=== PATIENT | male | born 1955 | race Hispanic/Latino ===

== ENCOUNTER 2018-04-10 19:13 | Emergency (ER) | payer OTHER ==
[2018-04-10] MEDS ORDERED: PHENYLEPHRINE 0.5% NOSE 15ML NAS ONE (20:51)
--- NOTE | 2018-04-10 22:05 | ER ---
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 Patient aj reports bleeding stopped but then began again when patient blew his nose. Transition of care: patient was not received from another setting of care. Onset of symptoms was April 10, 2018. Risk Assessment: Do you want to hurt yourself or someone else? Patient reports no desire to harm self or others. Initial Sepsis Screen: Does the patient meet any 2 criteria? No. Patient's initial sepsis screen is negative. Does the patient have a suspected source of infection? No. Patient's initial sepsis screen is negative. Care prior to arrival: None. 19:23 Method Of Arrival: Ambulatory 19:23 Acuity: CHLOÉ 2 aj Triage Assessment: 19:26 General: Appears in no apparent distress. comfortable, Behavior is calm, cooperative, aj appropriate for age. Pain: Denies pain. EENT: Nares with bleeding noted Reports nasal discharge that is bloody. Neuro: Level of Consciousness is awake, alert, obeys commands, Oriented to person, place, time, situation, Appropriate for age. Respiratory: Airway is patent Respiratory effort is even, unlabored, Respiratory pattern is regular, symmetrical. Derm: Skin is intact, is healthy with good turgor, Skin is pink, warm \T\ dry. normal. Historical: - Allergies: 19:26 No Known Allergies; aj - Home Meds: 19:26 metformin 500 mg oral tab [Active]; empagliflozin oral oral 1 tab [Active]; aspirin 81 aj mg Oral TbEC 1 tab once daily [Active]; atorvastatin 80 mg oral tab [Active]; clopidogrel 75 mg oral tab 1 tab once daily [Active]; furosemide 40 mg Oral tab 1 tab once daily [Active]; isosorbide mononitrate 30 mg Oral Tb24 1 tab once daily [Active]; potassium chloride 20 mEq Oral TbER 1 tab 2 times per day [Active]; - PMHx: 19:26 GERD; High Cholesterol; WA X 2; aj - PSHx: 19:26 CABG; aj - Immunization history:: Adult Immunizations up to date. - Social history:: Smoking status: Patient/guardian denies using tobacco. - Ebola Screening: : Patient negative for fever greater than or equal to 101.5 degrees Fahrenheit, and additional compatible Ebola Virus Disease symptoms Patient denies exposure to infectious person Patient denies travel to an Ebola-affected area in the 21 days before illness onset No symptoms or risks identified at this time. Screenin:30 Abuse screen: Denies threats or abuse. Nutritional screening: No deficits noted. jb4 Tuberculosis screening: No symptoms or risk factors identified. Fall Risk None identified. Assessment: 20:30 General: Appears in no apparent distress. comfortable, Behavior is calm, cooperative, jb4 appropriate for age. Pain: Denies pain. Neuro: Level of Consciousness is awake, alert, obeys commands, Oriented to person, place, time, situation. Cardiovascular: Denies chest pain, shortness of breath, Patient's skin is warm and dry. Respiratory: Denies shortness of breath labored breathing. GI: No signs and/or symptoms were reported involving the gastrointestinal system. : No signs and/or symptoms were reported regarding the genitourinary system. EENT: No signs and/or symptoms were reported regarding the EENT system. Derm: Skin is intact, Skin is pink, warm \T\ dry. Musculoskeletal: Circulation, motion, and sensation intact. 21:30 Reassessment: Patient appears in no apparent distress at this time. Patient and/or jb4 family updated on plan of care and expected duration. Pain level reassessed. Patient is alert, oriented x 3, equal unlabored respirations, skin warm/dry/pink. 22:20 Reassessment: Patient appears in no apparent distress at this time. Patient and/or jb4 family updated on plan of care and expected duration. Pain level reassessed. Patient is alert, oriented x 3, equal unlabored respirations, skin warm/dry/pink. Discussed D/c, F/u with pt, denies questions or concerns. Vital Signs: 19:26 BP 129 / 73; Pulse 88; Resp 20; Temp 98.1; Pulse Ox 97% on R/A; Weight 107.05 kg; aj Height 5 ft. 4 in. (162.56 cm); 20:30 BP 126 / 64; Pulse 86; Resp 18; Pulse Ox 98% on R/A; jb4 22:15 BP 131 / 84; Pulse 80; Resp 18; Pulse Ox 97% on R/A; jb4 19:26 Body Mass Index 40.51 (107.05 kg, 162.56 cm) ED Course: 19:14 Patient arrived in ED. mr 19:14 HI, [facility] is Private Physician. mr 19:24 Triage completed. aj 19:26 Arm band placed on right wrist. Patient placed in waiting room. aj 20:15 Devin Fritz, RN is Primary Nurse. jb4 20:30 Eric Tejeda MD is Attending Physician. 20:30 Patient has correct armband on for positive identification. Bed in low position. Call jb4 light in reach. Side rails up X 1. Pulse ox on. NIBP on. 22:20 No provider procedures requiring assistance completed. Patient did not have IV access jb4 during this emergency room visit. Administered Medications: No medications were administered Outcome: 22:04 Discharge ordered by . 22:20 Discharged to home ambulatory. jb4 22:20 Condition: stable 22:20 Discharge instructions given to patient, Instructed on discharge instructions, follow up and referral plans. Demonstrated understanding of instructions, follow-up care. 22:42 Patient left the ED. jb4 Signatures: Yelena Cohn RN RN aj Rivera, Mary mr Devin Fritz, RN Eric Boothe MD MD
--- NOTE | 2018-04-10 22:05 | EDPHYS ---
Physician Documentation [facility] Name: Bowen Laureano Age: 62 yrs Sex: Male : 1955 Arrival Date: 04/10/2018 Time: 19:14 Bed 15 Private MD: JADE, CT ED Physician Eric Tejeda HPI: 04/10 22:01 This 62 yrs old Male presents to ER via Ambulatory with complaints of Nose gs Bleed. 22:01 The patient presents with a nose bleed. Onset: The symptoms/episode began/occurred gs today. Modifying factors: The symptoms are alleviated by nothing. the symptoms are aggravated by nothing. Associated signs and symptoms: Loss of consciousness: the patient experienced no loss of consciousness, Pertinent negatives: blurred vision, chest pain, cough, shortness of breath. Severity of symptoms: At their worst the symptoms were moderate in the emergency department the symptoms are unchanged. The patient has experienced similar episodes in the past, a few times. Historical: - Allergies: 19:26 No Known Allergies; aj - Home Meds: 19:26 metformin 500 mg oral tab [Active]; empagliflozin oral oral 1 tab [Active]; aspirin 81 aj mg Oral TbEC 1 tab once daily [Active]; atorvastatin 80 mg oral tab [Active]; clopidogrel 75 mg oral tab 1 tab once daily [Active]; furosemide 40 mg Oral tab 1 tab once daily [Active]; isosorbide mononitrate 30 mg Oral Tb24 1 tab once daily [Active]; potassium chloride 20 mEq Oral TbER 1 tab 2 times per day [Active]; - PMHx: 19:26 GERD; High Cholesterol; ID X 2; aj - PSHx: 19:26 CABG; aj - Immunization history:: Adult Immunizations up to date. - Social history:: Smoking status: Patient/guardian denies using tobacco. - Ebola Screening: : Patient negative for fever greater than or equal to 101.5 degrees Fahrenheit, and additional compatible Ebola Virus Disease symptoms Patient denies exposure to infectious person Patient denies travel to an Ebola-affected area in the 21 days before illness onset No symptoms or risks identified at this time. ROS: 22:01 All other systems are negative. gs Exam: 22:01 Cardiovascular: Regular rate and rhythm with a normal S1 and S2. No gallops, murmurs, gs or rubs. Normal PMI, no JVD. No pulse deficits. Respiratory: Lungs have equal breath sounds bilaterally, clear to auscultation and percussion. No rales, rhonchi or wheezes noted. No increased work of breathing, no retractions or nasal flaring. Abdomen/GI: Soft, non-tender, with normal bowel sounds. No distension or tympany. No guarding or rebound. No evidence of tenderness throughout. Skin: Warm, dry with normal turgor. Normal color with no rashes, no lesions, and no evidence of cellulitis. MS/ Extremity: Pulses equal, no cyanosis. Neurovascular intact. Full, normal range of motion. Neuro: Awake and alert, GCS 15, oriented to person, place, time, and situation. Cranial nerves II-XII grossly intact. Motor strength 5/5 in all extremities. Sensory grossly intact. Cerebellar exam normal. Normal gait. 22:01 Constitutional: The patient appears alert, awake. 22:01 ENT: Nose: bleeding, is seen from the right nare, and is moderate. Vital Signs: 19:26 BP 129 / 73; Pulse 88; Resp 20; Temp 98.1; Pulse Ox 97% on R/A; Weight 107.05 kg; aj Height 5 ft. 4 in. (162.56 cm); 20:30 BP 126 / 64; Pulse 86; Resp 18; Pulse Ox 98% on R/A; jb4 22:15 BP 131 / 84; Pulse 80; Resp 18; Pulse Ox 97% on R/A; jb4 19:26 Body Mass Index 40.51 (107.05 kg, 162.56 cm) Procedures: 22:01 Epistaxis treatment: A moderate amount of bleeding noted from Treated using Oxymetazoline sprays, direct pressure, Bleeding stopped. MDM: 20:39 Patient medically screened. 22:01 Data reviewed: vital signs, nurses notes. Counseling: I had a detailed discussion with the patient and/or guardian regarding: the historical points, exam findings, and any diagnostic results supporting the discharge/admit diagnosis. Administered Medications: No medications were administered Disposition: 04/10/18 22:04 Discharged to Home. Impression: Epistaxis. - Condition is Stable. - Discharge Instructions: Nosebleed, Adult. - Medication Reconciliation Form, Thank You Letter, Antibiotic Education, Prescription Opioid Use form. - Follow up: Private Physician; When: 2 - 3 days; Reason: Re-evaluation by your physician. Signatures: Yelena Cohn RN RN aj Devin Fritz RN RN jb4 Eric Tejeda MD MD gs Corrections: (The following items were deleted from the chart) 22:42 22:04 04/10/2018 22:04 Discharged to Home. Impression: Epistaxis. Condition is Stable. jb4 Forms are Medication Reconciliation Form, Thank You Letter, Antibiotic Education, Prescription Opioid Use. Follow up: Private Physician; When: 2 - 3 days; Reason: Re-evaluation by your physician. gs
== END 2018-04-10 22:42 | disposition home or self-care (01) ==
LOC: ER 19:13
DX: R04.0 Epistaxis (principal); E78.00 Pure hypercholesterolemia, unspecified; I25.2 Old myocardial infarction; Z79.82 Long term (current) use of aspirin
CPT/HCPCS: 30901; 99283

== ENCOUNTER 2019-12-16 10:06 | Observation (INO) | payer OTHER ==
[2019-12-16] MEDS ORDERED: dexAMETHasone 10 MG/ML VIAL ONE (11:59)
[2019-12-16 12:33] LABS: Absolute Lymphocytes (CBC) 0.8 K/uL (0.7-4.9); Basophils % 0.2 % (0-1.3); Hematocrit 52.3 % (39.6-49.0); Lymphocytes % 15.6 % (15.3-44.8); MPV 10.6 fL (7.6-11.3); RBC Red Blood Cell Count 5.84 M/uL (4.33-5.43)
[2019-12-16 12:41] LABS: Protime INR 1.05
--- NOTE | 2019-12-16 12:47 | RAD REPORT ---
EXAM DESCRIPTION: RAD - Chest Single View - 12/16/2019 12:01 pm CLINICAL HISTORY: DYSPNEACOVID positive, shortness of breath COMPARISON: Portable September 2015 TECHNIQUE: AP portable chest image was obtained 12/16/2019 12:01 pm . FINDINGS: Lungs are underinflated. Hazy opacification present in the mid and lower left lung field n ew from prior imaging. Minimal opacification in the medial right base. Much of this is due to shallow inspiration. Failure and volume overload are not suspected. Sternotomy wires are in place. Heart siz e within normal limits for shallow inspiration. No measurable pleural effusion and no pneumothorax. N o acute bony abnormality seen. No acute aortic findings suspected. IMPRESSION: Limited shallow inspiration examination showing hazy opacification in the mid and lower left lung field and medial right base. Given the positive COVID test, chest findings are consistent with a COVID-19 pneumonia.
--- OUTSIDE RECORDS SUMMARY | 2019-12-16 12:47 | XMS REPORT | Summary of Care ---
:1955 Author Organization [facility] - Health Address [address] [place] [address] Care Team Providers Name Role Phone Pcp, Patient Does Not Have A Primary Care Provider +[id number] Encounter Details Date Type Department Care Team Description 12/14/2019 Letter (Out) [facility] MyChart Message s Doctor Unassigned, No [address] [facility] [place] [address] [address] [facility] [phone] [place] [address] Allergies Not on Filedocumented as of this encounter (statuses as of 12/14/2019) Medications Not on filedocumented as of this encounter (statuses as of 12/14/2019) Active Problems Not on filedocumented as of this encounter (statuses as of 12/14/2019) Social History Tobacco Use Types Packs/Day Years Used Date Never Assessed Sex Assigned at Date Recorded Not on file Job Start Date Occupation Industry Not on file Not on file Not on file Travel History Travel Start Travel End No recent travel history available. documented as of this encounter Last Filed Vital Signs Not on filedocumented in this encounter Plan of Treatment Date Type Specialty Care Team Description 12/14/2019 Urgent Care Family Medicine Ольга Leonardo, [place] [address] [address] Arrived Pob1, Acute Care Clinic Health Maintenance Due Date Last Done Comments HEPATITIS C (HCV) SCREEN 1955 DTaP,Tdap,and Td Vaccines (1 - 1965 Tdap) Depression Screening 1966 COLONOSCOPY 2004 Zoster Recombinant Vaccine 2004 (SHINGRIX) (1 of 2) INFLUENZA VACCINE (#1) 2020 PNEUMOCOCCAL 0-64 YEARS COMBINED Aged Out No longer eligible based on SERIES patient's age to complete this topic documented as of this encounter Results Not on filedocumented in this encounter Insurance Payer Benefit Plan / Subscriber ID Effective Phone Address T e Group Dates [employer] [id number] Effective for HMO/P PO/ ADMINISTRATION ADMINISTRATION all dates POS documented as of this encounter
--- OUTSIDE RECORDS SUMMARY | 2019-12-16 12:47 | XMS REPORT | Continuity of Care Document ---
:1955 Author Organization [facility] t Address 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 Allergies, Adverse Reactions, Alerts This patient has no known allergies or adverse reactions. Medications This patient has no known medications. Procedures This patient has no known procedures. Encounters Start End Encounter Admission Attending Care Care Encounter Source Date/Time Date/Time Type Type Clinicians Facility Department ID 2019-12-15 2019-12-15 Telephone RENARD Cyr [id number] 00:00:00 00:00:00 Anay COLLAZO [id number] [place] [id number] 2019-12-14 2019-12-14 Urgent Pob1, Acute [facility] [id number] 13:50:36 14:10:36 [facility] [id number] [place] [id number] [place] [phone] [address] 2019-12-14 2019-12-14 Letter Doctor RENARD [id number] 00:00:00 00:00:00 (Out) ZAY Sanchez [id number] [place] [id number] Results This patient has no known results.
--- OUTSIDE RECORDS SUMMARY | 2019-12-16 12:48 | XMS REPORT | Summary of Care ---
:1955 Author Organization [facility] - [facility] Address [address] [place] [id number] Care Team Providers Name Role Phone Pcp, Patient Does Not Have A Primary Care Provider +[id number] 0-0000 Reason for Visit Reason Comments Diarrhea Body Aches Encounter Details Date Type Department Care Team Description 12/14/2019 Urgent Care [facility] Phuc Leonardo FNP [facility] [id number] [place] [id number] Diarrhea, unspecified type (Primary Dx); [facility], Acute Care Clinic Body aches; [address] [place] [address] Exposure t o Covid[place] [place] [address] Allergies No Known Allergiesdocumented as of this encounter (statuses as of 12/14/2019) Medications Medication Sig Dispensed Refills Start Date End Date Status aspirin 81 mg EC CHEW ONE TABLET BY 0 Active tablet MOUTH DAILY atorvastatin 80 mg TAKE ONE TABLET BY 0 Active tablet MOUTH DAILY FOR CHOLESTEROL clopidogreL 75 mg TAKE ONE TABLET BY 0 Active tablet MOUTH DAILY TO PREVENT BLOOD CLOTS Cyanocobalamin 1,000 TAKE ONE TABLET BY 0 Active mcg tablet MOUTH DAILY FOR ANEMIA empagliflozin 25 mg TAKE ONE-HALF 0 Active Tab TABLET BY MOUTH DAILY docosahexanoic TAKE 800MG BY 0 A ctive acid/epa (FISH OIL MOUTH DAILY ORAL) GARLIC ORAL TAKE ONE TABLET BY 0 Active MOUTH DAILY glipiZIDE 10 mg tablet TAKE ONE TABLET BY 0 Active MOUTH TWICE A DAY FOR DIABETES 30 MINUTES BEFORE THE FIRST MEAL OF THE DAY AND BEFORE ANOTHER MAIN MEAL isosorbide dinitrate TAKE ONE TABLET BY 0 Active 30 mg tablet MOUTH DAILY TO PREVENT CHEST PAIN. *DO NOT CRUSH* latanoprost 0.005 % INSTILL 1 DROP IN 0 Active ophthalmic drops BOTH EYES EVERY EVENING lisinopril 10 mg TAKE ONE TABLET BY 0 Active tablet MOUTH DAILY FOR HEART/ BLOOD PRESSURE metFORMIN 500 mg TAKE TWO TABLETS 0 Active tablet BY MOUTH TWICE A DAY FOR DIABETES *DO NOT CRUSH* metoprolol succinate TAKE ONE-HALF 0 Active 100 mg CSpX TABLET BY MOUTH TWICE A DAY FOR HEART/BLOOD PRESSURE. *DO NOT CRUSH* multivit with TAKE BY MOUTH 0 A ctive iron,minerals DAILY (MULTIVITAMIN AND MINERALS ORAL) documented as of this encounter (statuses as of 12/14/2019) Active Problems No known active problemsdocumented as of this encounter (statuses as of 12/14/2019) Social History Tobacco Use Types Packs/Day Years Used Date Never Smoker Smokeless Tobacco: Never Used Sex Assigned at Date Recorded Not on file Job Start Date Occupation Industry Not on file Not on file Not on file Travel History Travel Start Travel End No recent travel history available. documented as of this encounter Last Filed Vital Signs Vital Sign Reading Time Taken Comments Blood Pressure 98/62 12/14/2019 2:03 PM CDT Pulse 88 12/14/2019 2:03 PM CDT Temperature 37.7 C (99.9 F) 12/14/2019 2:03 PM CDT Respiratory Rate 16 12/14/2019 2:03 PM CDT Oxygen Saturation 96% 12/14/2019 2:03 PM CDT Inhaled Oxygen Concentration - - Weight 89.4 kg (197 lb) 12/14/2019 2:03 PM CDT Height 162.6 cm (5' 4") 12/14/2019 2:03 PM CDT Body Mass Index 33.81 12/14/2019 2:03 PM CDT documented in this encounter Patient Instructions Patient InstructionsAnay Cyr FNP - 12/14/2019 2:00 PM CDT 1. Diarrhea, unspecified type 2. Body aches 3. Exposure to Covid-19 Virus - COVID-19 (PCR MOLECULAR TESTING); Future - COVID-19 (PCR MOLECULAR TESTING) - Quarantine until your COVID results are back Criteria met - Covid testing - pending. This test can take 2-3 days to be resulted. While the test is pending...Please socially isolate your self - do not go out to stores or out in public. We will contact you once we have the results. If you are negative - continue with symptomatic treatment. (see below) Patients who have positive results will be contacted by the health department to enforce quarantine measures and for additional community contact tracing. The Infection Control Department will also undertake evaluation of exposures in our healthcare facility. If symptoms worsen - please call your Primary Care Doctor - do not go into the clinic. Call first. Educated on the following at home care: - Discussed likely viral diagnosis and treatment plan with pt. - pt advised on frequent effective handwashing - pt advised to increase fluid intake , stay hydrated and get plenty of rest. - advised to have the pt take OTC to treat symptoms. - Pt advised to administer Tylenol as per label recommendation as needed for pain or fever - Cover mouth when coughing, wear mask - Stay in your own bedroom and use a separate bathroom - Keep at least 6 feet from you and others - Avoid sharing personal household items, dishes, glasses, cups, towels -Clean high traffic/touch areas daily. These include but not limited to: doorknobs, refrigerator/cabinet handles, phones, keyboards, tablets, light switches. - AVS and Written/handout materials appropriate to problem and teaching provided. - advised to go to the nearest Emergency Department sooner for any new, worsening, persistent, or concerning symptoms - Patient verbalized understanding of all instructions - Follow-up with PCP as needed, if no improvement EDUCATION: Handouts given: Patient educated on plan of care for visit, swabbing technique,risks and benefits of test and lengthof time to receive results. Verbal consent obtained to perform test. CDC Fact Sheet for patients nCoV Diagnostic Panel dated 08/10/2019 provided. "What to do if you are sick with COVID-19" CDC information guide reviewed with the patient and handout given to patient Education given to self quarantine until results are back. Will notify patient with results. Patient states understanding and all questions answered. Plan of care, goals and medications discussed with patient. Patient voices understanding. Barriers to care: none Ability to manage care: good FOLLOW UP: Pt advised to call 911 or go to the nearest Emergency Department sooner for any worsening, persistent, or concerning symptoms ER precautions given Plan of care, desired health behaviors, goals, and medication discussed with patient. Education resources provided and reviewed with AVS. Patient/guardian/family verbalized understanding & agrees to plan of care. If applicable, the [facility] database was accessed to review any controlled substance prescription claims data. The [employer] prescription claims data in [place] was reviewed to assess patient compliance with the medication treatment plan. Urgent Care precautions and follow up : 1. Return to clinic if your symptoms should worsen or fail to improve within 72 hours. 2. The care provided in the urgent care was for acute problems only. 3. You should follow up with your primary care provider within 72 hours. 4. Make sure you are staying adequately hydrated. MAY FOLLOW-UP WITH A PROVIDER OF YOUR CHOICE, SUCH : 1. A PHYSICIAN OF YOUR CHOICE OR, IF YOU WISH TO FOLLOW-UP WITHIN THE [facility], MAY TRY THESE OPTIONS (CLINIC APPOINTMENTS AVAILABLE ON OGQV-LY-CLAU BASIS): 1. SCHEDULE AN APPOINTMENT ONLINE AT WWW.[facility] 2. OR CALL THE [facility] ACCESS CENTER AT OR 3. OR CALL YOUR [facility] PHYSICIAN'S OFFICE DIRECTLY IF YOU ARE ALREADY AN ESTABLISHED [facility] PATIENT. After hours care nurse access center available by calling [phone] 24 hours 7 days per week. [facility] documented in this encounter Progress Notes Anay Cyr FNP - 12/14/2019 2:00 PM CDT Cc: Chief Complaint Patient presents with Diarrhea Body Aches Bowen Laureano is a 63 year old male presents with concern for body aches and diarrhea. He started about 2 days ago with body aches and diarrhea. Diarrhea improving. He's taking zinc, vitamin c and Tylenol. Denies any fever, chills or sob. Eating/drinking okay. Positive covid contacts. URI Presenting symptoms: congestion, cough, fatigue and rhinorrhea Presenting symptoms: no ear pain, no facial pain, no fever and no sore throat Congestion: Location: Nasal Interferes with sleep: no Interferes with eating/drinking: no Fatigue: Severity: Mild Duration: 2 days Timing: Intermittent Progression: Unchanged Severity: Mild Onset quality: Gradual Duration: 2 days Timing: Intermittent Progression: Unchanged Chronicity: New Relieved by: None tried Worsened by: Nothing Ineffective treatments: None tried Associated symptoms: myalgias and sneezing Associated symptoms: no arthralgias, no headaches, no neck pain, no sinus pain, no swollen glands and no wheezing Risk factors: being elderly, chronic cardiac disease, diabetes mellitus and sick contacts Risk factors: no immunosuppression, no recent illness and no recent travel Allergies Bowen has No Known Allergies. Medications Outpatient Medications Prior to Visit Medication Sig Dispense Refill aspirin 81 mg EC tablet CHEW ONE TABLET BY MOUTH DAILY atorvastatin 80 mg tablet TAKE ONE TABLET BY MOUTH DAILY FOR CHOLESTEROL clopidogreL 75 mg tablet TAKE ONE TABLET BY MOUTH DAILY TO PREVENT BLOOD CLOTS Cyanocobalamin 1,000 mcg tablet TAKE ONE TABLET BY MOUTH DAILY FOR ANEMIA docosahexanoic acid/epa (FISH OIL ORAL) TAKE 800MG BY MOUTH DAILY empagliflozin 25 mg Tab TAKE ONE-HALF TABLET BY MOUTH DAILY GARLIC ORAL TAKE ONE TABLET BY MOUTH DAILY glipiZIDE 10 mg tablet TAKE ONE TABLET BY MOUTH TWICE A DAY FOR DIABETES 30 MINUTES BEFORE THE FIRST MEAL OF THE DAY AND BEFORE ANOTHER MAIN MEAL isosorbide dinitrate 30 mg tablet TAKE ONE TABLET BY MOUTH DAILY TO PREVENT CHEST PAIN. *DO NOT CRUSH* latanoprost 0.005 % ophthalmic drops INSTILL 1 DROP IN BOTH EYES EVERY EVENING lisinopril 10 mg tablet TAKE ONE TABLET BY MOUTH DAILY FOR HEART/ BLOOD PRESSURE metFORMIN 500 mg tablet TAKE TWO TABLETS BY MOUTH TWICE A DAY FOR DIABETES *DO NOT CRUSH* metoprolol succinate 100 mg CSpX TAKE ONE-HALF TABLET BY MOUTH TWICE A DAY FOR HEART/BLOOD PRESSURE. *DO NOT CRUSH* multivit with iron,minerals (MULTIVITAMIN AND MINERALS ORAL) TAKE BY MOUTH DAILY No facility-administered medications prior to visit. Histories Past Medical History: Diagnosis Date Diabetes mellitus Hyperlipidemia Hypertension No past surgical history on file. Social History Socioeconomic History Marital status: Single Spouse name: Not on file Number of children: Not on file Years of education: Not on file Highest education level: Not on file Occupational History Not on file Social Needs Financial resource strain: Not on file Food insecurity: Worry: Not on file Inability: Not on file Transportation needs: Medical: Not on file Non-medical: Not on file Tobacco Use Smoking status: Never Smoker Smokeless tobacco: Never Used Substance and Sexual Activity Alcohol use: Not on file Drug use: Not on file Sexual activity: Not on file Lifestyle Physical activity: Days per week: Not on file Minutes per session: Not on file Stress: Not on file Relationships Social connections: Talks on phone: Not on file Gets together: Not on file Attends gnosticist service: Not on file Active member of club or organization: Not on file Attends meetings of clubs or organizations: Not on file Relationship status: Not on file Intimate partner violence: Fear of current or ex partner: Not on file Emotionally abused: Not on file Physically abused: Not on file Forced sexual activity: Not on file Other Topics Concern Not on file Social History Narrative Not on file No family history on file. Review of Systems Constitutional: Positive for activity change, appetite change and fatigue. Negative for fever. HENT: Positive for congestion, rhinorrhea and sneezing. Negative for ear pain, sinus pain and sore throat. Respiratory: Positive for cough. Negative for shortness of breath, wheezing and stridor. Gastrointestinal: Positive for diarrhea. Negative for nausea and vomiting. Musculoskeletal: Positive for myalgias. Negative for arthralgias and neck pain. Skin: Negative for rash. Neurological: Negative for dizziness, weakness and headaches. All other systems reviewed and are negative. Vital Signs BP 98/62 (BP Location: Left arm, Patient Position: Sitting, BP CUFF SIZE: Adult Medium) | Pulse 88| Temp 37.7 C (99.9 F) (Oral) | Resp 16 | Ht 5' 4" (1.626 m) | Wt 197 lb (89.4 kg) | SpO2 96% | BMI 33.81 kg/m Physical Exam Constitutional: He is oriented to person, place, and time. He appears well- developed and well-nourished. HENT: Head: Normocephalic and atraumatic. Right Ear: Tympanic membrane, external ear and ear canal normal. Left Ear: Tympanic membrane, external ear and ear canal normal. Nose: Mucosal edema present. No sinus tenderness. Mouth/Throat: Uvula is midline, oropharynx is clear and moist and mucous membranes are normal. Tonsils are 1+ on the right. Tonsils are 1+ on the left. Eyes: Conjunctivae are normal. Neck: Normal range of motion. Neck supple. Cardiovascular: Normal rate, regular rhythm and normal heart sounds. Exam reveals no gallop and no friction rub. No murmur heard. Pulmonary/Chest: Effort normal and breath sounds normal. No respiratory distress. He has no wheezes.He has no rales. Abdominal: Soft. Normal appearance and bowel sounds are normal. He exhibits no distension. There is no tenderness. There is no rigidity, no rebound, no guarding and no CVA tenderness. Musculoskeletal: Normal range of motion. Neurological: He is alert and oriented to person, place, and time. Skin: Skin is warm and dry. Psychiatric: He has a normal mood and affect. His behavior is normal. Nursing note and vitals reviewed. Assessment/Plan Bowen Laureano is a 63 year old male presents with concern for body aches and diarrhea. 1. Diarrhea, unspecified type 2. Body aches 3. Exposure to Covid-19 Virus - COVID-19 (PCR MOLECULAR TESTING); Future - COVID-19 (PCR MOLECULAR TESTING) - Quarantine until your COVID results are back Criteria met - Covid testing - pending. This test can take 2-3 days to be resulted. While the test is pending...Please socially isolate your self - do not go out to stores or out in public. We will contact you once we have the results. If you are negative - continue with symptomatic treatment. (see below) Patients who have positive results will be contacted by the health department to enforce quarantine measures and for additional community contact tracing. The Infection Control Department will also undertake evaluation of exposures in our healthcare facility. If symptoms worsen - please call your Primary Care Doctor - do not go into the clinic. Call first. Educated on the following at home care: - Discussed likely viral diagnosis and treatment plan with pt. - pt advised on frequent effective handwashing - pt advised to increase fluid intake , stay hydrated and get plenty of rest. - advised to have the pt take OTC to treat symptoms. - Pt advised to administer Tylenol as per label recommendation as needed for pain or fever - Cover mouth when coughing, wear mask - Stay in your own bedroom and use a separate bathroom - Keep at least 6 feet from you and others - Avoid sharing personal household items, dishes, glasses, cups, towels -Clean high traffic/touch areas daily. These include but not limited to: doorknobs, refrigerator/cabinet handles, phones, keyboards, tablets, light switches. - AVS and Written/handout materials appropriate to problem and teaching provided. - advised to go to the nearest Emergency Department sooner for any new, worsening, persistent, or concerning symptoms - Patient verbalized understanding of all instructions - Follow-up with PCP as needed, if no improvement EDUCATION: Handouts given: Patient educated on plan of care for visit, swabbing technique,risks and benefits of test and lengthof time to receive results. Verbal consent obtained to perform test. CDC Fact Sheet for patients nCoV Diagnostic Panel dated 08/10/2019 provided. "What to do if you are sick with COVID-19" CDC information guide reviewed with the patient and handout given to patient Education given to self quarantine until results are back. Will notify patient with results. Patient states understanding and all questions answered. Plan of care, goals and medications discussed with patient. Patient voices understanding. Barriers to care: none Ability to manage care: good FOLLOW UP: Pt advised to call 911 or go to the nearest Emergency Department sooner for any worsening, persistent, or concerning symptoms ER precautions given Plan of care, desired health behaviors, goals, and medication discussed with patient. Education resources provided and reviewed with AVS. Patient/guardian/family verbalized understanding & agrees to plan of care. If applicable, the [place] [employer] database was accessed to review any controlled substance prescription claims data. The [employer] prescription claims data in [place] was reviewed to assess patient compliance with the medication treatment plan. Urgent Care precautions and follow up : 1. Return to clinic if your symptoms should worsen or fail to improve within 72 hours. 2. The care provided in the urgent care was for acute problems only. 3. You should follow up with your primary care provider within 72 hours. 4. Make sure you are staying adequately hydrated. MAY FOLLOW-UP WITH A PROVIDER OF YOUR CHOICE, SUCH : 1. A PHYSICIAN OF YOUR CHOICE OR, IF YOU WISH TO FOLLOW-UP WITHIN THE [facility], MAY TRY THESE OPTIONS (CLINIC APPOINTMENTS AVAILABLE ON [id number]-BOGB BASIS): 1. SCHEDULE AN APPOINTMENT ONLINE AT WWW.[facility] 2. OR CALL THE [facility] ACCESS CENTER AT OR 3. OR CALL YOUR [facility] PHYSICIAN'S OFFICE DIRECTLY IF YOU ARE ALREADY AN ESTABLISHED [facility] PATIENT. After hours care nurse access center available by calling [phone] 24 hours 7 days per week. [facility]ME[facility] documented in this encounter Plan of Treatment Name Type Priority Associated Diagnoses Order S chedule COVID-19 (PCR MOLECULAR LAB Routine Exposure to Covid -19 Expected: 12/14/2019, TESTING) Virus Expires: 2020 Health Maintenance Due Date Last Done Comments [...] Results Not on filedocumented in this encounter Visit Diagnoses Diagnosis Diarrhea, unspecified type - Primary Body aches Generalized pain Exposure to Covid-19 Virus documented in this encounter Additional Health Concerns Infection Onset Date Last Indicated Resolved Time COVID-19 Rule Out 12/14/2019 12/14/2019 documented as of this encounter
--- OUTSIDE RECORDS SUMMARY | 2019-12-16 12:48 | XMS REPORT | Summary of Care ---
:1955 Author Organization [facility] Address [address] [place] [address] Care Team Providers Name Role Phone Pcp, Patient Does Not Have A Primary Care Provider +1-000-00 0-0000 Reason for Visit Reason Comments Lab Results covid Encounter Details Date Type Department Care Team Description 12/15/2019 Telephone ACCESS CENTER Anay Cyr FNP Lab Results (covid) [id number] [phone] [address] [place], [place] [address] [phone] Allergies No Known Allergiesdocumented as of this encounter (statuses as of 12/15/2019) Medications Medication Sig Dispensed Refills Start Date [...] as of this encounter (statuses as of 12/15/2019) Active Problems No known active problemsdocumented as of this encounter (statuses as of 12/15/2019) Social History Tobacco Use Types Packs/Day Years [...] filedocumented in this encounter Plan of Treatment Health Maintenance Due Date Last Done Comments HEPATITIS C (HCV) SCREEN 1955 DTaP,Tdap,and Td Vaccines 1965 (1 - Tdap) Depression Screening 1966 COLONOSCOPY 2004 Zoster Recombinant Vaccine 2004 (SHINGRIX) (1 of 2) INFLUENZA VACCINE (#1) 2020 02/27/2019, 03/01/2018, 03/02/2017, Additional history exists PNEUMOCOCCAL 0-64 YEARS Aged Out No longe r eligible COMBINED SERIES based on patient 's age to complete this topic documented as of this encounter Results Not on filedocumented in this encounter Additional Health Concerns Infection Onset Date Last Indicated Resolved Time COVID-19 Rule Out 12/14/2019 12/14/2019 12/15/2019 2: 51 PM CDT COVID-19 Confirmed 12/14/2019 12/14/2019 documented as of this encounter Insurance Payer Benefit Plan / Subscriber ID Effective Phone Address T ype Group Dates [employer] [id number] Effective for HMO/P PO/ ADMINISTRATION ADMINISTRATION all dates POS documented as of this encounter
[2019-12-16 13:04] LABS: Blood Morphology Comment NOT SEEN (NOT SEEN); Platelet Estimate DECR; Platelets, Giant FEW
--- NOTE | 2019-12-16 13:04 | ER ---
[facility] Name: Bowen Laureano Age: 63 yrs Sex: Male : 1955 Arrival Date: 12/16/2019 Time: 10:08 Bed 6 Private MD: Diagnosis: Pneumonia, unspecified organism;Hypoxemia;Dyspnea Presentation: 12/15 10:18 Chief complaint: Patient states: Covid-19 positive. SOB at rest x 4 days, worse today. ca1 Shaking, dry cough. Coronavirus screen: Patient reports a cough. Patient reports shortness of breath or difficulty breathing. Patient denies measured and/or subjective temperature greater than 100.4F prior to today's visit. Patient denies travel on a cruise ship or to a country the [facility] currently lists as an affected area. Patient reports contact with known and/or suspected case of COVID-19. Patient instructed to continue to wear a mask when interacting with others. Patient moved to private room, placed in contact and droplet isolation with eye protection until further assessment. [id number]. Ebola Screen: Patient negative for fever greater than or equal to 101.5 degrees Fahrenheit, and additional compatible Ebola Virus Disease symptoms Patient denies exposure to infectious person. Patient denies travel to an Ebola-affected area in the 21 days before illness onset. No symptoms or risks identified at this time. Initial Sepsis Screen: Does the patient meet any 2 criteria? No. Patient's initial sepsis screen is negative. Does the patient have a suspected source of infection? No. Patient's initial sepsis screen is negative. Risk Assessment: Do you want to hurt yourself or someone else? Patient reports no desire to harm self or others. Onset of symptoms was December 16, 2019. 10:18 Method Of Arrival: Ambulatory ca1 10:18 Acuity: CHLOÉ 3 ca1 Historical: - Allergies: 10:23 No Known Allergies; ca1 - Home Meds: 16:27 aspirin 81 mg Oral TbEC 1 tab once daily [Active]; atorvastatin 80 mg Oral tab jr10 [Active]; clopidogrel 75 mg Oral tab 1 tab once daily [Active]; empagliflozin Oral 1 tab [Active]; furosemide 40 mg Oral tab 1 tab once daily [Active]; isosorbide mononitrate 30 mg Oral Tb24 1 tab once daily [Active]; metformin 500 mg Oral tab [Active]; potassium chloride 20 mEq Oral TbER 1 tab 2 times per day [Active]; - PMHx: 10:23 GERD; High Cholesterol; [place] X 2; ca1 16:27 Diabetes - NIDDM; jr10 - PSHx: 10:23 CABG; ca1 - Immunization history:: Adult Immunizations up to date. - Social history:: Smoking status: Patient denies any tobacco usage or history of. - Family history:: not pertinent. - Hospitalizations: : No recent hospitalization is reported. Screenin:00 Abuse screen: Denies threats or abuse. Denies injuries from another. Nutritional jr10 screening: No deficits noted. Tuberculosis screening: No symptoms or risk factors identified. Fall Risk IV access (20 points). Ambulatory Aid- None/Bed Rest/Nurse Assist (0 pts). Gait- Normal/Bed Rest/Wheelchair (0 pts) Mental Status- Oriented to own ability (0 pts). Assessment: 12:00 General: Appears uncomfortable, Behavior is appropriate for age. Pain: Denies pain. jr10 Neuro: No deficits noted. Cardiovascular: Denies chest pain, nausea, shortness of breath, vomiting, Rhythm is sinus tachycardia. Respiratory: Airway is patent Respiratory effort is even, labored, Respiratory pattern is symmetrical, tachypnea Breath sounds are clear bilaterally. the patient has moderate shortness of breath Denies cough, shortness of breath pain with respiration, pain with cough. GI: Reports diarrhea, Patient currently denies intolerance of fluids, intolerance of food, nausea, vomiting. : No deficits noted. EENT: No deficits noted. Derm: No deficits noted. Musculoskeletal: No deficits noted. Vital Signs: 10:18 BP 100 / 85; Pulse 103; Resp 20 S; Temp 97.8(TE); Pulse Ox 96% on R/A; Weight 89.36 kg ca1 (R); Height 5 ft. 4 in. (162.56 cm) (R); 13:00 BP 118 / 52; Pulse 103; Resp 29; Pulse Ox 92% on R/A; jr10 13:00 BP 115 / 74; Pulse 104; Resp 26; Temp 102.2(O); Pulse Ox 92% ; jr10 14:30 BP 113 / 70; Pulse 108; Resp 28; Pulse Ox 94% on R/A; jr10 14:39 BP 96 / 58; Pulse 102; Resp 20; Temp 100.0(O); Pulse Ox 93% on R/A; jr10 15:00 BP 86 / 58; Pulse 99; Resp 25; Pulse Ox 94% on R/A; jr10 15:30 BP 130 / 97; Pulse 99; Resp 25; Pulse Ox 94% on R/A; jr10 15:30 Temp 98.8(O); jr10 16:16 BP 106 / 70; Pulse 88; Resp 26; Pulse Ox 92% on R/A; jr10 17:26 BP 105 / 65; Pulse 84; Resp 23; Pulse Ox 92% ; jr10 18:10 BP 98 / 78; Pulse 82; Resp 25; Pulse Ox 95% on R/A; jr10 10:18 Body Mass Index 33.81 (89.36 kg, 162.56 cm) ca1 ED Course: 10:08 Patient arrived in ED. ag5 10:22 Triage completed. ca1 10:23 Arm band placed on right wrist. ca1 11:26 Shay Childs MD is Attending Physician. rn 11:28 Diana Otero is Primary Nurse. jr10 12:00 Patient has correct armband on for positive identification. Placed in gown. Bed in low jr10 position. Call light in reach. Side rails up X2. lithographers printer on. Pulse ox on. NIBP on. 12:00 Inserted saline lock: 20 gauge in right hand, using aseptic technique. IV Flushed. jr10 12:02 CXR XRAY In Process Unspecified. EDMS 13:03 Fred Shane MD is Hospitalizing Provider. rn 17:27 Patient admitted, IV remains in place. intact, No redness/swelling at site. jr10 Administered Medications: 12:40 Drug: Decadron - Dexamethasone 10 mg Route: IVP; Site: right hand; jr10 17:29 Follow up: Response: No adverse reaction jr10 14:01 Drug: Tylenol 1000 mg Route: PO; jr10 17:29 Follow up: Response: No adverse reaction; Temperature is decreased jr10 Outcome: 13:03 Decision to Hospitalize by Provider. rn 17:26 Admitted to ICU via stretcher, with chart, Report called to JEANIE Ruiz jr10 17:26 Condition: good 17:26 Instructed on the need for admit, Demonstrated understanding of instructions. 18:36 Patient left the ED. jr10 Signatures: Dispatcher [employer] EDMS Shay Childs MD MD rn Honey Bustamante RN RN Denice Cruz 5 Diana Otero RN RN jr10 Corrections: (The following items were deleted from the chart) 16:24 14:39 BP 96 / 58; Pulse 102bpm; Resp 30bpm; Pulse Ox 93% RA; Temp 100.0F Oral; jr10 jr10
--- NOTE | 2019-12-16 13:04 | EDPHYS ---
Physician Documentation [facility] Name: Bowen Laureano Age: 63 yrs Sex: Male : 1955 Arrival Date: 12/16/2019 Time: 10:08 Bed 6 Private MD: ED Physician Shay Childs HPI: 12/15 11:44 This 63 yrs old Male presents to ER via Ambulatory with complaints of rn Shortness Of Breath, COVID+. 11:44 The patient has shortness of breath at rest, with light activity. Onset: The rn symptoms/episode began/occurred 5 day(s) ago. Duration: The symptoms are continuous. The patient's shortness of breath is aggravated by exertion, light activity, talking, walking. Severity of symptoms: At their worst the symptoms were moderate in the emergency department the symptoms are unchanged. The patient has not experienced similar symptoms in the past. Reports sob and generalized weakness for a few days, tested positive for COVID-19 2 days ago, reports increased sob and dyspnea on exertion. Also, no appetite, No focal abd pain. + non-bloody diarrhea. No vomiting. . Historical: - Allergies: 10:23 No Known Allergies; ca1 - Home Meds: 16:27 aspirin 81 mg Oral TbEC 1 tab once daily [Active]; atorvastatin 80 mg Oral tab jr10 [Active]; clopidogrel 75 mg Oral tab 1 tab once daily [Active]; empagliflozin Oral 1 tab [Active]; furosemide 40 mg Oral tab 1 tab once daily [Active]; isosorbide mononitrate 30 mg Oral Tb24 1 tab once daily [Active]; metformin 500 mg Oral tab [Active]; potassium chloride 20 mEq Oral TbER 1 tab 2 times per day [Active]; - PMHx: 10:23 GERD; High Cholesterol; [place] X 2; ca1 16:27 Diabetes - NIDDM; jr10 - PSHx: 10:23 CABG; ca1 - Immunization history:: Adult Immunizations up to date. - Social history:: Smoking status: Patient denies any tobacco usage or history of. - Family history:: not pertinent. - Hospitalizations: : No recent hospitalization is reported. ROS: 11:44 Constitutional: + fever Eyes: Negative for injury, pain, redness, and discharge, Neck: rn Negative for injury, pain, and swelling, Cardiovascular: Negative for chest pain, palpitations, and edema, Respiratory: Negative for wheezing, and pleuritic chest pain, Abdomen/GI: Negative for abdominal pain, nausea, vomiting, and constipation, MS/Extremity: Negative for injury and deformity, Skin: Negative for injury, rash, and discoloration, Neuro: Negative for headache, numbness, tingling, and seizure. Exam: 11:44 Constitutional: This is a well developed, well nourished patient who is awake, alert, rn + tachypneic Head/Face: Normocephalic, atraumatic. ENT: No stridor, + dry MM Cardiovascular: tachycardic, regular Respiratory: + mild tachypnea, diminished at bases Abdomen/GI: soft, non-tender MS/ Extremity: Pulses equal, no cyanosis. Neurovascular intact. Full, normal range of motion. Equal circumference. Neuro: Awake and alert, GCS 15, oriented to person, place, time, and situation. Cranial nerves II-XII grossly intact. Motor strength 5/5 in all extremities. Sensory grossly intact. 13:14 ECG was reviewed by the Attending Physician. rn Vital Signs: 10:18 BP 100 / 85; Pulse 103; Resp 20 S; Temp 97.8(TE); Pulse Ox 96% on R/A; Weight 89.36 kg ca1 (R); Height 5 ft. 4 in. (162.56 cm) (R); 13:00 BP 118 / 52; Pulse 103; Resp 29; Pulse Ox 92% on R/A; jr10 13:00 BP 115 / 74; Pulse 104; Resp 26; Temp 102.2(O); Pulse Ox 92% ; jr10 14:30 BP 113 / 70; Pulse 108; Resp 28; Pulse Ox 94% on R/A; jr10 14:39 BP 96 / 58; Pulse 102; Resp 20; Temp 100.0(O); Pulse Ox 93% on R/A; jr10 15:00 BP 86 / 58; Pulse 99; Resp 25; Pulse Ox 94% on R/A; jr10 15:30 BP 130 / 97; Pulse 99; Resp 25; Pulse Ox 94% on R/A; jr10 15:30 Temp 98.8(O); jr10 16:16 BP 106 / 70; Pulse 88; Resp 26; Pulse Ox 92% on R/A; jr10 17:26 BP 105 / 65; Pulse 84; Resp 23; Pulse Ox 92% ; jr10 18:10 BP 98 / 78; Pulse 82; Resp 25; Pulse Ox 95% on R/A; jr10 10:18 Body Mass Index 33.81 (89.36 kg, 162.56 cm) ca1 MDM: 11:26 Patient medically screened. rn 13:01 Differential diagnosis: pneumonia, Pneumothorax pulmonary edema, Sepsis. Data reviewed: rn vital signs, nurses notes, lab test result(s), radiologic studies, plain films, and as a result, I will admit patient. Counseling: I had a detailed discussion with the patient and/or guardian regarding: the historical points, exam findings, and any diagnostic results supporting the discharge/admit diagnosis, lab results, radiology results, the need for further work-up and treatment in the hospital. Response to treatment: There is no appreciated change of the patient's symptoms at this time, and as a result, I will admit patient. Admission orders: after a detailed discussion of the patient's condition and case, the admit orders are written by me. ED course: Pt with dyspnea, + multifocal pneumonia on cxr, + COVID pneumonia, oxygen saturation at rest 92%, have not obtained after exertion. + increased work of breathing. . 12/15 11:32 Order name: Blood Culture Adult (2) rn 12/15 11:32 Order name: BMP rn 12/15 11:32 Order name: C-Reactive Protein rn 12/15 11:32 Order name: CBC with Diff rn 12/15 11:32 Order name: D-Dimer; Complete Time: 12:51 12/15 11:32 Order name: Ferritin rn 12/15 11:32 Order name: Lactate; Complete Time: 12:51 12/15 11:32 Order name: LFT's rn 12/15 11:32 Order name: Lipase rn 12/15 11:32 Order name: Procalcitonin rn 12/15 11:32 Order name: PT-INR; Complete Time: 12:51 12/15 11:32 Order name: Ptt, Activated; Complete Time: 12:51 12/15 11:32 Order name: Troponin (emerg Dept Use Only) rn 12/15 11:33 Order name: BNP rn 12/15 11:32 Order name: CXR XRAY; Complete Time: 12:51 rn 12/15 11:32 Order name: EKG; Complete Time: 11:33 rn 12/15 11:32 Order name: Cardiac monitoring; Complete Time: 11:47 rn 12/15 11:32 Order name: Droplet/Contact Precautions; Complete Time: 11:47 rn 12/15 11:32 Order name: EKG - Nurse/Tech; Complete Time: 18:01 rn 12/15 11:32 Order name: IV Start; Complete Time: 12:46 rn 12/15 11:32 Order name: Labs collected and sent; Complete Time: 12:46 rn 12/15 11:32 Order name: O2 Per Protocol; Complete Time: 11:48 rn 12/15 11:32 Order name: O2 Sat Monitoring; Complete Time: 11:48 rn 12/15 13:04 Order name: Manual Differential EDMS EC:14 Rate is 104 beats/min. Rhythm is regular. QRS [place] is Normal. [place] interval is normal. rn QRS interval is normal. QT interval is normal. No Q waves. T waves are Normal. No ST changes noted. Clinical impression: Sinus tachycardia. Interpreted by me. Reviewed by me. Administered Medications: 12:40 Drug: Decadron - Dexamethasone 10 mg Route: IVP; Site: right hand; 10 17:29 Follow up: Response: No adverse reaction jr10 14:01 Drug: Tylenol 1000 mg Route: PO; jr10 17:29 Follow up: Response: No adverse reaction; Temperature is decreased jr10 Disposition: 12/16/19 13:03 Hospitalization ordered by Fred Shane for Inpatient Admission. Preliminary diagnosis are Pneumonia, unspecified organism, Hypoxemia, Dyspnea. - Bed requested for Intensive Care Unit. - Status is Inpatient Admission. jr10 - Condition is Stable. - Problem is new. - Symptoms have worsened. Signatures: Dispatcher [employer] EDMS Romy Hillman RN RN dw Nieto, Roman, MD MD rn Leal, Jahala, RN RN jl7 Honey Bustamante RN RN ca1 Rivera, Jessica, RN RN jr10 Corrections: (The following items were deleted from the chart) 15:47 13:03 Hospitalization Ordered by Fred Shane MD for Inpatient Admission. Preliminary dw diagnosis is Pneumonia, unspecified organism; Hypoxemia; Dyspnea. Bed requested for Telemetry/MedSurg (Inpatient). Status is Inpatient Admission. Condition is Stable. Problem is new. Symptoms have worsened. rn 18:36 15:47 12/16/2019 13:03 Hospitalization Ordered by Fred Shane MD for Inpatient jr10 Admission. Preliminary diagnosis is Pneumonia, unspecified organism; Hypoxemia; Dyspnea. Bed requested for Intensive Care Unit. Status is Inpatient Admission. Condition is Stable. Problem is new. Symptoms have worsened. dw
--- NOTE | 2019-12-16 13:22 | P.HP ---
Certification for Inpatient Patient admitted to: Observation With expected LOS: <2 Midnights Patient will require the following post-hospital care: None Practitioner: I am a practitioner with admitting privileges, knowledge of patient current condition, hospital course, and medical plan of care. Services: Services provided to patient in accordance with Admission requirements found in Title 42 Section 412.3 of the Code of Federal Regulations <Bryan Titus - Last Filed: 12/16/19 13:14> Patient History Date of Service: 12/16/19 Primary Care Provider: None Reason for admission: Dyspnea, COVID-19 pneumonia History of Present Illness: 63-year-old male with medical history of diabetes mellitus type 2, hyperlipidemia, hypertension presents emergency department for shortness of breath. Patient reports that he was diagnosed with COVID-19 in the past couple of days and has been dealing with some shortness of breath but today is markedly worse. Patient also reports some diarrhea. Patient reports that he becomes very short of breath with exertion but is also short of breath at rest. During his evaluation in the emergency department patient chest x-ray suggestive of viral pneumonia. Patient's room air sats around 90% but he is tachypneic with a rate of around 31 breaths per min. Patient's lab work is rather unremarkable but ED provider wishes to admit for observation due to work of breathing. When I saw the patient in the emergency department he was dyspneic, tachypneic, slightly diaphoretic. Sats were greater than 90% but he was in mild respiratory distress. The patient be admitted under observation for further evaluation and management. Home medications list reviewed: Yes - Past Medical/Surgical History Has patient received pneumonia vaccine in the past: No Diabetic: Yes -: Diabetes mellitus type 2 -: Hyperlipidemia -: Hypertension Past Surgical History: Reviewed- Non-Contributory Psychosocial/ Personal History: Patient lives at home alone. - Family History Family History: Reviewed- Non-Contributory - Social History Smoking Status: Never smoker Alcohol use: No CD- Drugs: No Caffeine use: Yes Place of Residence: Home <Bryan Titus - Last Filed: 12/16/19 13:14> Date of Service: 12/17/19 <Audi Shane - Last Filed: 12/17/19 16:44> Allergies No Known Allergies Allergy (Unverified 10/22/15 01:26) Review of Systems 10-point ROS is otherwise unremarkable General: Weakness, Malaise Respiratory: Shortness of Breath, SOB with Excertion Gastrointestinal: Diarrhea <Bryan Titus - Last Filed: 12/16/19 13:14> Physical Examination - Physical Exam General: Alert, In no apparent distress, Oriented x3 HEENT: Atraumatic, Normocephalic, Other (Mucous membranes dry) Neck: Supple Respiratory: Diminished, Other (Tachypneic) Cardiovascular: Normal S1 S2, Irregular heart rate/rhythm (Tachycardia, rate 110) Capillary refill: <2 Seconds Gastrointestinal: Normal bowel sounds, Soft and benign Musculoskeletal: No contractures, No erythema, No tenderness Integumentary: No tenderness/swelling, No erythema, No warmth Neurological: Normal speech, Normal strength at 5/5 x4 extr, Normal tone - Studies Laboratory Data (last 24 hrs) 12/16/19 12:15: PT 12.4, INR 1.05, APTT 32.5 12/16/19 12:15: WBC 5.2, Hgb 17.9, Hct 52.3 H, Plt Count 80 L <Bryan Titus - Last Filed: 12/16/19 13:14> Assessment and Plan - Plan Assessment Dyspnea and tachypnea secondary to COVID pneumonia Diabetes mellitus type 2 Hypertension Hyperlipidemia Plan Dyspnea and tachypnea secondary to COVID pneumonia: Oxygen supplementation as needed, will provide patient with Decadron, thiamine, zinc, folic acid. No evidence of bacterial infection at this time, hold antibiotics. If patient declines he may require high-flow oxygen or BiPAP. Anticipate clinical improvement in the next 24-48 hr. DVT prophylaxis with Lovenox 40 mg subcutaneous once daily. Pulmonology has been consulted on this case. Diabetes mellitus type 2: A.c. HS Accu-Cheks, sliding scale insulin therapy, will obtain A1c with morning labs. Hypertension: Obtain and continue patient's home medications. Hyperlipidemia: Obtain and continue patient's home medications. Discharge Plan: Home Plan to discharge in: 24 Hours - Advance Directives Does patient have a Living Will: No Does patient have a Durable POA for Healthcare: No - Code Status/Comfort Care Code Status Assessed: Yes (Patient is full code) Critical Care: No Time Spent Managing Pts Care (In Minutes): 55 <Bryan Titus - Last Filed: 12/16/19 13:14> Physician Review Additional Text: The patient was seen and examined and findings were discussed Agree with the assessment and plan as documented by the SOFIA Patient was seen on 12/16/2019 and is note is for the encounter on that day <Audi Shane - Last Filed: 12/17/19 16:44>
[2019-12-16] MEDS ORDERED: ACETAMINOPHEN 500 MG TAB ONE (13:48)
[2019-12-16 14:00] LABS: ALT/SGPT 44 U/L (12-78); AST/SGOT 75 U/L (15-37); Albumin 3.9 g/dL (3.4-5.0); Alkaline Phosphatase 92 U/L (45-117); BUN Blood Urea Nitrogen 20 mg/dL (7-18); Bicarbonate 20 mmol/L (21-32); Bilirubin Direct 0.2 mg/dL (0-0.2); Bilirubin Total 0.8 mg/dL (0.2-1.0); Ferritin 1649.7 ng/mL (26-388); Glucose Level 121 mg/dL (74-106); Lipase 449 U/L (73-393); NT PRO-BNP 413 pg/mL (<125); Potassium 4.6 mmol/L (3.5-5.1); Protein, Total 8.3 g/dL (6.4-8.2); Sodium Level 131 mmol/L (136-145); Troponin (Emerg Dept Use Only) < 0.02 ng/mL (0.0-0.045)
[2019-12-16 18:35] VITALS: BMI 33.7
[2019-12-16] MEDS: INSULIN -REGULAR HUMAN 50 UNIT/0.5 ML ML SQ SCH ×2 (18:37→21:00)
[2019-12-16] MEDS ORDERED: NA CHLORIDE 0.9% 1,000 ML IV SCH (18:37)
[2019-12-16] MEDS ORDERED: ONDANSETRON 4 MG/2 ML VIAL IV PRN (18:37)
[2019-12-16] MEDS ORDERED: ACETAMINOPHEN 500 MG TAB PO PRN (18:37)
[2019-12-16] MEDS ORDERED: FUROSEMIDE 20 MG/ 2ML VIAL IV ONE (19:23)
--- NOTE | 2019-12-16 19:24 | P.CNS ---
Date of Consult: 12/16/19 Primary Care Provider: None Chief Complaint: Dyspnea, COVID-19 pneumonia History of Present Illness: Age 63 multiple medical problems Aw SOB Dx with COVID a few days ago c/o SOBOE.C/o Diarhea. Allergies No Known Allergies Allergy (Unverified 10/22/15 01:26) - Past Medical/Surgical History Diabetic: Yes -: Diabetes mellitus type 2 -: Hyperlipidemia -: Hypertension Psychosocial/ Personal History: Patient lives at home alone. - Social History Alcohol use: No CD- Drugs: No Caffeine use: Yes Place of Residence: Home Review of Systems General: Weakness Respiratory: Shortness of Breath Gastrointestinal: Diarrhea Physical Examination General: Other (deferrred) Laboratory Data (last 24 hrs) 12/16/19 12:15: PT 12.4, INR 1.05, APTT 32.5 12/16/19 12:15: WBC 5.2, Hgb 17.9, Hct 52.3 H, Plt Count 80 L 12/16/19 12:15: Sodium 131 L, Potassium 4.6, BUN 20 H, Creatinine 1.22, Glucose 121 H, Total Bilirubin 0.8, AST 75 H, ALT 44, Alkaline Phosphatase 92, Lipase 449 H - Problems (1) Pneumonia due to COVID-19 virus Current Visit: Yes Status: Acute Plan: Age 63 multiple medical problems Aw covid pneumonia. ALbs CXRy reviewed. Poss D/C Am CAD and DM D/C IV fluids. Lasix
[2019-12-16] MEDS: BUDESONIDE 0.5 MG/2 ML NEB NEB SCH (20:00)
[2019-12-16] MEDS: dexAMETHasone 10 MG/ML VIAL IV SCH (21:15)
[2019-12-17] MEDS: dexAMETHasone 10 MG/ML VIAL IV SCH (03:55)
[2019-12-17 04:25] LABS: Absolute Lymphocytes (CBC) 0.6 K/uL (0.7-4.9); Basophils % 0.1 % (0-1.3); Hematocrit 46.1 % (39.6-49.0); Lymphocytes % 16.4 % (15.3-44.8); MPV 10.5 fL (7.6-11.3); RBC Red Blood Cell Count 5.18 M/uL (4.33-5.43)
[2019-12-17 04:36] LABS: Magnesium 2.6 mg/dL (1.8-2.4); Potassium 4.8 mmol/L (3.5-5.1)
[2019-12-17] MEDS: INSULIN -REGULAR HUMAN 50 UNIT/0.5 ML ML SQ SCH (08:30)
--- NOTE | 2019-12-17 08:39 | P.DS ---
Admission Date: 12/16/19 Discharge Date: 12/17/19 Primary Care Provider: None Reason for Admission: Dyspnea, COVID-19 pneumonia Consultations: Pulmonology- Dr. West Procedures: Chest x-ray FINDINGS: Lungs are underinflated. Hazy opacification present in the mid and lower left lung field new from prior imaging. Minimal opacification in the medial right base. Much of this is due to shallow inspiration. Failure and volume overload are not suspected. Sternotomy wires are in place. Heart size within normal limits for shallow inspiration. No measurable pleural effusion and no pneumothorax. No acute bony abnormality seen. No acute aortic findings suspected. IMPRESSION: Limited shallow inspiration examination showing hazy opacification in the mid and lower left lung field and medial right base. Given the positive COVID test, chest findings are consistent with a COVID-19 pneumonia. Medical problem list COVID pneumonia Diabetes mellitus type 2 Hypertension Hyperlipidemia Brief History of Present Illness: 63-year-old male with medical history of diabetes mellitus type 2, hyperlipidemia, hypertension presents emergency department for shortness of breath. Patient reports that he was diagnosed with COVID-19 in the past couple of days and has been dealing with some shortness of breath but today is markedly worse. Patient also reports some diarrhea. Patient reports that he becomes very short of breath with exertion but is also short of breath at rest. During his evaluation in the emergency department patient chest x-ray suggestive of viral pneumonia. Patient's room air sats around 90% but he is tachypneic with a rate of around 31 breaths per min. Patient was admitted for observation overnight. Hospital Course: Patient was admitted for dyspnea yesterday. Patient is placed on corticosteroid therapy and has done well overnight. Patient is currently on room air and satting 95-96%. Patient states she is also feeling better. Patient is less tachypneic, dyspneic than yesterday. Patient was seen and evaluated by pulmonology during this hospitalization. Patient is stable for discharge at th is time. At discharge patient will continue with prednisone 10 mg b.i.d. for 7 days, Dulera 100 mcg 2 puffs inhaled twice daily for 1 week, albuterol inhaler 2 puffs inhaled every 6 hr as needed. Patient will follow up with pulmonology on outpatient basis. Patient with history of diabetes mellitus type 2 the discharge patient continue with his home medications metformin 500 mg p.o. b.i.d., glipizide 5 mg p.o. b.i.d.. Further adjustment of the use medications to be made by primary care doctor. Patient with history of hypertension, at discharge patient will continue with metoprolol 50 mg p.o. b.i.d., lisinopril 10 mg p.o. daily, isosorbide mononitrate 30 mg p.o. daily. Further titration of blood pressure medications can be completed by primary care doctor. Patient with history of CAD, at discharge patient will continue with Plavix 75 mg p.o. daily, atorvastatin 80 mg p.o. at bedtime. Patient is positive for COVID-19, at discharge of patient we recommended to self quarantine for 14 days after his 1st test was positive. Will recommend facial coverings, hand washing. Patient will need a repeat test 14 days from his 1st positive test. <Bryan Titus - Last Filed: 12/17/19 08:31> Admission Date: 12/16/19 Discharge Date: 12/17/19 <Audi Shane - Last Filed: 12/17/19 16:42> Disposition: ROUTINE DISCHARGE Discharge Condition: FAIR Vital Signs/Physical Exam: Temp Pulse Resp BP Pulse Ox 97.3 F 76 27 H 101/74 97 12/17/19 05:00 12/17/19 07:00 12/17/19 07:00 12/17/19 07:00 12/17/19 07:00 General: Alert, In no apparent distress, Oriented x3 HEENT: Atraumatic, Normocephalic, PERRLA, Mucous membr. moist/pink Neck: Supple Respiratory: Clear to auscultation bilaterally, Normal air movement Cardiovascular: No edema, Regular rate/rhythm, Normal S1 S2 Capillary refill: <2 Seconds Gastrointestinal: Normal bowel sounds, Soft and benign Musculoskeletal: No contractures, No erythema, No tenderness Integumentary: No significant lesion, No tenderness/swelling, No erythema, No warmth Neurological: Normal speech, Normal strength at 5/5 x4 extr, Normal tone, Sensation intact, Normal affect Lymphatics: No axilla or inguinal lymphadenopathy Laboratory Data at Discharge: WBC 3.4 K/uL (4.3-10.9) L D 12/17/19 03:51 Hgb 16.0 g/dL (13.6-17.9) 12/17/19 03:51 Hct 46.1 % (39.6-49.0) 12/17/19 03:51 Plt Count 75 K/uL (152-406) L 12/17/19 03:51 PT 12.4 SECONDS (9.5-12.5) 12/16/19 12:15 INR 1.05 12/16/19 12:15 APTT 32.5 SECONDS (24.3-36.9) 12/16/19 12:15 Sodium 133 mmol/L (136-145) L 12/17/19 03:51 Potassium 4.8 mmol/L (3.5-5.1) 12/17/19 03:51 BUN 23 mg/dL (7-18) H 12/17/19 03:51 Creatinine 1.06 mg/dL (0.55-1.3) 12/17/19 03:51 Glucose 223 mg/dL (74-106) H 12/17/19 03:51 Magnesium 2.6 mg/dL (1.8-2.4) H 12/17/19 03:51 Total Bilirubin 0.8 mg/dL (0.2-1.0) 12/16/19 12:15 AST 75 U/L (15-37) H 12/16/19 12:15 ALT 44 U/L (12-78) 12/16/19 12:15 Alkaline Phosphatase 92 U/L (45-117) 12/16/19 12:15 Lipase 449 U/L (73-393) H 12/16/19 12:15 <Bryan Titus - Last Filed: 12/17/19 08:31> Vital Signs/Physical Exam: Temp Pulse Resp BP Pulse Ox 98.2 F 88 28 H 122/76 91 12/17/19 08:00 12/17/19 10:00 12/17/19 10:00 12/17/19 10:00 12/17/19 09:00 Laboratory Data at Discharge: WBC 3.4 K/uL (4.3-10.9) L D 12/17/19 03:51 Hgb 16.0 g/dL (13.6-17.9) 12/17/19 03:51 Hct 46.1 % (39.6-49.0) 07/22/20 03:51 Plt Count 75 K/uL (152-406) L 12/17/19 03:51 PT 12.4 SECONDS (9.5-12.5) 12/16/19 12:15 INR 1.05 12/16/19 12:15 APTT 32.5 SECONDS (24.3-36.9) 12/16/19 12:15 Sodium 133 mmol/L (136-145) L 12/17/19 03:51 Potassium 4.8 mmol/L (3.5-5.1) 12/17/19 03:51 BUN 23 mg/dL (7-18) H 12/17/19 03:51 Creatinine 1.06 mg/dL (0.55-1.3) 12/17/19 03:51 Glucose 223 mg/dL (74-106) H 12/17/19 03:51 Magnesium 2.6 mg/dL (1.8-2.4) H 12/17/19 03:51 Total Bilirubin 0.8 mg/dL (0.2-1.0) 12/16/19 12:15 AST 75 U/L (15-37) H 12/16/19 12:15 ALT 44 U/L (12-78) 12/16/19 12:15 Alkaline Phosphatase 92 U/L (45-117) 12/16/19 12:15 Lipase 449 U/L (73-393) H 12/16/19 12:15 <Audi Shane - Last Filed: 12/17/19 16:42> Patient Discharge Instructions: 1. Please follow up with her primary care doctor in 1-2 weeks to follow up this hospitalization. Please also follow up with pulmonology. 2. Patient was admitted for dyspnea yesterday. Patient is placed on corticosteroid therapy and has done well overnight. Patient is currently on room air and satting 95-96%. Patient states she is also feeling better. Patient is less tachypneic, dyspneic than yesterday. Patient was seen and evaluated by pulmonology during this hospitalization. Patient is stable for discharge at this time. At discharge patient will continue with prednisone 10 mg b.i.d. for 10 days, Dulera 100 mcg 2 puffs inhaled twice daily for 1 week, albuterol inhaler 2 puffs inhaled every 6 hr as needed. Patient will follow up with pulmonology on outpatient basis. Patient with history of diabetes mellitus type 2 the discharge patient continue with his home medications metformin 500 mg p.o. b.i.d., glipizide 5 mg p.o. b.i.d.. Further adjustment of the use medications to be made by primary care doctor. Patient with history of hypertension, at discharge patient will continue with metoprolol 50 mg p.o. b.i.d., lisinopril 10 mg p.o. daily, isosorbide mononitrate 30 mg p.o. daily. Further titration of blood pressure medications can be completed by primary care doctor. Patient with history of CAD, at discharge patient will continue with Plavix 75 mg p.o. daily, atorvastatin 80 mg p.o. at bedtime. Patient is positive for COVID-19, at discharge of patient we recommended to self quarantine for 14 days after his 1st test was positive. Will recommend facial coverings, h and washing. Patient will need a repeat test 14 days from his 1st positive test. Diet: Regular Activity: Ad sherley Time spent managing pt's care (in minutes): 55 <Bryan Titus - Last Filed: 12/17/19 08:31> Physician Review: Patient Assessed, Agree with Above Assessment and Plan (Patient was seen and examined and findings were discussed Agree with the assessment and plan as documented by the SOFIA) <Audi Shane - Last Filed: 12/17/19 16:42> Home Medications: Aspirin [Aspirin EC 81 MG] 81 mg PO DAILY 12/16/19 Atorvastatin Calcium [Lipitor] 80 mg PO BEDTIME 12/16/19 Clopidogrel Bisulfate [Plavix*] 75 mg PO DAILY 12/16/19 Cyanocobalamin [Vitamin B-12*] 1,000 mcg PO DAILY 12/16/19 Cyclobenzaprine [Flexeril*] 10 mg PO TID 12/16/19 Isosorbide [place] (Bid) [Ismo 10 mg Tab*] 30 mg PO DAILY 12/16/19 Metformin HCl [Glucophage*] 500 mg PO BIDWM 12/16/19 glipiZIDE [Glipizide] 5 mg PO BID 12/16/19 lisinopriL [Lisinopril] 10 mg PO DAILY 12/16/19 Albuterol Inhaler [Ventolin Inhaler*] 2 puff IH Q6H PRN #1 hfa.aer.ad 12/17/19 Metoprolol Succinate [Toprol Xl*] 50 mg PO BID 12/17/19 Mometasone/Formoterol [Dulera 100 Mcg/5 Mcg Inhaler] 60 puff IH BID #1 inhaler 12/17/19 Multivitamin 1 each PO DAILY 12/17/19 predniSONE [Deltasone*] 10 mg PO BID 10 Days #20 tab 12/17/19 New Medications: predniSONE [Deltasone*] 10 mg PO BID 10 Days #20 tab Mometasone/Formoterol [Dulera 100 Mcg/5 Mcg Inhaler] 60 puff IH BID #1 inhaler Albuterol Inhaler [Ventolin Inhaler*] 2 puff IH Q6H PRN #1 hfa.aer.ad PRN Reason: Shortness Of Breath
[2019-12-17] MEDS ORDERED: ENOXAPARIN 40 MG/0.4 ML SQ SCH (09:00)
[2019-12-17] MEDS ORDERED: FOLIC ACID 1 MG TABLET PO SCH (09:00)
[2019-12-17] MEDS ORDERED: ZINC SULFATE 220 MG CAP PO SCH (09:00)
[2019-12-17] MEDS ORDERED: THIAMINE HCL 100 MG TABLET PO SCH (09:00)
[2019-12-17] MEDS ORDERED: dexAMETHasone 4 MG/ML VIAL IV SCH (09:00)
[2019-12-17] MEDS: BUDESONIDE 0.5 MG/2 ML NEB NEB SCH (10:15)
[2019-12-17 10:55] VITALS: BP 122/76; TEMP 98.2
[2019-12-17 12:00] VITALS: O2SAT 90
--- NOTE | 2019-12-17 12:34 | EKG ---
Test Date: 2019-12-16 Test Time: 13:14:46 Health Information Tech: VJ MEASUREMENT RESULTS: Intervals: Rate: 104 AL: 128 QRSD: 132 QT: 404 QTc: 531 [place]: P: 35 AL: 128 QRS: 170 T: 50 INTERPRETIVE STATEMENTS: Sinus tachycardia Right bundle branch block Possible Lateral infarct, age undetermined Abnormal ECG Compared to ECG 10/22/2015 01:12:55 Myocardial infarct finding now present Sinus rhythm no longer present Electronically Signed On 12-17-19 12:31:39 CDT by Shahid Kemp
== END 2019-12-17 10:37 | disposition home or self-care (01) ==
LOC: ER 10:06 → ERHOLD 13:09 → 3RD-ICU 18:12
PROVIDERS: ADMIT Family Medicine; ATTEND Family Medicine
DX: U07.1 COVID-19 (principal); J12.89 Other viral pneumonia; R19.7 Diarrhea, unspecified; E11.9 Type 2 diabetes mellitus without complications; E78.5 Hyperlipidemia, unspecified; I10 Essential (primary) hypertension; I25.10 Atherosclerotic heart disease of native coronary artery without angina pectoris; R00.0 Tachycardia, unspecified; I45.10 Unspecified right bundle-branch block; R94.31 Abnormal electrocardiogram [ECG] [EKG]; I25.2 Old myocardial infarction; Z79.84 Long term (current) use of oral hypoglycemic drugs; Z79.02 Long term (current) use of antithrombotics/antiplatelets; Z79.82 Long term (current) use of aspirin; Z79.899 Other long term (current) drug therapy; Z95.1 Presence of aortocoronary bypass graft
CPT/HCPCS: 93005; 87040 ×2; 85025 ×2; 80048 ×2; 36415; 83735; 85610; 82947 ×2; 85379; 80076; 83605; 85730; 83036; 84484; 82728; 83690; 84145; 83880; 86140; 71045; 94640; 96374; 99285; J1100 ×3; J7030; G0378 ×3; J1940

== ENCOUNTER 2022-04-24 13:49 | Emergency (ER) | payer OTHER ==
--- OUTSIDE RECORDS SUMMARY | 2022-04-24 14:19 | XMS REPORT | Continuity of Care Document ---
:1955 Author Organization [facility] t Address [address] [place] [address] Care Team Providers Name Role Phone PROSPER, [place] RITO GOMEZ [facility] Primary Care Physician Unavailable Doctor Unassigned, [place] Attending Clinician Unavailable Steffany Quan MD Attending Clinician STEFFANY QUAN Attending Clinician Unavailable STEFFANY QUAN Attending Clinician Unavailable 1, [facility] Attending Clinician Unavailable Only, [facility] Test Attending Clinician Unavailable A_Byrd Attending Clinician Unavailable Monique WARE, Myla Attending Clinician Unavailable Shanice Woodruff Attending Clinician Meghann Waters MD Attending Clinician Jacob Miner MD Attending Clinician [phone] Ilia Chung MD Attending Clinician Saturnino Crowe MD Attending Clinician Anay Merritt Attending Clinician [facility] Attending Clinician Unavailable Karma Britt Attending Clinician KARMA MILLIGAN Attending Clinician Unavailable A_Byrd Admitting Clinician Unavailable Meghann Waters MD Admitting Clinician Payers Payer Name Policy Type Policy Number Effective Date Expiration Date S [facility] [id number] (MEDICARE 00:00:00 REPLACEMENT HMO) [facility] [id number] 2020 2021 00:00:00 00:00:00 [employer] - [id number] 2019 [place] (MEDICARE 00:00:00 REPLACEMENT/ADVANT[place] GE - HMO) Problems Condition Condition Condition Status Onset Resolution Last Treating Co mments Source Name Details Category Date Date Treatment Clinician Date Serum Serum Problem Active [place] creatinine Creatinine 2-04 da raised Raised 00:00: Medical Group Diabetes Diabetes Problem Active 2019-05 [place] mellitus Mellitus 2-16 da 00:00: Medical Group Hyperlipid Hyperlipid Problem Active 2019-05 [facility] [place] emia emia 2-16 da 00:00: Medical Group Hypertensi Hypertensi Problem Active 2019-05 [facility] [place] ve ve 2-16 da disorder Disorder 00:00: Medica l 00 Group Atrial Atrial Problem Active 2019-05 [place] fibrillati Fibrillati 2-16 da on on 00:00: Medical Group Dysphasia Dysphasia Problem Active 2019-05 [place] 2-16 da 00:00: Medical 00 Group COVID-19 Covid-19 Problem Active 2019-05 [place] 2-16 da 00:00: Medical 00 Group LV (left LV (left Disease Active [facility] rs ventricula ventricula 7-29 it y of r) mural r) mural 00:00: [place] thrombus thrombus 00 Medica l Branch Obesity Obesity Disease Active Univers (BMI (BMI 7-28 ity of 30-39.9) 30-39.9) 00:00: [place] 00 Medical Branch COVID-19 COVID-19 Disease Active [facility] virus virus 7-28 ity of infection infection 00:[place] NSTEMI NSTEMI Disease Active [facility] (non-ST (non-ST 7-28 ity of elevated elevated 00:00: [place] myocardial myocardial 00 Me dical infarction infarction Br anch ) ) Coronary Coronary Disease Active [facility] artery artery 7-28 ity of disease disease 00:00: [place] involving involving 00 Medi [place] coronary coronary artery of artery of [place] heart heart without without angina angina pectoris pectoris Elevated Elevated Disease Active [facility] brain brain 12-22 ity of natriureti natriureti 00:[place] peptide c peptide 00 Medi maggie (BNP) (BNP) Branch level level Type 2 Type 2 Disease Active Univers diabetes diabetes 12-22 ity of mellitus mellitus 00:00: [place] without without 00 Medical complicati complicati Br anch on, on, without without long-term long-term current current use of use of insulin insulin Pleural Pleural Disease Active [facility] effusion effusion 12-22 ity of 00:00: [place] [facility] Respirator Respirator Disease Active U nivers y distress y distress 12-21 it y of 00:00: [place] [facility] Respirator Respirator Disease Active Overview : Univers y failure y failure 12-21 Formattin i ty of with with 00:00: g of this [place] hypoxia, hypoxia, 00 note Medica l unspecifie unspecifie might be Branch d d different chronicity chronicity from the original. Added automatic ally from request for surgery [id number] No known No known Disease Unive rs active active ity of problems problems [facility] Allergies, Adverse Reactions, Alerts Allergy Allergy Status Severity Reaction(s) Onset Inactive Treating Comm ents Source Name Type Date Date Clinician NO KNOWN Drug Active Univers ALLERGIE Class ity of S [facility] Social History Social Habit Start Date Stop Date Quantity Comments Source Exposure to Not sure [facility] SARS-CoV-2 (event) Medica l Branch Tobacco use and 2020-01-03 2020-01-03 Never used [facility] exposure 00:00:00 [facility] Sex Ass[birth year] [facility] 00:00:00 [facility]:00:00 [facility] Smoking Status Start Date Stop Date Source Unknown if ever smoked [facility] Never smoker [facility] Medications Ordered Filled Start Stop Current Ordering Indication Dosage Frequency Signature Comments Components Source Medication Medication Date Date Medication? Clinician (SIG) Name Name aspirin 81 2019- No CHEW ONE Un hina mg EC 01-23 TABLET BY ity of tablet 14:13: 00:00 MOUTH [place] 55 :00 DAILY [facility] Branch atorvastati 2019- No TAKE ONE U nivers n 80 mg 01-23 TABLET BY ity of tablet 14:13: 00:00 MOUTH [place] 55 :00 DAILY FOR Medical CHOLESTERO Branch L clopidogreL 2020- No TAKE ONE U nivers 75 mg 01-23 TABLET BY ity of tablet 14:13: 00:00 MOUTH [place] 55 :00 DAILY TO Medical PREVENT Branch BLOOD CLOTS Cyanocobala 2019- No TAKE ONE U nivers min 1,000 01-23 TABLET BY ity of mcg tablet 14:13: 00:00 MOUTH [place] 55 :00 DAILY FOR Medical ANEMIA Branch empaglifloz 2020- No TAKE Unive rs in 25 mg 01-23 ONE-HALF ity of Tab 14:13: 00:00 TABLET BY [place] 55 :00 MOUTH Medical DAILY Branch docosahexan 2020- No TAKE 800MG Univers oic 01-23 BY MOUTH ity of acid/epa 14:13: 00:00 DAILY [place] (FISH OIL 55 :00 Medical ORAL) Branch GARLIC ORAL 2019- No TAKE ONE U nivers 01-23 TABLET BY ity of 14:13: 00:00 MOUTH [place] 55 :00 DAILY Medical Branch glipiZIDE 2019- No TAKE ONE Uni vers 10 mg 01-23 TABLET BY ity of tablet 14:13: 00:00 MOUTH [place] 55 :00 TWICE A Medical DAY FOR Branch DIABETES 30 MINUTES BEFORE THE FIRST MEAL OF THE DAY AND BEFORE ANOTHER MAIN MEAL isosorbide 2019- No TAKE ONE Un hina dinitrate 01-23 TABLET BY ity of 30 mg 14:13: 00:00 MOUTH [place] tablet 55 :00 DAILY TO Medical PREVENT Branch CHEST PAIN. *DO NOT CRUSH* latanoprost 2020- No INSTILL 1 Univers 0.005 % 01-23 DROP IN ity of ophthalmic 14:13: 00:00 BOTH EYES [place] drops 55 :00 EVERY Medical EVENING Branch lisinopril 2020- No TAKE ONE Un hina 10 mg 01-23 TABLET BY ity of tablet 14:13: 00:00 MOUTH [place] 55 :00 DAILY FOR Medical HEART/ Branch BLOOD PRESSURE metFORMIN 2020- No TAKE TWO Uni vers 500 mg 01-23 TABLETS BY ity of tablet 14:13: 00:00 MOUTH [place] 55 :00 TWICE A Medical DAY FOR Branch DIABETES *DO NOT CRUSH* metoprolol 2020- No TAKE Univer s succinate 01-23 ONE-HALF ity o f 100 mg CSpX 14:13: 00:00 TABLET BY [place] 55 :00 MOUTH Medical TWICE A Branch DAY FOR HEART/BLOO D PRESSURE. *DO NOT CRUSH* multivit 2019- 2020- No TAKE BY [facility] with 01-23 MOUTH ity of iron,minera 14:13: 00:00 DAILY [place] 55 :00 Medical (MULTIVITAM Branch IN AND MINERALS ORAL) mometasone 2020- No 100ug Inhale 100 Univers furoate 01-23 mcg 2 ity of (MOMETASONE 14:13: 00:00 (two) [place] INHALE[place] 55 :00 times Medical daily. Branch PREDNISONE 2019- No 10mg Take 10 mg Univers ORAL 01-23 by mouth 2 ity of 14:13: 00:00 (two) [place] 55 :00 times Medical daily. Branch ALBUTEROL 2020- No 2{puff} Inhale 2 Univers INHALE 01-23 Puffs ity of 14:13: 00:00 every 6 [place] 55 :00 (six) Medical hours as Branch needed (shortness of breath). ipratropium 2019- Yes 3mL 3 mL, [facility] -albuteroL 01-23 Inhalation ity of (DUONEB) 13:00: , TIDPRN, [place] 0.5 mg-3 00 Starting Medical mg(2.5 mg Sat Branch base)/3 mL 01/24/20 at nebulizer 0800, solution 3 Until mL Discontinu ed, Routine, Wheezing heparin 2019- Yes 1300U/h 1,300 Univer s sod,pork in 01-23 Units/hr ity of 0.45% NaCl 00:00: by IV [place] (HEPARIN 00 Infusion Medical 25,000 UNIT route Branch IN 0.45 NS TITRATE. 250 ML) 25,000 unit/250 mL infusion norepinephr 2019- Yes .0042mg 0.0042-0.1 Univers ine bit/0.9 8-29 /min 253 mg/min it y of % NaCl 00:00: by IV [place] (NOREPINEPH 00 Infusion Medi maggie RINE 16 MG route Branch IN NS 250 TITRATE. ML) RTU clonazePAM 2020-0 Yes 1mg Take 10 mL U nivers (KLONOPIN) 8-29 through ity of 0.1 mg/mL 00:00: enteral [place] oral 00 tube 3 Medical suspension (three) Branch times daily. docusate 2020-0 Yes 100mg Take 1 Univer s 100 mg 8-29 capsule by ity of capsule 00:00: mouth [place] 00 daily. Medical Branch HYDROcodone 2020-0 Yes 10mg Take 20 mL Univers -acetaminop 8-29 through ity o f hen 7.5-325 00:00: enteral [place] mg/15 mL 00 tube 3 Medical solution (three) Branch times daily. Polyethylen 2020-0 Yes 17g Take 1 Univ ers e Glycol 8-29 Packet ity of 3350 17 00:00: through [place] gram powder 00 enteral Medic al tube 2 Branch (two) times daily. sennosides- 2020-0 Yes 2{tbl} Take 2 Un hina docusate 8-29 tablets ity of sodium 00:00: through [place] 8.6-50 mg 00 enteral Medical per tablet tube Branch daily. furosemide 2020-0 Yes 20mg Inject 2 Uni vers 10 mg/mL 8-29 mL as ity of injection 00:00: directed [place] 00 daily. Medical Branch insulin 2020-0 Yes 3U inject 3 Univer s glargine 8-29 Units ity of 100 unit/mL 00:00: under the [place] injection 00 skin at Medical bedtime. Branch insulin 2020-0 Yes 1U inject 1 Univer s aspart 8-29 Units ity of RAPID 100 00:00: under the [place] unit/mL 00 skin every Medica l injection 4 (four) Branch hours. ipratropium 2020-0 Yes 3mL Inhale 3 Un hina -albuteroL 8-29 mL 3 ity of 0.5 mg-3 00:00: (three) [place] mg(2.5 mg 00 times Medical base)/3 mL daily as Branc h nebulizer needed for solution Wheezing. aspirin 81 2020-0 Yes 81mg Take 1 Unive rs mg chewable 8-29 tablet ity of tablet 00:00: through [place] 00 enteral Medical tube Branch daily. atorvastati 2020-0 Yes 80mg Take 1 Univ ers n 80 mg 8-29 tablet ity of tablet 00:00: through 00 enteral Medical tube at Branch bedtime. latanoprost 2020-0 Yes 1[drp] Place 1 U nivers 0.005 % 8-29 Drop in ity of ophthalmic 00:00: both eyes [place] drops 00 at Medical bedtime. Branch 0.9 % 2020-0 Yes 10mL Inject 10 Univers sodium 8-29 mL as ity of chloride 00:00: directed [place] (NACL 0.9%, 00 as needed Med ical NS,) (line Branch injection maintenanc e). acetaminoph 2020-0 Yes 500mg Take 1 Uni vers en 500 mg 8-29 tablet by ity o f tablet 00:00: mouth [place] 00 every 6 Medical (six) Branch hours as needed. dextrose 50 2020-0 Yes 25mL Inject 25 U nivers % in water, 8-29 mL as ity of D50W, 00:00: directed [place] injection 00 as needed Medic al (Blood Branch Glucose < or = 70 mg/dL and patient is unable to swallow or has mental status changes.). glucagon 1 2020-0 Yes 1mg 1 mg by Univ ers mg/mL SolR 8-29 Intramuscu ity of injection 00:00: lar route [place] 00 as needed Medical (Blood Branch Glucose < or = 70 mg/dL and patient is unable to swallow or has mental changes.). pantoprazol 2020-0 Yes 40mg Take 20 mL Univers e 2 mg/mL 8-29 through ity of oral 00:00: enteral [place] suspension 00 tube Medical daily. Branch dexMEDEtomi 2020-0 Yes 16.7ug/ 16.7-125.2 Univers dine 200 8-29 h 5 mcg/hr ity of mcg in 0.9 00:00: by IV [place] % NaCl 50 00 Infusion Medica l mL 200 route Branch mcg/50 mL TITRATE. (4 mcg/mL) fentanyl 2020-0 Yes 25ug/h 25-200 Unive rs citrate-0.9 8-29 mcg/hr by ity of % NaCl/PF 00:00: IV [place] (FENTANYL 00 Infusion Medica l CITRATE IN route Branch NS, PF,) 10 TITRATE. mcg/mL infusion insulin 2019-0 Yes inject Univers aspart 8 under the ity of injection 00:00: skin every [place] 00 4 (four) Medical hours. Branch collagenase 2020-0 Yes Apply to Un hina 250 8-29 affected ity of unit/gram 00:00: area(s) [place] ointment 00 daily. Medical Branch QUEtiapine 2020-0 Yes 50mg 1 tablet 2 U nivers 50 mg 8 (two) ity of tablet 00:00: times [place] 00 daily. Medical Branch midazolam 2020-0 Yes 1mg/h 1-10 mg/hr U nivers HCl in 0.9 8-29 by IV ity of % NaCl/PF 00:00: Infusion [place] (MIDAZOLAM, 00 route Medical PF, IN 0.9 TITRATE. Branc h % NACL) 1 mg/mL infusion sodium 2019-0 Yes 4mL Inhale 4 Univers chloride 7% 8 mL 2 (two) it y of nebulizer 00:00: times [place] solution 00 daily. Medical Branch heparin 2020-0 Yes 3000U Inject 3 Unive rs sodium,porc 8-29 mL as ity of ine 00:00: directed. [place] (HEPARIN 00 Medical 1000 Branch UNIT/ML) Soln injection heparin 2020-0 Yes 1300U/h 1,300 Univer s sod,pork in 8-29 Units/hr ity of 0.45% NaCl 00:00: by IV [place] (HEPARIN 00 Infusion Medical 25,000 UNIT route Branch IN 0.45 NS TITRATE. 250 ML) 25,000 unit/250 mL infusion norepinephr 2020-0 Yes .0042mg 0.0042-0.1 Univers ine bit/0.9 8-29 /min 253 mg/min it y of % NaCl 00:00: by IV [place] (NOREPINEPH 00 Infusion Medi maggie RINE 16 MG route Branch IN NS 250 TITRATE. ML) RTU clonazePAM 2020-0 Yes 1mg Take 10 mL U nivers (KLONOPIN) 01-23 through ity of 0.1 mg/mL 00:00: enteral [place] oral 00 tube 3 Medical suspension (three) Branch times daily. docusate 2020-0 Yes 100mg Take 1 Univer s 100 mg 8 capsule by ity of capsule 00:00: mouth [place] 00 daily. Medical Branch HYDROcodone 2020-0 Yes 10mg Take 20 mL Univers -acetaminop 8-29 through ity o f hen 7.5-325 00:00: enteral [place] mg/15 mL 00 tube 3 Medical solution (three) Branch times daily. Polyethylen 2020-0 Yes 17g Take 1 Univ ers e Glycol 8-29 Packet ity of 3350 17 00:00: through [place] gram powder 00 enteral Medic al tube 2 Branch (two) times daily. sennosides- 2020-0 Yes 2{tbl} Take 2 Un hina docusate 8-29 tablets ity of sodium 00:00: through [place] 8.6-50 mg 00 enteral Medical per tablet tube Branch daily. furosemide 2020-0 Yes 20mg Inject 2 Uni vers 10 mg/mL 8-29 mL as ity of injection 00:00: directed [place] 00 daily. Medical Branch insulin 2020-0 Yes 3U inject 3 Univer s glargine 8-29 Units ity of 100 unit/mL 00:00: under the [place] injection 00 skin at Medical bedtime. Branch insulin 2020-0 Yes 1U inject 1 Univer s aspart 8-29 Units ity of RAPID 100 00:00: under the [place] unit/mL 00 skin every Medica l injection 4 (four) Branch hours. ipratropium 2020-0 Yes 3mL Inhale 3 Un hina -albuteroL 8-29 mL 3 ity of 0.5 mg-3 00:00: (three) [place] mg(2.5 mg 00 times Medical base)/3 mL daily as Branc h nebulizer needed for solution Wheezing. aspirin 81 2020-0 Yes 81mg Take 1 Unive rs mg chewable 8-29 tablet ity of tablet 00:00: through [place] 00 enteral Medical tube Branch daily. atorvastati 2020-0 Yes 80mg Take 1 Univ ers n 80 mg 8-29 tablet ity of tablet 00:00: through [place] 00 enteral Medical tube at Branch bedtime. latanoprost 2020-0 Yes 1[drp] Place 1 U nivers 0.005 % 8-29 Drop in ity of ophthalmic 00:00: both eyes [place] drops 00 at Medical bedtime. Branch 0.9 % 2020-0 Yes 10mL Inject 10 Univers sodium 8-29 mL as ity of chloride 00:00: directed [place] (NACL 0.9%, 00 as needed Med ical NS,) (line Branch injection maintenanc e). acetaminoph 2020-0 Yes 500mg Take 1 Uni vers en 500 mg 8-29 tablet by ity o f tablet 00:00: mouth [place] 00 every 6 Medical (six) Branch hours as needed. dextrose 50 2020-0 Yes 25mL Inject 25 U nivers % in water, 8-29 mL as ity of D50W, 00:00: directed [place] injection 00 as needed Medic al (Blood Branch Glucose < or = 70 mg/dL and patient is unable to swallow or has mental status changes.). glucagon 1 2020-0 Yes 1mg 1 mg by Univ ers mg/mL SolR 8-29 Intramuscu ity of injection 00:00: lar route [place] 00 as needed Medical (Blood Branch Glucose < or = 70 mg/dL and patient is unable to swallow or has mental changes.). pantoprazol 2020-0 Yes 40mg Take 20 mL Univers e 2 mg/mL 8- through ity of oral 00:00: enteral [place] suspension 00 tube Medical daily. Branch dexMEDEtomi 2020-0 Yes 16.7ug/ 16.7-125.2 Univers dine 200 8-29 h 5 mcg/hr ity of mcg in 0.9 00:00: by IV [place] % NaCl 50 00 Infusion Medica l mL 200 route Branch mcg/50 mL TITRATE. (4 mcg/mL) fentanyl 2020-0 Yes 25ug/h 25-200 Unive rs citrate-0.9 8-29 mcg/hr by ity of % NaCl/PF 00:00: IV [place] (FENTANYL 00 Infusion Medica l CITRATE IN route Branch NS, PF,) 10 TITRATE. mcg/mL infusion insulin 2020-0 Yes inject Univers aspart 8-29 under the ity of injection 00:00: skin every [place] 00 4 (four) Medical hours. Branch collagenase 2020-0 Yes Apply to Un hina 250 8-29 affected ity of unit/gram 00:00: area(s) [place] ointment 00 daily. Medical Branch QUEtiapine 2020-0 Yes 50mg 1 tablet 2 U nivers 50 mg 8-29 (two) ity of tablet 00:00: times [place] 00 daily. Medical Branch midazolam 2020-0 Yes 1mg/h 1-10 mg/hr U nivers HCl in 0.9 8-29 by IV ity of % NaCl/PF 00:00: Infusion [place] (MIDAZOLAM, 00 route Medical PF, IN 0.9 TITRATE. Branc h % NACL) 1 mg/mL infusion sodium 2020-0 Yes 4mL Inhale 4 Univers chloride 7% 8-29 mL 2 (two) it y of nebulizer 00:00: times [place] solution 00 daily. Medical Branch heparin 2020-0 Yes 3000U Inject 3 Unive rs sodium,porc 8-29 mL as ity of ine 00:00: directed. [place] (HEPARIN 00 Medical 1000 Branch UNIT/ML) Soln injection heparin 2020-0 Yes 1300U/h 1,300 Univer s sod,pork in 8-29 Units/hr ity of 0.45% NaCl 00:00: by IV [place] (HEPARIN 00 Infusion Medical 25,000 UNIT route Branch IN 0.45 NS TITRATE. 250 ML) 25,000 unit/250 mL infusion norepinephr 2020-0 Yes .0042mg 0.0042-0.1 Univers ine bit/0.9 8-29 /min 253 mg/min it y of % NaCl 00:00: by IV [place] (NOREPINEPH 00 Infusion Medi maggie RINE 16 MG route Branch IN NS 250 TITRATE. ML) RTU clonazePAM 2020-0 Yes 1mg Take 10 mL U nivers (KLONOPIN) 8-29 through ity of 0.1 mg/mL 00:00: enteral [place] oral 00 tube 3 Medical suspension (three) Branch times daily. docusate 2020-0 Yes 100mg Take 1 Univer s 100 mg 8-29 capsule by ity of capsule 00:00: mouth [place] 00 daily. Medical Branch HYDROcodone 2020-0 Yes 10mg Take 20 mL Univers -acetaminop 8-29 through ity o f hen 7.5-325 00:00: enteral [place] mg/15 mL 00 tube 3 Medical solution (three) Branch times daily. Polyethylen 2020-0 Yes 17g Take 1 Univ ers e Glycol 8-29 Packet ity of 3350 17 00:00: through [place] gram powder 00 enteral Medic al tube 2 Branch (two) times daily. sennosides- 2020-0 Yes 2{tbl} Take 2 Un hina docusate 8-29 tablets ity of sodium 00:00: through [place] 8.6-50 mg 00 enteral Medical per tablet tube Branch daily. furosemide 2020-0 Yes 20mg Inject 2 Uni vers 10 mg/mL 8-29 mL as ity of injection 00:00: directed [place] 00 daily. Medical Branch insulin 2020-0 Yes 3U inject 3 Univer s glargine 8-29 Units ity of 100 unit/mL 00:00: under the [place] injection 00 skin at Medical bedtime. Branch insulin 2020-0 Yes 1U inject 1 Univer s aspart 8-29 Units ity of RAPID 100 00:00: under the [place] unit/mL 00 skin every Medica l injection 4 (four) Branch hours. ipratropium 2020-0 Yes 3mL Inhale 3 Un hina -albuteroL 8-29 mL 3 ity of 0.5 mg-3 00:00: (three) [place] mg(2.5 mg 00 times Medical base)/3 mL daily as Branc h nebulizer needed for solution Wheezing. aspirin 81 2020-0 Yes 81mg Take 1 Unive rs mg chewable 8-29 tablet ity of tablet 00:00: through 00 enteral Medical tube Branch daily. atorvastati 2020-0 Yes 80mg Take 1 Univ ers n 80 mg 8-29 tablet ity of tablet 00:00: through 00 enteral Medical tube at Branch bedtime. latanoprost 2020-0 Yes 1[drp] Place 1 U nivers 0.005 % 8-29 Drop in ity of ophthalmic 00:00: both eyes [place] drops 00 at Medical bedtime. Branch 0.9 % 2020-0 Yes 10mL Inject 10 Univers sodium 8-29 mL as ity of chloride 00:00: directed [place] (NACL 0.9%, 00 as needed Med ical NS,) (line Branch injection maintenanc e). acetaminoph 2020-0 Yes 500mg Take 1 Uni vers en 500 mg 8-29 tablet by ity o f tablet 00:00: mouth [place] 00 every 6 Medical (six) Branch hours as needed. dextrose 50 2020-0 Yes 25mL Inject 25 U nivers % in water, 8-29 mL as ity of D50W, 00:00: directed [place] injection 00 as needed Medic al (Blood Branch Glucose < or = 70 mg/dL and patient is unable to swallow or has mental status changes.). glucagon 1 2020-0 Yes 1mg 1 mg by Univ ers mg/mL SolR 8-29 Intramuscu ity of injection 00:00: lar route [place] 00 as needed Medical (Blood Branch Glucose < or = 70 mg/dL and patient is unable to swallow or has mental changes.). pantoprazol 2019-0 Yes 40mg Take 20 mL Univers e 2 mg/mL 8 through ity of oral 00:00: enteral [place] suspension 00 tube Medical daily. Branch dexMEDEtomi 2020-0 Yes 16.7ug/ 16.7-125.2 Univers dine 200 8-29 h 5 mcg/hr ity of mcg in 0.9 00:00: by IV [place] % NaCl 50 00 Infusion Medica l mL 200 route Branch mcg/50 mL TITRATE. (4 mcg/mL) fentanyl 2019-0 Yes 25ug/h 25-200 Unive rs citrate-0.9 8-29 mcg/hr by ity of % NaCl/PF 00:00: IV [place] (FENTANYL 00 Infusion Medica l CITRATE IN route Branch NS, PF,) 10 TITRATE. mcg/mL infusion insulin 2019-0 Yes inject Univers aspart 01-23 under the ity of injection 00:00: skin every [place] 00 4 (four) Medical hours. Branch collagenase Yes Apply to Un hina 250 8- affected ity of unit/gram 00:00: area(s) [place] ointment 00 daily. Medical Branch QUEtiapine 2019-0 Yes 50mg 1 tablet 2 U nivers 50 mg 829 (two) ity of tablet 00:00: times [place] 00 daily. Medical Branch midazolam 2019-0 Yes 1mg/h 1-10 mg/hr U nivers HCl in 0.9 8-29 by IV ity of % NaCl/PF 00:00: Infusion [place] (MIDAZOLAM, 00 route Medical PF, IN 0.9 TITRATE. Branc h % NACL) 1 mg/mL infusion sodium 2019-0 Yes 4mL Inhale 4 Univers chloride 7% 8-29 mL 2 (two) it y of nebulizer 00:00: times [place] solution 00 daily. Medical Branch heparin 2020-0 Yes 3000U Inject 3 Unive rs sodium,porc 8-29 mL as ity of ine 00:00: directed. [place] (HEPARIN 00 Medical 1000 Branch UNIT/ML) Soln injection heparin 2019-0 Yes 1300U/h 1,300 Univer s sod,pork in 8-29 Units/hr ity of 0.45% NaCl 00:00: by IV [place] (HEPARIN 00 Infusion Medical 25,000 UNIT route Branch IN 0.45 NS TITRATE. 250 ML) 25,000 unit/250 mL infusion norepinephr 2020-0 Yes .0042mg 0.0042-0.1 Univers ine bit/0.9 8-29 /min 253 mg/min it y of % NaCl 00:00: by IV [place] (NOREPINEPH 00 Infusion Medi maggie RINE 16 MG route Branch IN NS 250 TITRATE. ML) RTU clonazePAM 2020-0 Yes 1mg Take 10 mL U nivers (KLONOPIN) 8-29 through ity of 0.1 mg/mL 00:00: enteral [place] oral 00 tube 3 Medical suspension (three) Branch times daily. docusate 2020-0 Yes 100mg Take 1 Univer s 100 mg 8-29 capsule by ity of capsule 00:00: mouth [place] 00 daily. Medical Branch HYDROcodone 2020-0 Yes 10mg Take 20 mL Univers -acetaminop 8-29 through ity o f hen 7.5-325 00:00: enteral [place] mg/15 mL 00 tube 3 Medical solution (three) Branch times daily. Polyethylen 2020-0 Yes 17g Take 1 Univ ers e Glycol 8-29 Packet ity of 3350 17 00:00: through [place] gram powder 00 enteral Medic al tube 2 Branch (two) times daily. sennosides- 2020-0 Yes 2{tbl} Take 2 Un hina docusate 8-29 tablets ity of sodium 00:00: through [place] 8.6-50 mg 00 enteral Medical per tablet tube Branch daily. furosemide 2020-0 Yes 20mg Inject 2 Uni vers 10 mg/mL 8-29 mL as ity of injection 00:00: directed [place] 00 daily. Medical Branch insulin 2020-0 Yes 3U inject 3 Univer s glargine 8-29 Units ity of 100 unit/mL 00:00: under the [place] injection 00 skin at Medical bedtime. Branch insulin 2020-0 Yes 1U inject 1 Univer s aspart 8-29 Units ity of RAPID 100 00:00: under the [place] unit/mL 00 skin every Medica l injection 4 (four) Branch hours. ipratropium 2020-0 Yes 3mL Inhale 3 Un hina -albuteroL 8-29 mL 3 ity of 0.5 mg-3 00:00: (three) [place] mg(2.5 mg 00 times Medical base)/3 mL daily as Branc h nebulizer needed for solution Wheezing. aspirin 81 2020-0 Yes 81mg Take 1 Unive rs mg chewable 8-29 tablet ity of tablet 00:00: through [place] 00 enteral Medical tube Branch daily. atorvastati 2020-0 Yes 80mg Take 1 Univ ers n 80 mg 8-29 tablet ity of tablet 00:00: through [place] 00 enteral Medical tube at Branch bedtime. latanoprost 2020-0 Yes 1[drp] Place 1 U nivers 0.005 % 8-29 Drop in ity of ophthalmic 00:00: both eyes [place] drops 00 at Medical bedtime. Branch 0.9 % 2020-0 Yes 10mL Inject 10 Univers sodium 8-29 mL as ity of chloride 00:00: directed [place] (NACL 0.9%, 00 as needed Med ical NS,) (line Branch injection maintenanc e). acetaminoph 2020-0 Yes 500mg Take 1 Uni vers en 500 mg 8-29 tablet by ity o f tablet 00:00: mouth [place] 00 every 6 Medical (six) Branch hours as needed. dextrose 50 2020-0 Yes 25mL Inject 25 U nivers % in water, 8-29 mL as ity of D50W, 00:00: directed [place] injection 00 as needed Medic al (Blood Branch Glucose < or = 70 mg/dL and patient is unable to swallow or has mental status changes.). glucagon 1 2020-0 Yes 1mg 1 mg by [facility] ers mg/mL SolR 8-29 Intramuscu ity of injection 00:00: lar route [place] 00 as needed Medical (Blood Branch Glucose < or = 70 mg/dL and patient is unable to swallow or has mental changes.). pantoprazol 2020-0 Yes 40mg Take 20 mL [facility] e 2 mg/mL 8-29 through ity of oral 00:00: enteral [place] suspension 00 tube Medical daily. Branch dexMEDEtomi 2020-0 Yes 16.7ug/ 16.7-125.2 [facility] dine 200 8-29 h 5 mcg/hr ity of mcg in 0.9 00:00: by IV [place] % NaCl 50 00 Infusion Medica l mL 200 route Branch mcg/50 mL TITRATE. (4 mcg/mL) fentanyl 2020-0 Yes 25ug/h 25-200 Un[facility] rs citrate-0.9 8-29 mcg/hr by ity of % NaCl/PF 00:00: IV [place] (FENTANYL 00 Infusion Medica l CITRATE IN route Branch NS, PF,) 10 TITRATE. mcg/mL infusion insulin 2019-0 Yes inject [facility] aspart 8 under the ity of injection 00:00: skin every [place] 00 4 (four) Medical hours. Branch collagenase 2019-0 Yes Apply to [facility] 250 8-29 affected ity of unit/gram 00:00: area(s) [place] ointment 00 daily. Medical Branch QUEtiapine 2019-0 Yes 50mg 1 tablet 2 U nivers 50 mg 829 (two) ity of tablet 00:00: times [place] 00 daily. Medical Branch midazolam 2019-0 Yes 1mg/h 1-10 mg/hr U nivers HCl in 0.9 8-29 by IV ity of % NaCl/PF 00:00: Infusion [place] (MIDAZOLAM, 00 route Medical PF, IN 0.9 TITRATE. Branc h % NACL) 1 mg/mL infusion sodium 2019-0 Yes 4mL Inhale 4 [facility] chloride 7% 8-29 mL 2 (two) it y of nebulizer 00:00: times [place] solution 00 daily. Medical Branch heparin 2019-0 Yes 3000U Inject 3 [facility] rs sodium,porc 8-29 mL as ity of ine 00:00: directed. [place] (HEPARIN 00 Medical 1000 Branch UNIT/ML) Soln injection heparin 2019-0 Yes 1300U/h 1,300 Univer s sod,pork in 8-29 Units/hr ity of 0.45% NaCl 00:00: by IV [place] (HEPARIN 00 Infusion Medical 25,000 UNIT route Branch IN 0.45 NS TITRATE. 250 ML) 25,000 unit/250 mL infusion norepinephr 2019-0 Yes .0042mg 0.0042-0.1 [facility] ine bit/0.9 8-29 /min 253 mg/min it y of % NaCl 00:00: by IV [place] (NOREPINEPH 00 Infusion Medi maggie RINE 16 MG route Branch IN NS 250 TITRATE. ML) RTU clonazePAM 2020-0 Yes 1mg Take 10 mL [facility] (KLONOPIN) 8-29 through ity of 0.1 mg/mL 00:00: enteral [place] oral 00 tube 3 Medical suspension (three) Branch times daily. docusate 2020-0 Yes 100mg Take 1 Univer s 100 mg 8-29 capsule by ity of capsule 00:00: mouth [place] 00 daily. Medical Branch HYDROcodone 2020-0 Yes 10mg Take 20 mL [facility] -acetaminop 8-29 through ity o f hen 7.5-325 00:00: enteral [place] mg/15 mL 00 tube 3 Medical solution (three) Branch times daily. Polyethylen 2020-0 Yes 17g Take 1 Univ ers e Glycol 8-29 Packet ity of 3350 17 00:00: through [place] gram powder 00 enteral Medic al tube 2 Branch (two) times daily. sennosides- 2020-0 Yes 2{tbl} Take 2 Un hina docusate 8-29 tablets ity of sodium 00:00: through [place] 8.6-50 mg 00 enteral Medical per tablet tube Branch daily. furosemide 2020-0 Yes 20mg Inject 2 Uni vers 10 mg/mL 8-29 mL as it[facility] of injection 00:00: directed [place] 00 daily. [facility] insulin 2020-0 Yes 3U inject 3 Univer s glargine 8-29 Units ity of 100 unit/mL 00:00: under the [place] injection 00 skin at Medical bedtime. Branch insulin 2020-0 Yes 1U inject 1 Univer [facility] aspart 8-29 Units ity of RAPID 100 00:00: under the [place] unit/mL 00 skin every Medica l injection 4 (four) Branch hours. ipratropium 2020-0 Yes 3mL Inhale 3 [facility] -albuteroL 8-29 mL 3 ity of 0.5 mg-3 00:00: (three) [place] mg(2.5 mg 00 times Medical base)/3 mL daily as Bran h nebulizer needed for solution Wheezing. aspirin 81 2020-0 Yes 81mg Take 1 Un[facility] rs mg chewable 8-29 tablet ity of tablet 00:00: through [place] 00 enteral Medical tube Branch daily. atorvastati 2020-0 Yes 80mg Take 1 [facility] ers n 80 mg 8-29 tablet ity of tablet 00:00: through [place] 00 enteral Medical tube at Branch bedtime. latanoprost 2020-0 Yes 1[drp] Place 1 U nivers 0.005 % 8-29 Drop in ity of ophthalmic 00:00: both eyes [place] drops 00 at Medical bedtime. Branch 0.9 % 2020-0 Yes 10mL Inject 10 [facility] sodium 8-29 mL as ity of chloride 00:00: directed [place] (NACL 0.9%, 00 as needed Med ical NS,) (line Branch injection maintenanc e). acetaminoph 2020-0 Yes 500mg Take 1 Uni vers en 500 mg 8-29 tablet by ity o f tablet 00:00: mouth [place] 00 every 6 Medical (six) Branch hours as needed. dextrose 50 2020-0 Yes 25mL Inject 25 U nivers % in water, 8-29 mL as ity of D50W, 00:00: directed [place] injection 00 as needed Medic al (Blood Branch Glucose < or = 70 mg/dL and patient is unable to swallow or has mental status changes.). glucagon 1 2020-0 Yes 1mg 1 mg by [facility] ers mg/mL SolR 8-29 Intramuscu ity of injection 00:00: lar route [place] 00 as needed Medical (Blood Branch Glucose < or = 70 mg/dL and patient is unable to swallow or has mental changes.). pantoprazol 2020-0 Yes 40mg Take 20 mL [facility] e 2 mg/mL 8-29 through ity of oral 00:00: enteral [place] suspension 00 tube Medical daily. Branch dexMEDEtomi 2020-0 Yes 16.7ug/ 16.7-125.2 [facility] dine 200 8-29 h 5 mcg/hr ity of mcg in 0.9 00:00: by IV [place] % NaCl 50 00 Infusion Medica l mL 200 route Branch mcg/50 mL TITRATE. (4 mcg/mL) fentanyl 2020-0 Yes 25ug/h 25-200 Un[facility] rs citrate-0.9 8-29 mcg/hr by ity of % NaCl/PF 00:00: IV [place] (FENTANYL 00 Infusion Medica l CITRATE IN route Branch NS, PF,) 10 TITRATE. mcg/mL infusion insulin 2020-0 Yes inject [facility] aspart 8-29 under the ity of injection 00:00: skin every [place] 00 4 (four) Medical hours. Branch collagenase 2020-0 Yes Apply to [facility] 250 8-29 affected ity of unit/gram 00:00: area(s) [place] ointment 00 daily. Medical Branch QUEtiapine 2020-0 Yes 50mg 1 tablet 2 U nivers 50 mg 8-29 (two) ity of tablet 00:00: times [place] 00 daily. Medical Branch midazolam 2020-0 Yes 1mg/h 1-10 mg/hr U nivers HCl in 0.9 8-29 by IV ity of % NaCl/PF 00:00: Infusion [place] (MIDAZOLAM, 00 route Medical PF, IN 0.9 TITRATE. Branc h % NACL) 1 mg/mL infusion sodium 2019-0 Yes 4mL Inhale 4 [facility] chloride 7% 8-29 mL 2 (two) it y of nebulizer 00:00: times [place] solution 00 daily. Medical Branch heparin 2020-0 Yes 3000U Inject 3 Unive rs sodium,porc 8-29 mL as ity of ine 00:00: directed. [place] (HEPARIN 00 Medical 1000 Branch UNIT/ML) Soln injection heparin 2020-0 Yes 1300U/h 1,300 Univer s sod,pork in 8-29 Units/hr ity of 0.45% NaCl 00:00: by IV [place] (HEPARIN 00 Infusion Medical 25,000 UNIT route Branch IN 0.45 NS TITRATE. 250 ML) 25,000 unit/250 mL infusion norepinephr 2020-0 Yes .0042mg 0.0042-0.1 [facility] ine bit/0.9 8-29 /min 253 mg/min it y of % NaCl 00:00: by IV [place] (NOREPINEPH 00 Infusion Medi maggie RINE 16 MG route Branch IN NS 250 TITRATE. ML) RTU clonazePAM 2019-0 Yes 1mg Take 10 mL [facility] n[facility] (KLONOPIN) 8-29 through ity of 0.1 mg/mL 00:00: enteral [place] oral 00 tube 3 Medical suspension (three) Branch times daily. docusate 2020-0 Yes 100mg Take 1 Univer s 100 mg 8-29 capsule by ity of capsule 00:00: mouth [place] 00 daily. Medical Branch HYDROcodone 2020-0 Yes 10mg Take 20 mL [facility] -acetaminop 8-29 through ity o f hen 7.5-325 00:00: enteral [place] mg/15 mL 00 tube 3 Medical solution (three) Branch times daily. Polyethylen 2020-0 Yes 17g Take 1 Univ ers e Glycol 8-29 Packet ity of 3350 17 00:00: through [place] gram powder 00 enteral Medic al tube 2 Branch (two) times daily. sennosides- 2020-0 Yes 2{tbl} Take 2 Un hina docusate 8-29 tablets ity of sodium 00:00: through [place] 8.6-50 mg 00 enteral Medical per tablet tube Branch daily. furosemide 2020-0 Yes 20mg Inject 2 Uni vers 10 mg/mL 8-29 mL as ity of injection 00:00: directed [place] 00 daily. [facility] insulin 2020-0 Yes 3U inject 3 [facility] s glargine 8-29 Units ity of 100 unit/mL 00:00: under the [place] injection 00 skin at Medical bedtime. Branch insulin 2020-0 Yes 1U inject 1 Univer s aspart 8-29 Units ity of RAPID 100 00:00: under the [place] unit/mL 00 skin every Medica l injection 4 (four) Branch hours. ipratropium 2020-0 Yes 3mL Inhale 3 [facility] -albuteroL 8-29 mL 3 ity of 0.5 mg-3 00:00: (three) [place] mg(2.5 mg 00 times Medical base)/3 mL daily as Bran h nebulizer needed for solution Wheezing. aspirin 81 2020-0 Yes 81mg Take 1 [facility] rs mg chewable 8-29 tablet ity of tablet 00:00: through [place] 00 enteral Medical tube Branch daily. atorvastati 2020-0 Yes 80mg Take 1 [facility] ers n 80 mg 8-29 tablet ity of tablet 00:00: through [place] 00 enteral Medical tube at Branch bedtime. latanoprost 2020-0 Yes 1[drp] Place 1 U nivers 0.005 % 8-29 Drop in ity of ophthalmic 00:00: both eyes [place] drops 00 at Medical bedtime. Branch 0.9 % 2020-0 Yes 10mL Inject 10 [facility] sodium 8-29 mL as ity of chloride 00:00: directed [place] (NACL 0.9%, 00 as needed Med ical NS,) (line Branch injection maintenanc e). acetaminoph 2020-0 Yes 500mg Take 1 [facility] vers en 500 mg 8 tablet by ity o f tablet 00:00: mouth [place] 00 every 6 Medical (six) Branch hours as needed. dextrose 50 2020-0 Yes 25mL Inject 25 U nivers % in water, 8-29 mL as ity of D50W, 00:00: directed [place] injection 00 as needed Medic al (Blood Branch Glucose < or = 70 mg/dL and patient is unable to swallow or has mental status changes.). glucagon 1 2019-0 Yes 1mg 1 mg by [facility] ers mg/mL SolR 829 Intramuscu ity of injection 00:00: lar route [place] 00 as needed Medical (Blood Branch Glucose < or = 70 mg/dL and patient is unable to swallow or has mental changes.). pantoprazol 2020-0 Yes 40mg Take 20 mL [facility] e 2 mg/mL 01-23 through ity of oral 00:00: enteral [place] suspension 00 tube Medical daily. Branch dexMEDEtomi 2019-0 Yes 16.7ug/ 16.7-125.2 [facility] dine 200 8-29 h 5 mcg/hr ity of mcg in 0.9 00:00: by IV [place] % NaCl 50 00 Infusion Medica l mL 200 route Branch mcg/50 mL TITRATE. (4 mcg/mL) fentanyl 2020-0 Yes 25ug/h 25-200 Unive rs citrate-0.9 8-29 mcg/hr by ity of % NaCl/PF 00:00: IV [place] (FENTANYL 00 Infusion Medica l CITRATE IN route Branch NS, PF,) 10 TITRATE. mcg/mL infusion insulin 2019-0 Yes inject [facility] aspart 01-23 under the ity of injection 00:00: skin every [place] 00 4 (four) Medical hours. Branch collagenase 2019-0 Yes Apply to [facility] 250 8-29 affected ity of unit/gram 00:00: area(s) [place] ointment 00 daily. Medical Branch QUEtiapine 2020-0 Yes 50mg 1 tablet 2 U nivers 50 mg 829 (two) ity of tablet 00:00: times [place] 00 daily. Medical Branch midazolam 2020-0 Yes 1mg/h 1-10 mg/hr U nivers HCl in 0.9 8-29 by IV ity of % NaCl/PF 00:00: Infusion [place] (MIDAZOLAM, 00 route Medical PF, IN 0.9 TITRATE. Branc h % NACL) 1 mg/mL infusion sodium 2020-0 Yes 4mL Inhale 4 [facility] chloride 7% 8-29 mL 2 (two) it y of nebulizer 00:00: times [place] solution 00 daily. Medical Branch heparin 2020-0 Yes 3000U Inject 3 Unive rs sodium,porc 8-29 mL as ity of ine 00:00: directed. [place] (HEPARIN 00 Medical 1000 Branch UNIT/ML) Soln injection heparin 2020-0 Yes 1300U/h 1,300 Univer s sod,pork in 8-29 Units/hr ity of 0.45% NaCl 00:00: by IV [place] (HEPARIN 00 Infusion Medical 25,000 UNIT route Branch IN 0.45 NS TITRATE. 250 ML) 25,000 unit/250 mL infusion norepinephr 2020-0 Yes .0042mg 0.0042-0.1 [facility] ine bit/0.9 8-29 /min 253 mg/min it y of % NaCl 00:00: by IV [place] (NOREPINEPH 00 Infusion Medi maggie RINE 16 MG route Branch IN NS 250 TITRATE. ML) RTU clonazePAM 2020-0 Yes 1mg Take 10 mL [facility] n[facility] (KLONOPIN) 8-29 through ity of 0.1 mg/mL 00:00: enteral [place] oral 00 tube 3 Medical suspension (three) Branch times daily. docusate 2020-0 Yes 100mg Take 1 Univer s 100 mg 8-29 capsule by ity of capsule 00:00: mouth [place] 00 daily. Medical Branch HYDROcodone 2020-0 Yes 10mg Take 20 mL [facility] -acetaminop 8-29 through ity o f hen 7.5-325 00:00: enteral [place] mg/15 mL 00 tube 3 Medical solution (three) Branch times daily. Polyethylen 2020-0 Yes 17g Take 1 [facility] ers e Glycol 8-29 Packet ity of 3350 17 00:00: through [place] gram powder 00 enteral Medic al tube 2 Branch (two) times daily. sennosides- 2020-0 Yes 2{tbl} Take 2 Un hina docusate 8-29 tablets ity of sodium 00:00: through [place] 8.6-50 mg 00 enteral Medical per tablet tube Branch daily. furosemide 2020-0 Yes 20mg Inject 2 Uni vers 10 mg/mL 8-29 mL as ity of injection 00:00: directed [place] 00 daily. [facility] insulin 2020-0 Yes 3U inject 3 Univer s glargine 8-29 Units ity of 100 unit/mL 00:00: under the [place] injection 00 skin at Medical bedtime. Branch insulin 2020-0 Yes 1U inject 1 Univer s aspart 8-29 Units ity of RAPID 100 00:00: under the [place] unit/mL 00 skin every Medica l injection 4 (four) Branch hours. ipratropium 2020-0 Yes 3mL Inhale 3 [facility] h[facility] -albuteroL 8-29 mL 3 ity of 0.5 mg-3 00:00: (three) [place] mg(2.5 mg 00 times Medical base)/3 mL daily as Branc h nebulizer needed for solution Wheezing. aspirin 81 2020-0 Yes 81mg Take 1 Un[facility] rs mg chewable 8-29 tablet ity of tablet 00:00: through [place] 00 enteral Medical tube Branch daily. atorvastati 2020-0 Yes 80mg Take 1 [facility] ers n 80 mg 8-29 tablet ity of tablet 00:00: through [place] 00 enteral Medical tube at Branch bedtime. latanoprost 2020-0 Yes 1[drp] Place 1 U nivers 0.005 % 8-29 Drop in ity of ophthalmic 00:00: both eyes [place] drops 00 at Medical bedtime. Branch 0.9 % 2020-0 Yes 10mL Inject 10 [facility] sodium 8-29 mL as ity of chloride 00:00: directed [place] (NACL 0.9%, 00 as needed Med ical NS,) (line Branch injection maintenanc e). acetaminoph 2020-0 Yes 500mg Take 1 [facility] vers en 500 mg 8-29 tablet by ity o f tablet 00:00: mouth [place] 00 every 6 Medical (six) Branch hours as needed. dextrose 50 2020-0 Yes 25mL Inject 25 U nivers % in water, 8-29 mL as ity of D50W, 00:00: directed [place] injection 00 as needed Medic al (Blood Branch Glucose < or = 70 mg/dL and patient is unable to swallow or has mental status changes.). glucagon 1 2020-0 Yes 1mg 1 mg by [facility] ers mg/mL SolR 8-29 Intramuscu ity of injection 00:00: lar route [place] 00 as needed Medical (Blood Branch Glucose < or = 70 mg/dL and patient is unable to swallow or has mental changes.). pantoprazol 2019-0 Yes 40mg Take 20 mL [facility] e 2 mg/mL 8 through ity of oral 00:00: enteral [place] suspension 00 tube Medical daily. Branch dexMEDEtomi 2019-0 Yes 16.7ug/ 16.7-125.2 [facility] dine 200 8-29 h 5 mcg/hr ity of mcg in 0.9 00:00: by IV [place] % NaCl 50 00 Infusion Medica l mL 200 route Branch mcg/50 mL TITRATE. (4 mcg/mL) fentanyl 2019-0 Yes 25ug/h 25-200 Unive rs citrate-0.9 8-29 mcg/hr by ity of % NaCl/PF 00:00: IV [place] (FENTANYL 00 Infusion Medica l CITRATE IN route Branch NS, PF,) 10 TITRATE. mcg/mL infusion insulin 2019-0 Yes inject [facility] aspart 8 under the ity of injection 00:00: skin every [place] 00 4 (four) Medical hours. Branch collagenase 0 Yes Apply to Un h[facility] 250 8- affected ity of unit/gram 00:00: area(s) [place] ointment 00 daily. Medical Branch QUEtiapine 2019-0 Yes 50mg 1 tablet 2 U nivers 50 mg 8 (two) ity of tablet 00:00: times [place] 00 daily. Medical Branch midazolam 2019-0 Yes 1mg/h 1-10 mg/hr U nivers HCl in 0.9 8-29 by IV ity of % NaCl/PF 00:00: Infusion [place] (MIDAZOLAM, 00 route Medical PF, IN 0.9 TITRATE. Branc h % NACL) 1 mg/mL infusion sodium 2019-0 Yes 4mL Inhale 4 [facility] chloride 7% 8-29 mL 2 (two) it y of nebulizer 00:00: times [place] solution 00 daily. Medical Branch heparin 2019-0 Yes 3000U Inject 3 Unive rs sodium,porc 8-29 mL as ity of ine 00:00: directed. [place] (HEPARIN 00 Medical 1000 Branch UNIT/ML) Soln injection heparin 2019-0 Yes 1300U/h 1,300 Univer s sod,pork in 8-29 Units/hr ity of 0.45% NaCl 00:00: by IV [place] (HEPARIN 00 Infusion Medical 25,000 UNIT route Branch IN 0.45 NS TITRATE. 250 ML) 25,000 unit/250 mL infusion norepinephr 2020-0 Yes .0042mg 0.0042-0.1 [facility] ine bit/0.9 8-29 /min 253 mg/min it y of % NaCl 00:00: by IV [place] (NOREPINEPH 00 Infusion Medi maggie RINE 16 MG route Branch IN NS 250 TITRATE. ML) RTU clonazePAM 2020-0 Yes 1mg Take 10 mL U nivers (KLONOPIN) 8-29 through ity of 0.1 mg/mL 00:00: enteral [place] oral 00 tube 3 Medical suspension (three) Branch times daily. docusate 2020-0 Yes 100mg Take 1 Univer s 100 mg 8-29 capsule by ity of capsule 00:00: mouth [place] 00 daily. Medical Branch HYDROcodone 2020-0 Yes 10mg Take 20 mL [facility] -acetaminop 8-29 through ity o f hen 7.5-325 00:00: enteral [place] mg/15 mL 00 tube 3 Medical solution (three) Branch times daily. Polyethylen 2020-0 Yes 17g Take 1 Univ ers e Glycol 8-29 Packet ity of 3350 17 00:00: through [place] gram powder 00 enteral Medic al tube 2 Branch (two) times daily. sennosides- 2020-0 Yes 2{tbl} Take 2 Un hina docusate 8-29 tablets ity of sodium 00:00: through [place] 8.6-50 mg 00 enteral Medical per tablet tube Branch daily. furosemide 2020-0 Yes 20mg Inject 2 [facility] vers 10 mg/mL 8-29 mL as ity of injection 00:00: directed [place] 00 daily. [facility] insulin 2020-0 Yes 3U inject 3 Univer s glargine 8-29 Units ity of 100 unit/mL 00:00: under the [place] injection 00 skin at Medical bedtime. Branch insulin 2020-0 Yes 1U inject 1 Univer s aspart 8-29 Units ity of RAPID 100 00:00: under the [place] unit/mL 00 skin every Medica l injection 4 (four) Branch hours. ipratropium 2020-0 Yes 3mL Inhale 3 [facility] -albuteroL 8-29 mL 3 ity of 0.5 mg-3 00:00: (three) [place] mg(2.5 mg 00 times Medical base)/3 mL daily as Branc h nebulizer needed for solution Wheezing. aspirin 81 2020-0 Yes 81mg Take 1 Un[facility] rs mg chewable 8-29 tablet ity of tablet 00:00: through [place] 00 enteral Medical tube Branch daily. atorvastati 2020-0 Yes 80mg Take 1 [facility] ers n 80 mg 8-29 tablet ity of tablet 00:00: through [place] 00 enteral Medical tube at Branch bedtime. latanoprost 2020-0 Yes 1[drp] Place 1 U nivers 0.005 % 8-29 Drop in ity of ophthalmic 00:00: both eyes [place] drops 00 at Medical bedtime. Branch 0.9 % 2020-0 Yes 10mL Inject 10 [facility] sodium 8-29 mL as ity of chloride 00:00: directed [place] (NACL 0.9%, 00 as needed Med ical NS,) (line Branch injection maintenanc e). acetaminoph 2020-0 Yes 500mg Take 1 [facility] vers en 500 mg 8-29 tablet by ity o f tablet 00:00: mouth [place] 00 every 6 Medical (six) Branch hours as needed. dextrose 50 2020-0 Yes 25mL Inject 25 U nivers % in water, 8-29 mL as ity of D50W, 00:00: directed [place] injection 00 as needed Medic al (Blood Branch Glucose < or = 70 mg/dL and patient is unable to swallow or has mental status changes.). glucagon 1 2020-0 Yes 1mg 1 mg by [facility] ers mg/mL SolR 829 Intramuscu ity of injection 00:00: lar route [place] 00 as needed Medical (Blood Branch Glucose < or = 70 mg/dL and patient is unable to swallow or has mental changes.). pantoprazol 2020-0 Yes 40mg Take 20 mL [facility] e 2 mg/mL 8-29 through ity of oral 00:00: enteral [place] suspension 00 tube Medical daily. Branch dexMEDEtomi 2020-0 Yes 16.7ug/ 16.7-125.2 [facility] dine 200 8-29 h 5 mcg/hr ity of mcg in 0.9 00:00: by IV [place] % NaCl 50 00 Infusion Medica l mL 200 route Branch mcg/50 mL TITRATE. (4 mcg/mL) fentanyl 2020-0 Yes 25ug/h 25-200 Unive rs citrate-0.9 8-29 mcg/hr by ity of % NaCl/PF 00:00: IV [place] (FENTANYL 00 Infusion Medica l CITRATE IN route Branch NS, PF,) 10 TITRATE. mcg/mL infusion insulin 2019-0 Yes inject [facility] aspart 8-29 under the ity of injection 00:00: skin every [place] 00 4 (four) Medical hours. Branch collagenase 2019-0 Yes Apply to Un [facility] 250 8-29 affected ity of unit/gram 00:00: area(s) [place] ointment 00 daily. Medical Branch QUEtiapine 2019-0 Yes 50mg 1 tablet 2 U nivers 50 mg 8 (two) ity of tablet 00:00: times [place] 00 daily. Medical Branch midazolam 2019-0 Yes 1mg/h 1-10 mg/hr U nivers HCl in 0.9 8-29 by IV ity of % NaCl/PF 00:00: Infusion [place] (MIDAZOLAM, 00 route Medical PF, IN 0.9 TITRATE. Branc h % NACL) 1 mg/mL infusion sodium 2019-0 Yes 4mL Inhale 4 [facility] chloride 7% 8-29 mL 2 (two) it y of nebulizer 00:00: times [place] solution 00 daily. Medical Branch heparin 2019-0 Yes 3000U Inject 3 Unive rs sodium,porc 8-29 mL as ity of ine 00:00: directed. [place] (HEPARIN 00 Medical 1000 Branch UNIT/ML) Soln injection heparin 2019-0 Yes 1300U/h 1,300 Univer s sod,pork in 8-29 Units/hr ity of 0.45% NaCl 00:00: by IV [place] (HEPARIN 00 Infusion Medical 25,000 UNIT route Branch IN 0.45 NS TITRATE. 250 ML) 25,000 unit/250 mL infusion norepinephr 2020-0 Yes .0042mg 0.0042-0.1 [facility] ine bit/0.9 8-29 /min 253 mg/min it y of % NaCl 00:00: by IV [place] (NOREPINEPH 00 Infusion Medi maggie RINE 16 MG route Branch IN NS 250 TITRATE. ML) RTU clonazePAM 2019-0 Yes 1mg Take 10 mL [facility] n[facility] (KLONOPIN) 8-29 through ity of 0.1 mg/mL 00:00: enteral [place] oral 00 tube 3 Medical suspension (three) Branch times daily. docusate 2020-0 Yes 100mg Take 1 Univer s 100 mg 8-29 capsule by ity of capsule 00:00: mouth [place] 00 daily. Medical Branch HYDROcodone 2020-0 Yes 10mg Take 20 mL [facility] -acetaminop 8-29 through ity o f hen 7.5-325 00:00: enteral [place] mg/15 mL 00 tube 3 Medical solution (three) Branch times daily. Polyethylen 2020-0 Yes 17g Take 1 Univ ers e Glycol 8-29 Packet ity of 3350 17 00:00: through [place] gram powder 00 enteral Medic al tube 2 Branch (two) times daily. sennosides- 2020-0 Yes 2{tbl} Take 2 [facility] h[facility] docusate 8-29 tablets ity of sodium 00:00: through [place] 8.6-50 mg 00 enteral Medical per tablet tube Branch daily. furosemide 2020-0 Yes 20mg Inject 2 [facility] vers 10 mg/mL 8-29 mL as ity of injection 00:00: directed [place] 00 daily. [facility] insulin 2020-0 Yes 3U inject 3 Un[facility] s glargine 8-29 Units ity of 100 unit/mL 00:00: under the [place] injection 00 skin at Medical bedtime. Branch insulin 2020-0 Yes 1U inject 1 Univer s aspart 8-29 Units ity of RAPID 100 00:00: under the [place] unit/mL 00 skin every Medica l injection 4 (four) Branch hours. ipratropium 2020-0 Yes 3mL Inhale 3 [facility] -albuteroL 8-29 mL 3 ity of 0.5 mg-3 00:00: (three) [place] mg(2.5 mg 00 times Medical base)/3 mL daily as Branc h nebulizer needed for solution Wheezing. aspirin 81 2020-0 Yes 81mg Take 1 Un[facility] rs mg chewable 8-29 tablet ity of tablet 00:00: through [place] 00 enteral Medical tube Branch daily. atorvastati 2020-0 Yes 80mg Take 1 [facility] ers n 80 mg 8-29 tablet ity of tablet 00:00: through [place] 00 enteral Medical tube at Branch bedtime. latanoprost 2020-0 Yes 1[drp] Place 1 U nivers 0.005 % 8- Drop in ity of ophthalmic 00:00: both eyes [place] drops 00 at Medical bedtime. Branch 0.9 % 2020-0 Yes 10mL Inject 10 [facility] sodium 8-29 mL as ity of chloride 00:00: directed [place] (NACL 0.9%, 00 as needed Med ical NS,) (line Branch injection maintenanc e). acetaminoph 2020-0 Yes 500mg Take 1 [facility] vers en 500 mg 8- tablet by ity o f tablet 00:00: mouth [place] 00 every 6 Medical (six) Branch hours as needed. dextrose 50 2020-0 Yes 25mL Inject 25 U nivers % in water, 8-29 mL as ity of D50W, 00:00: directed [place] injection 00 as needed Medic al (Blood Branch Glucose < or = 70 mg/dL and patient is unable to swallow or has mental status changes.). glucagon 1 2019-0 Yes 1mg 1 mg by [facility] ers mg/mL SolR 8 Intramuscu ity of injection 00:00: lar route [place] 00 as needed Medical (Blood Branch Glucose < or = 70 mg/dL and patient is unable to swallow or has mental changes.). pantoprazol 2019-0 Yes 40mg Take 20 mL [facility] e 2 mg/mL 01-23 through ity of oral 00:00: enteral [place] suspension 00 tube Medical daily. Branch dexMEDEtomi 2019-0 Yes 16.7ug/ 16.7-125.2 [facility] dine 200 8-29 h 5 mcg/hr ity of mcg in 0.9 00:00: by IV [place] % NaCl 50 00 Infusion Medica l mL 200 route Branch mcg/50 mL TITRATE. (4 mcg/mL) fentanyl 2020-0 Yes 25ug/h 25-200 Unive rs citrate-0.9 8-29 mcg/hr by ity of % NaCl/PF 00:00: IV [place] (FENTANYL 00 Infusion Medica l CITRATE IN route Branch NS, PF,) 10 TITRATE. mcg/mL infusion insulin 2019-0 Yes inject [facility] aspart 8- under the ity of injection 00:00: skin every [place] 00 4 (four) Medical hours. Branch collagenase 2019-0 Yes Apply to Un h[facility] 250 8-29 affected ity of unit/gram 00:00: area(s) [place] ointment 00 daily. Medical Branch QUEtiapine 2020-0 Yes 50mg 1 tablet 2 U nivers 50 mg 8-29 (two) ity of tablet 00:00: times [place] 00 daily. Medical Branch midazolam 2020-0 Yes 1mg/h 1-10 mg/hr U nivers HCl in 0.9 8-29 by IV ity of % NaCl/PF 00:00: Infusion [place] (MIDAZOLAM, 00 route Medical PF, IN 0.9 TITRATE. Branc h % NACL) 1 mg/mL infusion sodium 2020-0 Yes 4mL Inhale 4 [facility] chloride 7% 8-29 mL 2 (two) it y of nebulizer 00:00: times [place] solution 00 daily. Medical Branch heparin 2020-0 Yes 3000U Inject 3 Unive rs sodium,porc 8-29 mL as ity of ine 00:00: directed. [place] (HEPARIN 00 Medical 1000 Branch UNIT/ML) Soln injection heparin 2020-0 Yes 1300U/h 1,300 Univer s sod,pork in 8-29 Units/hr ity of 0.45% NaCl 00:00: by IV [place] (HEPARIN 00 Infusion Medical 25,000 UNIT route Branch IN 0.45 NS TITRATE. 250 ML) 25,000 unit/250 mL infusion norepinephr 2020-0 Yes .0042mg 0.0042-0.1 [facility] ine bit/0.9 8-29 /min 253 mg/min it y of % NaCl 00:00: by IV [place] (NOREPINEPH 00 Infusion Medi maggie RINE 16 MG route Branch IN NS 250 TITRATE. ML) RTU clonazePAM 2020-0 Yes 1mg Take 10 mL U nivers (KLONOPIN) 8-29 through ity of 0.1 mg/mL 00:00: enteral [place] oral 00 tube 3 Medical suspension (three) Branch times daily. docusate 2020-0 Yes 100mg Take 1 Univer s 100 mg 8-29 capsule by ity of capsule 00:00: mouth [place] 00 daily. Medical Branch HYDROcodone 2020-0 Yes 10mg Take 20 mL [facility] -acetaminop 8-29 through ity o f hen 7.5-325 00:00: enteral [place] mg/15 mL 00 tube 3 Medical solution (three) Branch times daily. Polyethylen 2020-0 Yes 17g Take 1 Univ ers e Glycol 8-29 Packet ity of 3350 17 00:00: through [place] gram powder 00 enteral Medic al tube 2 Branch (two) times daily. sennosides- 2020-0 Yes 2{tbl} Take 2 Un hina docusate 8-29 tablets ity of sodium 00:00: through [place] 8.6-50 mg 00 enteral Medical per tablet tube Branch daily. furosemide 2020-0 Yes 20mg Inject 2 Uni vers 10 mg/mL 8-29 mL as it[facility] of injection 00:00: directed [place] 00 daily. [facility] insulin 2020-0 Yes 3U inject 3 Univer s glargine 8-29 Units ity of 100 unit/mL 00:00: under the [place] injection 00 skin at Medical bedtime. Branch insulin 2020-0 Yes 1U inject 1 Univer s aspart 8-29 Units ity of RAPID 100 00:00: under the [place] unit/mL 00 skin every Medica l injection 4 (four) Branch hours. ipratropium 2020-0 Yes 3mL Inhale 3 Un hina -albuteroL 8-29 mL 3 ity of 0.5 mg-3 00:00: (three) [place] mg(2.5 mg 00 times Medical base)/3 mL daily as Bran h nebulizer needed for solution Wheezing. aspirin 81 2020-0 Yes 81mg Take 1 Unive rs mg chewable 8-29 tablet ity of tablet 00:00: through [place] 00 enteral Medical tube Branch daily. atorvastati 2020-0 Yes 80mg Take 1 Univ ers n 80 mg 8-29 tablet ity of tablet 00:00: through [place] 00 enteral Medical tube at Branch bedtime. latanoprost 2020-0 Yes 1[drp] Place 1 U nivers 0.005 % 8-29 Drop in ity of ophthalmic 00:00: both eyes [place] drops 00 at Medical bedtime. Branch 0.9 % 2020-0 Yes 10mL Inject 10 [facility] sodium 8-29 mL as ity of chloride 00:00: directed [place] (NACL 0.9%, 00 as needed Med ical NS,) (line Branch injection maintenanc e). acetaminoph 2020-0 Yes 500mg Take 1 Uni vers en 500 mg 8-29 tablet by ity o f tablet 00:00: mouth [place] 00 every 6 Medical (six) Branch hours as needed. dextrose 50 2020-0 Yes 25mL Inject 25 U nivers % in water, 8-29 mL as ity of D50W, 00:00: directed [place] injection 00 as needed Medic al (Blood Branch Glucose < or = 70 mg/dL and patient is unable to swallow or has mental status changes.). glucagon 1 2019-0 Yes 1mg 1 mg by Univ ers mg/mL SolR 8-29 Intramuscu ity of injection 00:00: lar route [place] 00 as needed Medical (Blood Branch Glucose < or = 70 mg/dL and patient is unable to swallow or has mental changes.). pantoprazol 2020-0 Yes 40mg Take 20 mL [facility] e 2 mg/mL 829 through ity of oral 00:00: enteral [place] suspension 00 tube Medical daily. Branch dexMEDEtomi 2019-0 Yes 16.7ug/ 16.7-125.2 [facility] dine 200 8-29 h 5 mcg/hr ity of mcg in 0.9 00:00: by IV [place] % NaCl 50 00 Infusion Medica l mL 200 route Branch mcg/50 mL TITRATE. (4 mcg/mL) fentanyl 2020-0 Yes 25ug/h 25-200 Unive rs citrate-0.9 8-29 mcg/hr by ity of % NaCl/PF 00:00: IV [place] (FENTANYL 00 Infusion Medica l CITRATE IN route Branch NS, PF,) 10 TITRATE. mcg/mL infusion insulin 2019-0 Yes inject [facility] aspart 8 under the ity of injection 00:00: skin every [place] 00 4 (four) Medical hours. Branch collagenase 2019-0 Yes Apply to Un hina 250 8-29 affected ity of unit/gram 00:00: area(s) [place] ointment 00 daily. Medical Branch QUEtiapine 2020-0 Yes 50mg 1 tablet 2 U nivers 50 mg 8-29 (two) ity of tablet 00:00: times [place] 00 daily. Medical Branch midazolam 2020-0 Yes 1mg/h 1-10 mg/hr U nivers HCl in 0.9 8-29 by IV ity of % NaCl/PF 00:00: Infusion [place] (MIDAZOLAM, 00 route Medical PF, IN 0.9 TITRATE. Branc h % NACL) 1 mg/mL infusion sodium 2020-0 Yes 4mL Inhale 4 [facility] chloride 7% 8-29 mL 2 (two) it y of nebulizer 00:00: times [place] solution 00 daily. Medical Branch heparin 2020-0 Yes 3000U Inject 3 Unive rs sodium,porc 8-29 mL as ity of ine 00:00: directed. [place] (HEPARIN 00 Medical 1000 Branch UNIT/ML) Soln injection heparin 2020-0 Yes 1300U/h 1,300 Univer s sod,pork in 8-29 Units/hr ity of 0.45% NaCl 00:00: by IV [place] (HEPARIN 00 Infusion Medical 25,000 UNIT route Branch IN 0.45 NS TITRATE. 250 ML) 25,000 unit/250 mL infusion norepinephr 2020-0 Yes .0042mg 0.0042-0.1 [facility] ine bit/0.9 8-29 /min 253 mg/min it y of % NaCl 00:00: by IV [place] (NOREPINEPH 00 Infusion Medi magige RINE 16 MG route Branch IN NS 250 TITRATE. ML) RTU clonazePAM 2020-0 Yes 1mg Take 10 mL [facility] n[facility] (KLONOPIN) 8-29 through ity of 0.1 mg/mL 00:00: enteral [place] oral 00 tube 3 Medical suspension (three) Branch times daily. docusate 2020-0 Yes 100mg Take 1 Univer s 100 mg 8-29 capsule by ity of capsule 00:00: mouth [place] 00 daily. Medical Branch HYDROcodone 2020-0 Yes 10mg Take 20 mL [facility] -acetaminop 8-29 through ity o f hen 7.5-325 00:00: enteral [place] mg/15 mL 00 tube 3 Medical solution (three) Branch times daily. Polyethylen 2020-0 Yes 17g Take 1 Univ ers e Glycol 8-29 Packet ity of 3350 17 00:00: through [place] gram powder 00 enteral Medic al tube 2 Branch (two) times daily. sennosides- 2020-0 Yes 2{tbl} Take 2 Un hina docusate 8-29 tablets ity of sodium 00:00: through [place] 8.6-50 mg 00 enteral Medical per tablet tube Branch daily. furosemide 2020-0 Yes 20mg Inject 2 Uni vers 10 mg/mL 8-29 mL as ity of injection 00:00: directed [place] 00 daily. [facility] insulin 2020-0 Yes 3U inject 3 Univer s glargine 8-29 Units ity of 100 unit/mL 00:00: under the [place] injection 00 skin at Medical bedtime. Branch insulin 2020-0 Yes 1U inject 1 Univer s aspart 8-29 Units ity of RAPID 100 00:00: under the [place] unit/mL 00 skin every Medica l injection 4 (four) Branch hours. ipratropium 2020-0 Yes 3mL Inhale 3 Un hina -albuteroL 8-29 mL 3 ity of 0.5 mg-3 00:00: (three) [place] mg(2.5 mg 00 times Medical base)/3 mL daily as Branc h nebulizer needed for solution Wheezing. aspirin 81 2020-0 Yes 81mg Take 1 Unive rs mg chewable 8-29 tablet ity of tablet 00:00: through [place] 00 enteral Medical tube Branch daily. atorvastati 2020-0 Yes 80mg Take 1 [facility] ers n 80 mg 8-29 tablet ity of tablet 00:00: through [place] 00 enteral Medical tube at Branch bedtime. latanoprost 2020-0 Yes 1[drp] Place 1 U nivers 0.005 % 8-29 Drop in ity of ophthalmic 00:00: both eyes [place] drops 00 at Medical bedtime. Branch 0.9 % 2020-0 Yes 10mL Inject 10 [facility] sodium 8-29 mL as ity of chloride 00:00: directed [place] (NACL 0.9%, 00 as needed Med ical NS,) (line Branch injection maintenanc e). acetaminoph 2020-0 Yes 500mg Take 1 Uni vers en 500 mg 8-29 tablet by ity o f tablet 00:00: mouth [place] 00 every 6 Medical (six) Branch hours as needed. dextrose 50 2020-0 Yes 25mL Inject 25 U nivers % in water, 8-29 mL as ity of D50W, 00:00: directed [place] injection 00 as needed Medic al (Blood Branch Glucose < or = 70 mg/dL and patient is unable to swallow or has mental status changes.). glucagon 1 2020-0 Yes 1mg 1 mg by [facility] ers mg/mL SolR 8-29 Intramuscu ity of injection 00:00: lar route [place] 00 as needed Medical (Blood Branch Glucose < or = 70 mg/dL and patient is unable to swallow or has mental changes.). pantoprazol 2020-0 Yes 40mg Take 20 mL [facility] e 2 mg/mL 8 through ity of oral 00:00: enteral [place] suspension 00 tube Medical daily. Branch dexMEDEtomi 2020-0 Yes 16.7ug/ 16.7-125.2 [facility] dine 200 8-29 h 5 mcg/hr ity of mcg in 0.9 00:00: by IV [place] % NaCl 50 00 Infusion Medica l mL 200 route Branch mcg/50 mL TITRATE. (4 mcg/mL) fentanyl 2019-0 Yes 25ug/h 25-200 Unive rs citrate-0.9 8-29 mcg/hr by ity of % NaCl/PF 00:00: IV [place] (FENTANYL 00 Infusion Medica l CITRATE IN route Branch NS, PF,) 10 TITRATE. mcg/mL infusion insulin 2019-0 Yes inject [facility] aspart 01-23 under the ity of injection 00:00: skin every [place] 00 4 (four) Medical hours. Branch collagenase 2019- Yes Apply to Un hina 250 8 affected ity of unit/gram 00:00: area(s) [place] ointment 00 daily. Medical Branch QUEtiapine 2019-0 Yes 50mg 1 tablet 2 U nivers 50 mg 8 (two) ity of tablet 00:00: times [place] 00 daily. Medical Branch midazolam 2019-0 Yes 1mg/h 1-10 mg/hr U nivers HCl in 0.9 8-29 by IV ity of % NaCl/PF 00:00: Infusion [place] (MIDAZOLAM, 00 route Medical PF, IN 0.9 TITRATE. Branc h % NACL) 1 mg/mL infusion sodium 2019-0 Yes 4mL Inhale 4 [facility] chloride 7% 8-29 mL 2 (two) it y of nebulizer 00:00: times [place] solution 00 daily. Medical Branch heparin 2019-0 Yes 3000U Inject 3 Unive rs sodium,porc 8-29 mL as ity of ine 00:00: directed. [place] (HEPARIN 00 Medical 1000 Branch UNIT/ML) Soln injection heparin 2019-0 Yes 1300U/h 1,300 Univer s sod,pork in 8-29 Units/hr ity of 0.45% NaCl 00:00: by IV [place] (HEPARIN 00 Infusion Medical 25,000 UNIT route Branch IN 0.45 NS TITRATE. 250 ML) 25,000 unit/250 mL infusion norepinephr 2020-0 Yes .0042mg 0.0042-0.1 [facility] ine bit/0.9 8-29 /min 253 mg/min it y of % NaCl 00:00: by IV [place] (NOREPINEPH 00 Infusion Medi maggie RINE 16 MG route Branch IN NS 250 TITRATE. ML) RTU clonazePAM 2020-0 Yes 1mg Take 10 mL [facility] (KLONOPIN) 8-29 through ity of 0.1 mg/mL 00:00: enteral [place] oral 00 tube 3 Medical suspension (three) Branch times daily. docusate 2020-0 Yes 100mg Take 1 Univer s 100 mg 8-29 capsule by ity of capsule 00:00: mouth [place] 00 daily. Medical Branch HYDROcodone 2020-0 Yes 10mg Take 20 mL [facility] -acetaminop 8-29 through ity o f hen 7.5-325 00:00: enteral [place] mg/15 mL 00 tube 3 Medical solution (three) Branch times daily. Polyethylen 2020-0 Yes 17g Take 1 Univ ers e Glycol 8-29 Packet ity of 3350 17 00:00: through [place] gram powder 00 enteral Medic al tube 2 Branch (two) times daily. sennosides- 2020-0 Yes 2{tbl} Take 2 Un hina docusate 8-29 tablets ity of sodium 00:00: through [place] 8.6-50 mg 00 enteral Medical per tablet tube Branch daily. furosemide 2020-0 Yes 20mg Inject 2 [facility] vers 10 mg/mL 8-29 mL as ity of injection 00:00: directed [place] 00 daily. [facility] insulin 2020-0 Yes 3U inject 3 Univer s glargine 8-29 Units ity of 100 unit/mL 00:00: under the [place] injection 00 skin at Medical bedtime. Branch insulin 2020-0 Yes 1U inject 1 Univer s aspart 8-29 Units ity of RAPID 100 00:00: under the [place] unit/mL 00 skin every Medica l injection 4 (four) Branch hours. ipratropium 2020-0 Yes 3mL Inhale 3 [facility] h[facility] -albuteroL 8-29 mL 3 ity of 0.5 mg-3 00:00: (three) [place] mg(2.5 mg 00 times Medical base)/3 mL daily as Branc h nebulizer needed for solution Wheezing. aspirin 81 2020-0 Yes 81mg Take 1 Unive rs mg chewable 8-29 tablet ity of tablet 00:00: through [place] 00 enteral Medical tube Branch daily. atorvastati 2020-0 Yes 80mg Take 1 [facility] ers n 80 mg 8-29 tablet ity of tablet 00:00: through [place] 00 enteral Medical tube at Branch bedtime. latanoprost 2020-0 Yes 1[drp] Place 1 U nivers 0.005 % 8-29 Drop in ity of ophthalmic 00:00: both eyes [place] drops 00 at Medical bedtime. Branch 0.9 % 2020-0 Yes 10mL Inject 10 [facility] sodium 8-29 mL as ity of chloride 00:00: directed [place] (NACL 0.9%, 00 as needed Med ical NS,) (line Branch injection maintenanc e). acetaminoph 2020-0 Yes 500mg Take 1 [facility] vers en 500 mg 8-29 tablet by ity o f tablet 00:00: mouth [place] 00 every 6 Medical (six) Branch hours as needed. dextrose 50 2020-0 Yes 25mL Inject 25 U nivers % in water, 8-29 mL as ity of D50W, 00:00: directed [place] injection 00 as needed Medic al (Blood Branch Glucose < or = 70 mg/dL and patient is unable to swallow or has mental status changes.). glucagon 1 2020-0 Yes 1mg 1 mg by [facility] ers mg/mL SolR 8-29 Intramuscu ity of injection 00:00: lar route [place] 00 as needed Medical (Blood Branch Glucose < or = 70 mg/dL and patient is unable to swallow or has mental changes.). pantoprazol 2020-0 Yes 40mg Take 20 mL [facility] e 2 mg/mL 8-29 through ity of oral 00:00: enteral [place] suspension 00 tube Medical daily. Branch dexMEDEtomi 2020-0 Yes 16.7ug/ 16.7-125.2 [facility] dine 200 8-29 h 5 mcg/hr ity of mcg in 0.9 00:00: by IV [place] % NaCl 50 00 Infusion Medica l mL 200 route Branch mcg/50 mL TITRATE. (4 mcg/mL) fentanyl 2020-0 Yes 25ug/h 25-200 Unive rs citrate-0.9 8-29 mcg/hr by ity of % NaCl/PF 00:00: IV [place] (FENTANYL 00 Infusion Medica l CITRATE IN route Branch NS, PF,) 10 TITRATE. mcg/mL infusion insulin 2019-0 Yes inject [facility] aspart 01-23 under the ity of injection 00:00: skin every [place] 00 4 (four) Medical hours. Branch collagenase 2020-0 Yes Apply to Un hina 250 8- affected ity of unit/gram 00:00: area(s) [place] ointment 00 daily. Medical Branch QUEtiapine 2019-0 Yes 50mg 1 tablet 2 U nivers 50 mg 01-23 (two) ity of tablet 00:00: times [place] 00 daily. Medical Branch midazolam 2020-0 Yes 1mg/h 1-10 mg/hr U nivers HCl in 0.9 01-23 by IV ity of % NaCl/PF 00:00: Infusion [place] (MIDAZOLAM, 00 route Medical PF, IN 0.9 TITRATE. Branc h % NACL) 1 mg/mL infusion sodium 2019-0 Yes 4mL Inhale 4 [facility] chloride 7% 829 mL 2 (two) it y of nebulizer 00:00: times [place] solution 00 daily. Medical Branch heparin 2020-0 Yes 3000U Inject 3 Unive rs sodium,porc 8-29 mL as ity of ine 00:00: directed. [place] (HEPARIN 00 Medical 1000 Branch UNIT/ML) Soln injection heparin 2020-0 Yes 1300U/h 1,300 Univer s sod,pork in 8-29 Units/hr ity of 0.45% NaCl 00:00: by IV [place] (HEPARIN 00 Infusion Medical 25,000 UNIT route Branch IN 0.45 NS TITRATE. 250 ML) 25,000 unit/250 mL infusion norepinephr 2020-0 Yes .0042mg 0.0042-0.1 [facility] ine bit/0.9 8-29 /min 253 mg/min it y of % NaCl 00:00: by IV [place] (NOREPINEPH 00 Infusion Medi maggie RINE 16 MG route Branch IN NS 250 TITRATE. ML) RTU clonazePAM 2020-0 Yes 1mg Take 10 mL [facility] n[facility] (KLONOPIN) 01-23 through ity of 0.1 mg/mL 00:00: enteral [place] oral 00 tube 3 Medical suspension (three) Branch times daily. docusate 2020-0 Yes 100mg Take 1 Univer s 100 mg 8-29 capsule by ity of capsule 00:00: mouth [place] 00 daily. Medical Branch HYDROcodone 2020-0 Yes 10mg Take 20 mL [facility] -acetaminop 8-29 through ity o f hen 7.5-325 00:00: enteral [place] mg/15 mL 00 tube 3 Medical solution (three) Branch times daily. Polyethylen 2020-0 Yes 17g Take 1 Univ ers e Glycol 8-29 Packet ity of 3350 17 00:00: through [place] gram powder 00 enteral Medic al tube 2 Branch (two) times daily. sennosides- 2020-0 Yes 2{tbl} Take 2 Un hina docusate 8-29 tablets ity of sodium 00:00: through [place] 8.6-50 mg 00 enteral Medical per tablet tube Branch daily. furosemide 2020-0 Yes 20mg Inject 2 [facility] vers 10 mg/mL 8-29 mL as ity of injection 00:00: directed [place] 00 daily. [facility] insulin 2020-0 Yes 3U inject 3 Univer s glargine 8-29 Units ity of 100 unit/mL 00:00: under the [place] injection 00 skin at Medical bedtime. Branch insulin 2020-0 Yes 1U inject 1 Univer s aspart 8-29 Units ity of RAPID 100 00:00: under the [place] unit/mL 00 skin every Medica l injection 4 (four) Branch hours. ipratropium 2020-0 Yes 3mL Inhale 3 [facility] -albuteroL 8-29 mL 3 ity of 0.5 mg-3 00:00: (three) [place] mg(2.5 mg 00 times Medical base)/3 mL daily as Bran h nebulizer needed for solution Wheezing. aspirin 81 2020-0 Yes 81mg Take 1 Unive rs mg chewable 8-29 tablet ity of tablet 00:00: through [place] 00 enteral Medical tube Branch daily. atorvastati 2020-0 Yes 80mg Take 1 [facility] ers n 80 mg 8-29 tablet ity of tablet 00:00: through [place] 00 enteral Medical tube at Branch bedtime. latanoprost 2020-0 Yes 1[drp] Place 1 U nivers 0.005 % 8-29 Drop in ity of ophthalmic 00:00: both eyes [place] drops 00 at Medical bedtime. Branch 0.9 % 2020-0 Yes 10mL Inject 10 [facility] sodium 8-29 mL as ity of chloride 00:00: directed [place] (NACL 0.9%, 00 as needed Med ical NS,) (line Branch injection maintenanc e). acetaminoph 2020-0 Yes 500mg Take 1 [facility] vers en 500 mg 8-29 tablet by ity o f tablet 00:00: mouth [place] 00 every 6 Medical (six) Branch hours as needed. dextrose 50 2020-0 Yes 25mL Inject 25 U nivers % in water, 8-29 mL as ity of D50W, 00:00: directed [place] injection 00 as needed Medic al (Blood Branch Glucose < or = 70 mg/dL and patient is unable to swallow or has mental status changes.). glucagon 1 2019-0 Yes 1mg 1 mg by [facility] ers mg/mL SolR 8-29 Intramuscu ity of injection 00:00: lar route [place] 00 as needed Medical (Blood Branch Glucose < or = 70 mg/dL and patient is unable to swallow or has mental changes.). pantoprazol 2020-0 Yes 40mg Take 20 mL [facility] e 2 mg/mL 829 through ity of oral 00:00: enteral [place] suspension 00 tube Medical daily. Branch dexMEDEtomi 2020-0 Yes 16.7ug/ 16.7-125.2 [facility] dine 200 8-29 h 5 mcg/hr ity of mcg in 0.9 00:00: by IV [place] % NaCl 50 00 Infusion Medica l mL 200 route Branch mcg/50 mL TITRATE. (4 mcg/mL) fentanyl 2020-0 Yes 25ug/h 25-200 Unive rs citrate-0.9 8-29 mcg/hr by ity of % NaCl/PF 00:00: IV [place] (FENTANYL 00 Infusion Medica l CITRATE IN route Branch NS, PF,) 10 TITRATE. mcg/mL infusion insulin 2020-0 Yes inject [facility] aspart 8-29 under the ity of injection 00:00: skin every [place] 00 4 (four) Medical hours. Branch collagenase 2020-0 Yes Apply to Un h[facility] 250 8-29 affected ity of unit/gram 00:00: area(s) [place] ointment 00 daily. Medical Branch QUEtiapine 2020-0 Yes 50mg 1 tablet 2 U nivers 50 mg 8-29 (two) ity of tablet 00:00: times [place] 00 daily. Medical Branch midazolam 2020-0 Yes 1mg/h 1-10 mg/hr U nivers HCl in 0.9 8-29 by IV ity of % NaCl/PF 00:00: Infusion [place] (MIDAZOLAM, 00 route Medical PF, IN 0.9 TITRATE. Branc h % NACL) 1 mg/mL infusion sodium 2020-0 Yes 4mL Inhale 4 [facility] chloride 7% 8-29 mL 2 (two) it y of nebulizer 00:00: times [place] solution 00 daily. Medical Branch heparin 2020-0 Yes 3000U Inject 3 Unive rs sodium,porc 8-29 mL as ity of ine 00:00: directed. [place] (HEPARIN 00 Medical 1000 Branch UNIT/ML) Soln injection heparin 2020-0 Yes 1300U/h 1,300 Univer s sod,pork in 8-29 Units/hr ity of 0.45% NaCl 00:00: by IV [place] (HEPARIN 00 Infusion Medical 25,000 UNIT route Branch IN 0.45 NS TITRATE. 250 ML) 25,000 unit/250 mL infusion norepinephr 2020-0 Yes .0042mg 0.0042-0.1 [facility] ine bit/0.9 8-29 /min 253 mg/min it y of % NaCl 00:00: by IV [place] (NOREPINEPH 00 Infusion Medi maggie RINE 16 MG route Branch IN NS 250 TITRATE. ML) RTU clonazePAM 2020-0 Yes 1mg Take 10 mL U n[facility] (KLONOPIN) 8-29 through ity of 0.1 mg/mL 00:00: enteral [place] oral 00 tube 3 Medical suspension (three) Branch times daily. docusate 2020-0 Yes 100mg Take 1 Univer s 100 mg 8-29 capsule by ity of capsule 00:00: mouth [place] 00 daily. Medical Branch HYDROcodone 2020-0 Yes 10mg Take 20 mL [facility] -acetaminop 8-29 through ity o f hen 7.5-325 00:00: enteral [place] mg/15 mL 00 tube 3 Medical solution (three) Branch times daily. Polyethylen 2020-0 Yes 17g Take 1 Univ ers e Glycol 8-29 Packet ity of 3350 17 00:00: through [place] gram powder 00 enteral Medic al tube 2 Branch (two) times daily. sennosides- 2020-0 Yes 2{tbl} Take 2 Un h[facility] docusate 8-29 tablets ity of sodium 00:00: through [place] 8.6-50 mg 00 enteral Medical per tablet tube Branch daily. furosemide 2020-0 Yes 20mg Inject 2 [facility] vers 10 mg/mL 8-29 mL as ity of injection 00:00: directed [place] 00 daily. [facility] insulin 2020-0 Yes 3U inject 3 Univer s glargine 8-29 Units ity of 100 unit/mL 00:00: under the [place] injection 00 skin at Medical bedtime. Branch insulin 2020-0 Yes 1U inject 1 Univer s aspart 8-29 Units ity of RAPID 100 00:00: under the [place] unit/mL 00 skin every Medica l injection 4 (four) Branch hours. ipratropium 2020-0 Yes 3mL Inhale 3 [facility] h[facility] -albuteroL 8-29 mL 3 ity of 0.5 mg-3 00:00: (three) [place] mg(2.5 mg 00 times Medical base)/3 mL daily as Branc h nebulizer needed for solution Wheezing. aspirin 81 2020-0 Yes 81mg Take 1 Unive rs mg chewable 8-29 tablet ity of tablet 00:00: through [place] 00 enteral Medical tube Branch daily. atorvastati 2020-0 Yes 80mg Take 1 [facility] ers n 80 mg 8-29 tablet ity of tablet 00:00: through [place] 00 enteral Medical tube at Branch bedtime. latanoprost 2020-0 Yes 1[drp] Place 1 U nivers 0.005 % 8-29 Drop in ity of ophthalmic 00:00: both eyes [place] drops 00 at Medical bedtime. Branch 0.9 % 2020-0 Yes 10mL Inject 10 [facility] sodium 8-29 mL as ity of chloride 00:00: directed [place] (NACL 0.9%, 00 as needed Med ical NS,) (line Branch injection maintenanc e). acetaminoph 2020-0 Yes 500mg Take 1 Uni vers en 500 mg 8-29 tablet by ity o f tablet 00:00: mouth [place] 00 every 6 Medical (six) Branch hours as needed. dextrose 50 2020-0 Yes 25mL Inject 25 U nivers % in water, 8-29 mL as ity of D50W, 00:00: directed [place] injection 00 as needed Medic al (Blood Branch Glucose < or = 70 mg/dL and patient is unable to swallow or has mental status changes.). glucagon 1 2019-0 Yes 1mg 1 mg by [facility] ers mg/mL SolR 01-23 Intramuscu ity of injection 00:00: lar route [place] 00 as needed Medical (Blood Branch Glucose < or = 70 mg/dL and patient is unable to swallow or has mental changes.). pantoprazol 2019-0 Yes 40mg Take 20 mL [facility] e 2 mg/mL 01-23 through ity of oral 00:00: enteral [place] suspension 00 tube Medical daily. Branch dexMEDEtomi 2019-0 Yes 16.7ug/ 16.7-125.2 [facility] dine 200 8-29 h 5 mcg/hr ity of mcg in 0.9 00:00: by IV [place] % NaCl 50 00 Infusion Medica l mL 200 route Branch mcg/50 mL TITRATE. (4 mcg/mL) fentanyl 2019-0 Yes 25ug/h 25-200 Unive rs citrate-0.9 8-29 mcg/hr by ity of % NaCl/PF 00:00: IV [place] (FENTANYL 00 Infusion Medica l CITRATE IN route Branch NS, PF,) 10 TITRATE. mcg/mL infusion insulin Yes inject [facility] aspart 01-23 under the ity of injection 00:00: skin every [place] 00 4 (four) Medical hours. Branch collagenase 0 Yes Apply to Un hina 250 8- affected ity of unit/gram 00:00: area(s) [place] ointment 00 daily. Medical Branch QUEtiapine 2019-0 Yes 50mg 1 tablet 2 U nivers 50 mg 01-23 (two) ity of tablet 00:00: times [place] 00 daily. Medical Branch midazolam 2020-0 Yes 1mg/h 1-10 mg/hr U nivers HCl in 0.9 8-29 by IV ity of % NaCl/PF 00:00: Infusion [place] (MIDAZOLAM, 00 route Medical PF, IN 0.9 TITRATE. Branc h % NACL) 1 mg/mL infusion sodium 2020-0 Yes 4mL Inhale 4 [facility] chloride 7% 829 mL 2 (two) it y of nebulizer 00:00: times [place] solution 00 daily. Medical Branch heparin 2019-0 Yes 3000U Inject 3 Unive rs sodium,porc 8-29 mL as ity of ine 00:00: directed. [place] (HEPARIN 00 Medical 1000 Branch UNIT/ML) Soln injection heparin 2020-0 Yes 1300U/h 1,300 Univer s sod,pork in 8-29 Units/hr ity of 0.45% NaCl 00:00: by IV [place] (HEPARIN 00 Infusion Medical 25,000 UNIT route Branch IN 0.45 NS TITRATE. 250 ML) 25,000 unit/250 mL infusion norepinephr 2020-0 Yes .0042mg 0.0042-0.1 [facility] ine bit/0.9 8-29 /min 253 mg/min it y of % NaCl 00:00: by IV [place] (NOREPINEPH 00 Infusion Medi maggie RINE 16 MG route Branch IN NS 250 TITRATE. ML) RTU clonazePAM 2020-0 Yes 1mg Take 10 mL U nivers (KLONOPIN) 8-29 through ity of 0.1 mg/mL 00:00: enteral [place] oral 00 tube 3 Medical suspension (three) Branch times daily. docusate 2020-0 Yes 100mg Take 1 Univer s 100 mg 8-29 capsule by ity of capsule 00:00: mouth [place] 00 daily. Medical Branch HYDROcodone 2020-0 Yes 10mg Take 20 mL [facility] -acetaminop 8-29 through ity o f hen 7.5-325 00:00: enteral [place] mg/15 mL 00 tube 3 Medical solution (three) Branch times daily. Polyethylen 2020-0 Yes 17g Take 1 Univ ers e Glycol 8-29 Packet ity of 3350 17 00:00: through [place] gram powder 00 enteral Medic al tube 2 Branch (two) times daily. sennosides- 2020-0 Yes 2{tbl} Take 2 Un hina docusate 8-29 tablets ity of sodium 00:00: through [place] 8.6-50 mg 00 enteral Medical per tablet tube Branch daily. furosemide 2020-0 Yes 20mg Inject 2 Uni vers 10 mg/mL 8-29 mL [place] injection 00:00: [place] 00 daily. [facility] insulin 2020-0 Yes 3U inject 3 [facility] s glargine 8-29 Units ity of 100 unit/mL 00:00: under the [place] injection 00 skin at Medical bedtime. Branch insulin 2020-0 Yes 1U inject 1 Univer [facility] aspart 8-29 Units ity of RAPID 100 00:00: under the [place] unit/mL 00 skin every Medica l injection 4 (four) Branch hours. ipratropium 2020-0 Yes 3mL Inhale 3 [facility] hina -albuteroL 8-29 mL 3 ity of 0.5 mg-3 00:00: (three) [place] mg(2.5 mg 00 times Medical base)/3 mL daily as Branc h nebulizer needed for solution Wheezing. aspirin 81 2020-0 Yes 81mg Take 1 Unive rs mg chewable 8-29 tablet ity of tablet 00:00: through [place] 00 enteral Medical tube Branch daily. atorvastati 2020-0 Yes 80mg Take 1 Univ ers n 80 mg 8-29 tablet ity of tablet 00:00: through [place] 00 enteral Medical tube at Branch bedtime. latanoprost 2020-0 Yes 1[drp] Place 1 U nivers 0.005 % 8-29 Drop in ity of ophthalmic 00:00: both eyes [place] drops 00 at Medical bedtime. Branch 0.9 % 2020-0 Yes 10mL Inject 10 [facility] sodium 8-29 mL as ity of chloride 00:00: directed [place] (NACL 0.9%, 00 as needed Med ical NS,) (line Branch injection maintenanc e). acetaminoph 2020-0 Yes 500mg Take 1 Uni vers en 500 mg 8-29 tablet by ity o f tablet 00:00: mouth [place] 00 every 6 Medical (six) Branch hours as needed. dextrose 50 2020-0 Yes 25mL Inject 25 U nivers % in water, 8-29 mL as ity of D50W, 00:00: directed [place] injection 00 as needed Medic al (Blood Branch Glucose < or = 70 mg/dL and patient is unable to swallow or has mental status changes.). glucagon 1 2020-0 Yes 1mg 1 mg by Univ ers mg/mL SolR 8-29 Intramuscu ity of injection 00:00: lar route [place] 00 as needed Medical (Blood Branch Glucose < or = 70 mg/dL and patient is unable to swallow or has mental changes.). pantoprazol 2020-0 Yes 40mg Take 20 mL [facility] e 2 mg/mL 8-29 through ity of oral 00:00: enteral [place] suspension 00 tube Medical daily. Branch dexMEDEtomi 2020-0 Yes 16.7ug/ 16.7-125.2 [facility] dine 200 8-29 h 5 mcg/hr ity of mcg in 0.9 00:00: by IV [place] % NaCl 50 00 Infusion Medica l mL 200 route Branch mcg/50 mL TITRATE. (4 mcg/mL) fentanyl 2019-0 Yes 25ug/h 25-200 Unive rs citrate-0.9 8-29 mcg/hr by ity of % NaCl/PF 00:00: IV [place] (FENTANYL 00 Infusion Medica l CITRATE IN route Branch NS, PF,) 10 TITRATE. mcg/mL infusion insulin 2019-0 Yes inject [facility] aspart 8- under the ity of injection 00:00: skin every [place] 00 4 (four) Medical hours. Branch collagenase 2019-0 Yes Apply to Un hina 250 8-29 affected ity of unit/gram 00:00: area(s) [place] ointment 00 daily. Medical Branch QUEtiapine 2019-0 Yes 50mg 1 tablet 2 U nivers 50 mg 8 (two) ity of tablet 00:00: times [place] 00 daily. Medical Branch midazolam 2019-0 Yes 1mg/h 1-10 mg/hr U nivers HCl in 0.9 8-29 by IV ity of % NaCl/PF 00:00: Infusion [place] (MIDAZOLAM, 00 route Medical PF, IN 0.9 TITRATE. Branc h % NACL) 1 mg/mL infusion sodium 2019-0 Yes 4mL Inhale 4 [facility] chloride 7% 8-29 mL 2 (two) it y of nebulizer 00:00: times [place] solution 00 daily. Medical Branch heparin 2019-0 Yes 3000U Inject 3 Unive rs sodium,porc 8-29 mL as ity of ine 00:00: directed. [place] (HEPARIN 00 Medical 1000 Branch UNIT/ML) Soln injection heparin 2019-0 Yes 1300U/h 1,300 Univer s sod,pork in 8-29 Units/hr ity of 0.45% NaCl 00:00: by IV [place] (HEPARIN 00 Infusion Medical 25,000 UNIT route Branch IN 0.45 NS TITRATE. 250 ML) 25,000 unit/250 mL infusion norepinephr 2019-0 Yes .0042mg 0.0042-0.1 [facility] ine bit/0.9 8-29 /min 253 mg/min it y of % NaCl 00:00: by IV [place] (NOREPINEPH 00 Infusion Medi maggie RINE 16 MG route Branch IN NS 250 TITRATE. ML) RTU clonazePAM 2020-0 Yes 1mg Take 10 mL U nivers (KLONOPIN) 8-29 through ity of 0.1 mg/mL 00:00: enteral [place] oral 00 tube 3 Medical suspension (three) Branch times daily. docusate 2020-0 Yes 100mg Take 1 Univer s 100 mg 8-29 capsule by ity of capsule 00:00: mouth [place] 00 daily. Medical Branch HYDROcodone 2020-0 Yes 10mg Take 20 mL [facility] -acetaminop 8-29 through ity o f hen 7.5-325 00:00: enteral [place] mg/15 mL 00 tube 3 Medical solution (three) Branch times daily. Polyethylen 2020-0 Yes 17g Take 1 Univ ers e Glycol 8-29 Packet ity of 3350 17 00:00: through [place] gram powder 00 enteral Medic al tube 2 Branch (two) times daily. sennosides- 2020-0 Yes 2{tbl} Take 2 Un hina docusate 8-29 tablets ity of sodium 00:00: through [place] 8.6-50 mg 00 enteral Medical per tablet tube Branch daily. furosemide 2020-0 Yes 20mg Inject 2 [facility] vers 10 mg/mL 8-29 mL as ity of injection 00:00: directed [place] 00 daily. [facility] insulin 2020-0 Yes 3U inject 3 [facility] glargine 8-29 Units ity of 100 unit/mL 00:00: under the [place] injection 00 skin at Medical bedtime. Branch insulin 2020-0 Yes 1U inject 1 [facility] aspart 8-29 Units ity of RAPID 100 00:00: under the [place] unit/mL 00 skin every Medica l injection 4 (four) Branch hours. ipratropium 2020-0 Yes 3mL Inhale 3 [facility] h[facility] -albuteroL 8-29 mL 3 ity of 0.5 mg-3 00:00: (three) [place] mg(2.5 mg 00 times Medical base)/3 mL daily as Branc h nebulizer needed for solution Wheezing. aspirin 81 2020-0 Yes 81mg Take 1 [facility] rs mg chewable 8-29 tablet ity of tablet 00:00: through 00 enteral Medical tube Branch daily. atorvastati 2020-0 Yes 80mg Take 1 [facility] ers n 80 mg 8-29 tablet ity of tablet 00:00: through 00 enteral Medical tube at Branch bedtime. latanoprost 2020-0 Yes 1[drp] Place 1 U nivers 0.005 % 8- Drop in ity of ophthalmic 00:00: both eyes [place] drops 00 at Medical bedtime. Branch 0.9 % 2020-0 Yes 10mL Inject 10 [facility] sodium 8-29 mL as ity of chloride 00:00: directed [place] (NACL 0.9%, 00 as needed Med ical NS,) (line Branch injection maintenanc e). acetaminoph 2020-0 Yes 500mg Take 1 Uni vers en 500 mg 8-29 tablet by ity o f tablet 00:00: mouth [place] 00 every 6 Medical (six) Branch hours as needed. dextrose 50 2020-0 Yes 25mL Inject 25 U nivers % in water, 8-29 mL as ity of D50W, 00:00: directed [place] injection 00 as needed Medic al (Blood Branch Glucose < or = 70 mg/dL and patient is unable to swallow or has mental status changes.). glucagon 1 2020-0 Yes 1mg 1 mg by [facility] ers mg/mL SolR 829 Intramuscu ity of injection 00:00: lar route [place] 00 as needed Medical (Blood Branch Glucose < or = 70 mg/dL and patient is unable to swallow or has mental changes.). pantoprazol 2020-0 Yes 40mg Take 20 mL [facility] e 2 mg/mL 01-23 through ity of oral 00:00: enteral [place] suspension 00 tube Medical daily. Branch dexMEDEtomi 2020-0 Yes 16.7ug/ 16.7-125.2 [facility] dine 200 8-29 h 5 mcg/hr ity of mcg in 0.9 00:00: by IV [place] % NaCl 50 00 Infusion Medica l mL 200 route Branch mcg/50 mL TITRATE. (4 mcg/mL) fentanyl 2020-0 Yes 25ug/h 25-200 Unive rs citrate-0.9 8-29 mcg/hr by ity of % NaCl/PF 00:00: IV [place] (FENTANYL 00 Infusion Medica l CITRATE IN route Branch NS, PF,) 10 TITRATE. mcg/mL infusion insulin 2019-0 Yes inject [facility] aspart 8-29 under the ity of injection 00:00: skin every [place] 00 4 (four) Medical hours. Branch collagenase 2020-0 Yes Apply to Un hina 250 8-29 affected ity of unit/gram 00:00: area(s) [place] ointment 00 daily. Medical Branch QUEtiapine 2020-0 Yes 50mg 1 tablet 2 U nivers 50 mg 8- (two) ity of tablet 00:00: times [place] 00 daily. Medical Branch midazolam 2020-0 Yes 1mg/h 1-10 mg/hr U nivers HCl in 0.9 8-29 by IV ity of % NaCl/PF 00:00: Infusion [place] (MIDAZOLAM, 00 route Medical PF, IN 0.9 TITRATE. Branc h % NACL) 1 mg/mL infusion sodium 2019-0 Yes 4mL Inhale 4 [facility] chloride 7% 8-29 mL 2 (two) it y of nebulizer 00:00: times [place] solution 00 daily. Medical Branch heparin 2019-0 Yes 3000U Inject 3 Unive rs sodium,porc 8-29 mL as ity of ine 00:00: directed. [place] (HEPARIN 00 Medical 1000 Branch UNIT/ML) Soln injection heparin 2020-0 Yes 1300U/h 1,300 Univer s sod,pork in 8-29 Units/hr ity of 0.45% NaCl 00:00: by IV [place] (HEPARIN 00 Infusion Medical 25,000 UNIT route Branch IN 0.45 NS TITRATE. 250 ML) 25,000 unit/250 mL infusion norepinephr 2020-0 Yes .0042mg 0.0042-0.1 [facility] ine bit/0.9 8-29 /min 253 mg/min it y of % NaCl 00:00: by IV [place] (NOREPINEPH 00 Infusion Medi maggie RINE 16 MG route Branch IN NS 250 TITRATE. ML) RTU clonazePAM 2020-0 Yes 1mg Take 10 mL U nivers (KLONOPIN) 01-23 through ity of 0.1 mg/mL 00:00: enteral [place] oral 00 tube 3 Medical suspension (three) Branch times daily. docusate 2020-0 Yes 100mg Take 1 Univer s 100 mg 8- capsule by ity of capsule 00:00: mouth [place] 00 daily. Medical Branch HYDROcodone 2020-0 Yes 10mg Take 20 mL [facility] -acetaminop 8-29 through ity o f hen 7.5-325 00:00: enteral [place] mg/15 mL 00 tube 3 Medical solution (three) Branch times daily. Polyethylen 2020-0 Yes 17g Take 1 Univ ers e Glycol 8-29 Packet ity of 3350 17 00:00: through [place] gram powder 00 enteral Medic al tube 2 Branch (two) times daily. sennosides- 2020-0 Yes 2{tbl} Take 2 Un hina docusate 8-29 tablets ity of sodium 00:00: through [place] 8.6-50 mg 00 enteral Medical per tablet tube Branch daily. furosemide 2020-0 Yes 20mg Inject 2 [facility] vers 10 mg/mL 8-29 mL as ity of injection 00:00: directed [place] 00 daily. [facility] insulin 2020-0 Yes 3U inject 3 [facility] glargine 8-29 Units ity of 100 unit/mL 00:00: under the [place] injection 00 skin at Medical bedtime. Branch insulin 2020-0 Yes 1U inject 1 [facility] aspart 8-29 Units ity of RAPID 100 00:00: under the [place] unit/mL 00 skin every Medica l injection 4 (four) Branch hours. ipratropium 2020-0 Yes 3mL Inhale 3 [facility] h[facility] -albuteroL 8-29 mL 3 ity of 0.5 mg-3 00:00: (three) [place] mg(2.5 mg 00 times Medical base)/3 mL daily as Branc h nebulizer needed for solution Wheezing. aspirin 81 2020-0 Yes 81mg Take 1 [facility] rs mg chewable 8-29 tablet ity of tablet 00:00: through [place] 00 enteral Medical tube Branch daily. atorvastati 2020-0 Yes 80mg Take 1 [facility] ers n 80 mg 8-29 tablet ity of tablet 00:00: through [place] 00 enteral Medical tube at Branch bedtime. latanoprost 2020-0 Yes 1[drp] Place 1 U nivers 0.005 % 8-29 Drop in ity of ophthalmic 00:00: both eyes [place] drops 00 at Medical bedtime. Branch 0.9 % 2020-0 Yes 10mL Inject 10 [facility] sodium 8-29 mL as ity of chloride 00:00: directed [place] (NACL 0.9%, 00 as needed Med ical NS,) (line Branch injection maintenanc e). acetaminoph 2020-0 Yes 500mg Take 1 Uni vers en 500 mg 8-29 tablet by ity o f tablet 00:00: mouth [place] 00 every 6 Medical (six) Branch hours as needed. dextrose 50 2020-0 Yes 25mL Inject 25 U nivers % in water, 8-29 mL as ity of D50W, 00:00: directed [place] injection 00 as needed Medic al (Blood Branch Glucose < or = 70 mg/dL and patient is unable to swallow or has mental status changes.). glucagon 1 2020-0 Yes 1mg 1 mg by [facility] ers mg/mL SolR 8-29 Intramuscu ity of injection 00:00: lar route [place] 00 as needed Medical (Blood Branch Glucose < or = 70 mg/dL and patient is unable to swallow or has mental changes.). pantoprazol 2020-0 Yes 40mg Take 20 mL [facility] e 2 mg/mL 8- through ity of oral 00:00: enteral [place] suspension 00 tube Medical daily. Branch dexMEDEtomi 2020-0 Yes 16.7ug/ 16.7-125.2 [facility] dine 200 8-29 h 5 mcg/hr ity of mcg in 0.9 00:00: by IV [place] % NaCl 50 00 Infusion Medica l mL 200 route Branch mcg/50 mL TITRATE. (4 mcg/mL) fentanyl 2020-0 Yes 25ug/h 25-200 Unive rs citrate-0.9 8-29 mcg/hr by ity of % NaCl/PF 00:00: IV [place] (FENTANYL 00 Infusion Medica l CITRATE IN route Branch NS, PF,) 10 TITRATE. mcg/mL infusion insulin 2020-0 Yes inject [facility] aspart 8-29 under the ity of injection 00:00: skin every [place] 00 4 (four) Medical hours. Branch collagenase 2019-0 Yes Apply to Un h[facility] 250 8-29 affected ity of unit/gram 00:00: area(s) [place] ointment 00 daily. Medical Branch QUEtiapine 2020-0 Yes 50mg 1 tablet 2 U nivers 50 mg 8-29 (two) ity of tablet 00:00: times [place] 00 daily. Medical Branch midazolam 2020-0 Yes 1mg/h 1-10 mg/hr U nivers HCl in 0.9 8-29 by IV ity of % NaCl/PF 00:00: Infusion [place] (MIDAZOLAM, 00 route Medical PF, IN 0.9 TITRATE. Branc h % NACL) 1 mg/mL infusion sodium 2020-0 Yes 4mL Inhale 4 [facility] chloride 7% 8-29 mL 2 (two) it y of nebulizer 00:00: times [place] solution 00 daily. Medical Branch heparin 2020-0 Yes 3000U Inject 3 Unive rs sodium,porc 8-29 mL as ity of ine 00:00: directed. [place] (HEPARIN 00 Medical 1000 Branch UNIT/ML) Soln injection heparin 2020-0 Yes 1300U/h 1,300 Univer s sod,pork in 8-29 Units/hr ity of 0.45% NaCl 00:00: by IV [place] (HEPARIN 00 Infusion Medical 25,000 UNIT route Branch IN 0.45 NS TITRATE. 250 ML) 25,000 unit/250 mL infusion norepinephr 2020-0 Yes .0042mg 0.0042-0.1 [facility] ine bit/0.9 8-29 /min 253 mg/min it y of % NaCl 00:00: by IV [place] (NOREPINEPH 00 Infusion Medi maggie RINE 16 MG route Branch IN NS 250 TITRATE. ML) RTU clonazePAM 2020-0 Yes 1mg Take 10 mL U nivers (KLONOPIN) 8-29 through ity of 0.1 mg/mL 00:00: enteral [place] oral 00 tube 3 Medical suspension (three) Branch times daily. docusate 2020-0 Yes 100mg Take 1 Univer s 100 mg 8-29 capsule by ity of capsule 00:00: mouth [place] 00 daily. Medical Branch HYDROcodone 2020-0 Yes 10mg Take 20 mL [facility] -acetaminop 8-29 through ity o f hen 7.5-325 00:00: enteral [place] mg/15 mL 00 tube 3 Medical solution (three) Branch times daily. Polyethylen 2020-0 Yes 17g Take 1 Univ ers e Glycol 8-29 Packet ity of 3350 17 00:00: through [place] gram powder 00 enteral Medic al tube 2 Branch (two) times daily. sennosides- 2020-0 Yes 2{tbl} Take 2 Un hina docusate 8-29 tablets ity of sodium 00:00: through [place] 8.6-50 mg 00 enteral Medical per tablet tube Branch daily. furosemide 2020-0 Yes 20mg Inject 2 [facility] vers 10 mg/mL 8-29 mL as ity of injection 00:00: directed [place] 00 daily. [facility] insulin 2020-0 Yes 3U inject 3 [facility] glargine 8-29 Units ity of 100 unit/mL 00:00: under the [place] injection 00 skin at Medical bedtime. Branch insulin 2020-0 Yes 1U inject 1 [facility] aspart 8-29 Units ity of RAPID 100 00:00: under the [place] unit/mL 00 skin every Medica l injection 4 (four) Branch hours. ipratropium 2020-0 Yes 3mL Inhale 3 [facility] -albuteroL 8-29 mL 3 ity of 0.5 mg-3 00:00: (three) [place] mg(2.5 mg 00 times Medical base)/3 mL daily as Branc h nebulizer needed for solution Wheezing. aspirin 81 2020-0 Yes 81mg Take 1 Un[facility] rs mg chewable 8-29 tablet ity of tablet 00:00: through [place] 00 enteral Medical tube Branch daily. atorvastati 2020-0 Yes 80mg Take 1 [facility] ers n 80 mg 8-29 tablet ity of tablet 00:00: through [place] 00 enteral Medical tube at Branch bedtime. latanoprost 2020-0 Yes 1[drp] Place 1 U nivers 0.005 % 8-29 Drop in ity of ophthalmic 00:00: both eyes [place] drops 00 at Medical bedtime. Branch 0.9 % 2020-0 Yes 10mL Inject 10 [facility] sodium 8-29 mL as ity of chloride 00:00: directed [place] (NACL 0.9%, 00 as needed Med ical NS,) (line Branch injection maintenanc e). acetaminoph 2020-0 Yes 500mg Take 1 Uni vers en 500 mg 8-29 tablet by ity o f tablet 00:00: mouth [place] 00 every 6 Medical (six) Branch hours as needed. dextrose 50 2020-0 Yes 25mL Inject 25 U nivers % in water, 8-29 mL as ity of D50W, 00:00: directed [place] injection 00 as needed Medic al (Blood Branch Glucose < or = 70 mg/dL and patient is unable to swallow or has mental status changes.). glucagon 1 2019-0 Yes 1mg 1 mg by [facility] ers mg/mL SolR 8-29 Intramuscu ity of injection 00:00: lar route [place] 00 as needed Medical (Blood Branch Glucose < or = 70 mg/dL and patient is unable to swallow or has mental changes.). pantoprazol 2019-0 Yes 40mg Take 20 mL [facility] e 2 mg/mL 829 through ity of oral 00:00: enteral [place] suspension 00 tube Medical daily. Branch dexMEDEtomi 2019-0 Yes 16.7ug/ 16.7-125.2 [facility] dine 200 8-29 h 5 mcg/hr ity of mcg in 0.9 00:00: by IV [place] % NaCl 50 00 Infusion Medica l mL 200 route Branch mcg/50 mL TITRATE. (4 mcg/mL) fentanyl 2019-0 Yes 25ug/h 25-200 Unive rs citrate-0.9 8-29 mcg/hr by ity of % NaCl/PF 00:00: IV [place] (FENTANYL 00 Infusion Medica l CITRATE IN route Branch NS, PF,) 10 TITRATE. mcg/mL infusion insulin 2019-0 Yes inject [facility] aspart 8 under the ity of injection 00:00: skin every [place] 00 4 (four) Medical hours. Branch collagenase 0 Yes Apply to Un hina 250 8- affected ity of unit/gram 00:00: area(s) [place] ointment 00 daily. Medical Branch QUEtiapine 2019-0 Yes 50mg 1 tablet 2 U nivers 50 mg 8-29 (two) ity of tablet 00:00: times [place] 00 daily. Medical Branch midazolam 2019-0 Yes 1mg/h 1-10 mg/hr U nivers HCl in 0.9 8-29 by IV ity of % NaCl/PF 00:00: Infusion [place] (MIDAZOLAM, 00 route Medical PF, IN 0.9 TITRATE. Branc h % NACL) 1 mg/mL infusion sodium 2019-0 Yes 4mL Inhale 4 [facility] chloride 7% 8-29 mL 2 (two) it y of nebulizer 00:00: times [place] solution 00 daily. Medical Branch heparin 2020-0 Yes 3000U Inject 3 Unive rs sodium,porc 8-29 mL as ity of ine 00:00: directed. [place] (HEPARIN 00 Medical 1000 Branch UNIT/ML) Soln injection heparin 2020-0 Yes 1300U/h 1,300 Univer s sod,pork in 8-29 Units/hr ity of 0.45% NaCl 00:00: by IV [place] (HEPARIN 00 Infusion Medical 25,000 UNIT route Branch IN 0.45 NS TITRATE. 250 ML) 25,000 unit/250 mL infusion norepinephr 2020-0 Yes .0042mg 0.0042-0.1 [facility] ine bit/0.9 8-29 /min 253 mg/min it y of % NaCl 00:00: by IV [place] (NOREPINEPH 00 Infusion Medi maggie RINE 16 MG route Branch IN NS 250 TITRATE. ML) RTU clonazePAM 2020-0 Yes 1mg Take 10 mL U nivers (KLONOPIN) 8-29 through ity of 0.1 mg/mL 00:00: enteral [place] oral 00 tube 3 Medical suspension (three) Branch times daily. docusate 2020-0 Yes 100mg Take 1 Univer s 100 mg 8-29 capsule by ity of capsule 00:00: mouth [place] 00 daily. Medical Branch HYDROcodone 2020-0 Yes 10mg Take 20 mL [facility] -acetaminop 8-29 through ity o f hen 7.5-325 00:00: enteral [place] mg/15 mL 00 tube 3 Medical solution (three) Branch times daily. Polyethylen 2020-0 Yes 17g Take 1 Univ ers e Glycol 8-29 Packet ity of 3350 17 00:00: through [place] gram powder 00 enteral Medic al tube 2 Branch (two) times daily. sennosides- 2020-0 Yes 2{tbl} Take 2 Un hina docusate 8-29 tablets ity of sodium 00:00: through [place] 8.6-50 mg 00 enteral Medical per tablet tube Branch daily. furosemide 2020-0 Yes 20mg Inject 2 [facility] vers 10 mg/mL 8-29 mL as ity of injection 00:00: directed [place] 00 daily. [facility] insulin 2020-0 Yes 3U inject 3 [facility] s glargine 8-29 Units ity of 100 unit/mL 00:00: under the [place] injection 00 skin at Medical bedtime. Branch insulin 2020-0 Yes 1U inject 1 Univer [facility] aspart 8-29 Units ity of RAPID 100 00:00: under the [place] unit/mL 00 skin every Medica l injection 4 (four) Branch hours. ipratropium 2020-0 Yes 3mL Inhale 3 [facility] h[facility] -albuteroL 8-29 mL 3 ity of 0.5 mg-3 00:00: (three) [place] mg(2.5 mg 00 times Medical base)/3 mL daily as Branc h nebulizer needed for solution Wheezing. aspirin 81 2020-0 Yes 81mg Take 1 Un[facility] rs mg chewable 8-29 tablet ity of tablet 00:00: through [place] 00 enteral Medical tube Branch daily. atorvastati 2020-0 Yes 80mg Take 1 [facility] ers n 80 mg 8-29 tablet ity of tablet 00:00: through [place] 00 enteral Medical tube at Branch bedtime. latanoprost 2020-0 Yes 1[drp] Place 1 U nivers 0.005 % 8-29 Drop in ity of ophthalmic 00:00: both eyes [place] drops 00 at Medical bedtime. Branch 0.9 % 2020-0 Yes 10mL Inject 10 [facility] sodium 8-29 mL as ity of chloride 00:00: directed [place] (NACL 0.9%, 00 as needed Med ical NS,) (line Branch injection maintenanc e). acetaminoph 2020-0 Yes 500mg Take 1 Uni vers en 500 mg 8-29 tablet by ity o f tablet 00:00: mouth [place] 00 every 6 Medical (six) Branch hours as needed. dextrose 50 2020-0 Yes 25mL Inject 25 U nivers % in water, 8-29 mL as ity of D50W, 00:00: directed [place] injection 00 as needed Medic al (Blood Branch Glucose < or = 70 mg/dL and patient is unable to swallow or has mental status changes.). glucagon 1 2020-0 Yes 1mg 1 mg by [facility] ers mg/mL SolR 8-29 Intramuscu ity of injection 00:00: lar route [place] 00 as needed Medical (Blood Branch Glucose < or = 70 mg/dL and patient is unable to swallow or has mental changes.). pantoprazol 2020-0 Yes 40mg Take 20 mL [facility] e 2 mg/mL 8-29 through ity of oral 00:00: enteral [place] suspension 00 tube Medical daily. Branch dexMEDEtomi 2020-0 Yes 16.7ug/ 16.7-125.2 [facility] dine 200 8-29 h 5 mcg/hr ity of mcg in 0.9 00:00: by IV [place] % NaCl 50 00 Infusion Medica l mL 200 route Branch mcg/50 mL TITRATE. (4 mcg/mL) fentanyl 2020-0 Yes 25ug/h 25-200 Unive rs citrate-0.9 8-29 mcg/hr by ity of % NaCl/PF 00:00: IV [place] (FENTANYL 00 Infusion Medica l CITRATE IN route Branch NS, PF,) 10 TITRATE. mcg/mL infusion insulin 2019-0 Yes inject [facility] aspart 8 under the ity of injection 00:00: skin every [place] 00 4 (four) Medical hours. Branch collagenase 2019-0 Yes Apply to Un hina 250 8- affected ity of unit/gram 00:00: area(s) [place] ointment 00 daily. Medical Branch QUEtiapine 2019-0 Yes 50mg 1 tablet 2 U nivers 50 mg 8- (two) ity of tablet 00:00: times [place] 00 daily. Medical Branch midazolam 2019-0 Yes 1mg/h 1-10 mg/hr U nivers HCl in 0.9 8-29 by IV ity of % NaCl/PF 00:00: Infusion [place] (MIDAZOLAM, 00 route Medical PF, IN 0.9 TITRATE. Branc h % NACL) 1 mg/mL infusion sodium 2019-0 Yes 4mL Inhale 4 [facility] chloride 7% 8-29 mL 2 (two) it y of nebulizer 00:00: times [place] solution 00 daily. Medical Branch heparin 2019-0 Yes 3000U Inject 3 Un[facility] rs sodium,porc 8-29 mL as ity of ine 00:00: directed. [place] (HEPARIN 00 Medical 1000 Branch UNIT/ML) Soln injection heparin 2019-0 Yes 1300U/h 1,300 Univer s sod,pork in 8-29 Units/hr ity of 0.45% NaCl 00:00: by IV [place] (HEPARIN 00 Infusion Medical 25,000 UNIT route Branch IN 0.45 NS TITRATE. 250 ML) 25,000 unit/250 mL infusion norepinephr 2020-0 Yes .0042mg 0.0042-0.1 [facility] ine bit/0.9 8-29 /min 253 mg/min it y of % NaCl 00:00: by IV [place] (NOREPINEPH 00 Infusion Medi maggie RINE 16 MG route Branch IN NS 250 TITRATE. ML) RTU clonazePAM 2020-0 Yes 1mg Take 10 mL U n[facility] (KLONOPIN) 8-29 through ity of 0.1 mg/mL 00:00: enteral [place] oral 00 tube 3 Medical suspension (three) Branch times daily. docusate 2020-0 Yes 100mg Take 1 Univer s 100 mg 8-29 capsule by ity of capsule 00:00: mouth [place] 00 daily. Medical Branch HYDROcodone 2020-0 Yes 10mg Take 20 mL [facility] -acetaminop 8-29 through ity o f hen 7.5-325 00:00: enteral [place] mg/15 mL 00 tube 3 Medical solution (three) Branch times daily. Polyethylen 2020-0 Yes 17g Take 1 Univ ers e Glycol 8-29 Packet ity of 3350 17 00:00: through [place] gram powder 00 enteral Medic al tube 2 Branch (two) times daily. sennosides- 2020-0 Yes 2{tbl} Take 2 [facility] h[facility] docusate 8-29 tablets ity of sodium 00:00: through [place] 8.6-50 mg 00 enteral Medical per tablet tube Branch daily. furosemide 2020-0 Yes 20mg Inject 2 [facility] vers 10 mg/mL 8-29 mL as ity of injection 00:00: directed [place] 00 daily. [facility] insulin 2020-0 Yes 3U inject 3 Un[facility] s glargine 8-29 Units ity of 100 unit/mL 00:00: under the [place] injection 00 skin at Medical bedtime. Branch insulin 2020-0 Yes 1U inject 1 Univer s aspart 8-29 Units ity of RAPID 100 00:00: under the [place] unit/mL 00 skin every Medica l injection 4 (four) Branch hours. ipratropium 2020-0 Yes 3mL Inhale 3 [facility] -albuteroL 8-29 mL 3 ity of 0.5 mg-3 00:00: (three) [place] mg(2.5 mg 00 times Medical base)/3 mL daily as Branc h nebulizer needed for solution Wheezing. aspirin 81 2020-0 Yes 81mg Take 1 Un[facility] rs mg chewable 8-29 tablet ity of tablet 00:00: through [place] 00 enteral Medical tube Branch daily. atorvastati 2020-0 Yes 80mg Take 1 [facility] ers n 80 mg 8-29 tablet ity of tablet 00:00: through [place] 00 enteral Medical tube at Branch bedtime. latanoprost 2020-0 Yes 1[drp] Place 1 U nivers 0.005 % 8-29 Drop in ity of ophthalmic 00:00: both eyes [place] drops 00 at Medical bedtime. Branch 0.9 % 2020-0 Yes 10mL Inject 10 [facility] sodium 8-29 mL as ity of chloride 00:00: directed [place] (NACL 0.9%, 00 as needed Med ical NS,) (line Branch injection maintenanc e). acetaminoph 2020-0 Yes 500mg Take 1 [facility] vers en 500 mg 8-29 tablet by ity o f tablet 00:00: mouth [place] 00 every 6 Medical (six) Branch hours as needed. dextrose 50 2020-0 Yes 25mL Inject 25 U nivers % in water, 8-29 mL as ity of D50W, 00:00: directed [place] injection 00 as needed Medic al (Blood Branch Glucose < or = 70 mg/dL and patient is unable to swallow or has mental status changes.). glucagon 1 2019-0 Yes 1mg 1 mg by Univ ers mg/mL SolR 8-29 Intramuscu ity of injection 00:00: lar route [place] as 00 as needed Medical (Blood Branch Glucose < or = 70 mg/dL and patient is unable to swallow or has mental changes.). pantoprazol 2020-0 Yes 40mg Take 20 mL Univers e 2 mg/mL 8-29 through ity of oral 00:00: enteral [place] suspension 00 tube Medical daily. Branch dexMEDEtomi 2020-0 Yes 16.7ug/ 16.7-125.2 Univers dine 200 8-29 h 5 mcg/hr ity of mcg in 0.9 00:00: by IV [place] % NaCl 50 00 Infusion Medica l mL 200 route Branch mcg/50 mL TITRATE. (4 mcg/mL) fentanyl 2020-0 Yes 25ug/h 25-200 Unive rs citrate-0.9 8-29 mcg/hr by ity of % NaCl/PF 00:00: IV [place] (FENTANYL 00 Infusion Medica l CITRATE IN route Branch NS, PF,) 10 TITRATE. mcg/mL infusion insulin 2019-0 Yes inject Univers aspart 8-29 under the ity of injection 00:00: skin every [place] 00 4 (four) Medical hours. Branch collagenase 2020-0 Yes Apply to Un hina 250 8-29 affected ity of unit/gram 00:00: area(s) [place] ointment 00 daily. Medical Branch QUEtiapine 2020-0 Yes 50mg 1 tablet 2 U nivers 50 mg 8-29 (two) ity of tablet 00:00: times [place] 00 daily. Medical Branch midazolam 2020-0 Yes 1mg/h 1-10 mg/hr U nivers HCl in 0.9 8-29 by IV ity of % NaCl/PF 00:00: Infusion [place] (MIDAZOLAM, 00 route Medical PF, IN 0.9 TITRATE. Branc h % NACL) 1 mg/mL infusion sodium 2020-0 Yes 4mL Inhale 4 Univers chloride 7% 8-29 mL 2 (two) it y of nebulizer 00:00: times [place] solution 00 daily. Medical Branch heparin 2020-0 Yes 3000U Inject 3 Unive rs sodium,porc 8-29 mL as ity of ine 00:00: directed. [place] (HEPARIN 00 Medical 1000 Branch UNIT/ML) Soln injection heparin 2020-0 Yes 1300U/h 1,300 Univer s sod,pork in 8-29 Units/hr ity of 0.45% NaCl 00:00: by IV [place] (HEPARIN 00 Infusion Medical 25,000 UNIT route Branch IN 0.45 NS TITRATE. 250 ML) 25,000 unit/250 mL infusion norepinephr 2020-0 Yes .0042mg 0.0042-0.1 Univers ine bit/0.9 8-29 /min 253 mg/min it y of % NaCl 00:00: by IV [place] (NOREPINEPH 00 Infusion Medi maggie RINE 16 MG route Branch IN NS 250 TITRATE. ML) RTU clonazePAM 2020-0 Yes 1mg Take 10 mL U nivers (KLONOPIN) 8-29 through ity of 0.1 mg/mL 00:00: enteral [place] oral 00 tube 3 Medical suspension (three) Branch times daily. docusate 2020-0 Yes 100mg Take 1 Univer s 100 mg 8-29 capsule by ity of capsule 00:00: mouth [place] 00 daily. Medical Branch HYDROcodone 2020-0 Yes 10mg Take 20 mL Univers -acetaminop 8-29 through ity o f hen 7.5-325 00:00: enteral [place] as mg/15 mL 00 tube 3 Medical solution (three) Branch times daily. Polyethylen 2020-0 Yes 17g Take 1 Univ ers e Glycol 8-29 Packet ity of 3350 17 00:00: through [place] gram powder 00 enteral Medic al tube 2 Branch (two) times daily. sennosides- 2020-0 Yes 2{tbl} Take 2 Un hina docusate 8-29 tablets ity of sodium 00:00: through [place] 8.6-50 mg 00 enteral Medical per tablet tube Branch daily. furosemide 2020-0 Yes 20mg Inject 2 Uni vers 10 mg/mL 8-29 mL as ity of injection 00:00: directed [place] 00 daily. Medical Branch insulin 2020-0 Yes 3U inject 3 Univer s glargine 8-29 Units ity of 100 unit/mL 00:00: under the [place] injection 00 skin at Medical bedtime. Branch insulin 2020-0 Yes 1U inject 1 Univer s aspart 8-29 Units ity of RAPID 100 00:00: under the [place] unit/mL 00 skin every Medica l injection 4 (four) Branch hours. ipratropium 2020-0 Yes 3mL Inhale 3 Un hina -albuteroL 8-29 mL 3 ity of 0.5 mg-3 00:00: (three) [place] mg(2.5 mg 00 times Medical base)/3 mL daily as Branc h nebulizer needed for solution Wheezing. aspirin 81 2020-0 Yes 81mg Take 1 Unive rs mg chewable 8-29 tablet ity of tablet 00:00: through [place] 00 enteral Medical tube Branch daily. atorvastati 2020-0 Yes 80mg Take 1 Univ ers n 80 mg 8-29 tablet ity of tablet 00:00: through [place] 00 enteral Medical tube at Branch bedtime. latanoprost 2020-0 Yes 1[drp] Place 1 U nivers 0.005 % 8-29 Drop in ity of ophthalmic 00:00: both eyes [place] drops 00 at Medical bedtime. Branch 0.9 % 2020-0 Yes 10mL Inject 10 Univers sodium 8-29 mL as ity of chloride 00:00: directed [place] (NACL 0.9%, 00 as needed Med ical NS,) (line Branch injection maintenanc e). acetaminoph 2020-0 Yes 500mg Take 1 Uni vers en 500 mg 8-29 tablet by ity o f tablet 00:00: mouth [place] 00 every 6 Medical (six) Branch hours as needed. dextrose 50 2020-0 Yes 25mL Inject 25 U nivers % in water, 8-29 mL as ity of D50W, 00:00: directed [place] injection 00 as needed Medic al (Blood Branch Glucose < or = 70 mg/dL and patient is unable to swallow or has mental status changes.). glucagon 1 2020-0 Yes 1mg 1 mg by Univ ers mg/mL SolR 8-29 Intramuscu ity of injection 00:00: lar route [place] as 00 as needed Medical (Blood Branch Glucose < or = 70 mg/dL and patient is unable to swallow or has mental changes.). pantoprazol 2020-0 Yes 40mg Take 20 mL Univers e 2 mg/mL 01-23 through ity of oral 00:00: enteral [place] suspension 00 tube Medical daily. Branch dexMEDEtomi 2020-0 Yes 16.7ug/ 16.7-125.2 Univers dine 200 8-29 h 5 mcg/hr ity of mcg in 0.9 00:00: by IV [place] % NaCl 50 00 Infusion Medica l mL 200 route Branch mcg/50 mL TITRATE. (4 mcg/mL) fentanyl 2020-0 Yes 25ug/h 25-200 Unive rs citrate-0.9 8-29 mcg/hr by ity of % NaCl/PF 00:00: IV [place] (FENTANYL 00 Infusion Medica l CITRATE IN route Branch NS, PF,) 10 TITRATE. mcg/mL infusion insulin 2019-0 Yes inject Univers aspart 8 under the ity of injection 00:00: skin every [place] 00 4 (four) Medical hours. Branch collagenase 2019-0 Yes Apply to Un hina 250 8-29 affected ity of unit/gram 00:00: area(s) [place] ointment 00 daily. Medical Branch QUEtiapine 2020-0 Yes 50mg 1 tablet 2 U nivers 50 mg 8-29 (two) ity of tablet 00:00: times [place] 00 daily. Medical Branch midazolam 2020-0 Yes 1mg/h 1-10 mg/hr U nivers HCl in 0.9 8-29 by IV ity of % NaCl/PF 00:00: Infusion [place] (MIDAZOLAM, 00 route Medical PF, IN 0.9 TITRATE. Branc h % NACL) 1 mg/mL infusion sodium 2020-0 Yes 4mL Inhale 4 Univers chloride 7% 8-29 mL 2 (two) it y of nebulizer 00:00: times [place] solution 00 daily. Medical Branch heparin 2020-0 Yes 3000U Inject 3 Unive rs sodium,porc 8-29 mL as ity of ine 00:00: directed. [place] (HEPARIN 00 Medical 1000 Branch UNIT/ML) Soln injection insulin 2020-0 Yes 3U 3 Units, Univer s glargine 01-22 Subcutaneo ity o f (LANTUS 02:00: us, QHS, [place] U-100) 00 First dose Medical injection 3 on [facility] Branch Units 01/22/20 at 2100, Until Discontinu ed, Routine insulin 2020-0 Yes 1U 1 Units, Univer s aspart 01-21 Subcutaneo ity of RAPID 21:00: us, Q4H, [place] (NOVOLOG 00 First dose Medic al U-100 on [facility] Branch INSULIN 01/22/20 at ASPART) 1600, injection 1 Until Units Discontinu ed, Routine furosemide 2020-0 Yes 20mg 20 mg, Unive rs (LASIX) 01-21 Slow IV ity of injection 14:00: Push, [place] 20 mg 00 DAILY, Medical First dose Branch (after last reorder) on [place] 01/22/20 at 0900, Until Discontinu ed, Routine furosemide 2020-0 2020- No 40mg 40 mg, Univ ers (LASIX) 01-20 Slow IV ity of injection 10:51: 11:00 Push, [place] 40 mg 00 :00 ONCE, 1 Medical dose, Wed Branch 01/21/20 at 0600, Routine atorvastati 2020-0 Yes 80mg 80 mg, Univ ers n (LIPITOR) 01-19 Enteral, ity of tablet 80 02:00: QHS, First [place] mg 00 dose Medical (after Branch last modificati on) on Sun01/19/20 at 2100, Until Discontinu ed, Routine calcium 2020-0 2020- No 1g 1 g, IV Univer s gluconate 1 01-18 08-24 Infusion, it y of g in NaCl 17:15: 17:15 ONCE, 1 [place] 50 mL 00 :00 dose, [facility] Medical (ISO-OSM) 01/19/20 at [facility] RTU IV 1215, infusion 1 Routine g magnesium 2020-0 2020- No 4g 4 g, IV Univ ers sulfate in 01-18 Piggyback, it y of water 4 14:30: 14:30 ONCE, 1 [place] gram/50 mL 00 :00 dose, [facility] maggie (8 %) IV 01/19/20 at [facility] h Piggyback 4 0930, g Routine aspirin 2020-0 Yes 81mg 81 mg, Univers chewable 01-18 Enteral, ity of tablet 81 14:00: DAILY, [place] mg 00 First dose Medical on Sun Branch 01/19/20 at 0900, Until Discontinu ed, Routine sennosides- 2020-0 Yes 2{tbl} 2 tablet, Univers docusate 01-18 Enteral, ity of sodium 14:00: DAILY, [place] (SENOKOT-S) 00 First dose Me dical 8.6-50 mg (after Branch per tablet last 2 tablet modificati on) on Sun01/19/20 at 0900, Until Discontinu ed, Routine docusate 2020-0 Yes 100mg 100 mg, Unive rs (COLACE) 01-18 Oral, ity of capsule 100 14:00: DAILY, [place] mg 00 First dose Medical (after Branch last modificati on) on Sun01/19/20 at 0900, Until Discontinu ed, Routine Polyethylen 2020-0 Yes 17g 17 g, Unive rs e Glycol 01-18 Enteral, ity of 3350 13:00: BID, First (MIRALAX) 00 dose Medical powder 17 g (after Branch last modificati on) on Sun01/19/20 at 0800, Until Discontinu ed, Routine HYDROcodone 2020-0 Yes 10mg 10 mg, Univ ers -acetaminop 01-18 Enteral, ity of hen (HYCET) 13:00: TID, First 7.5-325 00 dose Medical mg/15 mL (after Branch solution 10 last mg modificati on) on Sun01/19/20 at 0800, Until Discontinu ed, Routine clonazePAM 2020-0 Yes 1mg 1 mg, Univer s 0.1 mg/mL 01-18 Enteral, ity of oral 13:00: TID, First [place] suspension 00 dose Medical 1 mg (after Branch last modificati on) on 01/19/20 at 0800, Until Discontinu ed, Routine KCL 2019-2019- No 40meq 40 mEq, IV Unive rs (POTASSIUM 01-18 Piggyback, it y of CHLORIDE) 10:30: 10:30 ONCE, 1 [place] 40 mEq in 00 :00 dose, Mon Medic al NaCl 0.9% 01/19/20 at Bran ch (NS) 0530, 100 piggyback mL docusate 0 2020- No 100mg 100 mg, Univ ers (COLACE) 01-16 Oral, ity of capsule 100 14:00: 07:05 DAILY, [place] mg 00 :31 First dose Medical on Sat Branch 01/17/20 at 0900, Until Discontinu ed, Routine sennosides- 0 2020- No 1{tbl} 1 tablet, Univers docusate 01-16 Oral, ity of sodium 14:00: 18:46 DAILY, [place] (SENOKOT-S) 00 :59 First dose Me dical 8.6-50 mg on [facility] Branch per tablet 01/17/20 at 1 tablet 0900, Until Discontinu ed, Routine clonazePAM 2019-2019- No 1mg 1 mg, Unive rs 0.1 mg/mL 01-16 Oral, TID, ity of oral 13:45: 07:05 First dose [place] suspension 00 :31 (after Medical 1 mg last Branch modificati on) on 01/17/20 at 0845, Until Discontinu ed, Routine HYDROcodone 2019-0 2020- No 10mg 10 mg, Uni vers -acetaminop 01-16 Oral, TID, i ty of hen (HYCET) 13:45: 07:05 First dose [place] 7.5-325 00 :31 (after Medical mg/15 mL last Branch solution 10 modificati mg on) on 01/17/20 at 0845, Until Discontinu ed, Routine NORepinephr 2019-0 Yes .05ug/k 0.05-1.5 Univers ine 16 mg 8- g/min mcg/kg/min ity of in NS 250 13:37: ?83.5 kg [place] mL infusion 17 (3.9141-11 Me dical RTU 7.4219 Branch mL/hr, rounded to 3.91-117.4 2 mL/hr), IV Infusion, TITRATE, MAP Goal > or = 60 mmHg, Starting 01/17/20 at 0837
In itiate titration at 0.05 mcg/kg/min . &nb sp;Increas e by 0.01 mcg/kg/min every 30 seconds to 5 minutes as needed to reach and maintain goal blood pressure.& nbsp;&nbsp ;Maximum dose = 1.5 mcg/kg/min . &nb sp;If goal not maintained at maximum allowed dose, contact prescriber .
sodium 2020-0 Yes 4mL 4 mL, Univers chloride 7% 01-16 Inhalation it y of (HYPER-GEETA) 01:00: , BID, [place] nebulizer 00 First dose Medi maggie solution 4 (after Branch mL last modificati on) on Sun01/16/20 at 1999, Until Discontinu ed, Routine ipratropium 2020-0 2020- No 3mL 3 mL, Univ ers -albuteroL 01-16 0829 Inhalation it y of (DUONEB) 01:00: 12:56 , TID, [place] 0.5 mg-3 00 :16 First dose Medic al mg(2.5 mg (after Branch base)/3 mL last nebulizer modificati solution 3 on) on Sun mL 01/16/20 at 1999, Until Discontinu ed, Routine heparin 2020-0 Yes 1300U/h 1,300 Univer s 25,000 01-15 Units/hr ity of Units/250 22:55: (13 [place] mL 47 mL/hr), IV Medical (Premixed Infusion, Branc h Bag) in TITRATE, 0.45 % NS Parameters in Admin. Instr., Starting Sun01/16/20 at 1755
CA UTION - If LMWH given in ER, AVOID bolus and start dose/drip 12 hours after ER dosage.&nb sp; M ust program rate using programmab le infusion pump.&nbsp ; Fátima ck with the ordering provider first prior to any administra tion should the patient be on existing/a dditional anticoagul ant therapy.&n bsp; DO NOT ADJUST INITIAL BOLUS OR INITIAL INFUSION RATE&n bsp; Range, Dosing and Testing: ____ &nbs p; FO R [facility] ONLY - aPTT < 35: & nbsp;Bolus 5000 units, increase rate 300 units/hr&n bsp; - aPTT 35-44:&nbs p; Patel avery 3000 units, increase rate 200 units/hr&n bsp; - aPTT 45-54:&nbs p; In crease rate 100 units/hr&n bsp; - aPTT 55-85:&nbs p; NO CHANGE&nbs p; - aPTT 86-95:&nbs p; De crease rate 100 units/hr&n bsp; - aPTT 96-120:&nb sp; H old 30 minutes, decrease rate 150 units/hr&n bsp; - aPTT > 120: Hold 60 minutes, decrease rate 200 units/hr&n bsp; Check aPTT 6 hours after initiation , then Q6H after every change, aPTT Q12H once therapeuti c levels are reached.&n bsp; &amp ;nbsp;____ &nbs p; FO R [facility] ONLY - aPTT < 40: & nbsp;Bolus 5000 units, increase rate 300 units/hr&n bsp; - aPTT 40-49:&nbs p; Patel avery 3000 units, increase rate 200 units/hr&n bsp; - aPTT 50-59:&nbs p; In crease rate 100 units/hr&n bsp; - aPTT 60-85:&nbs p; NO CHANGE&nbs p; - aPTT 86-95:&nbs p; De crease rate 100 units/hr&n bsp; - aPTT 96-120:&nb sp; H old 30 minutes, decrease rate 150 units/hr&n bsp; - aPTT > 120: Hold 60 minutes, decrease rate 200 units/hr&n bsp;&n bsp;Check aPTT 6 hours after initiation , then Q6H after every change, aPTT Q12H once therapeuti c levels are reached.<b r> heparin 2019-0 Yes 3000U FOR Univers (1,000 01-15 REBOLUSING ity of unit/mL, 10 22:40: , Starting [place] mL vial) 23 Sun Medical 01/16/20 at Branch 1740, Until Discontinu ed, Routine
Dosing based on aPTT testing parameters (refer to continuous heparin drip order)
cisatracuri 2019-0 2020- No .15mg/k 12.04 mg Univers um (NIMBEX) 01-15 g (rounded ity of injection 13:30: 15:58 from [place] 12.04 mg 00 :00 12.045 mg Medica l = 0.15 Branch mg/kg ?80.3 kg), Intravenou s, ONCE, 1 dose, Sun01/16/20 at 0830, Routine Polyethylen 2019-0 2020- No 17g 17 g, Univ ers e Glycol 01-15 Oral, BID, ity of 3350 13:00: 07:05 First dose [place] (MIRALAX) 00 :31 (after Medical powder 17 g last Branch modificati on) on Sun01/16/20 at 0800, Until Discontinu ed, Routine KCL 20 2019- 2020- No 40meq 40 mEq, Univer s mEq/15 mL 01-15 Enteral, ity o f solution 40 12:30: 13:45 ONCE, 1 [place] mEq 00 :00 dose, Fri Medical 01/16/20 at Branch 0730, Routine HYDROcodone 2019-2019- No 7.5mg 7.5 mg, U nivers -acetaminop 01-14 Oral, Q6H, i ty of hen (HYCET) 17:00: 13:36 First dose [place] 7.5-325 00 :16 (after Medical mg/15 mL last Branch solution modificati 7.5 mg on) on [facility] 01/15/20 at 1200, Until Discontinu ed, Routine Polyethylen 2019-2019- No 17g 17 g, Univ ers e Glycol 01-14 Oral, ity of 3350 14:00: 04:02 DAILY, [place] (MIRALAX) 00 :20 First dose Medi maggie powder 17 g on [facility] Branch 01/15/20 at 0900, Until Discontinu ed, Routine NORepinephr 2019-2019- No .05ug/k 0.05-1.5 Univers ine 01-14 g/min mcg/kg/min ity of (LEVOPHED) 03:28: 13:38 ?83.5 kg [place] 16 mg in 07 :55 (3.9141-11 Medic al NaCl 0.9% 7.4219 Branch (NS) 250 mL mL/hr, infusion rounded to 3.91-117.4 2 mL/hr), IV Infusion, TITRATE, MAP Goal > or = 65 mmHg, Starting 01/14/20 at 2228
In itiate titration at 0.05 mcg/kg/min . &nb sp;Increas e by 0.01 mcg/kg/min every 30 seconds to 5 minutes as needed to reach and maintain goal blood pressure.& nbsp;&nbsp ;Maximum dose = 1.5 mcg/kg/min . &nb sp;If goal not maintained at maximum allowed dose, contact prescriber .
HYDROcodone 2019-2019- No 5mg 5 mg, Univ ers -acetaminop 01-12 Oral, Q6H, i ty of hen (HYCET) 23:00: 16:20 First dose [place] 7.5-325 00 :01 on e Medical mg/15 mL 01/13/20 at [facility] h solution 5 1800, mg Until Discontinu ed, Routine furosemide 2019- No 20mg 20 mg, Univ ers (LASIX) 01-12 Slow IV ity of injection 19:45: 20:02 Push, [place] 20 mg 00 :00 ONCE, 1 Medical dose, Tue Branch 01/13/20 at 1445, Routine clonazePAM 2019- No .5mg 0.5 mg, Uni vers 0.1 mg/mL 01-12 Oral, TID, ity of oral 19:00: 13:36 First dose [place] suspension 00 :16 on Tue Medical 0.5 mg 01/13/20 at Branch 1400, Until Discontinu ed, Routine KCL 2019- No 30meq 30 mEq, IV Unive rs (POTASSIUM 01-11 Piggyback, it y of CHLORIDE) 20:00: 20:00 ONCE, 1 [place] 30 mEq in 00 :00 dose, [facility] Medic al NaCl 0.9% 01/12/20 at [facility] ch (NS) 1500, 250 piggyback mL vancomycin 2019- No 15mg/kg 1,250 mg Univers 1250 mg in 01-11 (rounded ity of NS 250 mL 15:30: 00:09 from [place] RTU IV 00 :40 1,207.5 mg Medical Piggyback = 15 mg/kg Bran ch 1,250 mg ?80.5 kg), IV Piggyback, Q12H ABX, First dose on Sun01/12/20 at 1030, Until Discontinu ed
Reas on for Anti-Infec tive: Empiric Therapy for Suspected Infection< br>Empiric Therapy Site: Respirator y
Durat ion of therapy: 72 hours meropenem 2019- No 500mg 500 mg, IV Univers (MERREM) 01-11 Piggyback, ity of 500 mg in 15:30: 04:52 Administer [place] NaCl 0.9% 00 :50 over 60 Medical (NS) 100 mL Minutes, Bran ch MINI-BAG Q6H ABX, First dose on Sun01/12/20 at 1030, Until Discontinu ed, MUNIRA
Re stricted use approved by: [address] FLOOR
R dano for Anti-Infec tive: Empiric Therapy for Suspected Infection< br>Empiric Therapy Site: Blood
D uration of therapy: 72 hours lactated 2020-0 2020- No 1000mL at 999 Univ ers ringers IV 01-11 mL/hr, ity of infusion 15:30: 15:30 1,000 mL, [place] 1,000 mL 00 :00 IV Medical Infusion, Branch ONCE, 1 dose, [facility] 01/12/20 at 1030, Routine vasopressin 2020-0 2020- No .04U/mi 0.04 Un hina (PITRESSIN 01-11 n Units/min ity of SYNTHETIC) 11:45: 19:11 (6 mL/hr), [place] 40 Units in 00 :11 IV Medical NaCl 0.9% Infusion, [facility] (NS) 100 mL CONTINUOUS infusion , Starting [facility] 01/12/20 at 0645 furosemide 2019-0 2020- No 20mg 20 mg, Univ ers (LASIX) 01-11 Slow IV ity of injection 06:45: 06:14 Push, [place] 20 mg 00 :00 ONCE, 1 Medical dose, [facility] 01/12/20 at 0145, Routine lactulose 2020-0 2020- No 15mL 15 mL, Unive rs (CEPHULAC) 01-11 Oral, BID, it y of solution 15 01:00: 22:35 First dose [place] mL 00 :22 (after Medical last Branch modificati on) on [place] 01/11/20 at 2000, Until Discontinu ed, Routine magnesium 2020-0 2020- No 4g 4 g, IV Univ ers sulfate in 01-10 Piggyback, it y of water 4 13:15: 13:15 ONCE, 1 [place] gram/50 mL 00 :00 dose, [facility] maggie (8 %) IV 01/11/20 at [facility] Piggyback 4 0815, g Routine Polyethylen 2020-0 2020- No 17g 17 g, Univ ers e Glycol 01-10 Enteral, ity of 3350 13:00: 01:31 BID, First [place] (MIRALAX) 00 :41 dose Medical powder 17 g (after Branch last modificati on) on [place] 01/11/20 at 0800, Until Discontinu ed, Routine furosemide 2020-0 2020- No 20mg 20 mg, Univ ers (LASIX) 01-10 Slow IV ity of injection 04:15: 05:13 Push, [place] 20 mg 00 :00 ONCE, 1 Medical dose, Sat Branch 01/10/20 at 2315, Routine furosemide 2019-0 2019- No 20mg 20 mg, Univ ers (LASIX) 01-09 Slow IV ity of injection 11:00: 11:04 Push, [place] 20 mg 00 :00 ONCE, 1 Medical dose, Sat [place] 01/10/20 at 0600, Routine vecuronium 2019-2019- No 10mg 10 mg, IV U nivers (NORCURON) 01-08 Push, ity of injection 18:15: 17:00 ONCE, 1 [place] 10 mg 00 :00 dose, Sun Medical 01/09/20 at Branch 1315, Routine vecuronium 2019- No .8ug/kg 0.8-1.7 Univers (NORCURON) 01-0816 /min mcg/kg/min it y of 100 mg in 17:54: 02:48 ?80.5 kg [place] as NaCl 0.9% 20 :06 (3.864-8.2 Medi maggie (NS) 11 mL/hr, Branch infusion rounded to 3.86-8.21 mL/hr), IV Infusion, TITRATE, [place] 2/4, Starting Sun01/09/20 at 1254
In itiate infusion at 0.8 mcg/kg/min and titrate by 0.3 mcg/kg/min every 10 minutes as needed within the specified range to maintain desired depth of blockade.& nbsp;&nbsp ;Maximum dose = 1.7 mcg/kg/min . If desired depth of blockade is not maintained , contact prescriber .
midazolam 2020-0 Yes 1mg/h 1-10 mg/hr U nivers (PF) 01-08 (1-10 ity of (VERSED) 17:04: mL/hr), IV [place] as STD 50 mg 56 Infusion, Medic al in NaCl TITRATE, Branch 0.9% (NS) Sedation-R 50 mL ASS score infusion (0 to -1), RTU Starting Sun01/09/20 at 1204
In itiate infusion at 1 mg/hr and titrate by 1 mg/hr every 3 minutes to 10 minutes to goal sedation score. Maximum dose = 10 mg/hr.&nbs p; If goal not maintained at maximum allowed dose, contact prescriber .
QUEtiapine 2019-0 Yes 50mg 50 mg, Unive rs (SEROQUEL) 01-08 Enteral, ity o f tablet 50 02:15: BID, First [place] mg 00 dose Medical (after Branch last modificati on) on Sun01/08/20 at 2115, Until Discontinu ed, Routine collagenase 2019-0 Yes Topical Uni vers (SANTYL) 01-07 (Apply To ity of ointment 14:00: Affected [place] 00 Areas), Medical DAILY, Branch First dose on Sun01/08/20 at 0900, Until Discontinu ed, Routine melatonin 2019-0 2020- No 9mg 9 mg, Univer s (MELATIN) 01-07 Oral, QHS, ity of tablet 9 mg 02:00: 19:20 First dose [place] 00 :00 on Sun [facility] 01/07/20 at Branch 2100, Until Discontinu ed, Routine QUEtiapine 0 2020- No 25mg 25 mg, Univ ers (SEROQUEL) 01-06 Enteral, ity of tablet 25 15:00: 02:10 BID, First [place] mg 00 :44 dose Medical (after Branch last modificati on) on Sun01/07/20 at 1000, Until Discontinu ed, Routine meat 2019-0 2020- No Univers tenderizer 01-06 ity of (GWENDOLYN'S) 03:00: 05:12 [place] powder Powd 00 :00 Medical Branch furosemide 0 2020- No 20mg 20 mg, Univ ers (LASIX) 01-06 Slow IV ity of injection 00:00: 00:00 Push, ONCE [place] 20 mg 00 :00 NOW, 1 Medical dose, [facility] 01/06/20 at 1900, Routine meropenem 2019-0 2020- No 500mg 500 mg, IV Univers (MERREM) 01-05 Piggyback, ity of 500 mg in 17:00: 15:16 Administer [place] NaCl 0.9% 00 :29 over 60 Medical (NS) 100 mL Minutes, Bran ch MINI-BAG Q6H ABX, 12 doses, First dose (after last reorder) on Sun01/06/20 at 1200, Last dose on Sun01/09/20 at 0600, MUNIRA
Re stricted use approved by: [facility] FLOOR
R dano for Anti-Infec tive: Empiric Therapy for Suspected Infection< br>Empiric Therapy Site: Respirator y
Durat ion of therapy: 72 hours furosemide 2019- No 20mg 20 mg, [facility] ers (LASIX) 01-04 Slow IV ity of injection 01:00: 01:00 Push, [place] 20 mg 00 :00 ONCE, 1 Medical dose, [place] Branch 01/04/20 at 2000, Routine Polyethylen No 17g 17 g, [facility] e Glycol 01-03 Enteral, ity of 3350 12:45: 12:34 BIDPRN, [place] (MIRALAX) 00 :06 Starting Medica l powder 17 g [place] 01/04/20 Br anch at 0745, Until [place] 01/11/20 at 0734, Routine, Constipati on meropenem No 500mg 500 mg, IV Univers (MERREM) 01-02 Piggyback, ity of 500 mg in 20:00: 15:00 Administer [place] NaCl 0.9% 00 :00 over 60 Medical (NS) 100 mL Minutes, Bran ch MINI-BAG Q6H ABX, 12 doses, First dose on Sun01/03/20 at 1500, Last dose on Sun01/06/20 at 0900, MUNIRA
Re stricted use approved by: [facility] FLOOR
R dano for Anti-Infec tive: Empiric Therapy for Suspected Infection< br>Empiric Therapy Site: Respirator y
Durat ion of therapy: 72 hours insulin 2019- No 36U 36 Units, [facility] ers glargine 01-02 Subcutaneo ity of (LANTUS 13:00: 03:51 us, Q24H, [place] U-100) 00 :24 First dose Medical injection (after Branch 36 Units last modificati on) on [facility] 01/03/20 at 0800, Until Discontinu ed, Routine vecuronium 2019- No 10mg 10 mg, IV U nivers (NORCURON) 01-01 Push, ity of injection 20:00: 19:00 ONCE, 1 [place] 10 mg 00 :00 dose, Sun Medical 01/02/20 at Branch 1500, Routine sennosides- 2019-2019- No 2{tbl} 2 tablet, [facility] 01-01 0817 Oral, ity of sodium 14:00: 22:35 DAILY, [place] (SENOKOT S) 00 :22 First dose Me dical 8.6-50 mg (after Branch per tablet last 2 tablet modificati on) on Sun01/02/20 at 0900, Until Discontinu ed, Routine furosemide 2019- No 20mg 20 mg, [facility] (LASIX) 01-01 Slow IV ity of injection 00:18: 01:47 Push, [place] 20 mg 00 :00 ONCE, 1 Medical dose, [facility] 01/01/20 at 1930, Routine lactulose 2019- No 15mL 15 mL, [facility] (CEPHULAC) [id number] Oral, ity of solution 15 19:15: 12:34 DAILY, [place] as mL 00 :06 First dose Medical on [facility] 01/01/20 at 1415, Until Discontinu ed, Routine dexamethaso 2019- No 6mg 6 mg, IV U nivers ne 12-31 Piggyback, ity of (DECADRON 14:30: 14:20 DAILY, 6 Jose as PHOSPHATE) 00 :00 doses, Medical 6 mg in First dose Branch NaCl 0.9% (after (NS) last piggyback reorder) on Sun01/01/20 at 0930, Last dose on Sun01/06/20 at 0900, 50 mL insulin 2019-2019- No 28U 28 Units, [facility] glargine 12-31 Subcutaneo ity of (LANTUS 13:00: 04:25 [place], Q24H, [place] U-100) 00 :38 First dose Medical injection (after Branch 28 Units last modificati on) on [facility] 01/01/20 at 0800, Until Discontinu ed, Routine NaCl 0.9% 2020-0 2020- No 500mL at 999 [facility] (NS) bolus 12-30 08-05 mL/hr, 500 it y of infusion 21:00: 21:00 mL, IV [place] 500 mL 00 :00 Piggyback, Medical ONCE, 1 Branch dose, Sun12/31/19 at 1600, MUNIRA meropenem 2019-0 2020- No 500mg 500 mg, IV Univers (MERREM) 12-30-08 Piggyback, ity of 500 mg in 20:30: 18:21 Administer [place] NaCl 0.9% 00 :15 over 60 Medical (NS) 100 mL Minutes, Bran ch MINI-BAG Q6H ABX, First dose on Sun12/31/19 at 1530, Until Discontinu ed, MUNIRA
Re stricted use approved by: [facility] 8TH FLOOR
R dano for Anti-Infec tive: Empiric Therapy for Suspected Infection< br>Empiric Therapy Site: Blood
D uration of therapy: 72 hours Sliding 2019-0 Yes Subcutaneo [facility] Scale -05 us, Q4H, ity of Insulin - 17:45: First dose [place] Aspart 00 on Sun Medical (NOVOLOG) + 12/31/19 at [facility] Fsbg 1245, Testing Until Discontinu ed, Routine NaCl 0.9% 2020- No 500mL at 999 [facility] (NS) bolus 12-30 08-05 mL/hr, 500 it y of infusion 16:45: 15:58 mL, IV [place] 500 mL 00 :00 Piggyback, Medical ONCE, 1 Branch dose, Sun12/31/19 at 1145, STAT sodium 2019- 2020- No 4mL 4 mL, Univers chloride 7% 12-30 Inhalation i ty of (HYPER-GEETA) 14:00: 22:26 , DAILY, [place] nebulizer 00 :55 First dose Medi maggie solution 4 on Sun Branch mL 12/31/19 at 0900, Until Discontinu ed, Routine sennosides- 2019-0 2020- No 1{tbl} 1 tablet, Univers docusate 12-30 08-06 Oral, ity of sodium 14:00: 19:12 DAILY, [place] (SENOKOT S) 00 :02 First dose Me dical 8.6-50 mg on Wed Branch per tablet 12/31/19 at 1 tablet 0900, Until Discontinu ed, Routine Polyethylen 2019- No 17g 17 g, [facility] e Glycol 12-30 0809 Enteral, ity of 3350 13:00: 12:32 BID, First (MIRALAX) 00 :48 dose Medical powder 17 g (after Branch last modificati on) on Sun12/31/19 at 0800, Until Discontinu ed, Routine ipratropium 2019- No 3mL 3 mL, [facility] -albuterol 12-30 Inhalation it y of (DUONEB) 12:08: 22:49 , TIDPRN, Jose as 0.5 mg-3 03 :09 Starting Medical mg(2.5 mg Sun12/31/19 Bran ch base)/3 mL at 0708, nebulizer Until Fri solution 3 01/16/20 at mL 1749, Routine, secretions fentaNYL PF 2019- Yes 25ug/h 25-200 Un hina (SUBLIMAZE) 8-04 mcg/hr ity of STD 2,500 05:21: (2.5-20 [place] mcg in NaCl 00 mL/hr), IV Me dical 0.9% (NS) Infusion, Branc h 250 mL TITRATE, infusion CPOT/Pain RTU Scale Goals Determined by Provider, Starting Sun12/30/19 at 0021
In itiate infusion at 25 mcg/hr. Titrate by 25 mcg/hr every 1 minute to 15 minutes to identified goal pain and/or sedation scores. Maximum dose = 200 mcg/hr. If goal not maintained at maximum allowed dose, contact prescriber .
FENTanyl PF 0 2019- No 50ug 50 mcg, Un hina (SUBLIMAZE 12-29 Slow IV ity o f (PF)) 05:11: 16:14 Push, [place] injection 00 :00 Q30MIN Medical 50 mcg PRN, 2 Branch doses, Starting Sun12/30/19 at 0011, Until Sherron 01/15/20 at 1114, Routine, Pain (scale 7-10), Increased respirator y rate due to discomfort /pain associated with vent dexMEDEtomi 2019- Yes .2ug/kg 0.2-1.5 Univers dine 200 8-03 /h mcg/kg/hr ity of mcg in 0.9 18:42: ?83.5 kg Jose as % NaCl 50 04 (4.175-31. Medi maggie mL 3125 Branch (PRECEDEX) mL/hr, RTU IV rounded to infusion 4.18-31.31 mL/hr), IV Infusion, TITRATE, Sedation-R ASS score (0 to -1), Starting Sun12/29/19 at 1342
In itiate infusion at 0.2 mcg/kg/hr and titrate by 0.1 mcg/kg/hr every 30 minutes to goal sedation score. Maximum dose = 1.5 mcg/kg/hr. If goal not maintained at maximum allowed dose, contact prescriber .
Polyethylen 2019- No 17g 17 g, [place] [facility] e Glycol 12-28 Enteral, ity of 3350 17:52: 04:42 BIDPRN, [place] (MIRALAX) 03 :10 Starting Medica l powder 17 g Sun12/29/19 Br anch at 1252, Until Tu12/30/19 at 2342, Routine, Constipati on pantoprazol Yes 40mg 40 mg, Univ ers e 12-28 Enteral, ity of (PROTONIX) 14:00: DAILY, [place] 2 mg/mL 00 First dose Medica l oral on Sun suspension 12/29/19 at 40 mg 0900, Until Discontinu ed, Routine insulin 2019- No .25U/kg 21 Units Un hina glargine 12-28 /d (rounded ity of (LANTUS 13:00: 17:33 from [place] U-100) 00 :30 20.875 Medical injection Units = Branch 21 Units 0.25 Units/kg/d ay ?83.5 kg), Subcutaneo us, Q24H, First dose (after last modificati on) on Sun12/29/19 at 0800, Until Discontinu ed, Routine Sliding 2019- 2020- No Subcutaneo Uni vers Scale 12-28 us, Q4H, ity of Insulin - 01:00: 17:30 First dose [place] Aspart 00 :40 on [facility] (NOVOLOG) + 12/28/19 at [facility] Fsbg 1999, Testing Until Discontinu ed, Routine insulin 2020- No 10U 10 Units, [place] [facility] glargine 12-28 Subcutaneo ity of (LANTUS 00:00: 02:45 us, ONCE, [place] U-100) 00 :00 1 dose, Medical injection [place] 12/28/19 Bran ch 10 Units at 1900, Routine insulin 2020- No 10U 10 Units, Univ ers regular 12-28 IV Push, ity of human 00:00: 23:13 ONCE, 1 [place] (HUMULIN R) 00 :00 dose, [place] Med ical injection 12/28/19 at Branc h 10 Units 1900, MUNIRA glucagon Yes 1mg 1 mg, [facility] (GLUCAGEN 12-27 Intramuscu ity of DIAGNOSTIC 22:56: lar, PRN, [place] KIT) 30 Starting Medical injection 1 [place] 12/28/19 Br anch mg at 1756, Until Discontinu ed, MUNIRA, Blood Glucose < or = 70 mg/dL and patient is unable to swallow or has mental changes. dextrose 50 Yes 25mL 25 mL, [facility] % in water 12-27 Slow IV ity of (D50W) 22:56: Push, PRN, [place] injection 30 Starting Medica l 25 mL [place] 12/28/19 Branch at 1756, Until Discontinu ed, MUNIRA, Blood Glucose < or = 70 mg/dL and patient is unable to swallow or has mental status changes. furosemide 2019- No 40mg 40 mg, Univ ers (LASIX) 12-27 Slow IV ity of injection 19:00: 09:34 Push, Q8H, [place] 40 mg 00 :57 First dose Medical (after Branch last modificati on) on [place] 12/28/19 at 1400, Until Discontinu ed, MUNIRA vancomycin 2020- No 15mg/kg 1,250 mg Univers 1250 mg in 12-27 (rounded ity of NS 250 mL 18:30: 05:49 from [place] RTU IV 00 :38 1,252.5 mg Medical Piggyback = 15 mg/kg Bran ch 1,250 mg ?83.5 kg), IV Piggyback, Q8H ABX, First dose (after last modificati on) on [place] 12/28/19 at 1330, Until Discontinu ed
Reas on for Anti-Infec tive: Empiric Therapy for Suspected Infection< br>Empiric Therapy Site: Blood
D uration of therapy: 7 days sodium 2019- No 650mg 650 mg, Univer s bicarbonate 12-27 0804 Enteral, ity of (ANTACID 13:00: 11:14 BID, First [place] (SODIUM 00 :59 dose on Medical BICARBONATE [place] 12/28/19 Br anch )) tablet at 0800, 650 mg Until Discontinu ed, Routine NORepinephr No .05ug/k 0.05-1.5 Univers ine 16 mg 12-26 g/min mcg/kg/min it y of in NS 250 16:52: 03:28 ?83.5 kg Jose as mL infusion 49 :28 (3.9141-11 Me dical RTU 7.4219 Branch mL/hr, rounded to 3.91-117.4 2 mL/hr), IV Infusion, TITRATE, MAP Goal > or = 65 mmHg, Starting 12/27/19 at 1152
In itiate titration at 0.05 mcg/kg/min . &nb sp;Increas e by 0.01 mcg/kg/min every 30 seconds to 5 minutes as needed to reach and maintain goal blood pressure.& nbsp;&nbsp ;Maximum dose = 1.5 mcg/kg/min . &am p;nbsp;If goal not maintained at maximum allowed dose, contact prescriber .
furosemide No 40mg 40 mg, Univ ers (LASIX) 12-26 Slow IV ity of injection 13:00: 12:23 Push, [place] 40 mg 00 :43 Q12H, Medical First dose Branch (after last reorder) on [facility] 12/27/19 at 0800, Until Discontinu ed, MUNIRA Sliding 2019- No Subcutaneo Uni vers Scale 12-26 us, Q6H, ity of Insulin-Reg 05:00: 23:00 First dose [place] ular + Fsbg 00 :53 (after Medica l Testing last Branch modificati on) on [facility] 12/27/19 at 0000, Until Discontinu ed, Routine acetaminoph 2019- Yes 500mg 500 mg, Un hina en 12-26 Enteral, ity of (TYLENOL) 02:16: Q6HPRN, [place] tablet 500 30 Starting Medic al mg Fri Branch 12/26/19 at 2116, Until Discontinu ed, Routine, Pain (scale 1-3), Temp > 38.5 C pantoprazol 2019- No 40mg 40 mg, IV Univers e 12-26 Piggyback, ity of (PROTONIX) 01:00: 05:53 Q12H, [place] 40 mg in 00 :46 First dose Medic al NaCl 0.9% on Sun Branch (NS) 100 mL 12/26/19 at MINI-BAG 2000, Until Discontinu ed, 100 mL furosemide 2019-2019- No 40mg 40 mg, Univ ers (LASIX) 12-26 Slow IV ity of injection 00:00: 23:42 Push, [place] 40 mg 00 :00 ONCE, 1 Medical dose, Sun Branch 12/26/19 at 1900, MUNIRA meropenem 2019- No 500mg 500 mg, IV Univers (MERREM) 12-25 Piggyback, ity of 500 mg in 23:30: 05:49 Administer [place] NaCl 0.9% 00 :38 over 60 Medical (NS) 100 mL Minutes, Bran ch MINI-BAG Q6H ABX, First dose on Sun12/26/19 at 1830, Until Discontinu ed, MUNIRA
Re stricted use approved by: ONE[facility] 8TH FLOOR
R dano for Anti-Infec tive: Empiric Therapy for Suspected Infection< br>Empiric Therapy Site: Blood
D uration of therapy: 7 days dexamethaso 2019-2019- No 6mg 6 mg, IV U nivers ne 12-25 Piggyback, ity of (DECADRON 23:00: 16:35 DAILY, 6 Jose as PHOSPHATE) 00 :00 doses, Medical 6 mg in First dose Branch NaCl 0.9% (after (NS) last piggyback modificati on) on Sun12/26/19 at 1800, Last dose on Sun12/31/19 at 0900, 50 mL vancomycin 2019- No 15mg/kg 1,250 mg Univers 1250 mg in 12-2502 (rounded ity of NS 250 mL 22:30: 13:26 from [place] RTU IV 00 :41 1,252.5 mg Medical Piggyback = 15 mg/kg [facility] 1,250 mg ?83.5 kg), IV Piggyback, Q12H ABX, First dose on Sun12/26/19 at 1730, Until Discontinu ed
Reas on for Anti-Infec tive: Empiric Therapy for Suspected Infection< br>Empiric Therapy Site: Blood
D uration of therapy: 7 days insulin 2019- No 10U 10 Units, Univ ers regular 12-25 IV Push, ity of human 22:15: 21:43 ONCE, [place] (HUMULIN R) 00 :00 dose, Sun Med ical injection 12/26/19 at [facility] 10 Units 1715, MUNIRA dextrose 2019- No 250mL 250 mL, IV U nivers 10% (D10W) 12-25 Infusion, ity of bolus 22:15: 21:49 ONCE, Sun [place] infusion 00 :00 12/26/19 at Medic al 250 mL 1715, For Branch 1 dose
De xtrose 10% 250 mL bag contains:& nbsp;10 gm = 100 mL 20 gm = 200 mL 25 gm = 250 mL (whole bag) The maximum rate at which dextrose can be infused without producing glycosuria is 0.5 g/kg/hour. BUD: If wrapper is open bag is good for 30 days at room temperatur e. <b r> calcium 2019- No 2g 2 g, IV Univer s gluconate 2 12-25 Infusion, it y of g in NaCl 22:15: 21:49 ONCE, 1 [place] 100 mL 00 :00 dose, Sun [facility] (ISO-OSM) 12/26/19 at [facility] RTU IV 1715, MUNIRA infusion 2 g propofol IV 2019- No 5ug/kg/ 5-75 Un hina infusion 12-25 08-10 min mcg/kg/min ity of 20:05: 11:56 ?83.5 kg [place] 17 :06 (2.505-37. Medical 575 mL/hr, Branch rounded to 2.51-37.58 mL/hr), IV Infusion, TITRATE, Sedation-R ASS score (0 to -1), Starting Sun12/26/19 at 1505
In itiate infusion at 5 mcg/kg/min and titrate by 5 mcg/kg/min every 30 seconds to 10 minutes to goal sedation score. Maximum dose = 75 mcg/kg/min . If goal not maintained at maximum allowed dose, contact prescriber . &nbs p;Tubing and unused portions of vials should be discarded after 12 hours.
heparin STD 2019-0 2020- No 1000U/h 1,000 U nivers 25,000 12-25 08-20 Units/hr ity of units/250ml 20:03: 23:14 (10 [place] in NS 55 :00 mL/hr), IV Medical Infusion, Branch TITRATE, Parameters in Admin. Instr., Starting Sun12/26/19 at 1503
CA UTION - If LMWH given in ER, AVOID bolus and start dose/drip 12 hours after ER dosage.&nb sp; M ust program rate using programmab le infusion pump.&nbsp ; Fátima ck with the ordering provider first prior to any administra tion should the patient be on existing/a dditional anticoagul ant therapy.&n bsp; DO NOT ADJUST INITIAL BOLUS OR INITIAL INFUSION RATE&n bsp; Range, Dosing and Testing: ____ &nbs p; FO R [facility] ONLY - aPTT < 35: & nbsp;Bolus 5000 units, increase rate 300 units/hr&n bsp; - aPTT 35-44:&nbs p; Patel avery 3000 units, increase rate 200 units/hr&n bsp; - aPTT 45-54:&nbs p; In crease rate 100 units/hr&n bsp; - aPTT 55-85:&nbs p; NO CHANGE&nbs p; - aPTT 86-95:&nbs p; De crease rate 100 units/hr&n bsp; - aPTT 96-120:&nb sp; H old 30 minutes, decrease rate 150 units/hr&n bsp; - aPTT > 120: Hold 60 minutes, decrease rate 200 units/hr&n bsp; Check aPTT 6 hours after initiation , then Q6H after every change, aPTT Q12H once therapeuti c levels are reached.&n bsp; &amp ;nbsp;____ &nbs p; FO R [facility] ONLY - aPTT < 40: & nbsp;Bolus 3000 units, increase rate 100 units/hr&n bsp; - aPTT 40-49:&nbs p; In crease rate 50 units/hr&a mp;nbsp; - aPTT 50-70:&nbs p; NO CHANGE&nbs p; - aPTT 71-85:&nbs p; De crease rate 50 units/hr&n bsp; - aPTT 86-100:&nb sp; H old 30 minutes, decrease rate 100 units/hr&n bsp; -aPTT 101-150:&n bsp; Hold 60 minutes, decrease rate 150 units/hr&n bsp; - aPTT > 150: Hold 60 minutes, decrease rate 300 units/hr&n bsp; Check aPTT 6 hours after initiation , then Q6H after every change, aPTT Q12H once therapeuti c levels are reached.<b r> heparin 2019- No 3000U FOR Univers (1,000 12-25 REBOLUSING ity of unit/mL, 10 19:03: 00:37 , Starting [place] mL vial) 48 :06 Fri Medical for 12/26/19 at Branch Rebolusing 1403, Until Sherron 01/15/20 at 1937, Routine
Dosing based on aPTT testing parameters (refer to continuous heparin drip order).
NaCl 0.9% 2019- No 500mL at 999 Univ ers (NS) bolus 12-25 mL/hr, 500 it y of infusion 17:15: 17:15 mL, IV [place] 500 mL 00 :00 Infusion, Medical ONCE, 1 Branch dose, Sun12/26/19 at 1215, STAT NORepinephr 2019- No .05ug/k 0.05-1.5 Univers ine 4 mg in 12-25 08-01 g/min mcg/kg/min ity of 0.9% NaCl 17:08: 16:55 ?83.5 kg Jose as 250 mL 09 :12 (15.6563-4 Medical infusion 69.6875 Branch RTU mL/hr, rounded to 15.66-469. 69 mL/hr), IV Infusion, TITRATE, MAP Goal > or = 65 mmHg, Starting Sun12/26/19 at 1208
In itiate titration at 0.05 mcg/kg/min . &nb sp;Increas e by 0.01 mcg/kg/min every 30 seconds to 5 minutes as needed to reach and maintain goal blood pressure.& nbsp;&nbsp ;Maximum dose = 1.5 mcg/kg/min . &nb sp;If goal not maintained at maximum allowed dose, contact prescriber .
midazolam 2019- No 1mg/h 1-10 mg/hr Univers (PF) 12-2514 (1-10 ity of (VERSED) 17:07: 00:17 mL/hr), IV [place] STD 50 mg 51 :13 Infusion, Medic al in NaCl TITRATE, Branch 0.9% (NS) Sedation-R 50 mL ASS score infusion (-1 to RTU -2), Starting Sun12/26/19 at 1207
In itiate infusion at 1 mg/hr and titrate by 1 mg/hr every 3 minutes to 10 minutes to goal sedation score. Maximum dose = 10 mg/hr.&nbs p; If goal not maintained at maximum allowed dose, contact prescriber .
dexMEDEtomi 2019- No .2ug/kg 0.2-1.5 Univers dine 400 12-25 08-01 /h mcg/kg/hr ity o f mcg in 0.9 16:29: 02:21 ?83.5 kg [place] % NaCl 100 09 :27 (4.175-31. Med ical mL 3125 Branch (PRECEDEX) mL/hr, RTU IV rounded to infusion 4.18-31.31 mL/hr), IV Infusion, TITRATE, Sedation-R ASS score (0 to -1), Starting Sun12/26/19 at 1129
In itiate infusion at 0.2 mcg/kg/hr and titrate by 0.1 mcg/kg/hr every 30 minutes to goal sedation score. Maximum dose = 1.5 mcg/kg/hr. If goal not maintained at maximum allowed dose, contact prescriber .
propofol IV 2019- No 5ug/kg/ 5-75 Un hina infusion 12-25 07-31 min mcg/kg/min ity of 14:09: 16:08 ?83.5 kg [place] 03 :51 (2.505-37. Medical 575 mL/hr, Branch rounded to 2.51-37.58 mL/hr), IV Infusion, TITRATE, Sedation-R ASS score (-3 to -4), Starting Sun12/26/19 at 0909
In itiate infusion at 5 mcg/kg/min and titrate by 5 mcg/kg/min every 30 seconds to 10 minutes to goal sedation score. Maximum dose = 75 mcg/kg/min . If goal not maintained at maximum allowed dose, contact prescriber . &nbs p;Tubing and unused portions of vials should be discarded after 12 hours.
rocuronium 2019- No 10mg 10 mg, IV U nivers (ZEMURON) 12-25 Push, ity of injection 13:45: 13:45 ONCE, 1 [place] 10 mg 00 :00 dose, [facility] Medical 12/26/19 at Branch 0845, Routine
national [employer] member approving Restricted medication : JOSE A ALEGRIA vecuronium 2019-0 2020- No .8ug/kg 0.8-1.7 Univers (NORCURON) 12-25 08-02 /min mcg/kg/min it y of 100 mg in 13:26: 01:54 ?83.5 kg Jose as NaCl 0.9% 26 :07 (4.008-8.5 Medi maggie (NS) 17 mL/hr, Branch infusion rounded to 4.01-8.52 mL/hr), IV Infusion, TITRATE, [place] [employer] /, Starting Sun12/26/19 at 0826
In itiate infusion at 0.8 mcg/kg/min and titrate by 0.3 mcg/kg/min every 10 minutes as needed within the specified range to maintain desired depth of blockade.& nbsp;&nbsp ;Maximum dose = 1.7 mcg/kg/min . If desired depth of blockade is not maintained , contact prescriber .
dexMEDEtomi 2019-0 2020- No .2ug/kg 0.2-1.5 Univers dine 200 12-25 0731 /h mcg/kg/hr ity o f mcg in 0.9 12:08: 15:29 ?83.5 kg [place] % NaCl 50 49 :01 (4.175-31. Medi maggie mL 3125 Branch (PRECEDEX) mL/hr, RTU IV rounded to infusion 4.18-31.31 mL/hr), IV Infusion, TITRATE, Sedation-R ASS score (0 to -1), Starting Sun12/26/19 at 0708
In itiate infusion at 0.2 mcg/kg/hr and titrate by 0.1 mcg/kg/hr every 30 minutes to goal sedation score. Maximum dose = 1.5 mcg/kg/hr. If goal not maintained at maximum allowed dose, contact prescriber .
NaCl 0.9% 2020-0 Yes 10mL 10 mL, Univer s (NS) 7-30 Slow IV ity of injection 22:36: Push, PRN, [place] 10 mL 50 Starting Medical [facility] 12/25/19 at 1736, Until Discontinu ed, Routine, line maintenanc e lactobacill 2020-0 2020- No 1{tbl} 1 tablet, Univers us 12-24 08 Oral, ity of acidophilus 14:00: 02:21 DAILY, Jose as (ACIDOPHILL 00 :27 First dose Me dical US) 25 on [facility] million 12/25/19 at cell -100 0900, mg captab 1 Until tablet Discontinu ed, Routine aspirin EC 2019-0 2020- No 81mg 81 mg, Univ ers tablet 81 12-23 Oral, ity of mg 14:00: 10:05 DAILY, [place] 00 :27 First dose Medical on [facility] 12/24/19 at 0900, Until Discontinu ed, Routine clopidogreL 2019- 2020- No 75mg 75 mg, Uni vers (PLAVIX) 12-23 Oral, ity of tablet 75 14:00: 13:32 DAILY, [place] mg 00 :21 First dose Medical on [facility] 12/24/19 at 0900, Until Discontinu ed, Routine melatonin 2019-0 2020- No 6mg 6 mg, Univer s (MELATIN) 12-23 Oral, QHS, ity of tablet 6 mg 03:45: 19:06 First dose [place] 00 :43 on [facility] 12/23/19 at Branch 2245, Until Discontinu ed, Routine latanoprost 2019-0 Yes 1[drp] 1 Drop, U nivers (XALATAN) 12-23 Both Eyes, ity of 0.005 % 02:00: QHS, First [place] ophthalmic 00 dose on Medica l drops 1 [facility] Drop 12/23/19 at 2100, Until Discontinu ed, Routine atorvastati 0 2020- No 80mg 80 mg, Uni vers n (LIPITOR) 12-23 Oral, QHS, i ty of tablet 80 02:00: 07:05 First dose [place] mg 00 :31 on [facility] 12/23/19 at Branch 2100, Until Discontinu ed, Routine warfarin 2019-0 2020- No 5mg 5 mg, Univers (COUMADIN) 12-22 Oral, ity of tablet 5 mg 22:00: 16:24 DAILY AT [place] 00 :23 1700, Medical First dose Branch on Sun12/23/19 at 1700, Until Discontinu ed, Routine Sliding 2019- 2020- No Subcutaneo Uni vers Scale 12-22 us, AC+HS, ity of Insulin-Reg 21:30: 02:21 First dose [place] ular + Fsbg 00 :27 on Tue Medica l Testing 12/23/19 at Branch 1630, Until Discontinu ed, Routine sulfur 2019- No 5mL 5 mL, Univers hexafluorid 12-22 Intravenou i ty of e microsphr 17:45: 16:15 s, ONCE, 1 [place] (LUMASON) 00 :00 dose, Sun Medic al injection 5 12/23/19 at Br anch mL 1245, Routine
national guard member approving Restricted medication : BLAKE CASTELLON acetaminoph 2019- 2020- No 500mg 500 mg, U nivers en 12-22 Oral, ity of (TYLENOL) 16:26: 02:21 Q6HPRN, [place] tablet 500 40 :27 Starting Medic al mg Tue Branch 12/23/19 at 1126, Until Sun12/26/19 at 2121, Routine, Pain (scale 1-3), Temp > 38.5 C ergocalcife 2019- 2020- No 99666O 50,000 U nivers rol 12-22 Units, ity of (vitamin 14:00: 19:06 Oral, [place] d2) 00 :43 QWEEKLY, Medical (CALCIFEROL First dose Br anch ) capsule on Sun 50,000 12/23/19 at Units 0900, Until Discontinu ed, Routine zinc 2019- 2020- No 220mg 220 mg, Univers sulfate 12-22 Oral, BID, ity o f (ORAZINC) 13:00: 19:06 First dose [place] capsule 220 00 :43 on e Medica l mg 12/23/19 at Branch 0800, Until Discontinu ed, Routine ascorbic 2019- 2020- No 500mg 500 mg, Univ ers acid 12-22 Oral, TID, ity of (vitamin C) 13:00: 19:06 First dose [place] (VITAMIN C) 00 :43 on Sun Medica l tablet 500 12/23/19 at [facility] mg 0800, Until Discontinu ed, Routine enoxaparin 2019-2019- No 1mg/kg 80 mg Uni vers (LOVENOX) 12-22 (rounded ity o f injection 13:00: 13:32 [place] 81.6 [place] 80 mg 00 :21 mg = 1 Medical mg/kg Branch ?81.6 kg), Subcutaneo us, Q12H, First dose on Sun12/23/19 at 0800, Until Discontinu ed, Routine cefTRIAXone 2019- No 1000mg 1,000 mg, Univers (ROCEPHIN) 12-22 IV ity of 1,000 mg in 07:45: 22:29 Piggyback, [place] NaCl 0.9% 00 :18 Q24H ABX, Medic al (NS) 50 mL First dose [facility] MINI-BAG on Sun12/23/19 at 0245, Until Discontinu ed, 50 mL
R dano for Anti-Infec tive: Empiric Therapy for Suspected Infection< br>Empiric Therapy Site: Respirator y
Durat ion of therapy: 7 days azithromyci 2019- No 500mg 500 mg, IV Univers n 12-22 Piggyback, ity of (ZITHROMAX) 07:45: 22:29 Q24H ABX, [place] 500 mg in 00 :18 5 doses, Medica l NaCl 0.9% First dose Bran ch (NS) 250 mL on Sun VIAL-MATE 12/23/19 at IV 0245, Last piggyback dose on 12/27/19 at 0245, 250 mL
Reas on for Anti-Infec tive: Empiric Therapy for Suspected Infection< br>Empiric Therapy Site: COVID
D uration of therapy: 72 hours dexamethaso 2020- No 6mg 6 mg, IV U nivers ne 12-22 Piggyback, ity of (DECADRON 06:45: 22:45 DAILY, [place] PHOSPHATE) 00 :17 First dose Med ical 6 mg in on Sun Branch NaCl 0.9% 12/23/19 at (NS) 0145, piggyback Until Discontinu ed, 50 mL guaiFENesin 2019-0 2020- No 200mg 200 mg, U nivers 100 mg/5 mL 12-22 Oral, ity of solution 06:29: 02:21 Q4HPRN, [place] 200 mg 11 :27 Starting Medical Tue Branch 12/23/19 at 0129, Until Sun12/26/19 at 2121, Routine, Cough D5W 0.9% 2020-0 2020- No 1000mL at 100 Univ ers NaCl (NS) 12-22 mL/hr, ity of IV infusion 04:45: 23:14 1,000 mL, [place] 1,000 mL 00 :23 IV Medical Infusion, Branch CONTINUOUS , Starting 12/22/19 at 2345, Until Sun12/23/19 at 1814, MUNIRA NaCl 0.9% 2020-0 2020- No 250mL at 999 Univ ers (NS) bolus 12-22 mL/hr, 250 it y of infusion 04:45: 04:38 mL, IV [place] 250 mL 00 :00 Infusion, Medical ONCE, 1 Branch dose, [facility] 12/22/19 at 2345, STAT enoxaparin 2019-0 2020- No 1mg/kg 80 mg Uni vers (LOVENOX) 12-22 (rounded ity o f injection 04:00: 04:04 from 81.6 [place] 80 mg 00 :00 mg = 1 Medical mg/kg Branch ?81.6 kg), Subcutaneo us, ONCE, 1 dose, [facility] 12/22/19 at 2300, MUNIRA dextrose 50 2019-0 2020- No 50mL 50 mL, Uni vers % in water 12-22 Intravenou it y of (D50W) 04:00: 03:03 s, ONCE, 1 [place] injection 00 :00 dose, Mon [facility] 50 mL 12/22/19 at Branch 2300, STAT aspirin 81 2020-0 Yes CHEW ONE Uni vers mg EC 7-19 TABLET BY ity of tablet 19:11: MOUTH [place] 49 DAILY Medical Branch atorvastati 2020-0 Yes TAKE ONE Un hina n 80 mg 7-19 TABLET BY ity of tablet 19:11: MOUTH [place] 49 DAILY FOR Medical CHOLESTERO Branch L clopidogreL 2020-0 Yes TAKE ONE Un hina 75 mg 7-19 TABLET BY ity of tablet 19:11: MOUTH [place] 49 DAILY TO Medical PREVENT Branch BLOOD CLOTS Cyanocobala 2020-0 Yes TAKE ONE Un hina min 1,000 7-19 TABLET BY ity o f mcg tablet 19:11: MOUTH [place] 49 DAILY FOR Medical ANEMIA Branch empaglifloz 2019-0 Yes TAKE Univer s in 25 mg 7-19 ONE-HALF ity of Tab 19:11: TABLET BY [place] 49 MOUTH Medical DAILY Branch docosahexan 2020-0 Yes TAKE 800MG [facility] oic 7-19 BY MOUTH ity of acid/epa 19:11: DAILY [place] (FISH OIL 49 Medical ORAL) Branch GARLIC ORAL 2019-0 Yes TAKE ONE Un hina 7-19 TABLET BY ity of 19:11: MOUTH [place] 49 DAILY Medical Branch glipiZIDE 2019-0 Yes TAKE ONE Univ ers 10 mg 7-19 TABLET BY ity of tablet 19:11: MOUTH [place] 49 TWICE A Medical DAY FOR Branch DIABETES 30 MINUTES BEFORE THE FIRST MEAL OF THE DAY AND BEFORE ANOTHER MAIN MEAL isosorbide 2020-0 Yes TAKE ONE Uni vers dinitrate 7-19 TABLET BY ity o f 30 mg 19:11: MOUTH [place] tablet 49 DAILY TO Medical PREVENT Branch CHEST PAIN. *DO NOT CRUSH* latanoprost 2020-0 Yes INSTILL 1 U nivers 0.005 % 7-19 DROP IN ity of ophthalmic 19:11: B[place] EYES [place] 49 EVERY Medical EVENING Branch lisinopril 2019-0 Yes TAKE ONE Uni vers 10 mg 7-19 TABLET BY ity of tablet 19:11: MOUTH [place] 49 DAILY FOR Medical HEART/ Branch BLOOD PRESSURE metFORMIN 2019-0 Yes TAKE TWO Univ ers 500 mg 7-19 TABLETS BY ity of tablet 19:11: MOUTH [place] 49 TWICE A Medical DAY FOR Branch DIABETES *DO NOT CRUSH* metoprolol 2019-0 Yes TAKE Univers succinate 7-19 ONE-HALF ity of 100 mg CSpX 19:11: TABLET [place] 49 MOUTH Medical TWICE A Branch DAY FOR HEART/BLOO D PRESSURE. *DO NOT CRUSH* multivit 2020-0 Yes TAKE BY Univer s with 7-19 MOUTH ity of iron,minera 19:11: DAILY [place] ls 49 Medical (MULTIVITAM Branch IN AND MINERALS ORAL) aspirin 81 2020-0 Yes CHEW ONE Uni vers mg EC 7-19 TABLET BY ity of tablet 19:11: MOUTH [place] 49 DAILY Medical Branch atorvastati 2020-0 Yes TAKE ONE Un hina n 80 mg 7-19 TABLET BY ity of tablet 19:11: MOUTH [place] 49 DAILY FOR Medical CHOLESTERO Branch L clopidogreL 2020-0 Yes TAKE ONE Un hina 75 mg 7-19 TABLET BY ity of tablet 19:11: MOUTH [place] 49 DAILY TO Medical PREVENT Branch BLOOD CLOTS Cyanocobala 2020-0 Yes TAKE ONE Un hina min 1,000 7-19 TABLET BY ity o f mcg tablet 19:11: MOUTH [place] 49 DAILY FOR Medical ANEMIA Branch empaglifloz 2020-0 Yes TAKE Univer s in 25 mg 7-19 ONE-HALF ity of Tab 19:11: TABLET BY [place] 49 MOUTH Medical DAILY Branch docosahexan 2020-0 Yes TAKE 800MG Univers oic 7-19 BY MOUTH ity of acid/epa 19:11: DAILY [place] (FISH OIL 49 Medical ORAL) Branch GARLIC ORAL 2020-0 Yes TAKE ONE Un hina 7-19 TABLET BY ity of 19:11: MOUTH [place] 49 DAILY Medical Branch glipiZIDE 2019-0 Yes TAKE ONE Univ ers 10 mg 7-19 TABLET BY ity of tablet 19:11: MOUTH [place] 49 TWICE A Medical DAY FOR Branch DIABETES 30 MINUTES BEFORE THE FIRST MEAL OF THE DAY AND BEFORE ANOTHER MAIN MEAL isosorbide 2020-0 Yes TAKE ONE Uni vers dinitrate 7-19 TABLET BY ity o f 30 mg 19:11: MOUTH [place] tablet 49 DAILY TO Medical PREVENT Branch CHEST PAIN. *DO NOT CRUSH* latanoprost 2020-0 Yes INSTILL 1 U nivers 0.005 % 7-19 DROP IN ity of ophthalmic 19:11: B[place] EYES [place] 49 EVERY Medical EVENING Branch lisinopril 2020-0 Yes TAKE ONE Uni vers 10 mg 7-19 TABLET BY ity of tablet 19:11: MOUTH [place] 49 DAILY FOR Medical HEART/ Branch BLOOD PRESSURE metFORMIN 2020-0 Yes TAKE TWO Univ ers 500 mg 7-19 TABLETS BY ity of tablet 19:11: MOUTH [place] 49 TWICE A Medical DAY FOR Branch DIABETES *DO NOT CRUSH* metoprolol 2020-0 Yes TAKE Univers succinate 7-19 ONE-HALF ity of 100 mg CSpX 19:11: TABLET BY El[place] mariano 49 MOUTH Medical TWICE A Branch DAY FOR HEART/BLOO D PRESSURE. *DO NOT CRUSH* multivit Yes TAKE BY [facility] s with - MOUTH ity of irontavoa 19:11: DAILY [place] ls 49 Medical (MULTIVITAM Branch IN AND MINERALS ORAL) lisinopril lisinopril No 1 Q1D lisinopril [place] 10 mg 10 mg 10 mg da tablet Take tablet Take tablet Medical 1 tablet 1 tablet Take 1 Group every day every day tablet by oral by oral every day route. route. by oral route. metformin metformin No 1 TID metformin [place] 500 mg 500 mg 500 mg da tablet Take tablet Take tablet Medical 1 tablet 3 1 tablet 3 Take 1 G roup times a day times a day tablet 3 by oral by oral times a route. route. day by oral route. metoprolol metoprolol No .5 BID metoprolol [place] succinate succinate succinate da ER 100 mg ER 100 mg ER 100 mg Medical tablet,exte tablet,exte tablet,ext Group nded nded ended release 24 release 24 release 24 hr Take 0.5 hr Take 0.5 hr Take tablets tablets 0.5 twice a day twice a day tablets by oral by oral twice a route. route. day by oral route. Oxynade-BioN Pfizer-BioN No Oxynade-Bio [place] [employer] da COVID-19 COVID-19 COVID-19 Med ical Vaccine Vaccine Vaccine Group (PF) 30 (PF) 30 (PF) 30 mcg/0.3 mL mcg/0.3 mL mcg/0.3 mL IM IM IM suspension( suspension( suspension EUA) EUA) (EUA) PHARMACY PHARMACY PHARMACY ADMINISTERE ADMINISTERE ADMINISTER D D ED Vitamin C Vitamin C No Vitamin C [facility] atorvastati atorvastati No 1mg Q1D atorvastat [place] n 80 mg n 80 mg in 80 mg da tablet Take tablet Take tablet Medical 1 mg every 1 mg every Take 1 mg Group day by oral day by oral every day route for 8 route for 8 by oral days. days. route for 8 days. B12 1000 B12 1000 No B12 1000 [place] mcg 1 Daily mcg 1 Daily mcg 1 da Daily Medical Group clopidogrel clopidogrel No 1 Q1D clopidogre [place] 75 mg 75 mg l 75 mg da tablet Take tablet Take tablet Medical 1 tablet 1 tablet Take 1 Group every day every day tablet by oral by oral every day route. route. by oral route. empaglifloz empaglifloz No .5 Q1D empagliflo [place] in 25 mg in 25 mg zin 25 mg da tablet Take tablet Take tablet Medical 0.5 tablets 0.5 tablets Take 0.5 Group every day every day tablets by oral by oral every day route. route. by oral route. Geritol Geritol No Geritol [place] Complete Complete Complete da Medical Group glipizide glipizide No 1 BID glipizide [place] 10 mg 10 mg 10 mg da tablet Take tablet Take tablet Medical 1 tablet 1 tablet Take 1 Group twice a day twice a day tablet by oral by oral twice a route. route. day by oral route. Immunizations Ordered Immunization Filled Immunization Date Status Commen ts Source Name Name Pneumococcal Pneumococcal 2020-04-22 Completed [place] Conjugate, Conjugate, 00:00:00 Medical Group unspecified unspecified formulation formulation influenza, influenza, 2020-04-22 Completed [place] injectable, injectable, 00:00:00 Medical Grou p quadrivalent quadrivalent Vital Signs Vital Name Observation Time Observation Value Comments Source Systolic blood 2021-01-05 18:38:00 115 mm[Hg] [facility] Diastolic blood 2021-01-05 18:38:00 74 mm[Hg] [facility] Heart rate 2021-01-05 18:38:00 81 /min [facility] Body temperature 2021-01-05 18:38:00 36.44 Claribel [facility] Respiratory rate 2021-01-05 18:38:00 18 /min [facility] Body height 2021-01-05 18:38:[address] [facility] Body weight 2021-01-05 18:38:[address] [facility] BMI 2021-01-05 18:38:00 37.14 kg/m2 [facility] Oxygen saturation in 2021-01-05 18:38:00 95 /min [facility] Arterial blood by [facility] Pulse oximetry Branch Systolic blood 2020-12-01 16:40:00 121 mm[Hg] Univer [facility] [place] Diastolic blood 2020-12-01 16:40:00 75 mm[Hg] Unive rsity of pressure [facility] Heart rate 2020-12-01 16:40:00 82 /min [facility] Body temperature 2020-12-01 16:40:00 36.44 Claribel [facility] Respiratory rate 2020-12-01 16:40:00 18 /min [facility] Body height 2020-12-01 16:40:[address] [facility] Body weight 2020-12-01 16:40:00 98.158 kg [facility] [place] [facility] BMI 2020-12-01 16:40:00 37.14 kg/m2 [facility] Oxygen saturation in 2020-12-01 16:40:00 96 /min [facility] Arterial blood by [facility] Pulse oximetry Branch BP Diastolic 2020-07-08 00:00:00 76 mm[Hg] [facility] Height 2020-07-08 00:00:00 65 [in_i] [facility] BMI (Body Mass 2020-07-08 00:00:00 31 kg[facility]2 [facility] Index[facility] Group BP Systolic 2020-07-08 00:00:00 118 mm[Hg] [facility] Body Weight 2020-07-08 00:00:00 186 [lb_av] [facility] BP Diastolic 2020-07-01 00:00:00 80 mm[Hg] [facility] Height 2020-07-01 00:00:00 65 [in_i] [facility] BMI (Body Mass 2020-07-01 00:00:00 31 kg/m2 [facility] Index[facility] Group BP Systolic 2020-07-01 00:00:00 109 mm[Hg] [facility] Body Weight 2020-07-01 00:00:00 2976 [oz_av] [facility] BP Diastolic 2020-05-12 00:00:00 74 mm[Hg] [facility] Height 2020-05-12 00:00:00 65 [in_i] [facility] BMI (Body Mass 2020-05-12 00:00:00 27.8 kg/m2 [facility] account services coordinator Medical Index) Group BP Systolic 2020-05-12 00:00:00 111 mm[Hg] [facility] Body Weight 2020-05-12 00:00:00 2670.4 [oz_av] [facility] account services coordinator Medical Group Heart rate 2020-01-24 21:00:00 95 /min [facility] [place] [facility] Body temperature 2020-01-24 21:00:00 37.78 Claribel [facility] [place] [facility] Respiratory rate 2020-01-24 21:00:00 18 /min [facility] [place] [facility] Oxygen saturation in 2020-01-24 21:00:00 75 /min University of Arterial blood by [facility] Pulse oximetry Branch Systolic blood 2020-01-24 19:00:00 120 mm[Hg] Univer sity of pressure [place] [facility] Diastolic blood 2020-01-24 19:00:00 75 mm[Hg] Unive rsity of pressure [place] [facility] Body weight 2020-01-24 13:00:00 79.379 kg [facility] [place] [facility] BMI 2020-01-24 13:00:00 32.01 kg/m2 [facility] [place] [facility] Body height 2019-12-23 02:00:00 157.5 cm [facility] [place] [facility] Heart rate 2020-01-24 21:00:00 95 /min [facility] [place] [facility] Body temperature 2020-01-24 21:00:00 37.78 Claribel [facility] [place] [facility] Respiratory rate 2020-01-24 21:00:00 18 /min [facility] [place] [facility] Oxygen saturation in 2020-01-24 21:00:00 75 /min University of Arterial blood by [facility] Pulse oximetry Branch Systolic blood 2020-01-24 19:00:00 120 mm[Hg] Univer sity of pressure [place] [facility] Diastolic blood 2020-01-24 19:00:00 75 mm[Hg] Unive rsity of pressure [place] [facility] Body weight 2020-01-24 13:00:00 79.379 kg [facility] [place] [facility] BMI 2020-01-24 13:00:00 32.01 kg/m2 [facility] [place] [facility] Body height 2019-12-23 02:00:00 157.5 cm [facility] [place] [facility] [place] Systolic blood 2019-12-14 19:03:00 98 mm[Hg] Univer sity of pressure [place] [facility] Diastolic blood 2019-12-14 19:03:00 62 mm[Hg] Unive rsity of pressure [facility] Branch Heart rate 2019-12-14 19:03:00 88 /min Universi ty of [facility] Body temperature 2019-12-14 19:03:00 37.72 Claribel Univ ersity of [facility] Branch Respiratory rate 2019-12-14 19:03:00 16 /min Univ ersity of [facility] Body height 2019-12-14 19:03:00 162.6 cm [facility] [place] [facility] [place] Body weight 2019-12-14 19:03:00 89.359 kg Universi ty of [facility] BMI 2019-12-14 19:03:00 33.81 kg/m2 Universi ty of [facility] Oxygen saturation in 2019-12-14 19:03:00 96 /min University of Arterial blood by [place] [facility] Pulse oximetry Branch Systolic blood 2019-12-14 19:03:00 98 mm[Hg] Univer sity of pressure [facility] Branch Diastolic blood 2019-12-14 19:03:00 62 mm[Hg] Unive rsity of pressure [facility] Heart rate 2019-12-14 19:03:00 88 /min Universi ty of [facility] Body temperature 2019-12-14 19:03:00 37.72 Claribel Univ ersity of [facility] Respiratory rate 2019-12-14 19:03:00 16 /min Univ ersity of [facility] Body height 2019-12-14 19:03:00 162.6 cm [facility] [place] [facility] [place] Body weight 2019-12-14 19:03:00 89.359 kg Universi ty of [facility] BMI 2019-12-14 19:03:00 33.81 kg/m2 Universi ty of [facility] Oxygen saturation in 2019-12-14 19:03:00 96 /min University [facility] Arterial blood by [place] [facility]IA maggie Pulse oximetry Branch Procedures Procedure Date / Time Performing Clinician Source Performed DME/SUPPLY JUSTIFICATION 2021-02-03 05:01:00 Doctor Unassigned, No [facility] SLEEP STUDY DATA REPORT 2021-01-24 05:01:00 Doctor Unassigned, N o [facility] ASSIGNMENT OF BENEFITS 2021-01-05 18:24:49 Doctor Unassigned, No [facility] SLEEP STUDY DATA REPORT 2020-12-14 05:01:00 Doctor Unassigned, N o [facility] EXTERNAL PROVIDER - ADC 2020-11-03 05:01:00 Doctor Unassigned, N o [facility] REFERRAL [facility], neck, w/ contrast 2020-07-08 00:00:00 [facility] VACCINATIONS - CONSENTS, 2020-06-24 06:01:00 Doctor Unassigned, No [facility] ELIGIBILITY, HISTORY Name Medical [facility] unlisted imaging order 2020-05-12 00:00:00 [facility] PARTIAL 2020-01-24 04:40:00 [facility] POCT GLUCOSE (AUTOMATED) 2020-01-24 01:38:00 [facility] 2020-01-23 16:32:00 [facility] POCT GLUCOSE (AUTOMATED) 2020-01-23 12:44:00 [facility] MAGNES[facility]UM 2020-01-23 09:13:00 Vannesa [facility] BASIC METABOLIC PANEL 2020-01-23 09:13:00 Vannesa [facility] (NA, K, CL, CO2, Medical Branch GLUCOSE, BUN, CREATININE, CA) CBC WITH DIFF 2020-01-23 09:13:00 Vannesa [facility] PROTHROMBIN TIME / INR 2020-01-23 09:13:00 Vannesa [facility] PHOSPHORUS 2020-01-23 09:13:00 Vannesa [facility] ACTIVATED PARTIAL 2020-01-23 04:11:00 [facility] ACTIVATED PARTIAL 2020-01-22 16:21:00 [facility] POCT GLUCOSE (AUTOMATED) 2020-01-22 16:20:00 [facility] 2020-01-22 09:35:00 [facility] POCT GLUCOSE (AUTOMATED) 2020-01-22 05:55:00 [facility] (AUTOMATED) 2020-01-22 00:46:00 [facility] 2020-01-21 20:47:00 [facility] POCT GLUCOSE (AUTOMATED) 2020-01-21 17:03:00 [facility] ([facility]OMATED) 2020-01-21 13:39:00 [facility] 2020-01-21 09:17:00 Vannesa [facility] BASIC METABOLIC PANEL 2020-01-21 09:17:00 Vannesa [facility] (NA, K, CL, CO2, Medical Branch GLUCOSE, BUN, CREATININE, CA) CBC WITH DIFF 2020-01-21 09:17:00 Vannesa [facility] PROTHROMBIN TIME / INR 2020-01-21 09:17:00 [facility] ACTIVATED PARTIAL 2020-01-21 09:17:00 [facility] PHOSPHORUS 2020-01-21 09:17:00 Vannesa [facility] POCT GLUCOSE (AUTOMATED) 2020-01-21 02:29:00 [facility] 2020-01-20 19:50:00 [facility] POCT GLUCOSE (AUTOMATED) 2020-01-20 17:10:00 [facility]IC MET[facility]OLIC PANEL 2020-01-20 17:09:00 Vannesa [facility] (NA, K, CL, CO2, Medical Branch GLUCOSE, BUN, CREATININE, CA) POCT GLUCOSE (AUTOMATED) 2020-01-20 13:16:00 [facility]ATED) 2020-01-20 09:53:00 [facility] 2020-01-20 09:46:00 [facility]ATED) 2020-01-20 04:37:00 Jacob Miner Un iversity [facility] POCT GLUCOSE (AUTOMATED) 2020-01-20 00:54:00 [facility] PART[facility] 2020-01-19 21:02:00 [facility] POCT GLUCOSE (AUTOMATED) 2020-01-19 21:02:00 [facility] 2020-01-19 16:57:00 [facility]IC MET[facility]OLIC PANEL 2020-01-19 16:57:00 [facility] (NA, K, CL, CO2, Medical Branch GLUCOSE, BUN, CREATININE, CA) CBC WITHOUT DIFF 2020-01-19 16:57:00 [facility] POCT GLUCOSE (AUTOMATED) 2020-01-19 16:57:00 [facility] IONIZED CALCIUM 2020-01-19 10:15:00 Agustín Michael [facility] MAGNESIUM 2020-01-19 08:34:00 [facility] BASIC METABOLIC PANEL 2020-01-19 08:34:00 [facility] (NA, K, CL, CO2, Medical Branch GLUCOSE, BUN, CREATININE, CA) CBC WITH DIFF 2020-01-19 08:34:00 [facility] PROTHROMBIN TIME / INR 2020-01-19 08:34:00 [facility] ACTIVATED PARTIAL 2020-01-19 08:34:00 [facility] 2020-01-19 08:34:00 [facility] POCT GLUCOSE (AUTOMATED) 2020-01-19 08:33:00 Jacob Miner iversity of [facility] [place] POCT GLUCOSE (AUTOMATED) 2020-01-19 05:24:00 Jacob Miner iversity of [facility] Medical Branch POCT GLUCOSE (AUTOMATED) 2020-01-19 02:05:00 Jacob Miner iversity of [facility] [place] ACTIVATED PARTIAL 2020-01-18 21:08:00 [facility] POCT GLUCOSE (AUTOMATED) 2020-01-18 21:08:00 Jacob Miner iversity of [facility] POCT GLUCOSE (AUTOMATED) 2020-01-18 18:28:00 Jacob Miner iversity of [facility] ACTIVATED PARTIAL 2020-01-18 15:45:00 [facility] POCT GLUCOSE (AUTOMATED) 2020-01-18 13:04:00 Jacob Miner iversity of [facility] POCT GLUCOSE (AUTOMATED) 2020-01-18 10:15:00 Jacob Miner iversity of [facility] [place] ACTIVATED PARTIAL 2020-01-18 07:30:00 [facility] POCT GLUCOSE (AUTOMATED) 2020-01-18 06:21:00 Jacob Miner iversity of [facility] POCT GLUCOSE (AUTOMATED) 2020-01-18 01:59:00 Jacob Miner iversity of [facility] [place] POCT GLUCOSE (AUTOMATED) 2020-01-17 21:11:00 Jacob Miner iversity of [facility] Medical Branch ACTIVATED PARTIAL 2020-01-17 18:47:00 [facility] POCT GLUCOSE (AUTOMATED) 2020-01-17 16:29:00 Jacob Miner Un iversity of [facility] [place] ACTIVATED PARTIAL 2020-01-17 12:47:00 [facility] POCT GLUCOSE (AUTOMATED) 2020-01-17 12:41:00 Jacob Miner iversity of [facility] ACTIVATED PARTIAL 2020-01-17 05:43:00 [facility] POCT GLUCOSE (AUTOMATED) 2020-01-17 05:11:00 Jacob Miner Un iversity of [facility] POCT GLUCOSE (AUTOMATED) 2020-01-17 00:50:00 Jacob Miner Un iversity of [facility] POCT GLUCOSE (AUTOMATED) 2020-01-16 21:49:00 Jacob Miner Un iversity of [facility] POCT GLUCOSE (AUTOMATED) 2020-01-16 17:31:00 Jacob Miner iversity [facility] XR CHEST 1 VW 2020-01-16 17:16:42 [facility] POCT GLUCOSE (AUTOMATED) 2020-01-16 13:52:00 Jacob Miner iverssophy [facility] MAGNESIUM 2020-01-16 09:33:00 [facility] BASIC METABOLIC PANEL 2020-01-16 09:33:00 [facility] (NA, K, CL, CO2, Medical Branch GLUCOSE, BUN, CREATININE, CA) CBC WITH DIFF 2020-01-16 09:33:00 [facility] PROTHROMBIN TIME / INR 2020-01-16 09:33:00 [place] [facility] 2020-01-16 09:33:00 [facility] POCT GLUCOSE (AUTOMATED) 2020-01-16 09:32:00 Jacob Miner Un iversity of [facility] POCT GLUCOSE (AUTOMATED) 2020-01-16 04:54:00 Jacob Miner Un iversity of [facility] VANCOMYCIN TROUGH 2020-01-16 02:12:00 [facility] ACTIVATED PARTIAL 2020-01-16 02:12:00 Robert Whiteside [facility] POCT GLUCOSE (AUTOMATED) 2020-01-16 02:09:00 Jacob Miner iversity of [facility] POCT GLUCOSE (AUTOMATED) 2020-01-15 17:42:00 Jacob Miner Un iversity of [facility] ACTIVATED PARTIAL 2020-01-15 12:41:00 Robert [facility]ide [facility] (AUTOMATED) 2020-01-15 12:40:00 Jacob Miner Un iversity of [facility] POCT GLUCOSE (AUTOMATED) 2020-01-15 10:00:00 Jacob Miner Un iversity of [facility] POCT GLUCOSE (AUTOMATED) 2020-01-15 04:15:00 Jacob Miner Un iversity of [facility] ACTIVATED PARTIAL 2020-01-15 01:04:00 Robert Whiteside [facility] POCT GLUCOSE (AUTOMATED) 2020-01-15 00:55:00 Jacob Miner Un iversity of [facility] POCT GLUCOSE (AUTOMATED) 2020-01-14 21:05:00 Jacob Miner Un iversity of [facility] POCT GLUCOSE (AUTOMATED) 2020-01-14 16:39:00 Jacob Miner Un iversity of [facility] ACTIVATED PARTIAL 2020-01-14 13:52:00 Robert Whiteside [facility] POCT GLUCOSE (AUTOMATED) 2020-01-14 12:53:00 Jacob Miner Un iversity of [facility] MAGNESIUM 2020-01-14 09:47:00 [facility] 2020-01-14 09:47:00 Jonny Vazquez [facility] (NA, K, CL, CO2, Medical Branch GLUCOSE, BUN, CREATININE, CA) PROTHROMBIN TIME / INR 2020-01-14 09:47:00 Jonny Vazquez [facility] PHOSPHORUS 2020-01-14 09:47:00 Taylor [facility] POCT GLUCOSE (AUTOMATED) 2020-01-14 09:45:00 [facility] PO[facility] GLU[facility]SE (AUTOMATED) 2020-01-14 05:57:00 Jacob Miner Un iversity [facility] VANCOMYCIN TROUGH 2020-01-14 02:32:00 Vaishali Vegas [facility] ACTIVATED PARTIAL 2020-01-14 02:31:00 Robert Whiteside [facility] POCT GLUCOSE (AUTOMATED) 2020-01-14 02:31:00 Jacob Miner Un iversity [facility] POCT GLUCOSE (AUTOMATED) 2020-01-13 21:33:00 [facility] PO[facility] GLUCOSE (AUTOMATED) 2020-01-13 17:39:00 [facility] 2020-01-13 14:52:00 Robert Whiteside [facility] POCT GLUCOSE (AUTOMATED) 2020-01-13 14:19:00 [facility] ABG+COOX+NA+K+GLU+CA2+ 2020-01-13 09:32:00 Benjamin [facility] MAGNESIUM 2020-01-13 09:24:00 [facility] 2020-01-13 09:24:00 [facility] ([facility], K, CL, CO2, Medical Branch GLUCOSE, BUN, CREATININE, CA) CBC WITH DIFF 2020-01-13 09:24:00 Benjamin Null [place] [facility] PROTHROMBIN TIME / INR 2020-01-13 09:24:00 Jonny Vazquez [facility] PHOSPHORUS 2020-01-13 09:24:00 Taylor [facility] POCT GLUCOSE (AUTOMATED) 2020-01-13 09:13:00 [facility] PO[facility] GLUCOSE (AUTOMATED) 2020-01-13 06:06:00 [facility] PO[facility]SE (AUTOMATED) 2020-01-13 01:56:00 [facility] ACTIVATED PARTIAL 2020-01-13 01:52:00 Robert Whiteside [facility] POCT GLUCOSE (AUTOMATED) 2020-01-12 21:46:00 [facility] ACT[facility] PART[facility] 2020-01-12 20:41:00 Robert Whiteside [facility] ACUTE CARE COOXIMETER 2020-01-12 18:31:00 Isidro Hand [facility] AC PANEL 20 + LACTIC 2020-01-12 18:31:00 Robert Whiteside [facility] POCT GLUCOSE (AUTOMATED) 2020-01-12 17:33:00 [facility] AC PANEL 20 + LACTIC 2020-01-12 14:49:00 Isidro Hand [facility] EKG-12 LEAD 2020-01-12 14:43:06 Ilia Chung [facility] EKG-12 LEAD 2020-01-12 14:42:50 Ilia Chung [facility] TROPONIN I 2020-01-12 14:30:00 Isidro Hand [facility] POCT GLUCOSE (AUTOMATED) 2020-01-12 13:57:00 [facility] 2020-01-12 13:05:00 Vaishali Vegas [facility] POCT GLUCOSE (AUTOMATED) 2020-01-12 08:49:00 [facility] ABG+COOX+NA+K+GLU+CA2+ 2020-01-12 08:45:00 [facility] MAGNESIUM 2020-01-12 06:14:00 Jonny Vazquez [facility] BASIC METABOLIC PANEL 2020-01-12 06:14:00 Jonny Vazquez [facility] (NA, K, CL, CO2, Medical Branch GLUCOSE, BUN, CREATININE, CA) PROTHROMBIN TIME / INR 2020-01-12 06:14:00 Jonny Vazquez [facility] ACTIVATED PARTIAL 2020-01-12 06:14:00 Robert Whiteside [facility] PHOSPHORUS 2020-01-12 06:14:00 [facility] ([facility]OMATED) 2020-01-12 04:58:00 [facility]) 2020-01-12 01:31:00 [facility]) 2020-01-11 20:52:00 [facility] SPUTUM CULTURE 2020-01-11 19:15:00 [facility] URINE CULTURE 2020-01-11 17:41:00 [facility] FUNGUS (BLOOD) CULTURE 2020-01-11 17:41:00 Vaishali [facility] BLOOD CULTURE SCREEN 2020-01-11 17:41:00 Vaishali Vegas [facility] ACTIVATED PARTIAL 2020-01-11 17:40:00 Robert Whiteside [facility] BLOOD CULTURE SCREEN 2020-01-11 17:40:00 Vaishali Vegas [facility] POCT GLUCOSE (AUTOMATED) 2020-01-11 12:25:00 [facility] PROT[facility] / INR 2020-01-11 11:33:00 Jonny Vazquez [facility] ACTIVATED PARTIAL 2020-01-11 11:33:00 Robert Whiteside [facility] ABG+COOX+NA+K+GLU+CA2+ 2020-01-11 09:35:00 Benjamin [facility] MAGNESIUM 2020-01-11 09:27:00 Jonny Vazquez [facility] BASIC METABOLIC PANEL 2020-01-11 09:27:00 Jonny Vazquez [facility] (NA, K, CL, CO2, Medical Branch GLUCOSE, BUN, CREATININE, CA) CBC WITH DIFF 2020-01-11 09:27:00 Tennille Benjamin [facility] PHOSPHORUS 2020-01-11 09:27:00 [facility] ([facility]OMATED) 2020-01-11 09:15:00 [facility] 2020-01-11 05:13:00 Robert Whiteside [facility] XR CHEST 1 VW 2020-01-11 04:29:25 [facility] PO[facility] GLUCOSE (AUTOMATED) 2020-01-11 02:51:00 [facility] PARTIAL 2020-01-10 21:50:00 Robert Whiteside [facility] POCT GLUCOSE (AUTOMATED) 2020-01-10 20:58:00 [facility] POCT GLUCOSE (AUTOMATED) 2020-01-10 16:33:00 [facility] PROT[facility] / INR 2020-01-10 11:04:00 Jonny Vazquez [facility] ACTIVATED PARTIAL 2020-01-10 11:04:00 Robert Whiteside [facility] MAGNESIUM 2020-01-10 11:03:00 [facility] BASIC METABOLIC PANEL 2020-01-10 11:03:00 Jonny Vazquez [facility] (NA, K, CL, CO2, Medical [facility] GLUCOSE, BUN, CREATININE, CA) PHOSPHORUS 2020-01-10 11:03:00 [facility] PO[facility]UCOSE (AUTOMATED) 2020-01-10 11:02:00 [facility]ATED) 2020-01-10 06:29:00 [facility] TROPONIN I 2020-01-10 03:11:00 [facility] ([facility]OMATED) 2020-01-10 03:10:00 [facility] E[facility]-12 LEAD 2020-01-09 22:22:20 Ilia Chung [facility] ACTIVATED PARTIAL 2020-01-09 21:19:00 Robert Whiteside [facility] TROPONIN I 2020-01-09 21:12:00 [facility] POCT GLUCOSE (AUTOMATED) 2020-01-09 17:24:00 [facility] VW 2020-01-09 17:17:31 [facility] ACUTE CARE ARTERIAL 2020-01-09 12:30:[address] [facility] BLOOD GAS [facility] Branch POCT GLUCOSE (AUTOMATED) 2020-01-09 12:24:00 [facility] 2020-01-09 09:26:00 [facility] BASIC METABOLIC PANEL 2020-01-09 09:26:00 Jonny Vazquez [facility] (NA, K, CL, CO2, Medical Branch GLUCOSE, BUN, CREATININE, CA) CBC WITH DIFF 2020-01-09 09:26:00 Benjamin Null [facility] PROTHROMBIN TIME / INR 2020-01-09 09:26:00 Jonny Vazquez [facility] PHOSPHORUS 2020-01-09 09:26:00 Kennedy Vazquezrett [facility] POCT GLUCOSE (AUTOMATED) 2020-01-09 09:22:00 [facility] 2020-01-09 06:55:00 Robert Whiteside [facility] POCT GLUCOSE (AUTOMATED) 2020-01-09 06:53:00 [facility] POCT GLUCOSE (AUTOMATED) 2020-01-09 02:26:00 [facility] POCT GLUCOSE (AUTOMATED) 2020-01-08 22:22:00 [facility] 2020-01-08 21:24:00 Robert Whiteside [facility] ACUTE CARE ARTERIAL 2020-01-08 21:23:00 [facility] EKG-12 LEAD 2020-01-08 17:52:16 Shahriar Bustillo [facility] POCT GLUCOSE (AUTOMATED) 2020-01-08 17:15:00 [facility] ([facility]OMATED) 2020-01-08 13:31:00 [facility] PROT[facility] / INR 2020-01-08 09:58:00 Jonny Vazquez [facility] ACTIVATED PARTIAL 2020-01-08 09:58:00 Robert Whiteside [facility] ACUTE CARE ARTERIAL 2020-01-08 09:57:00 Bradford [facility] MAGNESIUM 2020-01-08 09:56:00 Jonny Vazquez [facility] TROPONIN I 2020-01-08 09:56:00 Moses Lindsey [facility] BASIC METABOLIC PANEL 2020-01-08 09:56:00 Jonny Vazquez [facility] (NA, K, CL, CO2, Medical Branch GLUCOSE, BUN, CREATININE, CA) POCT GLUCOSE (AUTOMATED) 2020-01-08 09:56:00 [facility] PHOSPHORUS 2020-01-08 09:56:00 Jonny Vazquez [facility] POCT GLUCOSE (AUTOMATED) 2020-01-08 06:20:00 [facility] POCT GLUCOSE (AUTOMATED) 2020-01-08 02:22:00 [facility] ACTIVATED PARTIAL 2020-01-07 22:21:00 Robert Whiteside [facility] POCT GLUCOSE (AUTOMATED) 2020-01-07 21:45:00 Jacob Miner Un iversity [facility] POCT GLUCOSE (AUTOMATED) 2020-01-07 16:47:00 [facility] ARTERIAL 2020-01-07 15:12:00 Tawanda Felder [facility] BLOOD GAS [facility] XR KUB 2020-01-07 14:04:12 Moses Vasquez [facility] POCT GLUCOSE (AUTOMATED) 2020-01-07 13:26:00 [facility] POCT GLUCOSE (AUTOMATED) 2020-01-07 10:10:00 [facility] PROTHROMBIN TIME / INR 2020-01-07 10:08:00 Jonny Vazquez [facility] ACTIVATED PARTIAL 2020-01-07 10:08:00 Robert Whiteside [facility] MAGNESIUM 2020-01-07 10:07:00 Jonny Vazquez [facility] BASIC METABOLIC PANEL 2020-01-07 10:07:00 Jonny Vazquez [facility] (NA, K, CL, CO2, Medical Branch GLUCOSE, BUN, CREATININE, CA) CBC WITH DIFF 2020-01-07 10:07:00 Benjamin Null [place] [facility] PHOSPHORUS 2020-01-07 10:07:00 Jonny Vazquez [facility] POCT GLUCOSE (AUTOMATED) 2020-01-07 05:10:00 [facility] POCT GLUCOSE (AUTOMATED) 2020-01-07 01:41:00 [facility] 2020-01-07 01:23:00 Robert Whiteside [facility] POCT GLUCOSE (AUTOMATED) 2020-01-06 22:26:00 [facility] 2020-01-06 16:41:00 Robert Whiteside [facility] FIBRINOGEN 2020-01-06 16:41:00 [facility] 2020-01-06 16:41:00 César [facility] POCT GLUCOSE (AUTOMATED) 2020-01-06 16:38:00 [facility] PO[facility] GLUCOSE (AUTOMATED) 2020-01-06 13:54:00 [facility] 2020-01-06 06:38:00 Taylor [facility] C-REACTIVE PROTEIN 2020-01-06 06:38:00 Moses Lindsey [facility] BASIC METABOLIC PANEL 2020-01-06 06:38:00 [facility] ([facility], K, CL, CO2, [facility] GLUCOSE, BUN, CREATININE, CA) PROTHROMBIN TIME / INR 2020-01-06 06:38:00 Taylor [facility] PHOSPHORUS 2020-01-06 06:38:00 Taylor [facility] XR KUB 2020-01-06 05:02:00 [facility] 2020-01-06 02:42:00 Robert Whiteside [facility] POCT GLUCOSE (AUTOMATED) 2020-01-06 02:40:00 [facility] LEAD 2020-01-05 21:48:45 Rosio [facility] POCT GLUCOSE (AUTOMATED) 2020-01-05 17:11:00 [facility] ACTIV[facility] PARTIAL 2020-01-05 12:47:00 [facility] ([facility]OMATED) 2020-01-05 12:47:00 [facility] MAGNESIUM 2020-01-05 09:13:00 [facility]UM 2020-01-05 09:13:00 Moses Lindsey [facility] TROPONIN I 2020-01-05 09:13:00 Rafi Noble [facility] BASIC METABOLIC PANEL 2020-01-05 09:13:00 [facility] ([facility], K, CL, CO2, [facility] [place] GLUCOSE, BUN, CREATININE, CA) PROTHROMBIN TIME / INR 2020-01-05 09:13:00 [facility] 2020-01-05 09:13:00 Taylor [facility] CBC WITH DIFF 2020-01-05 09:12:00 Tennille [facility] POCT GLUCOSE (AUTOMATED) 2020-01-05 05:26:00 [facility] 2020-01-05 02:32:18 Ilia Chung [facility] POCT GLUCOSE (AUTOMATED) 2020-01-05 02:21:00 [facility] FUNGUS (BLOOD) CULTURE 2020-01-05 02:16:00 Benjamin [facility] ACTIVATED PARTIAL 2020-01-05 02:15:00 [facility] (AUTOMATED) 2020-01-04 22:02:00 [facility] PARTIAL 2020-01-04 17:00:00 [facility] PO[facility] GLUCOSE (AUTOMATED) 2020-01-04 13:28:00 [facility] URINE CULTURE 2020-01-04 13:26:00 Aide [facility] BLOOD CULTURE SCREEN 2020-01-04 10:12:00 Rafi [facility] MAGNESIUM 2020-01-04 09:17:00 Taylor [facility] BASIC METABOLIC PANEL 2020-01-04 09:17:00 [facility] ([facility], K, CL, CO2, Medical Branch GLUCOSE, BUN, CREATININE, CA) PROTHROMBIN TIME / INR 2020-01-04 09:17:00 Kennedy Vazquezrett [facility] ACTIVATED PARTIAL 2020-01-04 09:17:00 Robert Whiteside [facility] POCT GLUCOSE (AUTOMATED) 2020-01-04 09:17:00 Jacob Miner Un iversity [facility] PHOSPHORUS 2020-01-04 09:17:00 Taylor [facility] POCT GLUCOSE (AUTOMATED) 2020-01-04 06:11:00 Jacob Min[facility] POCT GLUCOSE (AUTOMATED) 2020-01-04 02:13:00 Jacob Miner Un iversity [facility] ACTIVATED PARTIAL 2020-01-03 20:35:00 Jonny Vazquez [facility] POCT GLUCOSE (AUTOMATED) 2020-01-03 20:34:00 Jacob Miner Un iversity [facility] POCT GLUCOSE (AUTOMATED) 2020-01-03 17:18:00 Jacob Miner Un [facility] POCT GLUCOSE (AUTOMATED) 2020-01-03 14:03:00 Jacob Miner Un [facility] MAGNESIUM 2020-01-03 10:12:00 Taylor [facility] BASIC METABOLIC PANEL 2020-01-03 10:12:00 Jonny Vazquez [facility] (NA, K, CL, CO2, [facility] GLUCOSE, BUN, CREATININE, CA) PHOSPHORUS 2020-01-03 10:12:00 Jonny Vazquez [facility] CBC WITH DIFF 2020-01-03 10:11:00 Benjamin Null [facility] PROTHROMBIN TIME / INR 2020-01-03 10:11:00 Jonny Vazquez [facility] POCT GLUCOSE (AUTOMATED) 2020-01-03 10:10:00 [facility] 2020-01-03 06:22:00 Taylor [facility] POCT GLUCOSE (AUTOMATED) 2020-01-03 06:22:00 [facility] (AUTOMATED) 2020-01-03 02:33:00 [facility] (AUTOMATED) 2020-01-02 21:53:00 [facility] VW 2020-01-02 19:04:36 Maury Granado [facility] ACTIVATED PARTIAL 2020-01-02 17:57:00 Taylor [facility] SPUTUM CULTURE 2020-01-02 17:57:00 Abdul[facility] POCT GLUCOSE (AUTOMATED) 2020-01-02 17:00:00 [facility] ([facility]OMATED) 2020-01-02 14:25:00 [facility] 2020-01-02 10:02:00 Jonny Vazquez [facility] BLOOD GAS [facility] PROTHROMBIN TIME / INR 2020-01-02 10:02:00 Jonny Vazquez [facility] ACTIVATED PARTIAL 2020-01-02 10:02:00 Taylor [facility] MAGNESIUM 2020-01-02 10:01:00 Taylor [facility] BASIC METABOLIC PANEL 2020-01-02 10:01:00 Cannell[facility] ([facility], K, CL, CO2, Medical [facility] GLUCOSE, BUN, CREATININE, CA) PHOSPHORUS 2020-01-02 10:01:00 [facility] PO[facility]UCOSE (AUTOMATED) 2020-01-02 05:50:00 [facility] 2020-01-02 02:00:00 Jonny Vazquez [facility] POCT GLUCOSE (AUTOMATED) 2020-01-02 01:46:00 [facility]SE (AUTOMATED) 2020-01-01 21:00:00 [facility]SE (AUTOMATED) 2020-01-01 16:47:00 [facility] 2020-01-01 12:55:00 [facility] ([facility]OMATED) 2020-01-01 12:38:00 [facility]UM 2020-01-01 10:49:00 [facility] BASIC METABOLIC PANEL 2020-01-01 10:49:00 Jonny Vazquez [facility] (NA, K, CL, CO2, Medical Branch GLUCOSE, BUN, CREATININE, CA) ACUTE CARE ARTERIAL 2020-01-01 10:49:00 Jonny Vazquez [facility] BLOOD GAS [facility] CBC WITH DIFF 2020-01-01 10:49:00 [facility] PROTHROMBIN TIME / INR 2020-01-01 10:49:00 Jonny Vazquez [facility] PHOSPHORUS 2020-01-01 10:49:00 Taylor [facility] POCT GLUCOSE (AUTOMATED) 2020-01-01 02:11:00 [facility] 2020-01-01 02:04:00 Jonny Vazquez [facility] POCT GLUCOSE (AUTOMATED) 2019-12-31 22:56:00 [facility]INAL[facility]IS 2019-12-31 21:49:00 [facility]INE C[facility] 2019-12-31 21:49:00 Abdulaziz [facility] MRSA / MSSA SCREEN BY 2019-12-31 21:49:00 Madison Rincon [facility], [facility] 2019-12-31 21:49:00 [facility] 2019-12-31 21:48:00 [facility] PO[facility] GLUCOSE (AUTOMATED) 2019-12-31 16:29:00 [facility]SE (AUTOMATED) 2019-12-31 12:36:00 [facility] MAGNESIUM 2019-12-31 11:29:00 Taylor [facility] BASIC METABOLIC PANEL 2019-12-31 11:29:00 Jonny Vazquez [facility] (NA, K, CL, CO2, Medical Branch GLUCOSE, BUN, CREATININE, CA) ACUTE CARE ARTERIAL 2019-12-31 11:29:00 Jonny Vazquez [facility] BLOOD GAS Medical Branch PHOSPHORUS 2019-12-31 11:29:00 Taylor [facility] CBC WITH DIFF 2019-12-31 11:28:00 Taylor [facility] PROTHROMBIN TIME / INR 2019-12-31 11:28:00 Jonny Vazquez [facility] ACTIVATED PARTIAL 2019-12-31 11:28:00 Jonny Vazquez [facility]ATED) 2019-12-31 06:21:00 [facility] POCT GLUCOSE (AUTOMATED) 2019-12-31 01:44:00 [facility] 2019-12-30 23:24:00 Taylor [facility] POCT GLUCOSE (AUTOMATED) 2019-12-30 21:38:00 [facility] POCT GLUCOSE (AUTOMATED) 2019-12-30 16:45:00 [facility] ACTIVATED PARTIAL 2019-12-30 16:41:00 Taylor [facility] MAGNESIUM 2019-12-30 08:59:00 Taylor [facility] BASIC METABOLIC PANEL 2019-12-30 08:59:00 [facility] (NA, K, CL, CO2, Medical Branch GLUCOSE, BUN, CREATININE, CA) CBC WITH DIFF 2019-12-30 08:59:00 Taylor [facility] PROTHROMBIN TIME / INR 2019-12-30 08:59:00 Jonny Vazquez [facility] ACTIVATED PARTIAL 2019-12-30 08:59:00 [facility] 2019-12-30 08:59:00 Taylor [facility] ACUTE CARE ARTERIAL 2019-12-30 08:58:00 Taylor Jonny [facility] BLOOD GAS [facility] POCT GLUCOSE (AUTOMATED) 2019-12-30 08:57:00 [facility] (AUTOMATED) 2019-12-30 04:52:00 [facility] 2019-12-30 02:51:00 [facility] PO[facility] GLUCOSE (AUTOMATED) 2019-12-30 01:28:00 [facility] POCT GLUCOSE (AUTOMATED) 2019-12-29 21:41:00 Jacob Miner iversity [facility] POCT GLUCOSE (AUTOMATED) 2019-12-29 17:09:00 [facility] ACTIVATED PARTIAL 2019-12-29 14:48:00 [facility] POCT GLUCOSE (AUTOMATED) 2019-12-29 12:20:00 Jacob [facility] MAGNESIUM 2019-12-29 08:48:00 [facility] BASIC METABOLIC PANEL 2019-12-29 08:48:00 Jonny Vazquez [facility] (NA, K, CL, CO2, Medical Branch GLUCOSE, BUN, CREATININE, CA) ACUTE CARE ARTERIAL 2019-12-29 08:48:00 Jonny Vazquez [facility] CBC WITH DIFF 2019-12-29 08:48:00 Taylor [facility] PROTHROMBIN TIME / INR 2019-12-29 08:48:00 Jonny Vazquez [facility] PHOSPHORUS 2019-12-29 08:48:00 [facility] POCT GLUCOSE (AUTOMATED) 2019-12-29 08:46:00 [facility]SE (AUTOMATED) 2019-12-29 05:18:00 [facility] PO[facility]UCOSE (AUTOMATED) 2019-12-29 02:06:00 [facility] PO[facility]SE (AUTOMATED) 2019-12-28 22:49:00 [facility] 2019-12-28 21:09:00 Jonny Vazquez [facility] POCT GLUCOSE (AUTOMATED) 2019-12-28 17:51:00 [facility] ARTERIAL 2019-12-28 09:44:00 Jonny Vazquez [facility] MAGNESIUM 2019-12-28 09:42:[address] [facility] BASIC METABOLIC PANEL 2019-12-28 09:42:00 Cannell[facility] (NA, K, CL, CO2, Medical Branch GLUCOSE, BUN, CREATININE, CA) VANCOMYCIN TROUGH 2019-12-28 09:42:00 Taylor [facility] CBC WITH DIFF 2019-12-28 09:42:00 Taylor [facility] GLYCOSYLATED HEMOGLOBIN 2019-12-28 09:42:00 [facility] PROT[facility]OMBIN TIME / INR 2019-12-28 09:42:00 Taylor [facility] ACTIVATED PARTIAL 2019-12-28 09:42:00 [facility] PHOSPHORUS 2019-12-28 09:42:00 Taylor [facility] POCT GLUCOSE (AUTOMATED) 2019-12-28 09:39:00 [facility] POCT GLUCOSE (AUTOMATED) 2019-12-28 05:50:00 Jacob [facility] ACTIVATED PARTIAL 2019-12-27 20:36:00 Taylor [facility] BASIC METABOLIC PANEL 2019-12-27 20:35:00 Carlos Damico [facility] (NA, K, CL, CO2, Medical Branch GLUCOSE, BUN, CREATININE, CA) POCT GLUCOSE (AUTOMATED) 2019-12-27 20:34:00 [facility] PO[facility]SE (AUTOMATED) 2019-12-27 17:26:00 Jacob [facility] TROPONIN I 2019-12-27 13:32:00 Taylor [facility] ACUTE CARE ARTERIAL 2019-12-27 13:32:00 [facility] PROTHROMBIN TIME / INR 2019-12-27 13:32:00 Taylor [facility] D-DIMER 2019-12-27 13:32:00 Taylor [facility] ACTIVATED PARTIAL 2019-12-27 13:32:00 Taylor [facility] FIBRINOGEN 2019-12-27 13:32:00 Taylor [facility] CBC WITH DIFF 2019-12-27 13:31:00 Taylor [facility] PROTHROMBIN TIME / INR 2019-12-27 13:31:00 [facility]SE (AUTOMATED) 2019-12-27 10:38:00 Jacob [facility] ACTIVATED PARTIAL 2019-12-27 07:00:00 Taylor [facility] TROPONIN I 2019-12-27 06:59:00 Obi [facility] HEPATIC FUNCTION PANEL 2019-12-27 06:59:00 [facility] ([id number] (ALB,T.PRO,BILI [facility] T,BU/BC,ALT,AST,ALK PHOS) BASIC METABOLIC PANEL 2019-12-27 06:59:00 [facility] (NA, K, CL, CO2, [facility] [place] GLUCOSE, BUN, CREATININE, CA) CBC WITH DIFF 2019-12-27 06:59:00 Kennedy [facility] PROTHROMBIN TIME / INR 2019-12-27 06:59:00 Jose A [facility] FIBRINOGEN 2019-12-27 06:59:00 Obi [facility] PHOSPHORUS 2019-12-27 06:59:00 Taylor [facility] MAGNESIUM 2019-12-27 06:59:00 Taylor [facility] POCT GLUCOSE (AUTOMATED) 2019-12-27 05:55:00 [facility] POCT GLUCOSE (AUTOMATED) 2019-12-27 01:27:00 Jacob [facility] URINALYSIS 2019-12-26 23:19:00 Taylor [facility] PNEUMOCOCCAL ANTIGEN 2019-12-26 23:19:00 [facility] 2019-12-26 23:19:00 [facility] CREATININE, URINE RANDOM 2019-12-26 23:19:00 Carlos Damico [facility] UREA NITROGEN, URINE 2019-12-26 23:19:00 Carlos Damico [facility] POTASSIUM, URINE RANDOM 2019-12-26 23:19:00 Mirella Crocker [facility] SODIUM, URINE RANDOM 2019-12-26 23:19:00 Carlos Damico [facility] CHLORIDE, URINE RANDOM 2019-12-26 23:19:00 [facility] VENOUS BLOOD 2019-12-26 23:16:00 Jonny Vazquez [facility] AC PANEL 20 + LACTIC 2019-12-26 23:14:00 Jonny Vazquez [facility] BASIC METABOLIC PANEL 2019-12-26 23:07:00 Jonny Vazquez [facility] (NA, K, CL, CO2, Medical Branch GLUCOSE, BUN, CREATININE, CA) D-DIMER 2019-12-26 23:07:00 [facility] PARTIAL 2019-12-26 23:07:00 Jonny Vazquez [facility] FIBRINOGEN 2019-12-26 23:07:00 Mirella Crocker [facility] PROCALCITONIN 2019-12-26 23:07:00 [facility] ABDOMEN 1 VW 2019-12-26 22:35:00 Taylor [facility] XR CHEST 1 VW 2019-12-26 22:35:00 [facility] PANEL 20 + LACTIC 2019-12-26 19:56:00 Jonny Vazquez [facility] BLOOD CULTURE SCREEN 2019-12-26 19:54:00 Jonny Vazquez [facility] FIBRINOGEN 2019-12-26 19:53:00 [facility] FERRITIN SERUM 2019-12-26 19:51:00 Cannell[facility] C-REACTIVE PROTEIN 2019-12-26 19:51:00 Taylor [facility] TROPONIN I 2019-12-26 19:51:00 Taylor [facility] HEPATIC FUNCTION PANEL 2019-12-26 19:51:00 [id number] (ALB,T.PRO,BILI [facility] Branch T,BU/BC,ALT,AST,ALK PHOS) BASIC METABOLIC PANEL 2019-12-26 19:51:00 [facility] ([facility], K, CL, CO2, Medical Branch GLUCOSE, BUN, CREATININE, CA) SEDIMENTATION RATE 2019-12-26 19:51:00 Taylor [facility] CBC WITH DIFF 2019-12-26 19:51:00 Taylor [facility] N-TERMINAL PRO-BNP 2019-12-26 19:51:00 Taylor [facility] PHOSPHORUS 2019-12-26 19:51:00 Taylor [facility] LACTATE DEHYDROGENASE 2019-12-26 19:51:00 [facility] KINASE 2019-12-26 19:51:00 Taylor [facility] MAGNESIUM 2019-12-26 19:51:00 [facility] 2019-12-26 19:50:00 [facility] ABD[facility]EN 1 VW 2019-12-26 15:57:17 Raji Adena [facility] POCT GLUCOSE (AUTOMATED) 2019-12-26 14:44:00 Meghann Waters [facility] ACUTE CARE ARTERIAL 2019-12-26 12:48:00 Jose A Alegria [facility] BLOOD GAS [facility] Branch XR CHEST 1 VW 2019-12-26 12:43:25 Raji Adena [facility] PROTHROMBIN TIME / INR 2019-12-26 09:11:00 Jose A Alegria [facility] POCT GLUCOSE (AUTOMATED) 2019-12-26 01:12:00 Meghann Waters [place] babarity [facility] POCT GLUCOSE (AUTOMATED) 2019-12-25 17:25:00 Edaudelia Isray Uni [facility] TROPONIN I 2019-12-25 10:20:00 Jose A Alegria [facility] COMP. METABOLIC PANEL 2019-12-25 10:20:00 Jose A Alegria [facility] ([id number]) [facility] CBC WITH DIFF 2019-12-25 10:20:00 Raji Adena [facility] PROTHROMBIN TIME / INR 2019-12-25 10:20:00 Jose A Alegria [facility] D-DIMER 2019-12-25 01:29:00 [facility] PO[facility] GLUCOSE (AUTOMATED) 2019-12-25 00:56:00 Ediondonna Isradagoberto [place] [facility] PROCALCITONIN 2019-12-24 23:07:00 Roland [facility] POCT GLUCOSE (AUTOMATED) 2019-12-24 22:11:00 Ediondonna [facility] ([facility]) 2019-12-24 15:47:00 [facility] POCT GLUCOSE (AUTOMATED) 2019-12-24 13:07:00 [facility]donna [facility] TROPONIN I 2019-12-24 09:57:00 Blake Castellon [facility] COMP. METABOLIC PANEL 2019-12-24 09:57:00 Jose A Alegria [facility] ([id number]) [facility] Branch CBC WITH DIFF 2019-12-24 09:57:00 EdionMeghann thompson [facility] PROTHROMBIN TIME / INR 2019-12-24 09:57:00 Jose A Alegria [facility] POCT GLUCOSE (AUTOMATED) 2019-12-24 00:57:00 Ediondonna Xcelaeroy Uni versity [facility] POCT GLUCOSE (AUTOMATED) 2019-12-23 20:23:00 Ediondonna, [facility] Uni vers[facility] POCT GLUCOSE (AUTOMATED) 2019-12-23 16:45:00 Edaudelia [facility] Uni [facility] ECHO ROUTINE W/DOPPLER 2019-12-23 15:52:42 lBake Castellon [facility] COLOR [facility] POCT GLUCOSE (AUTOMATED) 2019-12-23 13:32:00 Evelin [facility] POCT GLUCOSE (AUTOMATED) 2019-12-23 11:52:00 Evelin [facility] COMP. METABOLIC PANEL 2019-12-23 11:51:00 Evelin [facility] ([id number]) [facility] Branch CBC WITH DIFF 2019-12-23 09:09:[address] [facility] o f [facility] GLYCOSYLATED HEMOGLOBIN 2019-12-23 09:09:00 Jose A Alegria [facility] (A1C) [facility] POCT GLUCOSE (AUTOMATED) 2019-12-23 09:05:00 Evelin [facility] POCT GLUCOSE (AUTOMATED) 2019-12-23 07:40:00 Evelin [facility] LACTIC ACID WHOLE BLOOD 2019-12-23 06:20:00 Shanice Barroso [facility] POCT GLUCOSE (AUTOMATED) 2019-12-23 05:05:00 Shanice Barroso [facility] POCT GLUCOSE (AUTOMATED) 2019-12-23 03:41:00 Shanice Barroso [facility] XR CHEST 1 VW COVID 2019-12-23 03:04:[address] [facility] COVID-19 (ID NOW RAPID 2019-12-23 02:46:00 Shanice Barroso [facility] ABG+COOX+NA+K+GLU+CA2+ 2019-12-23 02:35:00 Shanice [facility]so [facility] LACTIC ACID WHOLE BLOOD 2019-12-23 02:35:00 Shanice Barroso [facility] TROPONIN I 2019-12-23 02:22:00 Shanice Barroso [place] [facility] COMP. METABOLIC PANEL 2019-12-23 02:22:00 Shanice Barroso [facility] ([id number]) [facility] Branch CBC WITH DIFF 2019-12-23 02:22:00 Shanice Barroso [facility] PROTHROMBIN TIME / INR 2019-12-23 02:22:00 Shanice Barroso Unive rsity [facility] ACTIVATED PARTIAL 2019-12-23 02:22:00 Shanice Barroso [facility] THRMPLAS [facility] N-TERMINAL PRO-BNP 2019-12-23 02:22:00 Shanice Barroso [facility] LIPASE 2019-12-23 02:22:00 Shanice Barroso [place] [facility] EKG-12 LEAD 2019-12-23 02:19:20 Shanice Barroso [facility] NOTICE OF PRIVACY 2019-12-23 01:54:05 Doctor Unassigned, No [facility] [place] PRACTICES [facility] CONSENT/REFUSAL FOR 2019-12-23 01:53:48 Doctor Unassigned, No Un iversity [facility] DIAGNOSIS AND TREATMENT [facility] EXTERNAL PROVIDER 2019-12-22 05:01:00 Doctor Unassigned, No [facility] [place] RECORDS [facility] HOSPITAL ADMISSION 2019-12-22 05:01:00 Doctor Unassigned, No Uni versity of [facility] HOSPITAL ADMISSION MISC 2019-12-22 05:01:00 Doctor Unassigned, N o [facility] - MEDICARE PATIENTS Name [facility] RIGHTS IMPORTANT MESSAGE Placement of Stent in [facility] Cardiac Conduit Group Cardiac Surgery [place] [facility] Encounters Start End Encounter Admission Attending Care Care Encounter Source Date/Time Date/Time Type Type Clinicians Facility Department ID 2021-03-25 Emergency [facility] [id number] Univers 09:09:26 ity of [facility] 2022-04-21 2022-04-21 Outpatient DMG DM [id number] [facility] 00:00:00 00:00:00 [id number] Medica l Group 2022-04-06 2022-04-06 Outpatient DMG DM [id number] [facility] 00:00:00 00:00:00 [id number] Medica l Group 2021-02-03 2021-02-03 Orders Doctor GLYNN 1.2.840.114 [id number] Univers 00:00:00 00:00:00 Only Unassigned, ZAY [id number] ity of [facility] 4.2.7.2.686 Jose as [phone] [facility] 009 Branch 2021-02-01 2021-02-01 Telephone Isabelle, [facility] 1.2.840.114 [id number] Univers 00:00:00 00:00:00 Strahil T [place] [id number] [place] [phone] Ms dical nal [address] [place] [address] 2021-02-01 2021-02-01 Telephone Merlinnas, [facility] 1.2.840.114 [id number] Univers 00:00:00 00:00:00 Strahil T [place] [id number] [place] [phone] Ms dicvt nal [address] [place] [address] 2021-01-28 2021-01-28 Telephone Merlinnas, [facility] 1.2.840.114 [id number] Univers 00:00:00 00:00:00 Strahil T [place] [id number] [place] [phone] Ms dic[address] 2021-01-24 2021-01-24 Outpatient R MERLINNASFRACISCO, STRAHIL [facility] [id number] Univers 19:30:00 19:30:00 ATANASOV, STRAHIL ity of [facility] 2021-01-24 2021-01-24 Technical Marketing Engineer 1, [facility] Sleep Lab Bed [facility] 1. 2.840.114 [id number] Univers 15:22:32 17:52:32 Visit Atanasov, Strahil T [place] 350.1.13. 10 [place] [phone] [facility] 193 Branch 2021-01-24 2021-01-24 Technical Marketing Engineer 1, [facility] Sleep Lab Bed [facility] 1. 2.[id number] [facility] 15:22:32 17:52:32 Visit Atanasov, Strahil T [place] 350.1.13. 10 [place] [phone] [facility] 193 Branch 2021-01-24 2021-01-24 Orders Doctor RENARD 1.2.840.114 [id number] Univers 00:00:00 00:00:00 Only Unassigned, ZAY [id number] ity of [place] [facility] 4.2.7.2.686 Jose as [phone] [facility] 009 Branch 2021-01-24 2021-01-24 Orders Doctor RENARD 1.2.840.114 [id number] Univers 00:00:00 00:00:00 Only Unassigned, ZAY [id number] ity [facility] [place] [facility] 4.2.7.2.686 Jose as [phone] [facility] 009 Branch 2021-01-21 2021-01-21 Laboratory Only, Adc Test [facility] 1.2.840. 114 [id number] Univers 08:02:45 08:17:45 Only Steffany Quan [place] 350.1.13. 10 [place] 4.2.7.2.686 [facility] [phone] [facility] 353 Branch 2021-01-21 2021-01-21 Laboratory Only, Adc Test [facility] 1.2.840. 114 [id number] Univers 08:02:45 08:17:45 Only Nadia Quanl [place] 350.1.13. 10 [place] 4.2.7.2.686 [facility] [phone] [facility] [address] [place] 2021-01-21 2021-01-21 Outpatient R STEFFANY QUAN [facility] [id number] Univers 08:15:00 08:15:00 NADIA QUANL sophy [facility] 2021-01-05 2021-01-05 Outpatient R STEFFANY QUAN [facility] [id number] Univers 13:40:00 13:50:25 NADIA QUANL sophy [facility] 2021-01-05 2021-01-05 Office Greyson MTEFREN 1.2.723.222 [id number] Univers 13:26:05 13:50:25 Visit Steffany Arguello 350.1.13.10 [place] [phone] Ms dical nal 085 [facility] 2021-01-05 2021-01-05 Orders Doctor RENARD 1.2.840.114 [id number] Univers 00:00:00 00:00:00 Only Unassigned, ZAY 350.1.13.10 ity of [place] [facility] 4.2.7.2.686 Jose as [phone] [address] 2020-12-14 2020-12-14 Outpatient R STEFFANY QUAN [facility] [id number] Univers 19:30:00 19:30:00 STEFFANY QUAN [facility] 2020-12-14 2020-12-14 Technical Marketing Engineer 1, [facility] Sleep Lab Bed [facility] 1. 2.840.114 [id number] Univers 15:26:05 17:56:05 Visit Steffany Quan 350.1.13. 10 [place] [phone] [facility] [address] 2020-12-14 2020-12-14 Orders Doctor RENARD 1.2.840.114 [id number] Univers 00:00:00 00:00:00 Only Unassigned, ZAY 350.1.13.10 ity of [place] [facility] 4.2.7.2.686 Jose as [phone] [address] 2020-12-01 2020-12-01 Outpatient R STEFFANY QUAN [facility] [id number] Univers 11:30:00 11:58:13 NADIA QUANL itdagoberto [facility] 2020-12-01 2020-12-01 Office Greyson [facility] 1.2.244.057 [id number] Univers 11:25:53 11:55:53 Visit Steffany Arguello 350.1.13.10 [place] [phone] Ms dical nal 085 [facility] 2020-11-03 2020-11-03 Orders Doctor RENARD 1.2.840.[id number] [facility] 00:00:00 00:00:00 Only Unassigned, ZAY 350.1.13.10 ity of [place] [facility] 4.2.7.2.686 Jose as [phone] [address] 2020-08-12 2020-08-12 Outpatient A_Byrd [facility] [id number] [place] 01:11:00 01:11:00 0318 [facility] 2020-07-15 2020-07-15 Outpatient A_Byrd [facility] [id number] [place] 02:25:00 02:25:00 0218 [facility] 2020-07-08 2020-07-08 Asa A_Byspike [facility] [place] - [address] [place] 00:00:00 00:00:00 Rito Hernandez1 maritza Ramirez MD: Medical Medica [address], [place] [address] , Ph. [phone] 2020-07-07 2020-07-07 Outpatient A_Byrd [facility] [id number] [place] 03:50:00 03:50:00 021 [facility] 2020-07-01 2020-07-01 Oumar Torrez [facility] [place] - [address] [place] 00:00:00 00:00:00 MD Bobo: [address] [address] , Ph. 2020-06-24 2020-06-24 Orders Doctor RENARD [place].2.840.[id number] [facility] 00:00:00 00:00:00 Only Unassigned, ZAY 350.1.13.10 ity of [place] [facility] 4.2.7.2.686 Jose as [phone] [address] 2020-05-12 2020-05-12 Oumar Torrez [facility] [place] - [address] [place] 00:00:00 00:00:00 Broussard, MD: [address] Group [place] - [address], [facility], [place] [address] , Ph. 2020-05-11 2020-05-11 Outpatient A_Byrd [facility] [id number] [place] 04:52:00 04:52:00 1215 [facility] 2020-05-06 2020-05-06 Outpatient A_Byrd [facility] [id number] [place] 11:27:00 11:27:00 1210 [facility] 2020-01-26 2020-01-26 Transition Estephania Amaya 1.2.840.114 [id number] 00:00:00 00:00:00 of Care Myla Davis 350.1.13.10 [place] 4.2[phone] [facility] 2020-01-26 2020-01-26 Transition Estephania Amaya 1.2.840.[id number] [facility] 00:00:00 00:00:00 of Care Myla Kayy 350.1.13.10 it y [place] [phone] [address] 2019-12-22 2020-01-24 [facility] Shanice Barroso 1.2.840.11 [id number] 20:55:47 18:35:00 Encounter Meghann Waters 350.1.13.10 [facility] 4.2.7.2. 686 Ilia Chung [phone] [facility] 08 Saturnino Crowe Shawn P Jokhio, Shahzad 2019-12-22 2020-01-24 [facility]840[id number] [facility] 20:55:47 18:35:00 Encounter Meghann Waters 350.1.13.10 ity of [facility] 4.2.7.2. 686 [place] Ilia Chung [phone] [facility] Jacob Miner [address] [place] Saturnino Crowe Shawn P Jokhio, Shahzad 2019-12-15 2019-12-15 Telephone RENARD Cyr [id number] 00:00:00 00:00:00 Anay ZAY 350.1.13.10 [facility] 4.2.7.2.686 [id number] 019 2019-12-15 2019-12-15 Telephone GerRENARD [id number] [facility] 00:00:00 00:00:00 Anay ZAY 350.1.13.10 it y of HOSPITAL 4.2.7.2.686 Jose as [phone] [address] 2019-12-14 2019-12-14 Urgent Pob1, Acute [facility] 1.2.840.114 [id number] 13:50:36 14:10:36 Care Care [facility] 350.1.13.10 [place] 4.2.7.2.686 Professio [phone] [address] 2019-12-14 2019-12-14 Urgent Pob1, Acute Care Clinic [facility] 1. [id number] [facility] 13:50:36 14:10:36 Karma [facility] 350.1.13.10 ity of [place] 4.2.7.2.686 Jose as Professio [phone] Ms dical [address] Office [facility] 2019-12-14 2019-12-14 Outpatient [facility] [id number] Univers 14:00:00 14:00:00 KARMA ity [facility] 2019-12-14 2019-12-14 Letter Doctor RENARD 1.2.840.114 [id number] 00:00:00 00:00:00 (Out) Unassigned, ZAY 350.1.13.10 [place] 4.2.7.2.686 [id number] 044 2019-12-14 2019-12-14 Letter Doctor RENARD 1.2.840.[id number] [facility] 00:00:00 00:00:00 (Out) Unassigned, ZAY 350.1.13.10 ity of [place] [facility] 4.2.7.2.686 Jose as [phone] [place] [address] Branch Results Test Description Test Time Test Comments Results Result Comments Source CBC W Auto Differential panel - Blood 2020-06-22 09:30:00 Test Item Value Reference Range Interpretation Comme nts white blood count (test code = white blood count) 7.6 K/uL 4.0- 12.3 red blood count (test code = red blood count) 5.40 M/uL 3.80-5.8 0 hemoglobin (test code = hemoglobin) 15.0 g/dL 11.7-17.2 hematocrit (test code = hematocrit) 46.7 % 35.0-51.0 MCV [Entitic volume] (test code = 20414-7) 86.5 fL 83-100 mean corpuscular hemoglobin (test code = mean corpuscular 27.8 pg 26.8-33.4 hemoglobin) mean corpuscular HGB conc (test code = mean corpuscular HGB 32.1 g/ dL 30-35 conc) red cell distribution width (test code = red cell 17.3 % 12.0 -14.0 H distribution width) platelet count (test code = platelet count) 140 K/uL 175-450 L Platelets reticulated/100 platelets in Blood by Automated 4.8 % 0-8 count (test code = 53771-8) mean platelet volume (test code = mean platelet volume) 11.6 fL 9.4-12.6 Segmented neutrophils/100 leukocytes in Blood (test code = 58.0 % 44.7-82.4 90729-6) Immature granulocytes [#/volume] in Blood (test code = 0.0 K/uL 0.0-0.03 79166-3) lymphocyte% (test code = lymphocyte%) 29.1 % 10.0-50.0 mono % (test code = mono %) 8.5 % 3.9-13.4 eos % (test code = eos %) 3.0 % 0.0-6.4 Basophils/100 leukocytes in Unspecified specimen (test code 1.0 % 0.2-1.2 = 57942-4) Band form neutrophils [#/volume] in Blood (test code = 4.43 K/uL 1.78-5.38 97735-7) Lymphocytes [#/volume] in Unspecified specimen by Automated 2.2 K/u L 1.32-3.57 count (test code = 72089-2) mono # (test code = mono #) 0.65 K/uL 0.30-0.82 eos # (test code = eos #) 0.23 K/uL 0.04-0.54 basophil # (test code = basophil #) 0.08 K/uL 0.01-0.08 NRBC% (test code = NRBC%) 0 /100 WBC 0-0.2 NRBC# (test code = NRBC#) 0 K/uL [facility], method unspecified - [id number] 09:30:00NeutrophilsBandLymphocyteAtypical LymphMonocyteEosinophilBasophilMetamyelocyteMyelocytePromyelocyteBlastsNucleated Red Blood CellAbs Neutrophil Count (Man)Abs Lymph Count (Man)Abs Monocyte Count (Man)Abs Eosinophil Count (Man)Abs Basophil Count (Man)Platelet EstimatePlatelet MorphologyPolychromasiaHypo chromasiaPoikilocytosisAnisocytosisMicrocytosisMacrocytosisSpherocyteSchistocyte sTarget CellsTear Drop CellsOvalocytesStomatocyteToxic GranulationBurr CellsAcanthocytesHypersegmented PolysRouleauToxic VacuolationDifferential comment-[facility] HospitalMicroalbumin [Mass/volume] in [id number] 09:30:00 Test Item Value Reference Range Interpretation Comments microalbumin random (test code = <12.0 0-20 microalbumin random) [facility] UnitHemoglobin A1c [Mass/volume] in [id number] 09:30:00 Test Item Value Reference Range Interpretation Comments Hemoglobin A1c [Mass/volume] in Blood 5.6 % 4.0-6.0 (test code = 80126-0) [facility] UnitComprehensive metabolic 2000 panel - Serum or Plasma 2020-06-22 09:30:00 Test Item Value Reference Range Interpretation Comments glucose (test code = glucose) 120 mg/dL 82-115 H Urea nitrogen [Mass/volume] in 22 mg/dL 8-23 Serum or Plasma (test code = 3094-0) osmolality calculated,serum (test 278 mOsm/kg 280-300 L code = osmolality calculated,serum) creatinine (test code = 1.4 mg/dL 0.70-1.20 H creatinine) glomerular filtration rate (test 50.86 L code = glomerular filtration rate) Urea nitrogen/Creatinine [Mass 15.7 12-20 Ratio] in Serum or Plasma (test code = 3097-3) sodium level (test code = sodium 137 mmol/L 135-145 level) Potassium [Moles/volume] in Body 4.4 mmol/L 3.5-5.2 fluid (test code = 2821-7) chloride level (test code = 104 mmol/L 98-108 chloride level) CO2 (test code = CO2) 21 mmol/L 21-32 anion gap (test code = anion gap) 16.4 mEq/L 12-20 calcium level (test code = 9.4 mg/dL 8.8-10.2 calcium level) total protein (test code = total 7.6 g/dL 6.6-8.7 protein) albumin (test code = albumin) 4.2 g/dL 3.5-5.2 globulin (test code = globulin) 3.4 gm/dL A/G ratio (test code = A/G ratio) 1.2 >1.0 bilirubin,total (test code = 0.5 mg/dL 0.0-1.2 bilirubin,total) AST/SGOT (test code = AST/SGOT) 18 U/L 15-40 Alanine aminotransferase 14 U/L 0-41 [Enzymatic activity/volume] in Serum or Plasma (test code = 1742-6) Alkaline phosphatase [Enzymatic 135 U/L 40-130 H activity/volume] in Serum or Plasma (test code = 6768-6) [facility] reactive protein [Mass/volume] in Serum or Plasma by High sensitivity [id number] 09:30:00 Test Item Value Reference Range Interpretation Comments C-reactive protein high sens. (test 1.0 mg/L 0.0-5.0 code = C-reactive protein high sens.) [facility] UnitLip[facility] 1996 panel - Serum or [id number] 09:30:00 Test Item Value Reference Range Interpretation Comments cholesterol level (test code = 128 mg/dL 150-200 L cholesterol level) triglycerides level (test code = 108 mg/dL <150 triglycerides level) HDL cholesterol (test code = HDL 45 mg/dL >55 L cholesterol) LDL cholesterol direct (test code = 72 mg/dL <100 LDL cholesterol direct) cholesterol risk ratio (test code = 2.844 cholesterol risk ratio) [facility] UnitFerritin [Mass/volume] in Serum or [id number] 09:30:00 Test Item Value Reference Range Interpretation Comments ferritin (test code = ferritin) 275.1 NG/mL 30-400 [facility] W Auto Differential panel - [id number] 09:30:00 Test Item Value Reference Range Interpretation Comments white blood count (test code = 7.6 K/uL 4.0-12.3 white blood count) red blood count (test code = red 5.40 M/uL 3.80-5.80 blood count) hemoglobin (test code = 15.0 g/dL 11.7-17.2 hemoglobin) hematocrit (test code = 46.7 % 35.0-51.0 hematocrit) MCV [Entitic volume] (test code = 86.5 fL 83-100 34934-4) mean corpuscular hemoglobin (test 27.8 pg 26.8-33.4 code = mean corpuscular hemoglobin) mean corpuscular HGB conc (test 32.1 g/dL 30-35 code = mean corpuscular HGB conc) red cell distribution width (test 17.3 % 12.0-14.0 H code = red cell distribution width) platelet count (test code = 140 K/uL 175-450 L platelet count) Platelets reticulated/100 4.8 % 0-8 platelets in Blood by Automated count (test code = 02889-1) mean platelet volume (test code = 11.6 fL 9.4-12.6 mean platelet volume) Segmented neutrophils/100 58.0 % 44.7-82.4 leukocytes in Blood (test code = 82369-9) Immature granulocytes [#/volume] 0.0 K/uL 0.0-0.03 in Blood (test code = 05042-6) lymphocyte% (test code = 29.1 % 10.0-50.0 lymphocyte%) mono % (test code = mono %) 8.5 % 3.9-13.4 eos % (test code = eos %) 3.0 % 0.0-6.4 Basophils/100 leukocytes in 1.0 % 0.2-1.2 Unspecified specimen (test code = 84471-9) Band form neutrophils [#/volume] 4.43 K/uL 1.78-5.38 in Blood (test code = 42868-7) Lymphocytes [#/volume] in 2.2 K/uL 1.32-3.57 Unspecified specimen by Automated count (test code = 53137-2) mono # (test code = mono #) 0.65 K/uL 0.30-0.82 eos # (test code = eos #) 0.23 K/uL 0.04-0.54 basophil # (test code = basophil 0.08 K/uL 0.01-0.08 #) NRBC% (test code = NRBC%) 0 /100 WBC 0-0.2 NRBC# (test code = NRBC#) 0 K/uL [facility]Different[facility], method unspecified - [id number] 09:30:00NeutrophilsBandLymphocyteAtypical LymphMonocyteEosinophilBasophilMetamyelocyteMyelocytePromyelocyteBlastsNucleated Red Blood CellAbs Neutrophil Count (Man)Abs Lymph Count (Man)Abs Monocyte Count (Man)Abs Eosinophil Count (Man)Abs Basophil Count (Man)Platelet EstimatePlatelet MorphologyPolychromasiaHypo chromasiaPoikilocytosisAnisocytosisMicrocytosisMacrocytosisSpherocyteSchistocyte sTarget CellsTear Drop CellsOvalocytesStomatocyteToxic GranulationBurr CellsAcanthocytesHypersegmented PolysRouleauToxic VacuolationDifferential comment-PMaKing's Daughters Medical CenterMicroalbumin [Mass/volume] in [id number] 09:30:00 Test Item Value Reference Range Interpretation Comments microalbumin random (test code = <12.0 0-20 microalbumin random) [facility] UnitHemoglobin A1c [Mass/volume] in [id number] 09:30:00 Test Item Value Reference Range Interpretation Comments Hemoglobin A1c [Mass/volume] in Blood 5.6 % 4.0-6.0 (test code = 67802-8) [facility] UnitComprehensive metabolic 2000 panel - Serum or Plasma 2020-06-22 09:30:00 Test Item Value Reference Range Interpretation Comments glucose (test code = glucose) 120 mg/dL 82-115 H Urea nitrogen [Mass/volume] in 22 mg/dL 8-23 Serum or Plasma (test code = 3094-0) osmolality calculated,serum (test 278 mOsm/kg 280-300 L code = osmolality calculated,serum) creatinine (test code = 1.4 mg/dL 0.70-1.20 H creatinine) glomerular filtration rate (test 50.86 L code = glomerular filtration rate) Urea nitrogen/Creatinine [Mass 15.7 12-20 Ratio] in Serum or Plasma (test code = 3097-3) sodium level (test code = sodium 137 mmol/L 135-145 level) Potassium [Moles/volume] in Body 4.4 mmol/L 3.5-5.2 fluid (test code = 2821-7) chloride level (test code = 104 mmol/L 98-108 chloride level) CO2 (test code = CO2) 21 mmol/L 21-32 anion gap (test code = anion gap) 16.4 mEq/L 12-20 calcium level (test code = 9.4 mg/dL 8.8-10.2 calcium level) total protein (test code = total 7.6 g/dL 6.6-8.7 protein) albumin (test code = albumin) 4.2 g/dL 3.5-5.2 globulin (test code = globulin) 3.4 gm/dL A/G ratio (test code = A/G ratio) 1.2 >1.0 bilirubin,total (test code = 0.5 mg/dL 0.0-1.2 bilirubin,total) AST/SGOT (test code = AST/SGOT) 18 U/L 15-40 Alanine aminotransferase 14 U/L 0-41 [Enzymatic activity/volume] in Serum or Plasma (test code = 1742-6) Alkaline phosphatase [Enzymatic 135 U/L 40-130 H activity/volume] in Serum or Plasma (test code = 6768-6) [facility] UnitC reactive protein [Mass/volume] in Serum or Plasma by High sensitivity [id number] 09:30:00 Test Item Value Reference Range Interpretation Comments C-reactive protein high sens. (test 1.0 mg/L 0.0-5.0 code = C-reactive protein high sens.) [facility] UnitLipid 1996 panel - Serum or [id number] 09:30:00 Test Item Value Reference Range Interpretation Comments cholesterol level (test code = 128 mg/dL 150-200 L cholesterol level) triglycerides level (test code = 108 mg/dL <150 triglycerides level) HDL cholesterol (test code = HDL 45 mg/dL >55 L cholesterol) LDL cholesterol direct (test code = 72 mg/dL <100 LDL cholesterol direct) cholesterol risk ratio (test code = 2.844 cholesterol risk ratio) [facility] UnitFerritin [Mass/volume] in Serum or [id number] 09:30:00 Test Item Value Reference Range Interpretation Comments ferritin (test code = ferritin) 275.1 NG/mL 30-400 [facility] [id number] 10:23:00 Test Item Value Reference Range Interpretation Comments PROCALCITONIN (BEAKER) (test code 0.10 ng/mL <0.05 H = 3036) SEPSIS RISK (ng/mL)Low: 0.05-0.50Intermediate: 0.51-2.00High: >=2.01aPTT (for use with Heparin Practice Guideline). Note: Draw and Send all Lab STAT. 2020-01-24 05:09:00 Test Item Value Reference Range Interpretation Comments APTT Patient (test code See_Comment H [Au tomated message] = 3173-2) The system Parse generated this result transmitted ref erence range: 26 - 36 Seconds. The reference range was not used to int erpret this result as normal/abnormal . Lab Interpretation (test Abnormal code = 39720-2) [facility] 02:23:00 Test Item Value Reference Range Interpretation Comments POCT GLU (test code = 7977860210) 220 mg/dL 70-110 H Lab Interpretation (test code = Abnormal 08775-3) [facility] (for use with Heparin Practice Guideline). Note: Draw and Send all Lab STAT.2020-01-23 17:01:00 Test Item Value Reference Range Interpretation Comments APTT Patient (test code See_Comment H [Au tomated message] = 3173-2) The system [employer] h generated this result transmitted ref erence range: 26 - 36 Seconds. The reference range was not used to int erpret this result as normal/abnormal . Lab Interpretation (test Abnormal code = 66135-8) [facility]2020-01-23 13:04:00 Test Item Value Reference Range Interpretation Comments POCT GLU (test code = 4912956586) 207 mg/dL 70-110 H Lab Interpretation (test code = Abnormal 02961-7) [facility] WITH [id number] 10:01:00 Test Item Value Reference Range Interpretation Comments WBC (test code = See_Comment H [Automated 6690-2) message] The sy stem which generated this result transmitted reference range : 4.20 - 10.70 10*3/?L. The reference range was not used to interpret this result as normal/abnormal . RBC (test code = See_Comment L [Automated 789-8) message] The sy stem which generated this result transmitted reference range : 4.26 - 5.52 10*6/?L. The reference range was not used to interpret this result as normal/abnormal . HGB (test code = 9.2 g/dL 12.2-16.4 L 718-7) HCT (test code = 28.7 % 38.4-49.3 L 4544-3) MCV (test code = 91.1 fL 81.7-95.6 787-2) MCH (test code = 29.2 pg 26.1-32.7 785-6) MCHC (test code = 32.1 g/dL 31.2-35 786-4) RDW-SD (test code = 51.4 fL 38.5-51.6 33385-5) RDW-CV (test code = 15.7 % 12.1-15.4 H 788-0) PLT (test code = See_Comment H [Automated 777-3) message] The sy stem which generated this result transmitted reference range : 150 - 328 10*3/ ?L. The reference r sawyer was not used to interpret this result as normal/abnormal . MPV (test code = 11.0 fL 9.8-13 44681-3) NRBC/100 WBC (test See_Comment [Automat ed code = 8290407383) message] The system which generated this result transmitted reference range : 0.0 - 10.0 /100 WBCs. The refer ence range was not u sed to interpret th is result as normal/abnormal . NRBC x10^3 (test code <0.01 See_Comment [Auto mated = 0973264653) message] The s ystem which generated this result transmitted reference range : 10*3/?L. The reference range was not used to interpret this result as normal/abnormal . GRAN MAT (NEUT) % 62.4 % (test code = 770-8) IMM GRAN % (test code 3.50 % = 4187229032) LYMPH % (test code = 16.8 % 736-9) MONO % (test code = 7.6 % 5905-5) EOS % (test code = 8.3 % 713-8) BASO % (test code = 1.4 % 706-2) GRAN MAT x10^3(ANC) 7.63 10*3/uL 1.99-6.95 H (test code = 6266879146) IMM GRAN x10^3 (test 0.43 10*3/uL 0-0.06 H code = 5579246564) LYMPH x10^3 (test code 2.06 10*3/uL 1.09-3.23 = 731-0) MONO x10^3 (test code 0.93 10*3/uL 0.36-1.02 = 742-7) EOS x10^3 (test code = 1.02 10*3/uL 0.06-0.53 H 711-2) BASO x10^3 (test code 0.17 10*3/uL 0.01-0.09 H = 704-7) Lab Interpretation Abnormal (test code = 80528-4) [facility] METABOLIC PANEL (NA, K, CL, CO2, GLUCOSE, BUN, CREATININE, CA)2020-01-23 09:54:00 Test Item Value Reference Range Interpretation Comments NA (test code = 134 mmol/L 135-145 L 4296873146) K (test code = 4.2 mmol/L 3.5-5 8260621003) CL (test code = 100 mmol/L 98-108 1390546517) CO2 TOTAL (test code = 33 mmol/L 23-31 H 8744047297) AGAP (test code = 2-16 L 9576667141) BUN (test code = 12 mg/dL 7-23 1640228677) GLUCOSE (test code = 224 mg/dL 70-110 H 5329044837) CREATININE (test code = 0.70 mg/dL 0.6-1.25 4683190436) CALCIUM (test code = 8.2 mg/dL 8.6-10.6 L 0748435420) eGFR Calculation mL/min/1.73m2 (Non-) (test code = 2785554404) eGFR Calculation mL/min/1.73m2 () (test code = 4853887705) MARLEN (test code = MARLEN) Association of Glomerular Filtration Rate (GFR) and Staging of Kidney Disease* + --+ --+ ------+| GFR (mL/min/1.73 m2) ?| With Kidney Damage ?| ?Without Kidney Damage+ --------+ --------+ +| ?>90 ?| ?Stage one ?| ? Normal ?+ ---+ ---+ -------+| ?60-89 ?| ?Stage two ?| ? Decreased GFR ? + --+ --+ ------+| ?30-59 ?| ?Stage three ?| ? Stage three ? + --+ --+ ------+| ?15-29 ?| ?Stage four ? | ? Stage four ?+ ---+ ---+ -------+| ?<15 (or dialysis) ? ?| ?Stage five ? | ? Stage five ?+ ---+ ---+ -------+ *Each stage assumes the associated GFR level has been in effect for at least three months. ?Stages 1 to 5, with or without kidney disease, indicate chronic kidney disease. Notes: Determination of stages one and two (with eGFR >59mL/min/1.73 m2) requires estimation of kidney damage for at least three months as defined by structural or functional abnormalities of the kidney, manifested by either:Pathological abnormalities or Markers of kidney damage (including abnormalities in the composition of the blood or urine or abnormalities in imaging tests). Lab Interpretation Abnormal (test code = 61435-9) [facility]2020-[facility] 09:54:00 Test Item Value Reference Range Interpretation Comments MAGNESIUM (test code = 6519138563) 1.9 mg/dL 1.7-2.4 Lab Interpretation (test code = Normal 69646-7) [facility]2020-08-28 09:54:00 Test Item Value Reference Range Interpretation Comments PHOSPHORUS (test code = 3446361689) 4.0 mg/dL 2.5-5 Lab Interpretation (test code = Normal 10779-5) [facility]PROT[facility] / [id number] 09:32:00 Test Item Value Reference Range Interpretation Comments PROTIME PATIENT (test See_Comment H [Auto mated message] code = 5964-2) The system [email or web address] generated this result transmitted ref erence range: 10.1 - 1 2.6 Seconds. The reference range was not used to int erpret this result as normal/abnormal . INR (test code = 6301-6) Nor mal INR <1.1; Warfarin Therap eutic range 2.0 to 3. 0 or 2.5 to 3.5, dep ending upon the indica tions. Lab Interpretation (test Abnormal code = 09541-2) [facility] (for use with Heparin Practice Guideline). Note: Draw and Send all Lab STAT.2020-01-23 04:26:00 Test Item Value Reference Range Interpretation Comments APTT Patient (test code See_Comment H [Au tomated message] = 3173-2) The system Parse generated this result transmitted ref erence range: 26 - 36 Seconds. The reference range was not used to int erpret this result as normal/abnormal . Lab Interpretation (test Abnormal code = 40986-7) [facility] (for use with Heparin Practice Guideline). Note: Draw and Send all Lab STAT.2020-01-22 16:42:00 Test Item Value Reference Range Interpretation Comments APTT Patient (test code See_Comment H [Au tomated message] = 3173-2) The system Parse generated this result transmitted ref erence range: 26 - 36 Seconds. The reference range was not used to int erpret this result as normal/abnormal . Lab Interpretation (test Abnormal code = 85005-7) [facility] GLUCOSE (AUTOMATED)2020-01-22 16:24:00 Test Item Value Reference Range Interpretation Comments POCT GLU (test code = 0112962995) 204 mg/dL 70-110 H Lab Interpretation (test code = Abnormal 03679-6) [facility] GLUCOSE (AUTOMATED)2020-01-22 13:55:00 Test Item Value Reference Range Interpretation Comments POCT GLU (test code = 3262970767) 214 mg/dL 70-110 H Lab Interpretation (test code = Abnormal 12757-5) [facility] (for use with Heparin Practice Guideline). Note: Draw and Send all Lab STAT.2020-01-22 10:04:00 Test Item Value Reference Range Interpretation Comments APTT Patient (test code See_Comment H [Au tomated message] = 3173-2) The system Parse generated this result transmitted ref erence range: 26 - 36 Seconds. The reference range was not used to int erpret this result as normal/abnormal . Lab Interpretation (test Abnormal code = 94664-4) [facility] GLUCOSE (AUTOMATED)2020-01-22 01:03:00 Test Item Value Reference Range Interpretation Comments POCT GLU (test code = 7084940673) 215 mg/dL 70-110 H Lab Interpretation (test code = Abnormal 11865-0) [facility] (for use with Heparin Practice Guideline). Note: Draw and Send all Lab STAT.2020-01-21 21:10:00 Test Item Value Reference Range Interpretation Comments APTT Patient (test code See_Comment H [Au tomated message] = 3173-2) The system Parse generated this result transmitted ref erence range: 26 - 36 Seconds. The reference range was not used to int erpret this result as normal/abnormal . Lab Interpretation (test Abnormal code = 50387-4) [facility] GLUCOSE (AUTOMATED)2020-01-21 17:05:00 Test Item Value Reference Range Interpretation Comments POCT GLU (test code = 4688780757) 278 mg/dL 70-110 H Lab Interpretation (test code = Abnormal 74661-9) [facility] GLUCOSE (AUTOMATED)2020-01-21 13:48:00 Test Item Value Reference Range Interpretation Comments POCT GLU (test code = 1706681483) 301 mg/dL 70-110 H Lab Interpretation (test code = Abnormal 23842-5) [facility] GLUCOSE (AUTOMATED)2020-01-21 11:13:00 Test Item Value Reference Range Interpretation Comments POCT GLU (test code = 2537587956) 183 mg/dL 70-110 H Lab Interpretation (test code = Abnormal 94481-5) [facility] GLUCOSE (AUTOMATED)2020-01-21 11:13:00 Test Item Value Reference Range Interpretation Comments POCT GLU (test code = 8237904290) 192 mg/dL 70-110 H Lab Interpretation (test code = Abnormal 59943-0) [facility] GLUCOSE (AUTOMATED)2020-01-21 11:13:00 Test Item Value Reference Range Interpretation Comments POCT GLU (test code = 0169351189) 212 mg/dL 70-110 H Lab Interpretation (test code = Abnormal 89315-4) [facility] GLUCOSE (AUTOMATED)2020-01-21 11:13:00 Test Item Value Reference Range Interpretation Comments POCT GLU (test code = 7915770560) 248 mg/dL 70-110 H Lab Interpretation (test code = Abnormal 47212-9) [facility] METABOLIC PANEL (NA, K, CL, CO2, GLUCOSE, BUN, CREATININE, CA)2020-01-21 10:06:00 Test Item Value Reference Range Interpretation Comments NA (test code = 131 mmol/L 135-145 L 5962353123) K (test code = 4.9 mmol/L 3.5-5 8842909452) CL (test code = 99 mmol/L 98-108 1337745582) CO2 TOTAL (test code = 32 mmol/L 23-31 H 8409537996) AGAP (test code = <1 2-16 L 8470836031) BUN (test code = 10 mg/dL 7-23 8793497033) GLUCOSE (test code = 222 mg/dL 70-110 H 5114931218) CREATININE (test code = 0.71 mg/dL 0.6-1.25 2475565234) CALCIUM (test code = 8.0 mg/dL 8.6-10.6 L 3914674356) eGFR Calculation mL/min/1.73m2 (Non-) (test code = 1801167019) eGFR Calculation mL/min/1.73m2 () (test code = 9178279575) MARLEN (test code = MARLEN) Association of Glomerular Filtration Rate (GFR) and Staging of Kidney Disease* + --+ --+ ------+| GFR (mL/min/1.73 m2) ?| With Kidney Damage ?| ?Without Kidney Damage+ --------+ --------+ +| ?>90 ?| ?Stage one ?| ? Normal ?+ ---+ ---+ -------+| ?60-89 ?| ?Stage two ?| ? Decreased GFR ? + --+ --+ ------+| ?30-59 ?| ?Stage three ?| ? Stage three ? + --+ --+ ------+| ?15-29 ?| ?Stage four ? | ? Stage four ?+ ---+ ---+ -------+| ?<15 (or dialysis) ? ?| ?Stage five ? | ? Stage five ?+ ---+ ---+ -------+ *Each stage assumes the associated GFR level has been in effect for at least three months. ?Stages 1 to 5, with or without kidney disease, indicate chronic kidney disease. Notes: Determination of stages one and two (with eGFR >59mL/min/1.73 m2) requires estimation of kidney damage for at least three months as defined by structural or functional abnormalities of the kidney, manifested by either:Pathological abnormalities or Markers of kidney damage (including abnormalities in the composition of the blood or urine or abnormalities in imaging tests). Lab Interpretation Abnormal (test code = 78195-2) [facility] 10:05:00 Test Item Value Reference Range Interpretation Comments MAGNESIUM (test code = 4497710507) 2.0 mg/dL 1.7-2.4 Lab Interpretation (test code = Normal 41334-1) [facility] 10:05:00 Test Item Value Reference Range Interpretation Comments PHOSPHORUS (test code = 2513397655) 3.9 mg/dL 2.5-5 Lab Interpretation (test code = Normal 13804-1) [facility]CBC WITH [id number] 10:01:00 Test Item Value Reference Range Interpretation Comments WBC (test code = See_Comment H [Automated 6690-2) message] The sy stem which generated this result transmitted reference range : 4.20 - 10.70 10*3/?L. The reference range was not used to interpret this result as normal/abnormal . RBC (test code = See_Comment L [Automated 789-8) message] The sy stem which generated this result transmitted reference range : 4.26 - 5.52 10*6/?L. The reference range was not used to interpret this result as normal/abnormal . HGB (test code = 9.4 g/dL 12.2-16.4 L 718-7) HCT (test code = 29.2 % 38.4-49.3 L 4544-3) MCV (test code = 91.0 fL 81.7-95.6 787-2) MCH (test code = 29.3 pg 26.1-32.7 785-6) MCHC (test code = 32.2 g/dL 31.2-35 786-4) RDW-SD (test code = 49.8 fL 38.5-51.6 37115-3) RDW-CV (test code = 15.3 % 12.1-15.4 788-0) PLT (test code = See_Comment [Automated 777-3) message] The sy stem which generated this result transmitted reference range : 150 - 328 10*3/ ?L. The reference r sawyer was not used to interpret this result as normal/abnormal . MPV (test code = 10.6 fL 9.8-13 90424-8) NRBC/100 WBC (test See_Comment [Automat ed code = 4394031297) message] The system which generated this result transmitted reference range : 0.0 - 10.0 /100 WBCs. The refer ence range was not u sed to interpret th is result as normal/abnormal . NRBC x10^3 (test code <0.01 See_Comment [Auto mated = 1682385082) message] The s ystem which generated this result transmitted reference range : 10*3/?L. The reference range was not used to interpret this result as normal/abnormal . GRAN MAT (NEUT) % 63.3 % (test code = 770-8) IMM GRAN % (test code 4.50 % = 4623391496) LYMPH % (test code = 17.8 % 736-9) MONO % (test code = 9.1 % 5905-5) EOS % (test code = 4.5 % 713-8) BASO % (test code = 0.8 % 706-2) GRAN MAT x10^3(ANC) 7.94 10*3/uL 1.99-6.95 H (test code = 1887196645) IMM GRAN x10^3 (test 0.57 10*3/uL 0-0.06 H code = 1875346136) LYMPH x10^3 (test code 2.23 10*3/uL 1.09-3.23 = 731-0) MONO x10^3 (test code 1.14 10*3/uL 0.36-1.02 H = 742-7) EOS x10^3 (test code = 0.57 10*3/uL 0.06-0.53 H 711-2) BASO x10^3 (test code 0.10 10*3/uL 0.01-0.09 H = 704-7) Lab Interpretation Abnormal (test code = 69152-9) [facility] (for use with Heparin Practice Guideline). Note: Draw and Send all Lab STAT.2020-01-21 09:41:00 Test Item Value Reference Range Interpretation Comments APTT Patient (test code See_Comment H [Au tomated message] = 3173-2) The system [employer] generated this result transmitted ref erence range: 26 - 36 Seconds. The reference range was not used to int erpret this result as normal/abnormal . Lab Interpretation (test Abnormal code = 88712-2) [facility] / [id number] 09:41:00 Test Item Value Reference Range Interpretation Comments PROTIME PATIENT (test See_Comment H [Auto mated message] code = 5964-2) The system [facility] generated this result transmitted ref erence range: 10.1 - 1 2.6 Seconds. The reference range was not used to int erpret this result as normal/abnormal . INR (test code = 6301-6) Nor mal INR <1.1; Warfarin Therap eutic range 2.0 to 3. 0 or 2.5 to 3.5, dep ending upon the indica tions. Lab Interpretation (test Abnormal code = 65271-9) [facility]2020-01-21 03:38:00 Test Item Value Reference Range Interpretation Comments POCT GLU (test code = 3021875461) 174 mg/dL 70-110 H Lab Interpretation (test code = Abnormal 21072-4) [facility] (for use with Heparin Practice Guideline). Note: Draw and Send all Lab STAT.2020-01-20 20:33:00 Test Item Value Reference Range Interpretation Comments APTT Patient (test code See_Comment H [Au tomated message] = 3173-2) The system Parse generated this result transmitted ref erence range: 26 - 36 Seconds. The reference range was not used to int erpret this result as normal/abnormal . Lab Interpretation (test Abnormal code = 18180-5) [facility] (NA, K, CL, CO2, GLUCOSE, BUN, CREATININE, CA)2020-01-20 17:45:00 Test Item Value Reference Range Interpretation Comments NA (test code = 133 mmol/L 135-145 L 8767305610) K (test code = 4.5 mmol/L 3.5-5 3336985724) CL (test code = 100 mmol/L 98-108 7697879662) CO2 TOTAL (test code = 32 mmol/L 23-31 H 0280925724) AGAP (test code = 2-16 L 4636582843) BUN (test code = 9 mg/dL 7-23 9814274894) GLUCOSE (test code = 248 mg/dL 70-110 H 3857585777) CREATININE (test code = 0.71 mg/dL 0.6-1.25 9625064883) CALCIUM (test code = 7.9 mg/dL 8.6-10.6 L 8313766213) eGFR Calculation mL/min/1.73m2 (Non-) (test code = 0361913341) eGFR Calculation mL/min/1.73m2 () (test code = 2546941020) MARLEN (test code = MARLEN) Association of Glomerular Filtration Rate (GFR) and Staging of Kidney Disease* + --+ --+ ------+| GFR (mL/min/1.73 m2) ?| With Kidney Damage ?| ?Without Kidney Damage+ --------+ --------+ +| ?>90 ?| ?Stage one ?| ? Normal ?+ ---+ ---+ -------+| ?60-89 ?| ?Stage two ?| ? Decreased GFR ? + --+ --+ ------+| ?30-59 ?| ?Stage three ?| ? Stage three ? + --+ --+ ------+| ?15-29 ?| ?Stage four ? | ? Stage four ?+ ---+ ---+ -------+| ?<15 (or dialysis) ? ?| ?Stage five ? | ? Stage five ?+ ---+ ---+ -------+ *Each stage assumes the associated GFR level has been in effect for at least three months. ?Stages 1 to 5, with or without kidney disease, indicate chronic kidney disease. Notes: Determination of stages one and two (with eGFR >59mL/min/1.73 m2) requires estimation of kidney damage for at least three months as defined by structural or functional abnormalities of the kidney, manifested by either:Pathological abnormalities or Markers of kidney damage (including abnormalities in the composition of the blood or urine or abnormalities in imaging tests). Lab Interpretation Abnormal (test code = 04681-2) [facility] GLUCOSE (AUTOMATED)2020-01-20 13:24:00 Test Item Value Reference Range Interpretation Comments POCT GLU (test code = 7707364240) 159 mg/dL 70-110 H Lab Interpretation (test code = Abnormal 97050-9) [facility] (for use with Heparin Practice Guideline). Note: Draw and Send all Lab STAT.2020-01-20 10:37:00 Test Item Value Reference Range Interpretation Comments APTT Patient (test code See_Comment H [Au tomated message] = 3173-2) The system [employer] generated this result transmitted ref erence range: 26 - 36 Seconds. The reference range was not used to int erpret this result as normal/abnormal . Lab Interpretation (test Abnormal code = 01307-7) [facility] GLUCOSE (AUTOMATED)2020-01-19 21:52:00 Test Item Value Reference Range Interpretation Comments POCT GLU (test code = 6246411658) 199 mg/dL 70-110 H Lab Interpretation (test code = Abnormal 93209-9) [facility] (for use with Heparin Practice Guideline). Note: Draw and Send all Lab STAT.2020-01-19 21:26:00 Test Item Value Reference Range Interpretation Comments APTT Patient (test code See_Comment H [Au tomated message] = 3173-2) The system Parse generated this result transmitted ref erence range: 26 - 36 Seconds. The reference range was not used to int erpret this result as normal/abnormal . Lab Interpretation (test Abnormal code = 42783-7) [facility]00 Test Item Value Reference Range Interpretation Comments MAGNESIUM (test code = 9450882832) 2.1 mg/dL 1.7-2.4 Lab Interpretation (test code = Normal 37030-1) [facility] (NA, K, CL, CO2, GLUCOSE, BUN, CREATININE, CA)2020-01-19 18:48:00 Test Item Value Reference Range Interpretation Comments NA (test code = 134 mmol/L 135-145 L 1848293544) K (test code = 5.4 mmol/L 3.5-5 H 7467904087) CL (test code = 104 mmol/L 98-108 7843855704) CO2 TOTAL (test code = 32 mmol/L 23-31 H 0800555606) AGAP (test code = <1 2-16 L 2668576035) BUN (test code = 10 mg/dL 7-23 9921355185) GLUCOSE (test code = 158 mg/dL 70-110 H 9368419696) CREATININE (test code = 0.71 mg/dL 0.6-1.25 4724598618) CALCIUM (test code = 8.0 mg/dL 8.6-10.6 L 9397098211) eGFR Calculation mL/min/1.73m2 (Non-) (test code = 8294252902) eGFR Calculation mL/min/1.73m2 () (test code = 4653337693) MARLEN (test code = MARLEN) Association of Glomerular Filtration Rate (GFR) and Staging of Kidney Disease* + --+ --+ ------+| GFR (mL/min/1.73 m2) ?| With Kidney Damage ?| ?Without Kidney Damage+ --------+ --------+ +| ?>90 ?| ?Stage one ?| ? Normal ?+ ---+ ---+ -------+| ?60-89 ?| ?Stage two ?| ? Decreased GFR ? + --+ --+ ------+| ?30-59 ?| ?Stage three ?| ? Stage three ? + --+ --+ ------+| ?15-29 ?| ?Stage four ? | ? Stage four ?+ ---+ ---+ -------+| ?<15 (or dialysis) ? ?| ?Stage five ? | ? Stage five ?+ ---+ ---+ -------+ *Each stage assumes the associated GFR level has been in effect for at least three months. ?Stages 1 to 5, with or without kidney disease, indicate chronic kidney disease. Notes: Determination of stages one and two (with eGFR >59mL/min/1.73 m2) requires estimation of kidney damage for at least three months as defined by structural or functional abnormalities of the kidney, manifested by either:Pathological abnormalities or Markers of kidney damage (including abnormalities in the composition of the blood or urine or abnormalities in imaging tests). Lab Interpretation Abnormal (test code = 09593-6) [facility] WITHOUT [id number] 18:22:00 Test Item Value Reference Range Interpretation Comments WBC (test code = 6690-2) See_Comment [A utomated message] The system Parse generated this result transmit vashti reference range : 4.20 - 10.70 10*3/?L. The reference range was not used to interpret this result as normal/abnormal . RBC (test code = 789-8) See_Comment L [Au tomated message] The system Parse generated this result transmit vashti reference range : 4.26 - 5.52 10* 6/?L. The reference r sawyer was not used to interpret this result as normal/abnormal . HGB (test code = 718-7) 9.2 g/dL 12.2-16.4 L HCT (test code = 4544-3) 28.9 % 38.4-49.3 L MCH (test code = 785-6) 29.5 pg 26.1-32.7 MCV (test code = 787-2) 92.6 fL 81.7-95.6 MCHC (test code = 786-4) 31.8 g/dL 31.2-35 PLT (test code = 777-3) See_Comment [Au tomated message] The system Parse generated this result transmit vashti reference range : 150 - 328 10*3/?L. The reference range was not used to interpret this result as normal/abnormal . MPV (test code = 11.8 fL 9.8-13 94987-7) RDW-CV (test code = 15.3 % 12.1-15.4 788-0) RDW-SD (test code = 51.0 fL 38.5-51.6 20032-2) NRBC x10^3 (test code = <0.01 See_Comment [Au tomated message] 4522884386) The system Parse generated this result transmit vashti reference range : 10*3/?L. The reference range was not used to interpret this result as normal/abnormal . NRBC/100 WBC (test code See_Comment [Au tomated message] = 0970614419) The system [employer] generated this result transmit vashti reference range : 0.0 - 10.0 /100 WBC s. The reference r sawyer was not used to interpret this result as normal/abnormal . IPF % (test code = 4741194031) Lab Interpretation (test Abnormal code = 22533-4) [facility]2020-01-19 17:07:00 Test Item Value Reference Range Interpretation Comments POCT GLU (test code = 2417769103) 160 mg/dL 70-110 H Lab Interpretation (test code = Abnormal 39048-6) [facility]ION[facility] [id number] 11:10:00 Test Item Value Reference Range Interpretation Comments IONIZED CA (test code = 4.50 mg/dL 4.5-5.3 9003170592) PH SERUM (test code = 1945519960) 7.35-7.45 H Lab Interpretation (test code = Abnormal 99770-5) [facility] WITH [id number] 09:25:00 Test Item Value Reference Range Interpretation Comments WBC (test code = See_Comment [Automated 6690-2) message] The sy stem which generated this result transmitted reference range : 4.20 - 10.70 10*3/?L. The reference range was not used to interpret this result as normal/abnormal . RBC (test code = See_Comment L [Automated 789-8) message] The sy stem which generated this result transmitted reference range : 4.26 - 5.52 10*6/?L. The reference range was not used to interpret this result as normal/abnormal . HGB (test code = 6.8 g/dL 12.2-16.4 L 718-7) HCT (test code = 22.1 % 38.4-49.3 L 4544-3) MCV (test code = 95.3 fL 81.7-95.6 787-2) MCH (test code = 29.3 pg 26.1-32.7 785-6) MCHC (test code = 30.8 g/dL 31.2-35 L 786-4) RDW-SD (test code = 52.6 fL 38.5-51.6 H 92645-1) RDW-CV (test code = 15.1 % 12.1-15.4 788-0) PLT (test code = See_Comment L [Automated 777-3) message] The sy stem which generated this result transmitted reference range : 150 - 328 10*3/ ?L. The reference r sawyer was not used to interpret this result as normal/abnormal . MPV (test code = 11.2 fL 9.8-13 21858-8) NRBC/100 WBC (test See_Comment [Automat ed code = 6597946263) message] The system which generated this result transmitted reference range : 0.0 - 10.0 /100 WBCs. The refer ence range was not u sed to interpret th is result as normal/abnormal . NRBC x10^3 (test code <0.01 See_Comment [Auto mated = 6249711196) message] The s ystem which generated this result transmitted reference range : 10*3/?L. The reference range was not used to interpret this result as normal/abnormal . GRAN MAT (NEUT) % 62.7 % (test code = 770-8) IMM GRAN % (test code 5.50 % = 0371665737) LYMPH % (test code = 15.6 % 736-9) MONO % (test code = 8.0 % 5905-5) EOS % (test code = 7.9 % 713-8) BASO % (test code = 0.3 % 706-2) GRAN MAT x10^3(ANC) 3.74 10*3/uL 1.99-6.95 (test code = 8660783810) IMM GRAN x10^3 (test 0.33 10*3/uL 0-0.06 H code = 2510652543) LYMPH x10^3 (test code 0.93 10*3/uL 1.09-3.23 L = 731-0) MONO x10^3 (test code 0.48 10*3/uL 0.36-1.02 = 742-7) EOS x10^3 (test code = 0.47 10*3/uL 0.06-0.53 711-2) BASO x10^3 (test code <0.03 0.01-0.09 = 704-7) MYRNA CELLS (test code 2+ See_Comment A [Auto mated = 7790-9) message] The sy stem which generated this result transmitted reference range : (none). The reference range was not used to interpret this result as normal/abnormal . DOHLE BODIES (test Present A code = 7792-5) TOXIC CHANGES (test Present A code = 803-7) Lab Interpretation Abnormal (test code = 48067-0) [facility] METABOLIC PANEL (NA, K, CL, CO2, GLUCOSE, BUN, CREATININE, CA)2020-01-19 09:20:00 Test Item Value Reference Range Interpretation Comments NA (test code = 138 mmol/L 135-145 5602167014) K (test code = 2.8 mmol/L 3.5-5 LL 0652353536) CL (test code = 116 mmol/L 98-108 H 2041439113) CO2 TOTAL (test code = 24 mmol/L 23-31 9881218166) AGAP (test code = <1 2-16 L 0543516506) BUN (test code = 9 mg/dL 7-23 4525133654) GLUCOSE (test code = 132 mg/dL 70-110 H 5467393851) CREATININE (test code = 0.47 mg/dL 0.6-1.25 L 6814386970) CALCIUM (test code = 5.6 mg/dL 8.6-10.6 LL 4656999506) eGFR Calculation mL/min/1.73m2 (Non-) (test code = 7483285063) eGFR Calculation mL/min/1.73m2 () (test code = 3404246885) MARLEN (test code = MARLEN) Association of Glomerular Filtration Rate (GFR) and Staging of Kidney Disease* + --+ --+ ------+| GFR (mL/min/1.73 m2) ?| With Kidney Damage ?| ?Without Kidney Damage+ --------+ --------+ +| ?>90 ?| ?Stage one ?| ? Normal ?+ ---+ ---+ -------+| ?60-89 ?| ?Stage two ?| ? Decreased GFR ? + --+ --+ ------+| ?30-59 ?| ?Stage three ?| ? Stage three ? + --+ --+ ------+| ?15-29 ?| ?Stage four ? | ? Stage four ?+ ---+ ---+ -------+| ?<15 (or dialysis) ? ?| ?Stage five ? | ? Stage five ?+ ---+ ---+ -------+ *Each stage assumes the associated GFR level has been in effect for at least three months. ?Stages 1 to 5, with or without kidney disease, indicate chronic kidney disease. Notes: Determination of stages one and two (with eGFR >59mL/min/1.73 m2) requires estimation of kidney damage for at least three months as defined by structural or functional abnormalities of the kidney, manifested by either:Pathological abnormalities or Markers of kidney damage (including abnormalities in the composition of the blood or urine or abnormalities in imaging tests). Lab Interpretation Abnormal (test code = 76817-2) [facility] 09:09:00 Test Item Value Reference Range Interpretation Comments MAGNESIUM (test code = 8803396123) 1.5 mg/dL 1.7-2.4 L Lab Interpretation (test code = Abnormal 71454-4) [facility]2020[facility] 09:09:00 Test Item Value Reference Range Interpretation Comments PHOSPHORUS (test code = 2443169951) 3.3 mg/dL 2.5-5 Lab Interpretation (test code = Normal 87125-2) [facility] (for use with Heparin Practice Guideline). Note: Draw and Send all Lab STAT.2020-01-19 08:53:00 Test Item Value Reference Range Interpretation Comments APTT Patient (test code See_Comment H [Au tomated message] = 3173-2) The system Qu[employer] h generated this result transmitted ref erence range: 26 - 36 Seconds. The reference range was not used to int erpret this result as normal/abnormal . Lab Interpretation (test Abnormal code = 87458-6) [facility] / [id number] 08:53:00 Test Item Value Reference Range Interpretation Comments PROTIME PATIENT (test See_Comment H [Auto mated message] code = 5964-2) The system [email or web address] generated this result transmitted ref erence range: 10.1 - 1 2.6 Seconds. The reference range was not used to int erpret this result as normal/abnormal . INR (test code = 6301-6) Nor mal INR <1.1; Warfarin Therap eutic range 2.0 to 3. 0 or 2.5 to 3.5, dep ending upon the indica tions. Lab Interpretation (test Abnormal code = 84111-0) [facility] GLUCOSE (AUTOMATED)2020-01-19 08:51:00 Test Item Value Reference Range Interpretation Comments POCT GLU (test code = 3084991907) 218 mg/dL 70-110 H Lab Interpretation (test code = Abnormal 01412-0) [facility] GLUCOSE (AUTOMATED)2020-01-19 05:25:00 Test Item Value Reference Range Interpretation Comments POCT GLU (test code = 9117032967) 250 mg/dL 70-110 H Lab Interpretation (test code = Abnormal 67030-1) [facility] GLUCOSE (AUTOMATED)2020-01-19 02:26:00 Test Item Value Reference Range Interpretation Comments POCT GLU (test code = 7622776618) 248 mg/dL 70-110 H Lab Interpretation (test code = Abnormal 82839-6) [facility] (for use with Heparin Practice Guideline). Note: Draw and Send all Lab STAT.2020-01-18 21:29:00 Test Item Value Reference Range Interpretation Comments APTT Patient (test code See_Comment H [Au tomated message] = 3173-2) The system Parse generated this result transmitted ref erence range: 26 - 36 Seconds. The reference range was not used to int erpret this result as normal/abnormal . Lab Interpretation (test Abnormal code = 41348-6) [facility] GLUCOSE (AUTOMATED)2020-01-18 21:26:00 Test Item Value Reference Range Interpretation Comments POCT GLU (test code = 2696008256) 152 mg/dL 70-110 H Lab Interpretation (test code = Abnormal 77746-3) [facility] GLUCOSE (AUTOMATED)2020-01-18 18:43:00 Test Item Value Reference Range Interpretation Comments POCT GLU (test code = 2721755607) 162 mg/dL 70-110 H Lab Interpretation (test code = Abnormal 96195-1) [facility] (for use with Heparin Practice Guideline). Note: Draw and Send all Lab STAT.2020-01-18 16:00:00 Test Item Value Reference Range Interpretation Comments APTT Patient (test code See_Comment H [Au tomated message] = 3173-2) The system Parse generated this result transmitted ref erence range: 26 - 36 Seconds. The reference range was not used to int erpret this result as normal/abnormal . Lab Interpretation (test Abnormal code = 41966-4) [facility] GLUCOSE (AUTOMATED)2020-01-18 13:14:00 Test Item Value Reference Range Interpretation Comments POCT GLU (test code = 7239129534) 192 mg/dL 70-110 H Lab Interpretation (test code = Abnormal 15257-8) [facility] GLUCOSE (AUTOMATED)2020-01-18 10:27:00 Test Item Value Reference Range Interpretation Comments POCT GLU (test code = 7601619156) 301 mg/dL 70-110 H Lab Interpretation (test code = Abnormal 07462-6) [facility] (for use with Heparin Practice Guideline). Note: Draw and Send all Lab STAT.2020-01-18 07:57:00 Test Item Value Reference Range Interpretation Comments APTT Patient (test code See_Comment H [Au tomated message] = 3173-2) The system Parse generated this result transmitted ref erence range: 26 - 36 Seconds. The reference range was not used to int erpret this result as normal/abnormal . Lab Interpretation (test Abnormal code = 17167-2) [facility] GLUCOSE (AUTOMATED)2020-01-18 06:28:00 Test Item Value Reference Range Interpretation Comments POCT GLU (test code = 3626641908) 234 mg/dL 70-110 H Lab Interpretation (test code = Abnormal 44028-0) [facility] GLUCOSE (AUTOMATED)2020-01-18 02:00:00 Test Item Value Reference Range Interpretation Comments POCT GLU (test code = 5950229038) 186 mg/dL 70-110 H Lab Interpretation (test code = Abnormal 80289-2) [facility] GLUCOSE (AUTOMATED)2020-01-17 22:33:00 Test Item Value Reference Range Interpretation Comments POCT GLU (test code = 3606665911) 207 mg/dL 70-110 H Lab Interpretation (test code = Abnormal 79841-6) [facility] (for use with Heparin Practice Guideline). Note: Draw and Send all Lab STAT.2020-01-17 19:10:00 Test Item Value Reference Range Interpretation Comments APTT Patient (test code See_Comment H [Au tomated message] = 3173-2) The system Parse generated this result transmitted ref erence range: 26 - 36 Seconds. The reference range was not used to int erpret this result as normal/abnormal . Lab Interpretation (test Abnormal code = 19051-8) [facility] GLUCOSE (AUTOMATED)2020-01-17 16:30:00 Test Item Value Reference Range Interpretation Comments POCT GLU (test code = 7051007826) 188 mg/dL 70-110 H Lab Interpretation (test code = Abnormal 85788-5) [facility] (for use with Heparin Practice Guideline). Note: Draw and Send all Lab STAT.2020-01-17 13:26:00 Test Item Value Reference Range Interpretation Comments APTT Patient (test code See_Comment H [Au tomated message] = 3173-2) The system Parse generated this result transmitted ref erence range: 26 - 36 Seconds. The reference range was not used to int erpret this result as normal/abnormal . Lab Interpretation (test Abnormal code = 86712-7) [facility] GLUCOSE (AUTOMATED)2020-01-17 12:42:00 Test Item Value Reference Range Interpretation Comments POCT GLU (test code = 7663624860) 253 mg/dL 70-110 H Lab Interpretation (test code = Abnormal 04415-5) [facility] use with Heparin Practice Guideline). Note: Draw and Send all Lab STAT.2020-01-17 07:27:00 Test Item Value Reference Range Interpretation Comments APTT Patient (test code See_Comment H [Au tomated message] = 3173-2) The system Parse generated this result transmitted ref erence range: 26 - 36 Seconds. The reference range was not used to int erpret this result as normal/abnormal . Lab Interpretation (test Abnormal code = 33047-9) [facility] GLUCOSE (AUTOMATED)2020-01-17 05:12:00 Test Item Value Reference Range Interpretation Comments POCT GLU (test code = 2125845252) 259 mg/dL 70-110 H Lab Interpretation (test code = Abnormal 31362-2) [facility] GLUCOSE (AUTOMATED)2020-01-17 00:51:00 Test Item Value Reference Range Interpretation Comments POCT GLU (test code = 8896431260) 183 mg/dL 70-110 H Lab Interpretation (test code = Abnormal 28749-5) [facility] GLUCOSE (AUTOMATED)2020-01-16 21:57:00 Test Item Value Reference Range Interpretation Comments POCT GLU (test code = 6465646362) 242 mg/dL 70-110 H Lab Interpretation (test code = Abnormal 42242-5) [facility] [id number] 20:17:39 The tracheostomy tube tip terminates 5.2 cm proximal to matty. Stableposition of additional lines/tubes. Low lung volumes with interval worsening of airspace opacities consistentwith COVID 19 pneumonia. Disclaimer: Generally, the findings on chest imaging in COVID-19 are notspecific, and overlap with other infections, including influenza, H1N1,SARS and MERS.According to the Centers for Disease Control (CDC) and recent statement ofthe [place] [employer], viral testing remains the only specificmethod of diagnosis. Confirmation with the viral test is required, even ifradiologic findings are suggestive of COVID-[address]. Preliminary Report Dictated by Resident: Julian Gusman MD., have reviewed this study and agree withthe above report.XR CHEST 1 VW Comparison: Radiograph 01/12/2020 History: s/p tracheostomy Findings: The tracheostomy tube tip terminates 5.2 cm proximal to matty. Dobbhofftraverses the diaphragm and enters the stomach with the tip terminating inthe distal gastric antrum. A left IJ approach central venous catheter tipterminatesin the distal SVC. The lungs are underinflated with diffuse streaky and nodular opacities. Nopleuraleffusion or pneumothorax is identified. The cardiomediastinal silhouette is normal in size. Median sternotomy wiresand mediastinal surgical clips noted. No acute osseous abnormality is present. [facility], Radiant Results Inft User - 01/16/2020 3:18 PM CDTXR CHEST 1 VWComparison: Radiograph 01/12/2020History: s/p tracheostomy Findings:The tracheostomy tube tip terminates 5.2 cm proximal to matty. Dobbhofftraverses the diaphragm and enters the stomach with the tip terminating inthe distal gastric antrum. Aleft IJ approach central venous catheter tipterminates in the distal SVC.The lungs are underinflatedwith diffuse streaky and nodular opacities. Nopleural effusion or pneumothorax is identified. The cardiomediastinal silhouette is normal in size. Median sternotomy wiresand mediastinal surgical clips noted.No acute osseous abnormality is present.IMPRESSIONThe tracheostomy tube tip terminates 5.2 cm pro ximal to matty. Stableposition of additional lines/tubes.Low lung volumes with interval worsening of airspace opacities consistentwith COVID 19 pneumonia.Disclaimer: Generally, the findings on chest imaging in COVID-19 are notspecific, and overlap with other infections, including influenza, H1N1,SARS and MERS.According to the Centers for Disease Control (CDC) and recent statement ofthe [place] [employer], viral testing remains the only specificmethod of diagnosis. Confirmation with the viral test is required, even ifradiologic findings are suggestive of COVID-[address]PreliminaryReport Dictated by Resident: Honey A Julian Pena MD., have reviewed this study and agree withthe above report.[facility] CULTURE [id number] 19:01:00 Test Item Value Reference Range Interpretation Comments Blood Culture-Aerobic No organisms No growth Previo us (test code = 43580-3) isolated prelim inary verified result was Culture In Progress on 01/11/2020 at 17 01 CDTPrevious preliminary verified result was No growth a t 24 hours on 01/12/2020 at 14 01 CDTPrevious preliminary verified result was No growth a t 48 hours on 01/13/2020 at 14 01 CDTPrevious preliminary verified result was No growth a t 72 hours on 01/14/2020 at 14 01 CDT Blood No organisms No growth Previous Culture-Anaerobic isolated preliminar y (test code = 20088-3) verifi ed result was Culture In Progress on 01/11/2020 at 17 01 CDTPrevious preliminary verified result was No growth a t 24 hours on 01/12/2020 at 14 01 CDTPrevious preliminary verified result was No growth a t 48 hours on 01/13/2020 at 14 01 CDTPrevious preliminary verified result was No growth a t 72 hours on 01/14/2020 at 14 01 CDT Lab Interpretation Normal (test code = 13904-5) [facility] CULTURE [id number] 19:01:00 Test Item Value Reference Range Interpretation Comments Blood Culture-Aerobic No organisms No growth Previo us (test code = 50028-0) isolated prelim inary verified result was Culture In Progress on 01/11/2020 at 17 01 CDTPrevious preliminary verified result was No growth a t 24 hours on 01/12/2020 at 14 01 CDTPrevious preliminary verified result was No growth a t 48 hours on 01/13/2020 at 14 01 CDTPrevious preliminary verified result was No growth a t 72 hours on 01/14/2020 at 14 01 CDT Blood No organisms No growth Previous Culture-Anaerobic isolated preliminar y (test code = 02016-4) verifi ed result was Culture In Progress on 01/11/2020 at 17 01 CDTPrevious preliminary verified result was No growth a t 24 hours on 01/12/2020 at 14 01 CDTPrevious preliminary verified result was No growth a t 48 hours on 01/13/2020 at 14 01 CDTPrevious preliminary verified result was No growth a t 72 hours on 01/14/2020 at 14 01 CDT Lab Interpretation Normal (test code = 49624-8) [facility] GLUCOSE (AUTOMATED)2020-01-16 17:32:00 Test Item Value Reference Range Interpretation Comments POCT GLU (test code = 6286217572) 215 mg/dL 70-110 H Lab Interpretation (test code = Abnormal 98479-9) [facility] GLUCOSE (AUTOMATED)2020-01-16 14:02:00 Test Item Value Reference Range Interpretation Comments POCT GLU (test code = 3810006390) 210 mg/dL 70-110 H Lab Interpretation (test code = Abnormal 16630-6) [facility] 10:41:00 Test Item Value Reference Range Interpretation Comments MAGNESIUM (test code = 1982951479) 1.9 mg/dL 1.7-2.4 Lab Interpretation (test code = Normal 16989-1) [facility] 10:41:00 Test Item Value Reference Range Interpretation Comments PHOSPHORUS (test code = 7747507359) 3.3 mg/dL 2.5-5 Lab Interpretation (test code = Normal 89920-4) [facility] (NA, K, CL, CO2, GLUCOSE, BUN, CREATININE, CA)2020-01-16 10:41:00 Test Item Value Reference Range Interpretation Comments NA (test code = 137 mmol/L 135-145 5645419029) K (test code = 3.3 mmol/L 3.5-5 L 1777362861) CL (test code = 104 mmol/L 98-108 9241031569) CO2 TOTAL (test code = 31 mmol/L 23-31 9218671040) AGAP (test code = 2-16 8964963065) BUN (test code = 14 mg/dL 7-23 4668377633) GLUCOSE (test code = 233 mg/dL 70-110 H 9802202364) CREATININE (test code = 0.72 mg/dL 0.6-1.25 1596119686) CALCIUM (test code = 7.6 mg/dL 8.6-10.6 L 2017107135) eGFR Calculation mL/min/1.73m2 (Non-) (test code = 4727756013) eGFR Calculation mL/min/1.73m2 () (test code = 3699526440) MARLEN (test code = MARLEN) Association of Glomerular Filtration Rate (GFR) and Staging of Kidney Disease* + --+ --+ ------+| GFR (mL/min/1.73 m2) ?| With Kidney Damage ?| ?Without Kidney Damage+ --------+ --------+ +| ?>90 ?| ?Stage one ?| ? Normal ?+ ---+ ---+ -------+| ?60-89 ?| ?Stage two ?| ? Decreased GFR ? + --+ --+ ------+| ?30-59 ?| ?Stage three ?| ? Stage three ? + --+ --+ ------+| ?15-29 ?| ?Stage four ? | ? Stage four ?+ ---+ ---+ -------+| ?<15 (or dialysis) ? ?| ?Stage five ? | ? Stage five ?+ ---+ ---+ -------+ *Each stage assumes the associated GFR level has been in effect for at least three months. ?Stages 1 to 5, with or without kidney disease, indicate chronic kidney disease. Notes: Determination of stages one and two (with eGFR >59mL/min/1.73 m2) requires estimation of kidney damage for at least three months as defined by structural or functional abnormalities of the kidney, manifested by either:Pathological abnormalities or Markers of kidney damage (including abnormalities in the composition of the blood or urine or abnormalities in imaging tests). Lab Interpretation Abnormal (test code = 56310-8) [facility] [id number] 10:18:00 Test Item Value Reference Range Interpretation Comments PROTIME PATIENT (test See_Comment H [Auto mated message] code = 5964-2) The system [email or web address] generated this result transmitted ref erence range: 10.1 - 1 2.6 Seconds. The reference range was not used to int erpret this result as normal/abnormal . INR (test code = 6301-6) Nor mal INR <1.1; Warfarin Therap eutic range 2.0 to 3. 0 or 2.5 to 3.5, dep ending upon the indica tions. Lab Interpretation (test Abnormal code = 57799-6) [facility] WITH [id number] 10:07:00 Test Item Value Reference Range Interpretation Comments WBC (test code = See_Comment [Automated 6690-2) message] The sy stem which generated this result transmitted reference range : 4.20 - 10.70 10*3/?L. The reference range was not used to interpret this result as normal/abnormal . RBC (test code = See_Comment L [Automated 789-8) message] The sy stem which generated this result transmitted reference range : 4.26 - 5.52 10*6/?L. The reference range was not used to interpret this result as normal/abnormal . HGB (test code = 9.8 g/dL 12.2-16.4 L 718-7) HCT (test code = 30.6 % 38.4-49.3 L 4544-3) MCV (test code = 91.6 fL 81.7-95.6 787-2) MCH (test code = 29.3 pg 26.1-32.7 785-6) MCHC (test code = 32.0 g/dL 31.2-35 786-4) RDW-SD (test code = 49.1 fL 38.5-51.6 77942-5) RDW-CV (test code = 14.6 % 12.1-15.4 788-0) PLT (test code = See_Comment [Automated 777-3) message] The sy stem which generated this result transmitted reference range : 150 - 328 10*3/ ?L. The reference r sawyer was not used to interpret this result as normal/abnormal . MPV (test code = 11.4 fL 9.8-13 74434-9) NRBC/100 WBC (test See_Comment [Automat ed code = 0787915389) message] The system which generated this result transmitted reference range : 0.0 - 10.0 /100 WBCs. The refer ence range was not u sed to interpret th is result as normal/abnormal . NRBC x10^3 (test code <0.01 See_Comment [Auto mated = 7527022180) message] The s ystem which generated this result transmitted reference range : 10*3/?L. The reference range was not used to interpret this result as normal/abnormal . GRAN MAT (NEUT) % 76.5 % (test code = 770-8) IMM GRAN % (test code 1.40 % = 6742054596) LYMPH % (test code = 9.4 % 736-9) MONO % (test code = 6.7 % 5905-5) EOS % (test code = 5.7 % 713-8) BASO % (test code = 0.3 % 706-2) GRAN MAT x10^3(ANC) 7.86 10*3/uL 1.99-6.95 H (test code = 5367183201) IMM GRAN x10^3 (test 0.14 10*3/uL 0-0.06 H code = 9050522313) LYMPH x10^3 (test code 0.96 10*3/uL 1.09-3.23 L = 731-0) MONO x10^3 (test code 0.69 10*3/uL 0.36-1.02 = 742-7) EOS x10^3 (test code = 0.58 10*3/uL 0.06-0.53 H 711-2) BASO x10^3 (test code 0.03 10*3/uL 0.01-0.09 = 704-7) Lab Interpretation Abnormal (test code = 86174-0) [facility] GLUCOSE (AUTOMATED)2020-01-16 09:44:00 Test Item Value Reference Range Interpretation Comments POCT GLU (test code = 9928824710) 242 mg/dL 70-110 H Lab Interpretation (test code = Abnormal 85301-2) [facility] GLUCOSE (AUTOMATED)2020-01-16 05:12:00 Test Item Value Reference Range Interpretation Comments POCT GLU (test code = 1821048568) 184 mg/dL 70-110 H Lab Interpretation (test code = Abnormal 43650-4) [facility] - Please obtain prior to 4th [id number] 03:43:00 Test Item Value Reference Range Interpretation Comments VANCO TROUGH (test code 17.3 ug/mL 10-20 = 0907798869) MARLEN (test code = MARLEN) Toxic Range: ?>20 ug/mL 15-20 ug/mL is recommended for severe infection or when Vancomycin KARLA is greater than or equal to 2. Lab Interpretation (test Normal code = 48795-3) [facility] (for use with Heparin Practice Guideline). Note: Draw and Send all Lab STAT.2020-01-16 02:39:00 Test Item Value Reference Range Interpretation Comments APTT Patient (test code See_Comment H [Au tomated message] = 3173-2) The system Parse generated this result transmitted ref erence range: 26 - 36 Seconds. The reference range was not used to int erpret this result as normal/abnormal . Lab Interpretation (test Abnormal code = 42556-4) [facility] GLUCOSE (AUTOMATED)2020-01-16 02:22:00 Test Item Value Reference Range Interpretation Comments POCT GLU (test code = 5367761215) 185 mg/dL 70-110 H Lab Interpretation (test code = Abnormal 84163-9) [facility] GLUCOSE (AUTOMATED)2020-01-15 19:25:00 Test Item Value Reference Range Interpretation Comments POCT GLU (test code = 4352331041) 270 mg/dL 70-110 H Lab Interpretation (test code = Abnormal 70807-0) [facility] GLUCOSE (AUTOMATED)2020-01-15 13:19:00 Test Item Value Reference Range Interpretation Comments POCT GLU (test code = 9527623674) 233 mg/dL 70-110 H Lab Interpretation (test code = Abnormal 48128-2) [facility] (for use with Heparin Practice Guideline). Note: Draw and Send all Lab STAT.2020-01-15 13:00:00 Test Item Value Reference Range Interpretation Comments APTT Patient (test code See_Comment H [Au tomated message] = 3173-2) The system Parse generated this result transmitted ref erence range: 26 - 36 Seconds. The reference range was not used to int erpret this result as normal/abnormal . Lab Interpretation (test Abnormal code = 85418-8) [facility] GLUCOSE (AUTOMATED)2020-01-15 11:00:00 Test Item Value Reference Range Interpretation Comments POCT GLU (test code = 8822282226) 252 mg/dL 70-110 H Lab Interpretation (test code = Abnormal 68187-8) [facility] GLUCOSE (AUTOMATED)2020-01-15 04:36:00 Test Item Value Reference Range Interpretation Comments POCT GLU (test code = 6757687377) 210 mg/dL 70-110 H Lab Interpretation (test code = Abnormal 73847-9) [facility] (for use with Heparin Practice Guideline). Note: Draw and Send all Lab STAT.2020-01-15 01:22:00 Test Item Value Reference Range Interpretation Comments APTT Patient (test code See_Comment H [Au tomated message] = 3173-2) The system Parse generated this result transmitted ref erence range: 26 - 36 Seconds. The reference range was not used to int erpret this result as normal/abnormal . Lab Interpretation (test Abnormal code = 93058-5) [facility] GLUCOSE (AUTOMATED)2020-01-15 01:06:00 Test Item Value Reference Range Interpretation Comments POCT GLU (test code = 7119851249) 143 mg/dL 70-110 H Lab Interpretation (test code = Abnormal 04627-1) [facility] GLUCOSE (AUTOMATED)2020-01-14 21:12:00 Test Item Value Reference Range Interpretation Comments POCT GLU (test code = 8726496530) 180 mg/dL 70-110 H Lab Interpretation (test code = Abnormal 98160-8) [facility] GLUCOSE (AUTOMATED)2020-01-14 16:54:00 Test Item Value Reference Range Interpretation Comments POCT GLU (test code = 0265076564) 135 mg/dL 70-110 H Lab Interpretation (test code = Abnormal 26934-5) [facility] (for use with Heparin Practice Guideline). Note: Draw and Send all Lab STAT.2020-01-14 14:07:00 Test Item Value Reference Range Interpretation Comments APTT Patient (test code See_Comment H [Au tomated message] = 3173-2) The system Parse generated this result transmitted ref erence range: 26 - 36 Seconds. The reference range was not used to int erpret this result as normal/abnormal . Lab Interpretation (test Abnormal code = 20084-1) [facility] GLUCOSE (AUTOMATED)2020-01-14 13:26:00 Test Item Value Reference Range Interpretation Comments POCT GLU (test code = 0616519474) 172 mg/dL 70-110 H Lab Interpretation (test code = Abnormal 39443-0) [facility] (NA, K, CL, CO2, GLUCOSE, BUN, CREATININE, CA)2020-01-14 10:43:00 Test Item Value Reference Range Interpretation Comments NA (test code = 133 mmol/L 135-145 L 5954021042) K (test code = 3.6 mmol/L 3.5-5 1185066092) CL (test code = 104 mmol/L 98-108 7378610813) CO2 TOTAL (test code = 28 mmol/L 23-31 8566852586) AGAP (test code = 2-16 L 5687525397) BUN (test code = 15 mg/dL 7-23 6980419787) GLUCOSE (test code = 172 mg/dL 70-110 H 4121810789) CREATININE (test code = 0.72 mg/dL 0.6-1.25 4644686359) CALCIUM (test code = 7.4 mg/dL 8.6-10.6 L 1368613291) eGFR Calculation mL/min/1.73m2 (Non-) (test code = 7959910220) eGFR Calculation mL/min/1.73m2 () (test code = 6341675182) MARLEN (test code = MARLEN) Association of Glomerular Filtration Rate (GFR) and Staging of Kidney Disease* + --+ --+ ------+| GFR (mL/min/1.73 m2) ?| With Kidney Damage ?| ?Without Kidney Damage+ --------+ --------+ +| ?>90 ?| ?Stage one ?| ? Normal ?+ ---+ ---+ -------+| ?60-89 ?| ?Stage two ?| ? Decreased GFR ? + --+ --+ ------+| ?30-59 ?| ?Stage three ?| ? Stage three ? + --+ --+ ------+| ?15-29 ?| ?Stage four ? | ? Stage four ?+ ---+ ---+ -------+| ?<15 (or dialysis) ? ?| ?Stage five ? | ? Stage five ?+ ---+ ---+ -------+ *Each stage assumes the associated GFR level has been in effect for at least three months. ?Stages 1 to 5, with or without kidney disease, indicate chronic kidney disease. Notes: Determination of stages one and two (with eGFR >59mL/min/1.73 m2) requires estimation of kidney damage for at least three months as defined by structural or functional abnormalities of the kidney, manifested by either:Pathological abnormalities or Markers of kidney damage (including abnormalities in the composition of the blood or urine or abnormalities in imaging tests). Lab Interpretation Abnormal (test code = 95072-3) [facility] 10:43:00 Test Item Value Reference Range Interpretation Comments MAGNESIUM (test code = 6380528024) 1.9 mg/dL 1.7-2.4 Lab Interpretation (test code = Normal 09617-3) [facility] 10:43:00 Test Item Value Reference Range Interpretation Comments PHOSPHORUS (test code = 5894191907) 3.1 mg/dL 2.5-5 Lab Interpretation (test code = Normal 16412-1) [facility] / [id number] 10:24:00 Test Item Value Reference Range Interpretation Comments PROTIME PATIENT (test See_Comment H [Auto mated message] code = 5964-2) The system [email or web address] generated this result transmitted ref erence range: 10.1 - 1 2.6 Seconds. The reference range was not used to int erpret this result as normal/abnormal . INR (test code = 6301-6) Nor mal INR <1.1; Warfarin Therap eutic range 2.0 to 3. 0 or 2.5 to 3.5, dep ending upon the indica tions. Lab Interpretation (test Abnormal code = 98039-8) [facility]2020-01-14 09:57:00 Test Item Value Reference Range Interpretation Comments POCT GLU (test code = 2114838684) 183 mg/dL 70-110 H Lab Interpretation (test code = Abnormal 90851-4) [facility] GLUCOSE (AUTOMATED)2020-01-14 06:10:00 Test Item Value Reference Range Interpretation Comments POCT GLU (test code = 5408014243) 172 mg/dL 70-110 H Lab Interpretation (test code = Abnormal 09219-8) [facility] - Draw immediately prior to the 4TH dose, but, no more than 60 minutes before the 4TH dose. 2020-01-14 05:20:00 Test Item Value Reference Range Interpretation Comments VANCO TROUGH (test code 15.4 ug/mL 10-20 = 7375325616) MARLEN (test code = MARLEN) Toxic Range: ?>20 ug/mL 15-20 ug/mL is recommended for severe infection or when Vancomycin KARLA is greater than or equal to 2. Lab Interpretation (test Normal code = 82117-8) [facility] GLUCOSE (AUTOMATED)2020-01-14 02:55:00 Test Item Value Reference Range Interpretation Comments POCT GLU (test code = 5584653216) 199 mg/dL 70-110 H Lab Interpretation (test code = Abnormal 39028-1) [facility] (for use with Heparin Practice Guideline). Note: Draw and Send all Lab STAT.2020-01-14 02:52:00 Test Item Value Reference Range Interpretation Comments APTT Patient (test code See_Comment H [Au tomated message] = 3173-2) The system Parse generated this result transmitted ref erence range: 26 - 36 Seconds. The reference range was not used to int erpret this result as normal/abnormal . Lab Interpretation (test Abnormal code = 04137-4) [facility] GLUCOSE (AUTOMATED)2020-01-14 00:51:00 Test Item Value Reference Range Interpretation Comments POCT GLU (test code = 9767267562) 255 mg/dL 70-110 H Lab Interpretation (test code = Abnormal 66869-2) [facility] GLUCOSE (AUTOMATED)2020-01-13 18:01:00 Test Item Value Reference Range Interpretation Comments POCT GLU (test code = 6689876646) 256 mg/dL 70-110 H Lab Interpretation (test code = Abnormal 22519-3) [facility] GLUCOSE (AUTOMATED)2020-01-13 15:22:00 Test Item Value Reference Range Interpretation Comments POCT GLU (test code = 4009212714) 259 mg/dL 70-110 H Lab Interpretation (test code = Abnormal 47440-3) [facility] (for use with Heparin Practice Guideline). Note: Draw and Send all Lab STAT.2020-01-13 15:16:00 Test Item Value Reference Range Interpretation Comments APTT Patient (test code See_Comment H [Au tomated message] = 3173-2) The system Parse generated this result transmitted ref erence range: 26 - 36 Seconds. The reference range was not used to int erpret this result as normal/abnormal . Lab Interpretation (test Abnormal code = 63416-7) [facility] METABOLIC PANEL (NA, K, CL, CO2, GLUCOSE, BUN, CREATININE, CA)2020-01-13 10:10:00 Test Item Value Reference Range Interpretation Comments NA (test code = 134 mmol/L 135-145 L 7302679042) K (test code = 3.7 mmol/L 3.5-5 5121725434) CL (test code = 105 mmol/L 98-108 8828600057) CO2 TOTAL (test code = 24 mmol/L 23-31 5178602609) AGAP (test code = 2-16 6259447174) BUN (test code = 16 mg/dL 7-23 2295563603) GLUCOSE (test code = 190 mg/dL 70-110 H 0472900763) CREATININE (test code = 0.67 mg/dL 0.6-1.25 8262281076) CALCIUM (test code = 7.1 mg/dL 8.6-10.6 L 5748619435) eGFR Calculation mL/min/1.73m2 (Non-) (test code = 7473043080) eGFR Calculation mL/min/1.73m2 () (test code = 1548759087) MARLEN (test code = MARLEN) Association of Glomerular Filtration Rate (GFR) and Staging of Kidney Disease* + --+ --+ ------+| GFR (mL/min/1.73 m2) ?| With Kidney Damage ?| ?Without Kidney Damage+ --------+ --------+ +| ?>90 ?| ?Stage one ?| ? Normal ?+ ---+ ---+ -------+| ?60-89 ?| ?Stage two ?| ? Decreased GFR ? + --+ --+ ------+| ?30-59 ?| ?Stage three ?| ? Stage three ? + --+ --+ ------+| ?15-29 ?| ?Stage four ? | ? Stage four ?+ ---+ ---+ -------+| ?<15 (or dialysis) ? ?| ?Stage five ? | ? Stage five ?+ ---+ ---+ -------+ *Each stage assumes the associated GFR level has been in effect for at least three months. ?Stages 1 to 5, with or without kidney disease, indicate chronic kidney disease. Notes: Determination of stages one and two (with eGFR >59mL/min/1.73 m2) requires estimation of kidney damage for at least three months as defined by structural or functional abnormalities of the kidney, manifested by either:Pathological abnormalities or Markers of kidney damage (including abnormalities in the composition of the blood or urine or abnormalities in imaging tests). Lab Interpretation Abnormal (test code = 24856-2) [facility] 10:10:00 Test Item Value Reference Range Interpretation Comments MAGNESIUM (test code = 4652411954) 1.8 mg/dL 1.7-2.4 Lab Interpretation (test code = Normal 02444-3) [facility] 10:10:00 Test Item Value Reference Range Interpretation Comments PHOSPHORUS (test code = 8817351688) 3.3 mg/dL 2.5-5 Lab Interpretation (test code = Normal 90751-8) [facility]2020-01-13 10:03:00 Test Item Value Reference Range Interpretation Comments POCT GLU (test code = 5006273675) 171 mg/dL 70-110 H Lab Interpretation (test code = Abnormal 84315-3) [facility] / [id number] 09:54:00 Test Item Value Reference Range Interpretation Comments PROTIME PATIENT (test See_Comment H [Auto mated message] code = 5964-2) The system [email or web address] generated this result transmitted ref erence range: 10.1 - 1 2.6 Seconds. The reference range was not used to int erpret this result as normal/abnormal . INR (test code = 6301-6) Nor mal INR <1.1; Warfarin Therap eutic range 2.0 to 3. 0 or 2.5 to 3.5, dep ending upon the indica tions. Lab Interpretation (test Abnormal code = 46359-1) [facility] WITH [id number] 09:47:00 Test Item Value Reference Range Interpretation Comments WBC (test code = See_Comment H [Automated 6690-2) message] The sy stem which generated this result transmitted reference range : 4.20 - 10.70 10*3/?L. The reference range was not used to interpret this result as normal/abnormal . RBC (test code = See_Comment L [Automated 789-8) message] The sy stem which generated this result transmitted reference range : 4.26 - 5.52 10*6/?L. The reference range was not used to interpret this result as normal/abnormal . HGB (test code = 9.1 g/dL 12.2-16.4 L 718-7) HCT (test code = 27.7 % 38.4-49.3 L 4544-3) MCV (test code = 90.5 fL 81.7-95.6 787-2) MCH (test code = 29.7 pg 26.1-32.7 785-6) MCHC (test code = 32.9 g/dL 31.2-35 786-4) RDW-SD (test code = 47.3 fL 38.5-51.6 12309-5) RDW-CV (test code = 14.4 % 12.1-15.4 788-0) PLT (test code = See_Comment L [Automated 777-3) message] The sy stem which generated this result transmitted reference range : 150 - 328 10*3/ ?L. The reference r sawyer was not used to interpret this result as normal/abnormal . MPV (test code = 11.8 fL 9.8-13 65234-8) NRBC/100 WBC (test See_Comment [Automat ed code = 7420990940) message] The system which generated this result transmitted reference range : 0.0 - 10.0 /100 WBCs. The refer ence range was not u sed to interpret th is result as normal/abnormal . NRBC x10^3 (test code <0.01 See_Comment [Auto mated = 5207116282) message] The s ystem which generated this result transmitted reference range : 10*3/?L. The reference range was not used to interpret this result as normal/abnormal . GRAN MAT (NEUT) % 85.3 % (test code = 770-8) IMM GRAN % (test code 0.60 % = 7409227936) LYMPH % (test code = 4.6 % 736-9) MONO % (test code = 4.5 % 5905-5) EOS % (test code = 4.7 % 713-8) BASO % (test code = 0.3 % 706-2) GRAN MAT x10^3(ANC) 9.68 10*3/uL 1.99-6.95 H (test code = 1898205309) IMM GRAN x10^3 (test 0.07 10*3/uL 0-0.06 H code = 0949384977) LYMPH x10^3 (test code 0.52 10*3/uL 1.09-3.23 L = 731-0) MONO x10^3 (test code 0.51 10*3/uL 0.36-1.02 = 742-7) EOS x10^3 (test code = 0.53 10*3/uL 0.06-0.53 711-2) BASO x10^3 (test code 0.03 10*3/uL 0.01-0.09 = 704-7) Lab Interpretation Abnormal (test code = 25173-8) [facility]+K+GLU+CA2+2020-01-13 09:33:00 Test Item Value Reference Range Interpretation Comments PH (test code = 2) 7.35-7.45 PCO2 (test code = See_Comment [Automate d message] 4652985760) The system [employer] generated this result transmit vashti reference range : 35 - 45 mmHg. The reference range was not used to interpret this result as normal/abnormal . PO2 (test code = See_Comment L [Automated message] 4606048059) The system [employer] generated this result transmit vashti reference range : 80 - 100 mmHg. The reference range was not used to interpret this result as normal/abnormal . HCO3 (test code = See_Comment [Automate d message] 6997962642) The system Parse generated this result transmit vashti reference range : 22 - 26 mEq/L. The reference range was not used to interpret this result as normal/abnormal . BE (test code = See_Comment [Automated message] 0932095433) The system Parse generated this result transmit vashti reference range : -3.0 - 3.0 mEq/ L. The reference r sawyer was not used to interpret this result as normal/abnormal . THB (test code = 10.1 g/dL 13.5-18 L 6513715427) %O2HB (test code = 95.8 % 94-99 8188557717) %COHB ART (test code = 0.3 % 0-1.5 1144352567) %METHB ART (test code = 0.3 % 0.4-1.5 L 3612359302) VOL%O2 ART (test code = 13.7 % 15-23 L 6293332552) NA (test code = 133 mmol/L 135-145 L 3279454827) K+ (test code = 3.6 mmol/L 3.5-5 4748316034) AC CA IONZ (test code = 4.50 mg/dL 4.5-5.3 2931130280) GLUCOSE (test code = 203 mg/dL 70-110 H 0507134038) Lab Interpretation Abnormal (test code = 54753-6) [facility] GLUCOSE (AUTOMATED)2020-01-13 06:26:00 Test Item Value Reference Range Interpretation Comments POCT GLU (test code = 6945297949) 75 mg/dL 70-110 Lab Interpretation (test code = Normal 35431-8) [facility] (for use with Heparin Practice Guideline). Note: Draw and Send all Lab STAT.2020-01-13 03:28:00 Test Item Value Reference Range Interpretation Comments APTT Patient (test code See_Comment H [Au tomated message] = 3173-2) The system Parse generated this result transmitted ref erence range: 26 - 36 Seconds. The reference range was not used to int erpret this result as normal/abnormal . Lab Interpretation (test Abnormal code = 85198-5) [facility] GLUCOSE (AUTOMATED)2020-01-13 03:19:00 Test Item Value Reference Range Interpretation Comments POCT GLU (test code = 4069983640) 166 mg/dL 70-110 H Lab Interpretation (test code = Abnormal 07834-1) [facility] GLUCOSE (AUTOMATED)2020-01-12 21:59:00 Test Item Value Reference Range Interpretation Comments POCT GLU (test code = 1457870834) 190 mg/dL 70-110 H Lab Interpretation (test code = Abnormal 57466-4) [facility] (for use with Heparin Practice Guideline). Note: Draw and Send all Lab STAT.2020-01-12 20:55:00 Test Item Value Reference Range Interpretation Comments APTT Patient (test code See_Comment H [Au tomated message] = 3173-2) The system Parse generated this result transmitted ref erence range: 26 - 36 Seconds. The reference range was not used to int erpret this result as normal/abnormal . Lab Interpretation (test Abnormal code = 21271-0) [facility] [id number] 20:26:11 Interval worsening of airspace opacities in the left mid and lower lungzones. Preliminary Report Dictated by Resident: Guzman Olsen MD., have reviewed this study and agree withthe abovereport.EXAM: XR CHEST 1 VW, 01/12/2020 7:55 AM. HISTORY: 64 years-old Male with Covid pneumonia and hypoxic respiratoryfailure, to rule out infection?. COMPARISON: Chest radiograph, 01/10/2020. TECHNIQUE: AP chest radiograph. FINDINGS: Lines and tubes:Endotracheal tube tip is 7.1 cm above the tracheal.The tip of the Dobbhoff tube terminates in the distal stomach.The tip of left IJ line is at distal SVC.Median sternotomy wires and mediastinal surgical clips are noted,unchanged. Lungs/pleura: Interval worsening of airspace opacities in the left mid andlower lung zones. There is no pleural effusion or pneumothorax. The cardiomediastinal silhouette is within normal limits. ? Musculoskeletal: Noacute bony abnormality. [facility], Radiant Results Inft User - 01/12/2020 3:27 PM CDTEXAM: XR CHEST 1 VW, 01/12/2020 7:55 AM.HISTORY: 64 years-old Male with Covid pneumonia and hypoxic respiratoryfailure, torule out infection?.COMPARISON: Chest radiograph, 01/10/2020.TECHNIQUE: AP chest radiograph.FINDINGS:Lines and tubes:Endotracheal tube tip is 7.1 cm above the tracheal.The tip of the Dobbhoff tube terminates in the distal stomach.The tip of left IJ line is at distal SVC.Median sternotomy wires and mediastinal surgical clips are noted,unchanged.Lungs/pleura: Interval worsening of airspace opacities in the left mid andlower lung zones. There is no pleural effusion or pneumothorax.The cardiomediastinal silhouette is within normal limits. Musculoskeletal: No acute bony abnormality.IMPRESSIONInterval worsening of airspace opacities in the left mid and lower lungzones.Preliminary Report Dictated by Resident: Toby Segal, Guzman Cannon MD., have reviewed this study and agree with the abovereport.[facility] 19:05:00 Test Item Value Reference Range Interpretation Comments POCT GLU (test code = 5513980282) 132 mg/dL 70-110 H Lab Interpretation (test code = Abnormal 73464-2) [facility] [id number] 18:41:00 Test Item Value Reference Range Interpretation Comments THB (test code = 1631192254) 9.1 g/dL 13.5-18 L %O2HB (test code = 0037616315) 94.6 % 94-99 %COHB ART (test code = 0129563389) 0.3 % 0-1.5 %METHB ART (test code = 2029640930) 0.3 % 0.4-1.5 L VOL%O2 ART (test code = 4571040057) 12.2 % 15-23 L Lab Interpretation (test code = Abnormal 51023-8) [facility] LACTIC [id number] 18:40:00 Test Item Value Reference Range Interpretation Comments PH (test code = 2) 7.35-7.45 H PCO2 (test code = See_Comment L [Automate d 6205677541) message] The sy stem which generated this result transmitted reference range : 35 - 45 mmHg. The reference range was not used to interpret this result as normal/abnormal . PO2 (test code = See_Comment L [Automated 1023622644) message] The sy stem which generated this result transmitted reference range : 80 - 100 mmHg. The reference range was not used to interpret this result as normal/abnormal . HCO3 (test code = See_Comment [Automate d 0955887462) message] The sy stem which generated this result transmitted reference range : 22 - 26 mEq/L. The reference range was not used to interpret this result as normal/abnormal . BE (test code = See_Comment [Automated 7715390530) message] The sy stem which generated this result transmitted reference range : -3.0 - 3.0 mEq/ L. The reference r sawyer was not used to interpret this result as normal/abnormal . THB (test code = 9.1 g/dL 13.5-18 L 4719676822) %O2HB (test code = 94.6 % 94-99 3991199983) %COHB ART (test code = 0.3 % 0-1.5 8353580958) %METHB ART (test code = 0.3 % 0.4-1.5 L 6887485013) VOL%O2 ART (test code = 12.2 % 15-23 L 3837609659) NA (test code = 132 mmol/L 135-145 L 6626560621) K+ (test code = 3.7 mmol/L 3.5-5 1768136480) AC CA IONZ (test code = 4.30 mg/dL 4.5-5.3 L 6884514977) GLUCOSE (test code = 203 mg/dL 70-110 H 0455016035) LACTIC ACID (test code 1.56 mmol/L = 8714128887) Lab Interpretation Abnormal (test code = 56726-9) [facility]2020-01-12 18:31:00 Test Item Value Reference Range Interpretation Comments POCT GLU (test code = 1810600509) 254 mg/dL 70-110 H Lab Interpretation (test code = Abnormal 24455-5) [facility] [id number] 15:20:00 Test Item Value Reference Range Interpretation Comments TROPONIN I (test 0.005 ng/mL See_Comment [Automated code = 4313377911) message] The system which generated this result transmitted reference range : <=0.034. The reference range was not used to interpret this result as normal/abnormal . MARLEN (test code = Equal or Less than MARLEN) 0.034 ng/ml---Normal ?Note: Cardiac troponin begins to rise 3-4 hours after the onset of ischemia. Repeat in 4-6 hours if the sample was drawn within 3-4 hours of the onset of the symptom and found normal. Between 0.035 and 0.120 ng/mL--- Borderline. Questionable myocardial injury or necrosis ? ?Note: Serial measurement may be necessary to confirm or exclude the diagnosis of myocardial injury or necrosis; Clinical correlation (symptoms, EKGs, imaging studies, and others) required; Repeat in 4-6 hours if clinically indicated. ? Equal or Higher than 0.121 ng/mL---Abnormal. Myocardial Injury or Necrosis Likely ? Biotin has been reported to cause a negative bias, interpret results relative to patient's use of biotin. ? Lab Interpretation Normal (test code = 56714-9) [facility] LACTIC [id number] 14:52:00 Test Item Value Reference Range Interpretation Comments PH (test code = 2) 7.35-7.45 H PCO2 (test code = See_Comment L [Automate d 4721850375) message] The sy stem which generated this result transmitted reference range : 35 - 45 mmHg. The reference range was not used to interpret this result as normal/abnormal . PO2 (test code = See_Comment H [Automated 5881422474) message] The sy stem which generated this result transmitted reference range : 80 - 100 mmHg. The reference range was not used to interpret this result as normal/abnormal . HCO3 (test code = See_Comment [Automate d 8522388987) message] The sy stem which generated this result transmitted reference range : 22 - 26 mEq/L. The reference range was not used to interpret this result as normal/abnormal . BE (test code = See_Comment [Automated 7061431520) message] The sy stem which generated this result transmitted reference range : -3.0 - 3.0 mEq/ L. The reference r sawyer was not used to interpret this result as normal/abnormal . THB (test code = 10.8 g/dL 13.5-18 L 3050831182) %O2HB (test code = 97.6 % 94-99 7806490643) %COHB ART (test code = 0.3 % 0-1.5 8250834922) %METHB ART (test code = 0.4 % 0.4-1.5 7222726821) VOL%O2 ART (test code = 15.0 % 15-23 7415126545) NA (test code = 130 mmol/L 135-145 L 7930937610) K+ (test code = 3.9 mmol/L 3.5-5 4328688331) AC CA IONZ (test code = 4.30 mg/dL 4.5-5.3 L 2738864820) GLUCOSE (test code = 279 mg/dL 70-110 H 2247450062) LACTIC ACID (test code 1.45 mmol/L = 9920437400) Lab Interpretation Abnormal (test code = 35374-0) [facility]2020-01-12 14:31:00 Test Item Value Reference Range Interpretation Comments POCT GLU (test code = 7279322760) 298 mg/dL 70-110 H Lab Interpretation (test code = Abnormal 54652-8) [facility]UR[facility] [id number] 11:23:00 Test Item Value Reference Range Interpretation Comments URINE CULTURE (test No aerobic growth (< code = 630-4) 1000 CFU/mL) [facility]AB[facility]+COOX+NA+K+GLU+CA2+2020-01-12 08:50:00 Test Item Value Reference Range Interpretation Comments PH (test code = 2) 7.35-7.45 H PCO2 (test code = See_Comment L [Automate d message] 3156222173) The system [employer] generated this result transmit vashti reference range : 35 - 45 mmHg. The reference range was not used to interpret this result as normal/abnormal . PO2 (test code = See_Comment L [Automated message] 9722829763) The system [employer] generated this result transmit vashti reference range : 80 - 100 mmHg. The reference range was not used to interpret this result as normal/abnormal . HCO3 (test code = See_Comment L [Automate d message] 4037119147) The system [employer] generated this result transmit vashti reference range : 22 - 26 mEq/L. The reference range was not used to interpret this result as normal/abnormal . BE (test code = See_Comment [Automated message] 5824881433) The system Parse generated this result transmit vashti reference range : -3.0 - 3.0 mEq/ L. The reference r sawyer was not used to interpret this result as normal/abnormal . THB (test code = 11.3 g/dL 13.5-18 L 4097533620) %O2HB (test code = 91.0 % 94-99 L 2409981399) %COHB ART (test code = 0.4 % 0-1.5 1021349014) %METHB ART (test code = 0.2 % 0.4-1.5 L 2612350782) VOL%O2 ART (test code = 14.5 % 15-23 L 3861083279) NA (test code = 131 mmol/L 135-145 L 2670136381) K+ (test code = 3.5 mmol/L 3.5-5 7775571692) AC CA IONZ (test code = 4.40 mg/dL 4.5-5.3 L 5300537625) GLUCOSE (test code = 113 mg/dL 70-110 H 3965437021) Lab Interpretation Abnormal (test code = 52629-3) [facility] (for use with Heparin Practice Guideline). Note: Draw and Send all Lab STAT.2020-01-12 07:30:00 Test Item Value Reference Range Interpretation Comments APTT Patient (test code See_Comment H [Au tomated message] = 3173-2) The system Parse generated this result transmitted ref erence range: 26 - 36 Seconds. The reference range was not used to int erpret this result as normal/abnormal . Lab Interpretation (test Abnormal code = 41022-7) [facility] HospitalPROTHROMBIN [facility] / [id number] 06:51:00 Test Item Value Reference Range Interpretation Comments PROTIME PATIENT (test See_Comment H [Auto mated message] code = 5964-2) The system [email or web address] generated this result transmitted ref erence range: 10.1 - 1 2.6 Seconds. The reference range was not used to int erpret this result as normal/abnormal . INR (test code = 6301-6) Nor mal INR <1.1; Warfarin Therap eutic range 2.0 to 3. 0 or 2.5 to 3.5, dep ending upon the indica tions. Lab Interpretation (test Abnormal code = 39092-5) [facility] METABOLIC PANEL (NA, K, CL, CO2, GLUCOSE, BUN, CREATININE, CA)2020-01-12 06:49:00 Test Item Value Reference Range Interpretation Comments NA (test code = 131 mmol/L 135-145 L 4620131916) K (test code = 3.6 mmol/L 3.5-5 9482213998) CL (test code = 104 mmol/L 98-108 0315350142) CO2 TOTAL (test code = 22 mmol/L 23-31 L 5199873613) AGAP (test code = 2-16 5479447737) BUN (test code = 20 mg/dL 7-23 9482892199) GLUCOSE (test code = 150 mg/dL 70-110 H 6431632171) CREATININE (test code = 0.75 mg/dL 0.6-1.25 7719212785) CALCIUM (test code = 7.5 mg/dL 8.6-10.6 L 9322670739) eGFR Calculation mL/min/1.73m2 (Non-) (test code = 9239764267) eGFR Calculation mL/min/1.73m2 () (test code = 5344440905) MARLEN (test code = MARLEN) Association of Glomerular Filtration Rate (GFR) and Staging of Kidney Disease* + --+ --+ ------+| GFR (mL/min/1.73 m2) ?| With Kidney Damage ?| ?Without Kidney Damage+ --------+ --------+ +| ?>90 ?| ?Stage one ?| ? Normal ?+ ---+ ---+ -------+| ?60-89 ?| ?Stage two ?| ? Decreased GFR ? + --+ --+ ------+| ?30-59 ?| ?Stage three ?| ? Stage three ? + --+ --+ ------+| ?15-29 ?| ?Stage four ? | ? Stage four ?+ ---+ ---+ -------+| ?<15 (or dialysis) ? ?| ?Stage five ? | ? Stage five ?+ ---+ ---+ -------+ *Each stage assumes the associated GFR level has been in effect for at least three months. ?Stages 1 to 5, with or without kidney disease, indicate chronic kidney disease. Notes: Determination of stages one and two (with eGFR >59mL/min/1.73 m2) requires estimation of kidney damage for at least three months as defined by structural or functional abnormalities of the kidney, manifested by either:Pathological abnormalities or Markers of kidney damage (including abnormalities in the composition of the blood or urine or abnormalities in imaging tests). Lab Interpretation Abnormal (test code = 85693-2) [facility]2020-08-17 06:49:00 Test Item Value Reference Range Interpretation Comments MAGNESIUM (test code = 8296044837) 2.1 mg/dL 1.7-2.4 Lab Interpretation (test code = Normal 89655-6) [facility]2020-08-17 06:49:00 Test Item Value Reference Range Interpretation Comments PHOSPHORUS (test code = 0419771782) 3.3 mg/dL 2.5-5 Lab Interpretation (test code = Normal 30380-6) [facility] GLUCOSE (AUTOMATED)2020-01-12 05:14:00 Test Item Value Reference Range Interpretation Comments POCT GLU (test code = 4725561006) 187 mg/dL 70-110 H Lab Interpretation (test code = Abnormal 68889-6) [facility] GLUCOSE (AUTOMATED)2020-01-12 01:50:00 Test Item Value Reference Range Interpretation Comments POCT GLU (test code = 0944479631) 129 mg/dL 70-110 H Lab Interpretation (test code = Abnormal 33137-7) [facility] GLUCOSE (AUTOMATED)2020-01-11 21:04:00 Test Item Value Reference Range Interpretation Comments POCT GLU (test code = 1031837036) 168 mg/dL 70-110 H Lab Interpretation (test code = Abnormal 59768-4) [facility] (for use with Heparin Practice Guideline). Note: Draw and Send all Lab STAT.2020-01-11 18:15:00 Test Item Value Reference Range Interpretation Comments APTT Patient (test code See_Comment H [Au tomated message] = 3173-2) The system Parse generated this result transmitted ref erence range: 26 - 36 Seconds. The reference range was not used to int erpret this result as normal/abnormal . Lab Interpretation (test Abnormal code = 78772-8) [facility]XR [facility] 1 [id number] 14:14:31 FINDINGS/IMPRESSION: Interval left IJ tube central venous catheter with tip terminating in thedistalSVC. Interval removal of right-sided IJ CVC. The endotracheal tubeterminates approximately 6.5 cm above the matty. The tip of the Dobbhofftube terminates in the distal stomach. Hazy airspace opacifications in the periphery of the bilateral lower lunglungs are grossly unchanged from prior imaging, concerning for atypicalinfection including COVID 19 pneumonia. No pleural effusion or pneumothoraxis visualized The heart is normal in size. Multiple surgical clips project over themediastinum. The osseousstructures are unremarkable. Preliminary Report Dictated by Resident: Julian Castellanos MD., have reviewed this study and agree withthe above report.XR CHEST 1 VW History: cvc placement Comparison: XR CHEST 1 VW, 01/09/2020. [facility], Radiant Results Inft User - 01/11/2020 9:15 AM CDTXR CHEST 1 VWHistory: cvc placement Comparison: XR CHEST 1 VW, 01/09/2020.IMPRESSIONFINDINGS/IMPRESSION:Interval left IJ tube central venous catheter with tip terminating in thedistal SVC. Interval removal of right-sided IJ CVC. The endotracheal tubeterminates approximately 6.5 cm above the matty. The tip of the Dobbhofftube terminates in the distal stomach.Hazy airspace opacifications in the periphery of the bilateral lower lunglungs are grossly unchanged from prior imaging, concerning for atypicalinfection including COVID 19 pneumonia. No pleural effusion or pneumothoraxis visualizedThe heartis normal in size. Multiple surgical clips project over themediastinum. The osseous structures are unremarkable.Preliminary Report Dictated by Resident: Julian Vazquez MD., have reviewed this study and agree withthe above report.[facility] 2020-01-11 12:27:00 Test Item Value Reference Range Interpretation Comments POCT GLU (test code = 9538734950) 110 mg/dL 70-110 Lab Interpretation (test code = Normal 24544-0) [facility] (for use with Heparin Practice Guideline). Note: Draw and Send all Lab STAT.2020-01-11 12:05:00 Test Item Value Reference Range Interpretation Comments APTT Patient (test code See_Comment H [Au tomated message] = 3173-2) The system Parse generated this result transmitted ref erence range: 26 - 36 Seconds. The reference range was not used to int erpret this result as normal/abnormal . Lab Interpretation (test Abnormal code = 92161-1) [facility]PROT[facility]OMBIN [facility] / [id number] 12:05:00 Test Item Value Reference Range Interpretation Comments PROTIME PATIENT (test See_Comment H [Auto mated message] code = 5964-2) The system [email or web address] generated this result transmitted ref erence range: 10.1 - 1 2.6 Seconds. The reference range was not used to int erpret this result as normal/abnormal . INR (test code = 6301-6) Nor mal INR <1.1; Warfarin Therap eutic range 2.0 to 3. 0 or 2.5 to 3.5, dep ending upon the indica tions. Lab Interpretation (test Abnormal code = 68476-3) [facility]OLIC PANEL (NA, K, CL, CO2, GLUCOSE, BUN, CREATININE, CA)2020-01-11 10:07:00 Test Item Value Reference Range Interpretation Comments NA (test code = 132 mmol/L 135-145 L 5561369479) K (test code = 4.2 mmol/L 3.5-5 8057009296) CL (test code = 102 mmol/L 98-108 1009558143) CO2 TOTAL (test code = 24 mmol/L 23-31 5032614696) AGAP (test code = 2-16 9591325484) BUN (test code = 23 mg/dL 7-23 9725803357) GLUCOSE (test code = 166 mg/dL 70-110 H 8831012861) CREATININE (test code = 0.82 mg/dL 0.6-1.25 8097337391) CALCIUM (test code = 7.4 mg/dL 8.6-10.6 L 7255469457) eGFR Calculation mL/min/1.73m2 (Non-) (test code = 3515924277) eGFR Calculation mL/min/1.73m2 () (test code = 1064096336) MARLEN (test code = MARLEN) Association of Glomerular Filtration Rate (GFR) and Staging of Kidney Disease* + --+ --+ ------+| GFR (mL/min/1.73 m2) ?| With Kidney Damage ?| ?Without Kidney Damage+ --------+ --------+ +| ?>90 ?| ?Stage one ?| ? Normal ?+ ---+ ---+ -------+| ?60-89 ?| ?Stage two ?| ? Decreased GFR ? + --+ --+ ------+| ?30-59 ?| ?Stage three ?| ? Stage three ? + --+ --+ ------+| ?15-29 ?| ?Stage four ? | ? Stage four ?+ ---+ ---+ -------+| ?<15 (or dialysis) ? ?| ?Stage five ? | ? Stage five ?+ ---+ ---+ -------+ *Each stage assumes the associated GFR level has been in effect for at least three months. ?Stages 1 to 5, with or without kidney disease, indicate chronic kidney disease. Notes: Determination of stages one and two (with eGFR >59mL/min/1.73 m2) requires estimation of kidney damage for at least three months as defined by structural or functional abnormalities of the kidney, manifested by either:Pathological abnormalities or Markers of kidney damage (including abnormalities in the composition of the blood or urine or abnormalities in imaging tests). Lab Interpretation Abnormal (test code = 39006-7) [facility]2020-[facility]-16 10:07:00 Test Item Value Reference Range Interpretation Comments MAGNESIUM (test code = 7600647702) 1.7 mg/dL 1.7-2.4 Lab Interpretation (test code = Normal 30891-1) [facility]2020-08-16 10:07:00 Test Item Value Reference Range Interpretation Comments PHOSPHORUS (test code = 4571673591) 3.4 mg/dL 2.5-5 Lab Interpretation (test code = Normal 39875-6) [facility] HospitalCB WITH [id number] 09:49:00 Test Item Value Reference Range Interpretation Comments WBC (test code = See_Comment H [Automated 6690-2) message] The system which generated this result transmit vashti reference range : 4.20 - 10.70 10*3/?L. The reference range was not used to interpret this result as normal/abnormal . RBC (test code = See_Comment L [Automated 789-8) message] The system which generated this result transmit vashti reference range : 4.26 - 5.52 10*6/?L. The reference range was not used to interpret this result as normal/abnormal . HGB (test code = 10.7 g/dL 12.2-16.4 L 718-7) HCT (test code = 30.3 % 38.4-49.3 L 4544-3) MCV (test code = 89.4 fL 81.7-95.6 787-2) MCH (test code = 31.6 pg 26.1-32.7 785-6) MCHC (test code = 35.3 g/dL 31.2-35 H 786-4) RDW-SD (test code = 45.2 fL 38.5-51.6 87786-6) RDW-CV (test code = 14.1 % 12.1-15.4 788-0) PLT (test code = See_Comment [Automated 777-3) message] The system which generated this result transmit vashti reference range : 150 - 328 10*3/ ?L. The reference range was not u sed to interpret th is result as normal/abnormal . MPV (test code = 12.3 fL 9.8-13 15797-5) NRBC/100 WBC (test See_Comment [Automat ed code = 5638538627) message] The system which generated this result transmit vashti reference range : 0.0 - 10.0 /100 WBCs. The reference range was not used to interpret this result as normal/abnormal . NRBC x10^3 (test code <0.01 See_Comment [Auto mated = 6478544599) message] The system which generated this result transmit vashti reference range : 10*3/?L. The reference range was not used to interpret this result as normal/abnormal . GRAN MAT (NEUT) % 90.0 % (test code = 770-8) IMM GRAN % (test code 0.60 % = 6215839698) LYMPH % (test code = 2.6 % 736-9) MONO % (test code = 3.8 % 5905-5) EOS % (test code = 2.8 % 713-8) BASO % (test code = 0.2 % 706-2) GRAN MAT x10^3(ANC) 13.92 10*3/uL 1.99-6.95 H (test code = 8956130379) IMM GRAN x10^3 (test 0.09 10*3/uL 0-0.06 H code = 8691339111) LYMPH x10^3 (test code 0.41 10*3/uL 1.09-3.23 L = 731-0) MONO x10^3 (test code 0.59 10*3/uL 0.36-1.02 = 742-7) EOS x10^3 (test code = 0.44 10*3/uL 0.06-0.53 711-2) BASO x10^3 (test code 0.03 10*3/uL 0.01-0.09 = 704-7) Lab Interpretation Abnormal (test code = 12288-9) [facility]AB[facility]X+NA+K+GLU+CA2+2020-01-11 09:45:00 Test Item Value Reference Range Interpretation Comments PH (test code = 2) 7.35-7.45 H PCO2 (test code = See_Comment L [Automate d message] 8047415473) The system Parse generated this result transmit vashti reference range : 35 - 45 mmHg. The reference range was not used to interpret this result as normal/abnormal . PO2 (test code = See_Comment L [Automated message] 3704585696) The system Parse generated this result transmit vashti reference range : 80 - 100 mmHg. The reference range was not used to interpret this result as normal/abnormal . HCO3 (test code = See_Comment [Automate d message] 5218536796) The system Parse generated this result transmit vashti reference range : 22 - 26 mEq/L. The reference range was not used to interpret this result as normal/abnormal . BE (test code = See_Comment [Automated message] 9112840987) The system Parse generated this result transmit vashti reference range : -3.0 - 3.0 mEq/ L. The reference r sawyer was not used to interpret this result as normal/abnormal . THB (test code = 11.4 g/dL 13.5-18 L 6864509948) %O2HB (test code = 84.8 % 94-99 L 0384132488) %COHB ART (test code = 0.0 % 0-1.5 4023245724) %METHB ART (test code = 0.1 % 0.4-1.5 L 1824093429) VOL%O2 ART (test code = 13.6 % 15-23 L 3964484758) NA (test code = 129 mmol/L 135-145 L 5230533812) K+ (test code = 4.0 mmol/L 3.5-5 2918286179) AC CA IONZ (test code = 4.40 mg/dL 4.5-5.3 L 6954826553) GLUCOSE (test code = 177 mg/dL 70-110 H 3678679766) Lab Interpretation Abnormal (test code = 56636-9) [facility] GLUCOSE (AUTOMATED)2020-01-11 09:31:00 Test Item Value Reference Range Interpretation Comments POCT GLU (test code = 4882424070) 160 mg/dL 70-110 H Lab Interpretation (test code = Abnormal 95115-9) [facility] (for use with Heparin Practice Guideline). Note: Draw and Send all Lab STAT.2020-01-11 05:31:00 Test Item Value Reference Range Interpretation Comments APTT Patient (test code See_Comment H [Au tomated message] = 3173-2) The system Parse generated this result transmitted ref erence range: 26 - 36 Seconds. The reference range was not used to int erpret this result as normal/abnormal . Lab Interpretation (test Abnormal code = 25669-0) [facility] GLUCOSE (AUTOMATED)2020-01-11 03:11:00 Test Item Value Reference Range Interpretation Comments POCT GLU (test code = 4348956753) 148 mg/dL 70-110 H Lab Interpretation (test code = Abnormal 16953-0) [facility] (for use with Heparin Practice Guideline). Note: Draw and Send all Lab STAT.2020-01-10 22:10:00 Test Item Value Reference Range Interpretation Comments APTT Patient (test code See_Comment H [Au tomated message] = 3173-2) The system Parse generated this result transmitted ref erence range: 26 - 36 Seconds. The reference range was not used to int erpret this result as normal/abnormal . Lab Interpretation (test Abnormal code = 88139-0) [facility] GLUCOSE (AUTOMATED)2020-01-10 20:59:00 Test Item Value Reference Range Interpretation Comments POCT GLU (test code = 2627720099) 204 mg/dL 70-110 H Lab Interpretation (test code = Abnormal 01946-7) [facility] GLUCOSE (AUTOMATED)2020-01-10 16:37:00 Test Item Value Reference Range Interpretation Comments POCT GLU (test code = 1026676108) 210 mg/dL 70-110 H Lab Interpretation (test code = Abnormal 92591-8) [facility] METABOLIC PANEL (NA, K, CL, CO2, GLUCOSE, BUN, CREATININE, CA)2020-01-10 11:42:00 Test Item Value Reference Range Interpretation Comments NA (test code = 133 mmol/L 135-145 L 5333565906) K (test code = 4.4 mmol/L 3.5-5 6557337179) CL (test code = 105 mmol/L 98-108 4747281664) CO2 TOTAL (test code = 26 mmol/L 23-31 8298306935) AGAP (test code = 2-16 3108460380) BUN (test code = 24 mg/dL 7-23 H 4025685442) GLUCOSE (test code = 253 mg/dL 70-110 H 1932028755) CREATININE (test code = 0.75 mg/dL 0.6-1.25 3435971738) CALCIUM (test code = 7.5 mg/dL 8.6-10.6 L 9000230108) eGFR Calculation mL/min/1.73m2 (Non-) (test code = 9627329764) eGFR Calculation mL/min/1.73m2 () (test code = 8948749854) MARLEN (test code = MARLEN) Association of Glomerular Filtration Rate (GFR) and Staging of Kidney Disease* + --+ --+ ------+| GFR (mL/min/1.73 m2) ?| With Kidney Damage ?| ?Without Kidney Damage+ --------+ --------+ +| ?>90 ?| ?Stage one ?| ? Normal ?+ ---+ ---+ -------+| ?60-89 ?| ?Stage two ?| ? Decreased GFR ? + --+ --+ ------+| ?30-59 ?| ?Stage three ?| ? Stage three ? + --+ --+ ------+| ?15-29 ?| ?Stage four ? | ? Stage four ?+ ---+ ---+ -------+| ?<15 (or dialysis) ? ?| ?Stage five ? | ? Stage five ?+ ---+ ---+ -------+ *Each stage assumes the associated GFR level has been in effect for at least three months. ?Stages 1 to 5, with or without kidney disease, indicate chronic kidney disease. Notes: Determination of stages one and two (with eGFR >59mL/min/1.73 m2) requires estimation of kidney damage for at least three months as defined by structural or functional abnormalities of the kidney, manifested by either:Pathological abnormalities or Markers of kidney damage (including abnormalities in the composition of the blood or urine or abnormalities in imaging tests). Lab Interpretation Abnormal (test code = 33957-4) [facility]00 Test Item Value Reference Range Interpretation Comments MAGNESIUM (test code = 5646369966) 1.9 mg/dL 1.7-2.4 Lab Interpretation (test code = Normal 59113-5) [facility] 11:42:00 Test Item Value Reference Range Interpretation Comments PHOSPHORUS (test code = 8820372157) 2.8 mg/dL 2.5-5 Lab Interpretation (test code = Normal 21395-9) [facility] (for use with Heparin Practice Guideline). Note: Draw and Send all Lab STAT.2020-01-10 11:19:00 Test Item Value Reference Range Interpretation Comments APTT Patient (test code See_Comment H [Au tomated message] = 3173-2) The system Parse generated this result transmitted ref erence range: 26 - 36 Seconds. The reference range was not used to int erpret this result as normal/abnormal . Lab Interpretation (test Abnormal code = 14516-5) [facility] / [id number] 11:19:00 Test Item Value Reference Range Interpretation Comments PROTIME PATIENT (test See_Comment H [Auto mated message] code = 5964-2) The system wh ich generated this result transmitted ref erence range: 10.1 - 1 2.6 Seconds. The reference range was not used to int erpret this result as normal/abnormal . INR (test code = 6301-6) Nor mal INR <1.1; Warfarin Therap eutic range 2.0 to 3. 0 or 2.5 to 3.5, dep ending upon the indica tions. Lab Interpretation (test Abnormal code = 60383-7) [facility] GLUCOSE (AUTOMATED)2020-01-10 11:11:00 Test Item Value Reference Range Interpretation Comments POCT GLU (test code = 0370637364) 266 mg/dL 70-110 H Lab Interpretation (test code = Abnormal 04237-2) [facility] GLUCOSE (AUTOMATED)2020-01-10 06:31:00 Test Item Value Reference Range Interpretation Comments POCT GLU (test code = 0551818816) 205 mg/dL 70-110 H Lab Interpretation (test code = Abnormal 27436-5) [facility] [id number] 04:03:00 Test Item Value Reference Range Interpretation Comments TROPONIN I (test 0.006 ng/mL See_Comment [Automated code = 9433722273) message] The system which generated this result transmitted reference range : <=0.034. The reference range was not used to interpret this result as normal/abnormal . MARLEN (test code = Equal or Less than MARLEN) 0.034 ng/ml---Normal ?Note: Cardiac troponin begins to rise 3-4 hours after the onset of ischemia. Repeat in 4-6 hours if the sample was drawn within 3-4 hours of the onset of the symptom and found normal. Between 0.035 and 0.120 ng/mL--- Borderline. Questionable myocardial injury or necrosis ? ?Note: Serial measurement may be necessary to confirm or exclude the diagnosis of myocardial injury or necrosis; Clinical correlation (symptoms, EKGs, imaging studies, and others) required; Repeat in 4-6 hours if clinically indicated. ? Equal or Higher than 0.121 ng/mL---Abnormal. Myocardial Injury or Necrosis Likely ? Biotin has been reported to cause a negative bias, interpret results relative to patient's use of biotin. ? Lab Interpretation Normal (test code = 07684-3) [facility]2020-01-10 03:43:00 Test Item Value Reference Range Interpretation Comments POCT GLU (test code = 6075435993) 173 mg/dL 70-110 H Lab Interpretation (test code = Abnormal 06799-8) [facility] [id number] 21:56:00 Test Item Value Reference Range Interpretation Comments TROPONIN I (test 0.007 ng/mL See_Comment [Automated code = 5615164434) message] The system which generated this result transmitted reference range : <=0.034. The reference range was not used to interpret this result as normal/abnormal . MARLEN (test code = Equal or Less than MARLEN) 0.034 ng/ml---Normal ?Note: Cardiac troponin begins to rise 3-4 hours after the onset of ischemia. Repeat in 4-6 hours if the sample was drawn within 3-4 hours of the onset of the symptom and found normal. Between 0.035 and 0.120 ng/mL--- Borderline. Questionable myocardial injury or necrosis ? ?Note: Serial measurement may be necessary to confirm or exclude the diagnosis of myocardial injury or necrosis; Clinical correlation (symptoms, EKGs, imaging studies, and others) required; Repeat in 4-6 hours if clinically indicated. ? Equal or Higher than 0.121 ng/mL---Abnormal. Myocardial Injury or Necrosis Likely ? Biotin has been reported to cause a negative bias, interpret results relative to patient's use of biotin. ? Lab Interpretation Normal (test code = 75737-6) [facility] (for use with Heparin Practice Guideline). Note: Draw and Send all Lab STAT.2020-01-09 21:34:00 Test Item Value Reference Range Interpretation Comments APTT Patient (test code See_Comment H [Au tomated message] = 3173-2) The system Parse generated this result transmitted ref erence range: 26 - 36 Seconds. The reference range was not used to int erpret this result as normal/abnormal . Lab Interpretation (test Abnormal code = 39118-4) [facility] 1 [id number] 19:49:48 FINDINGS/IMPRESSION: The endotracheal tube terminates 5 cm from the matty. The right internaljugular central venous catheter terminates in the distal SVC. The Dobbhofftube terminates in the distal stomach. Hazy airspace opacities are noted in the periphery of the bilateral lowerlungs, more pronouncedfrom comparison exam. These findings are concerningfor atypical infection, including Covid 19. No pleural effusion orpneumothorax is seen. The cardiac silhouette is normal in size. Multiple surgical clips are notedin the mediastinum. No acute bony abnormality. Changes of median sternotomy. Sim Muro MD., have reviewed this study and agree with theabove report.EXAM: XR CHEST 1 VW HISTORY: ETT location COMPARISON: Chest x-ray 01/02/2020 [facility], Radiant Results Inft User - 01/09/2020 2:50 PMCDTEXAM: XR CHEST 1 VWHISTORY: ETT location COMPARISON: Chest x-ray 01/02/2020IMPRESSIONFINDINGS/IMPRESSION:The endotracheal tube terminates 5 cm from the matty. The right internaljugular central venouscatheter terminates in the distal SVC. The Dobbhofftube terminates in the distal stomach.Hazy airspace opacities are noted in the periphery of the bilateral lowerlungs, more pronounced from comparison exam. These findings are concerningfor atypical infection, including Covid 19. No pleural effusion orpneumothorax is seen. The cardiac silhouette is normal in size. Multiple surgical clips are notedin the mediastinum.No acute bony abnormality. Changes of median sternotomy. Sim Muro MD.,have reviewed this study and agree with theabove report. [facility] GLUCOSE (AUTOMATED)2020-01-09 17:32:00 Test Item Value Reference Range Interpretation Comments POCT GLU (test code = 0934243293) 293 mg/dL 70-110 H Lab Interpretation (test code = Abnormal 27003-3) [facility] GLUCOSE (AUTOMATED)2020-01-09 13:41:00 Test Item Value Reference Range Interpretation Comments POCT GLU (test code = 4500217498) 192 mg/dL 70-110 H Lab Interpretation (test code = Abnormal 32983-4) [facility] Arterial Blood Gas.2020-01-09 12:42:00 Test Item Value Reference Range Interpretation Comments PH (test code = 2) 7.35-7.45 H PCO2 (test code = See_Comment [Automate d message] 0790630016) The system [employer] generated this result transmitted ref erence range: 35 - 45 mmHg. The reference r sawyer was not used to interpret this result as normal/abnor mal. PO2 (test code = See_Comment L [Automated message] 2036202998) The system [employer] generated this result transmitted ref erence range: 80 - 100 mmHg. The reference r sawyer was not used to interpret this result as normal/abnor mal. HCO3 (test code = See_Comment [Automate d message] 0329449930) The system [employer] generated this result transmitted ref erence range: 22 - 26 mEq/L. The reference r sawyer was not used to interpret this result as normal/abnor mal. BE (test code = See_Comment [Automated message] 5490893396) The system [employer] generated this result transmitted ref erence range: -3.0 - 3 .0 mEq/L. The refe rence range was not u sed to interpret this result as normal/abnor mal. Lab Interpretation (test Abnormal code = 04279-2) [facility] METABOLIC PANEL (NA, K, CL, CO2, GLUCOSE, BUN, CREATININE, CA)2020-01-09 11:11:00 Test Item Value Reference Range Interpretation Comments NA (test code = 133 mmol/L 135-145 L 9925424819) K (test code = 4.5 mmol/L 3.5-5 1806313585) CL (test code = 104 mmol/L 98-108 8513941984) CO2 TOTAL (test code = 25 mmol/L 23-31 5435073523) AGAP (test code = 2-16 9157309495) BUN (test code = 24 mg/dL 7-23 H 2946364992) GLUCOSE (test code = 126 mg/dL 70-110 H 4700806429) CREATININE (test code = 0.80 mg/dL 0.6-1.25 9003776675) CALCIUM (test code = 8.1 mg/dL 8.6-10.6 L 3748172726) eGFR Calculation mL/min/1.73m2 (Non-) (test code = 3410811143) eGFR Calculation mL/min/1.73m2 () (test code = 4391150886) MARLEN (test code = MARLEN) Association of Glomerular Filtration Rate (GFR) and Staging of Kidney Disease* + --+ --+ ------+| GFR (mL/min/1.73 m2) ?| With Kidney Damage ?| ?Without Kidney Damage+ --------+ --------+ +| ?>90 ?| ?Stage one ?| ? Normal ?+ ---+ ---+ -------+| ?60-89 ?| ?Stage two ?| ? Decreased GFR ? + --+ --+ ------+| ?30-59 ?| ?Stage three ?| ? Stage three ? + --+ --+ ------+| ?15-29 ?| ?Stage four ? | ? Stage four ?+ ---+ ---+ -------+| ?<15 (or dialysis) ? ?| ?Stage five ? | ? Stage five ?+ ---+ ---+ -------+ *Each stage assumes the associated GFR level has been in effect for at least three months. ?Stages 1 to 5, with or without kidney disease, indicate chronic kidney disease. Notes: Determination of stages one and two (with eGFR >59mL/min/1.73 m2) requires estimation of kidney damage for at least three months as defined by structural or functional abnormalities of the kidney, manifested by either:Pathological abnormalities or Markers of kidney damage (including abnormalities in the composition of the blood or urine or abnormalities in imaging tests). Lab Interpretation Abnormal (test code = 98908-8) [facility] 11:11:00 Test Item Value Reference Range Interpretation Comments MAGNESIUM (test code = 0678263329) 2.0 mg/dL 1.7-2.4 Lab Interpretation (test code = Normal 46237-3) [facility]2020-[facility]14 11:11:00 Test Item Value Reference Range Interpretation Comments PHOSPHORUS (test code = 5100941906) 2.9 mg/dL 2.5-5 Lab Interpretation (test code = Normal 32396-0) [facility] [id number] 11:02:00 Test Item Value Reference Range Interpretation Comments Blood Culture-Aerobic No organisms No growth Previo us (test code = 75868-7) isolated prelim inary verified result was Culture In Progress on 01/04/2020 at 090 2 CDTPrevious preliminary verified result was No growth a t 24 hours on 01/05/2020 at 06 01 CDTPrevious preliminary verified result was No growth a t 48 hours on 01/06/2020 at 06 01 CDTPrevious preliminary verified result was No growth a t 72 hours on 01/07/2020 at 06 02 CDT Blood No organisms No growth Previous Culture-Anaerobic isolated preliminar y (test code = 41414-7) verifi ed result was Culture In Progress on 01/04/2020 at 090 2 CDTPrevious preliminary verified result was No growth a t 24 hours on 01/05/2020 at 06 01 CDTPrevious preliminary verified result was No growth a t 48 hours on 01/06/2020 at 06 01 CDTPrevious preliminary verified result was No growth a t 72 hours on 01/07/2020 at 06 02 CDT Lab Interpretation Normal (test code = 10138-0) [facility] CULTURE [id number] 11:02:00 Test Item Value Reference Range Interpretation Comments Blood Culture-Aerobic No organisms No growth Previo us (test code = 80432-6) isolated prelim inary verified result was Culture In Progress on 01/04/2020 at 090 2 CDTPrevious preliminary verified result was No growth a t 24 hours on 01/05/2020 at 06 01 CDTPrevious preliminary verified result was No growth a t 48 hours on 01/06/2020 at 06 01 CDTPrevious preliminary verified result was No growth a t 72 hours on 01/07/2020 at 06 02 CDT Blood No organisms No growth Previous Culture-Anaerobic isolated preliminar y (test code = 44486-3) verifi ed result was Culture In Progress on 01/04/2020 at 090 2 CDTPrevious preliminary verified result was No growth a t 24 hours on 01/05/2020 at 06 01 CDTPrevious preliminary verified result was No growth a t 48 hours on 01/06/2020 at 06 01 CDTPrevious preliminary verified result was No growth a t 72 hours on 01/07/2020 at 06 02 CDT Lab Interpretation Normal (test code = 38444-5) [facility] / [id number] 10:14:00 Test Item Value Reference Range Interpretation Comments PROTIME PATIENT (test See_Comment H [Auto mated message] code = 5964-2) The system wh ich generated this result transmitted ref erence range: 10.1 - 1 2.6 Seconds. The reference range was not used to int erpret this result as normal/abnormal . INR (test code = 6301-6) Nor mal INR <1.1; Warfarin Therap eutic range 2.0 to 3. 0 or 2.5 to 3.5, dep ending upon the indica tions. Lab Interpretation (test Abnormal code = 88032-7) [facility] HospitalCBC WITH [id number] 10:11:00 Test Item Value Reference Range Interpretation Comments WBC (test code = See_Comment H [Automated 6690-2) message] The system which generated this result transmit vashti reference range : 4.20 - 10.70 10*3/?L. The reference range was not used to interpret this result as normal/abnormal . RBC (test code = See_Comment L [Automated 789-8) message] The system which generated this result transmit vashti reference range : 4.26 - 5.52 10*6/?L. The reference range was not used to interpret this result as normal/abnormal . HGB (test code = 11.1 g/dL 12.2-16.4 L 718-7) HCT (test code = 33.6 % 38.4-49.3 L 4544-3) MCV (test code = 92.3 fL 81.7-95.6 787-2) MCH (test code = 30.5 pg 26.1-32.7 785-6) MCHC (test code = 33.0 g/dL 31.2-35 786-4) RDW-SD (test code = 46.5 fL 38.5-51.6 81418-6) RDW-CV (test code = 14.1 % 12.1-15.4 788-0) PLT (test code = See_Comment [Automated 777-3) message] The system which generated this result transmit vashti reference range : 150 - 328 10*3/ ?L. The reference range was not u sed to interpret th is result as normal/abnormal . MPV (test code = 12.9 fL 9.8-13 79182-0) NRBC/100 WBC (test See_Comment [Automat ed code = 5688321424) message] The system which generated this result transmit vashti reference range : 0.0 - 10.0 /100 WBCs. The reference range was not used to interpret this result as normal/abnormal . NRBC x10^3 (test code <0.01 See_Comment [Auto mated = 6412902102) message] The system which generated this result transmit vashti reference range : 10*3/?L. The reference range was not used to interpret this result as normal/abnormal . GRAN MAT (NEUT) % 82.3 % (test code = 770-8) IMM GRAN % (test code 1.30 % = 1940336139) LYMPH % (test code = 5.9 % 736-9) MONO % (test code = 3.9 % 5905-5) EOS % (test code = 6.5 % 713-8) BASO % (test code = 0.1 % 706-2) GRAN MAT x10^3(ANC) 11.53 10*3/uL 1.99-6.95 H (test code = 2216747020) IMM GRAN x10^3 (test 0.18 10*3/uL 0-0.06 H code = 5378103738) LYMPH x10^3 (test code 0.83 10*3/uL 1.09-3.23 L = 731-0) MONO x10^3 (test code 0.54 10*3/uL 0.36-1.02 = 742-7) EOS x10^3 (test code = 0.91 10*3/uL 0.06-0.53 H 711-2) BASO x10^3 (test code <0.03 0.01-0.09 = 704-7) Lab Interpretation Abnormal (test code = 76023-7) [facility] GLUCOSE (AUTOMATED)2020-01-09 09:24:00 Test Item Value Reference Range Interpretation Comments POCT GLU (test code = 4711468857) 129 mg/dL 70-110 H Lab Interpretation (test code = Abnormal 21876-3) [facility] GLUCOSE (AUTOMATED)2020-01-09 08:09:00 Test Item Value Reference Range Interpretation Comments POCT GLU (test code = 1153622701) 117 mg/dL 70-110 H Lab Interpretation (test code = Abnormal 96785-9) [facility] (for use with Heparin Practice Guideline). Note: Draw and Send all Lab STAT.2020-01-09 07:22:00 Test Item Value Reference Range Interpretation Comments APTT Patient (test code See_Comment H [Au tomated message] = 3173-2) The system Parse generated this result transmitted ref erence range: 26 - 36 Seconds. The reference range was not used to int erpret this result as normal/abnormal . Lab Interpretation (test Abnormal code = 72334-6) [facility] GLUCOSE (AUTOMATED)2020-01-09 03:03:00 Test Item Value Reference Range Interpretation Comments POCT GLU (test code = 9047912730) 161 mg/dL 70-110 H Lab Interpretation (test code = Abnormal 66973-5) [facility] GLUCOSE (AUTOMATED)2020-01-08 23:13:00 Test Item Value Reference Range Interpretation Comments POCT GLU (test code = 7583566907) 183 mg/dL 70-110 H Lab Interpretation (test code = Abnormal 07115-4) [facility] (for use with Heparin Practice Guideline). Note: Draw and Send all Lab STAT.2020-01-08 23:04:00 Test Item Value Reference Range Interpretation Comments APTT Patient (test code >150 See_Comment HH [Au tomated message] = 3173-2) The system Parse generated this result transmitted ref erence range: 26 - 36 Seconds. The reference range was not used to int erpret this result as normal/abnormal . Lab Interpretation (test Abnormal code = 59718-0) [facility] Arterial Blood Gas.2020-01-08 21:34:00 Test Item Value Reference Range Interpretation Comments PH (test code = 2) 7.35-7.45 H PCO2 (test code = See_Comment [Automate d message] 1924789516) The system Parse generated this result transmitted ref erence range: 35 - 45 mmHg. The reference r sawyer was not used to interpret this result as normal/abnor mal. PO2 (test code = See_Comment [Automated message] 4191635704) The system Parse generated this result transmitted ref erence range: 80 - 100 mmHg. The reference r sawyer was not used to interpret this result as normal/abnor mal. HCO3 (test code = See_Comment [Automate d message] 5722374273) The system Parse generated this result transmitted ref erence range: 22 - 26 mEq/L. The reference r sawyer was not used to interpret this result as normal/abnor mal. BE (test code = See_Comment [Automated message] 0994565811) The system Parse generated this result transmitted ref erence range: -3.0 - 3 .0 mEq/L. The refe rence range was not u sed to interpret this result as normal/abnor mal. Lab Interpretation (test Abnormal code = 28117-0) [facility]2020-01-08 19:04:00 Test Item Value Reference Range Interpretation Comments POCT GLU (test code = 9068484455) 153 mg/dL 70-110 H Lab Interpretation (test code = Abnormal 17852-9) [facility]TR[facility] [id number] 17:10:00 Test Item Value Reference Range Interpretation Comments TROPONIN I (test 0.009 ng/mL See_Comment [Automated code = 4338327896) message] The system which generated this result transmitted reference range : <=0.034. The reference range was not used to interpret this result as normal/abnormal . MARLEN (test code = Equal or Less than MARLEN) 0.034 ng/ml---Normal ?Note: Cardiac troponin begins to rise 3-4 hours after the onset of ischemia. Repeat in 4-6 hours if the sample was drawn within 3-4 hours of the onset of the symptom and found normal. Between 0.035 and 0.120 ng/mL--- Borderline. Questionable myocardial injury or necrosis ? ?Note: Serial measurement may be necessary to confirm or exclude the diagnosis of myocardial injury or necrosis; Clinical correlation (symptoms, EKGs, imaging studies, and others) required; Repeat in 4-6 hours if clinically indicated. ? Equal or Higher than 0.121 ng/mL---Abnormal. Myocardial Injury or Necrosis Likely ? Biotin has been reported to cause a negative bias, interpret results relative to patient's use of biotin. ? Lab Interpretation Normal (test code = 22623-2) [facility]2020-01-08 14:26:00 Test Item Value Reference Range Interpretation Comments POCT GLU (test code = 7657350390) 141 mg/dL 70-110 H Lab Interpretation (test code = Abnormal 19953-6) [facility] METABOLIC PANEL (NA, K, CL, CO2, GLUCOSE, BUN, CREATININE, CA)2020-01-08 11:34:00 Test Item Value Reference Range Interpretation Comments NA (test code = 132 mmol/L 135-145 L 4561981185) K (test code = 4.2 mmol/L 3.5-5 6760890988) CL (test code = 103 mmol/L 98-108 6253960990) CO2 TOTAL (test code = 25 mmol/L 23-31 5566491995) AGAP (test code = 2-16 5766804130) BUN (test code = 29 mg/dL 7-23 H 1797929493) GLUCOSE (test code = 100 mg/dL 70-110 7104904172) CREATININE (test code = 0.91 mg/dL 0.6-1.25 7584002013) CALCIUM (test code = 7.6 mg/dL 8.6-10.6 L 2041327313) eGFR Calculation mL/min/1.73m2 (Non-) (test code = 1249650976) eGFR Calculation mL/min/1.73m2 () (test code = 7906926895) MARLEN (test code = MARLEN) Association of Glomerular Filtration Rate (GFR) and Staging of Kidney Disease* + --+ --+ ------+| GFR (mL/min/1.73 m2) ?| With Kidney Damage ?| ?Without Kidney Damage+ --------+ --------+ +| ?>90 ?| ?Stage one ?| ? Normal ?+ ---+ ---+ -------+| ?60-89 ?| ?Stage two ?| ? Decreased GFR ? + --+ --+ ------+| ?30-59 ?| ?Stage three ?| ? Stage three ? + --+ --+ ------+| ?15-29 ?| ?Stage four ? | ? Stage four ?+ ---+ ---+ -------+| ?<15 (or dialysis) ? ?| ?Stage five ? | ? Stage five ?+ ---+ ---+ -------+ *Each stage assumes the associated GFR level has been in effect for at least three months. ?Stages 1 to 5, with or without kidney disease, indicate chronic kidney disease. Notes: Determination of stages one and two (with eGFR >59mL/min/1.73 m2) requires estimation of kidney damage for at least three months as defined by structural or functional abnormalities of the kidney, manifested by either:Pathological abnormalities or Markers of kidney damage (including abnormalities in the composition of the blood or urine or abnormalities in imaging tests). Lab Interpretation Abnormal (test code = 20349-6) [facility] 11:34:00 Test Item Value Reference Range Interpretation Comments MAGNESIUM (test code = 3254131502) 2.1 mg/dL 1.7-2.4 Lab Interpretation (test code = Normal 04585-8) [facility]2020-[facility]13 11:34:00 Test Item Value Reference Range Interpretation Comments PHOSPHORUS (test code = 6494276181) 3.7 mg/dL 2.5-5 Lab Interpretation (test code = Normal 92137-5) [facility]INTERLE[facility]IN 10:52:00 Test Item Value Reference Range Interpretation Comments IL6 (test code = 50.4 pg/mL See_[place] [address]-0) INFORMATION: CytokinesResult s are used to underst and the pathophysiology of immune, infecti ous, or inflammatory disorders, or m ay be used for resear ch purposes. Test developed and characteristics determined by [facility]. S ee Compliance Stat ement B: [employer]/CSP erforme d By: [employer] [place] [id number] Director: William Lion MD, MS [Automated mess age] The system Parse generated this result transmitted ref erence range: <=2.0. T he reference range was not used to int erpret this result as normal/abnormal . Lab Interpretation Abnormal (test code = 20285-0) [facility]for use with [facility]arin Practice Guideline). Note: Draw and Send all Lab STAT.2020-01-08 10:18:00 Test Item Value Reference Range Interpretation Comments APTT Patient (test code See_Comment H [Au tomated message] = 3173-2) The system Parse generated this result transmitted ref erence range: 26 - 36 Seconds. The reference range was not used to int erpret this result as normal/abnormal . Lab Interpretation (test Abnormal code = 89964-0) [facility] / [id number] 10:18:00 Test Item Value Reference Range Interpretation Comments PROTIME PATIENT (test See_Comment H [Auto mated message] code = 5964-2) The system [email or web address] generated this result transmitted ref erence range: 10.1 - 1 2.6 Seconds. The reference range was not used to int erpret this result as normal/abnormal . INR (test code = 6301-6) Nor mal INR <1.1; Warfarin Therap eutic range 2.0 to 3. 0 or 2.5 to 3.5, dep ending upon the indica tions. Lab Interpretation (test Abnormal code = 71436-7) [facility].2020-01-08 10:06:00 Test Item Value Reference Range Interpretation Comments PH (test code = 2) 7.35-7.45 PCO2 (test code = See_Comment [Automate d message] 5923057161) The system Parse generated this result transmitted ref erence range: 35 - 45 mmHg. The reference r sawyer was not used to interpret this result as normal/abnor mal. PO2 (test code = See_Comment L [Automated message] 7604153108) The system Parse generated this result transmitted ref erence range: 80 - 100 mmHg. The reference r sawyer was not used to interpret this result as normal/abnor mal. HCO3 (test code = See_Comment [Automate d message] 8396844459) The system Parse generated this result transmitted ref erence range: 22 - 26 mEq/L. The reference r sawyer was not used to interpret this result as normal/abnor mal. BE (test code = See_Comment [Automated message] 9145730542) The system Parse generated this result transmitted ref erence range: -3.0 - 3 .0 mEq/L. The refe rence range was not u sed to interpret this result as normal/abnor mal. Lab Interpretation (test Abnormal code = 04170-3) [facility] GLUCOSE (AUTOMATED)2020-01-08 09:57:00 Test Item Value Reference Range Interpretation Comments POCT GLU (test code = 1733674846) 122 mg/dL 70-110 H Lab Interpretation (test code = Abnormal 35137-8) [facility] GLUCOSE (AUTOMATED)2020-01-08 06:21:00 Test Item Value Reference Range Interpretation Comments POCT GLU (test code = 6782026491) 67 mg/dL 70-110 L Lab Interpretation (test code = Abnormal 64801-1) [facility] GLUCOSE (AUTOMATED)2020-01-08 02:23:00 Test Item Value Reference Range Interpretation Comments POCT GLU (test code = 2601653379) 81 mg/dL 70-110 Lab Interpretation (test code = Normal 11330-4) [facility] (for use with Heparin Practice Guideline). Note: Draw and Send all Lab STAT.2020-01-07 23:02:00 Test Item Value Reference Range Interpretation Comments APTT Patient (test code See_Comment H [Au tomated message] = 3173-2) The system Parse generated this result transmitted ref erence range: 26 - 36 Seconds. The reference range was not used to int erpret this result as normal/abnormal . Lab Interpretation (test Abnormal code = 19613-4) [facility] GLUCOSE (AUTOMATED)2020-01-07 21:46:00 Test Item Value Reference Range Interpretation Comments POCT GLU (test code = 2633709676) 94 mg/dL 70-110 Lab Interpretation (test code = Normal 39685-8) [facility] GLUCOSE (AUTOMATED)2020-01-07 17:06:00 Test Item Value Reference Range Interpretation Comments POCT GLU (test code = 4012449043) 133 mg/dL 70-110 H Lab Interpretation (test code = Abnormal 94409-8) [facility] GLUCOSE (AUTOMATED)2020-01-07 17:06:00 Test Item Value Reference Range Interpretation Comments POCT GLU (test code = 6189440795) 91 mg/dL 70-110 Lab Interpretation (test code = Normal 15930-4) [facility]XR [id number] 15:56:01EXAM: XR KUB HISTORY: Dobbhoff tube COMPARISON: KUB 01/05/2020 FINDINGS: The tip of the enteric tube p rojects over the gastric pylorus. The bowel gas pattern is unremarkable without luminal distention orevidence of obstruction. Mixed stool and gas is in the colon. No abnormalcalcifications or acute osseous abnormalities are detected. Preliminary Report Dictated by Resident: Musa Felix I reviewed thisstudy and agree. Alexy Muro MD., have reviewed this study and agree with theabove report.[facility], Radiant Results Inft - 01/07/2020 10:57 AM CDTEXAM: XR KUBHISTORY: Dobbhoff tubeCOMPARISON: KUB 01/05/2020FINDINGS:The tip of the enteric tube projects over the gastric pylorus.The bowel gas pattern is unremarkable without luminal distention orevidence of obstruction. Mixed stool and gas is in the colon. No abnormalcalcifications or acute osseous abnormalities are detected.Preliminary Report Dictated by Resident: Musa Keen reviewed this study and agree.Alexy Muro MD., have reviewed this study and agree with theabove report.[facility].2020-01-07 15:15:00 Test Item Value Reference Range Interpretation Comments PH (test code = 2) 7.35-7.45 PCO2 (test code = See_Comment [Automate d message] 2593925023) The system Parse generated this result transmitted ref erence range: 35 - 45 mmHg. The reference r sawyer was not used to interpret this result as normal/abnor mal. PO2 (test code = See_Comment L [Automated message] 8161770118) The system Parse generated this result transmitted ref erence range: 80 - 100 mmHg. The reference r sawyer was not used to interpret this result as normal/abnor mal. HCO3 (test code = See_Comment H [Automate d message] 2878849203) The system Parse generated this result transmitted ref erence range: 22 - 26 mEq/L. The reference r sawyer was not used to interpret this result as normal/abnor mal. BE (test code = See_Comment [Automated message] 0259534348) The system Parse generated this result transmitted ref erence range: -3.0 - 3 .0 mEq/L. The refe rence range was not u sed to interpret this result as normal/abnor mal. Lab Interpretation (test Abnormal code = 07663-8) [facility] WITH [id number] 11:03:00 Test Item Value Reference Range Interpretation Comments WBC (test code = See_Comment H [Automated 4390-2) message] The system which generated this result transmit vashti reference range : 4.20 - 10.70 10*3/?L. The reference range was not used to interpret this result as normal/abnormal . RBC (test code = See_Comment L [Automated 819-8) message] The system which generated this result transmit vashti reference range : 4.26 - 5.52 10*6/?L. The reference range was not used to interpret this result as normal/abnormal . HGB (test code = 11.9 g/dL 12.2-16.4 L 718-7) HCT (test code = 35.7 % 38.4-49.3 L 4544-3) MCV (test code = 88.6 fL 81.7-95.6 787-2) MCH (test code = 29.5 pg 26.1-32.7 785-6) MCHC (test code = 33.3 g/dL 31.2-35 786-4) RDW-SD (test code = 43.5 fL 38.5-51.6 16570-0) RDW-CV (test code = 13.6 % 12.1-15.4 788-0) PLT (test code = See_Comment [Automated 777-3) message] The system which generated this result transmit vashti reference range : 150 - 328 10*3/ ?L. The reference range was not u sed to interpret th is result as normal/abnormal . MPV (test code = 13.2 fL 9.8-13 H 90708-0) NRBC/100 WBC (test See_Comment [Automat ed code = 7054364542) message] The system which generated this result transmit vashti reference range : 0.0 - 10.0 /100 WBCs. The reference range was not used to interpret this result as normal/abnormal . NRBC x10^3 (test code <0.01 See_Comment [Auto mated = 0239421654) message] The system which generated this result transmit vashti reference range : 10*3/?L. The reference range was not used to interpret this result as normal/abnormal . GRAN MAT (NEUT) % 82.1 % (test code = 770-8) IMM GRAN % (test code 2.70 % = 9602201546) LYMPH % (test code = 8.4 % 736-9) MONO % (test code = 4.1 % 5905-5) EOS % (test code = 2.4 % 713-8) BASO % (test code = 0.3 % 706-2) GRAN MAT x10^3(ANC) 16.03 10*3/uL 1.99-6.95 H (test code = 6662859668) IMM GRAN x10^3 (test 0.53 10*3/uL 0-0.06 H code = 4033462052) LYMPH x10^3 (test code 1.64 10*3/uL 1.09-3.23 = 731-0) MONO x10^3 (test code 0.80 10*3/uL 0.36-1.02 = 742-7) EOS x10^3 (test code = 0.47 10*3/uL 0.06-0.53 711-2) BASO x10^3 (test code 0.05 10*3/uL 0.01-0.09 = 704-7) Lab Interpretation Abnormal (test code = 70605-3) [facility] METABOLIC PANEL (NA, K, CL, CO2, GLUCOSE, BUN, CREATININE, CA)2020-01-07 11:02:00 Test Item Value Reference Range Interpretation Comments NA (test code = 130 mmol/L 135-145 L 8179835165) K (test code = 4.3 mmol/L 3.5-5 6929597426) CL (test code = 99 mmol/L 98-108 6450899924) CO2 TOTAL (test code = 27 mmol/L 23-31 6393596786) AGAP (test code = 2-16 5233006611) BUN (test code = 32 mg/dL 7-23 H 1047666378) GLUCOSE (test code = 141 mg/dL 70-110 H 6257551445) CREATININE (test code = 0.79 mg/dL 0.6-1.25 1913274919) CALCIUM (test code = 7.9 mg/dL 8.6-10.6 L 9054862798) eGFR Calculation mL/min/1.73m2 (Non-) (test code = 2146172544) eGFR Calculation mL/min/1.73m2 () (test code = 9836299006) MARLEN (test code = MARLEN) Association of Glomerular Filtration Rate (GFR) and Staging of Kidney Disease* + --+ --+ ------+| GFR (mL/min/1.73 m2) ?| With Kidney Damage ?| ?Without Kidney Damage+ --------+ --------+ +| ?>90 ?| ?Stage one ?| ? Normal ?+ ---+ ---+ -------+| ?60-89 ?| ?Stage two ?| ? Decreased GFR ? + --+ --+ ------+| ?30-59 ?| ?Stage three ?| ? Stage three ? + --+ --+ ------+| ?15-29 ?| ?Stage four ? | ? Stage four ?+ ---+ ---+ -------+| ?<15 (or dialysis) ? ?| ?Stage five ? | ? Stage five ?+ ---+ ---+ -------+ *Each stage assumes the associated GFR level has been in effect for at least three months. ?Stages 1 to 5, with or without kidney disease, indicate chronic kidney disease. Notes: Determination of stages one and two (with eGFR >59mL/min/1.73 m2) requires estimation of kidney damage for at least three months as defined by structural or functional abnormalities of the kidney, manifested by either:Pathological abnormalities or Markers of kidney damage (including abnormalities in the composition of the blood or urine or abnormalities in imaging tests). Lab Interpretation Abnormal (test code = 85315-8) [facility]2020-[facility]-12 11:02:00 Test Item Value Reference Range Interpretation Comments MAGNESIUM (test code = 2450540657) 2.1 mg/dL 1.7-2.4 Lab Interpretation (test code = Normal 39629-2) [facility]2020-08-12 11:02:00 Test Item Value Reference Range Interpretation Comments PHOSPHORUS (test code = 0412737416) 3.4 mg/dL 2.5-5 Lab Interpretation (test code = Normal 34557-9) [facility]2020-01-07 10:38:00 Test Item Value Reference Range Interpretation Comments POCT GLU (test code = 6724036547) 142 mg/dL 70-110 H Lab Interpretation (test code = Abnormal 37622-4) [facility] (for use with Heparin Practice Guideline). Note: Draw and Send all Lab STAT.2020-01-07 10:29:00 Test Item Value Reference Range Interpretation Comments APTT Patient (test code See_Comment H [Au tomated message] = 3173-2) The system [employer] h generated this result transmitted ref erence range: 26 - 36 Seconds. The reference range was not used to int erpret this result as normal/abnormal . Lab Interpretation (test Abnormal code = 29477-1) [facility]PROTHROMBIN [facility] / [id number] 10:29:00 Test Item Value Reference Range Interpretation Comments PROTIME PATIENT (test See_Comment [Auto mated message] code = 5964-2) The system [email or web address] generated this result transmitted ref erence range: 10.1 - 1 2.6 Seconds. The re ference range was not u sed to interpret this result as normal/abnor mal. INR (test code = 6301-6) Nor mal INR <1.1; Warfarin Therap eutic range 2.0 to 3. 0 or 2.5 to 3.5, dep ending upon the indica tions. Lab Interpretation (test Normal code = 48667-1) [facility] GLUCOSE (AUTOMATED)2020-01-07 05:12:00 Test Item Value Reference Range Interpretation Comments POCT GLU (test code = 6499731763) 207 mg/dL 70-110 H Lab Interpretation (test code = Abnormal 03749-2) [facility] GLUCOSE (AUTOMATED)2020-01-07 02:29:00 Test Item Value Reference Range Interpretation Comments POCT GLU (test code = 9331631612) 233 mg/dL 70-110 H Lab Interpretation (test code = Abnormal 32364-6) [facility] (for use with Heparin Practice Guideline). Note: Draw and Send all Lab STAT.2020-01-07 02:06:00 Test Item Value Reference Range Interpretation Comments APTT Patient (test code See_Comment HH [Au tomated message] = 3173-2) The system Parse generated this result transmitted ref erence range: 26 - 36 Seconds. The reference range was not used to int erpret this result as normal/abnormal . Lab Interpretation (test Abnormal code = 59624-9) [facility] GLUCOSE (AUTOMATED)2020-01-07 00:44:00 Test Item Value Reference Range Interpretation Comments POCT GLU (test code = 9024097707) 157 mg/dL 70-110 H Lab Interpretation (test code = Abnormal 70171-4) [facility] GLUCOSE (AUTOMATED)2020-01-07 00:44:00 Test Item Value Reference Range Interpretation Comments POCT GLU (test code = 7165382083) 282 mg/dL 70-110 H Lab Interpretation (test code = Abnormal 93843-0) [facility] GLUCOSE (AUTOMATED)2020-01-07 00:44:00 Test Item Value Reference Range Interpretation Comments POCT GLU (test code = 1532163834) 219 mg/dL 70-110 H Lab Interpretation (test code = Abnormal 23335-5) [facility] GLUCOSE (AUTOMATED)2020-01-07 00:44:00 Test Item Value Reference Range Interpretation Comments POCT GLU (test code = 9436701901) 93 mg/dL 70-110 Lab Interpretation (test code = Normal 24673-9) [facility] GLUCOSE (AUTOMATED)2020-01-07 00:44:00 Test Item Value Reference Range Interpretation Comments POCT GLU (test code = 0132962843) 149 mg/dL 70-110 H Lab Interpretation (test code = Abnormal 20814-1) [facility] HospitalC-REACTIVE [id number] 18:08:00 Test Item Value Reference Range Interpretation Comments CRP (test code = 3253155195) 2.3 mg/dL <0.8 H Lab Interpretation (test code = Abnormal 06023-8) [facility] GLUCOSE (AUTOMATED)2020-01-06 17:42:00 Test Item Value Reference Range Interpretation Comments POCT GLU (test code = 8759070346) 94 mg/dL 70-110 Lab Interpretation (test code = Normal 65085-7) [facility] HospitalFERRITIN [id number] 17:23:00 Test Item Value Reference Range Interpretation Comments FERRITIN (test code = 1270.0 ng/mL 18-464 H 7849597107) MARLEN (test code = MARLEN) Biotin has been reported to cause a negative bias, interpret results relative to patient's use of biotin. Lab Interpretation (test Abnormal code = 50199-5) [facility] (for use with Heparin Practice Guideline). Note: Draw and Send all Lab STAT.2020-01-06 17:04:00 Test Item Value Reference Range Interpretation Comments APTT Patient (test code See_Comment H [Au tomated message] = 3173-2) The system Parse generated this result transmitted ref erence range: 26 - 36 Seconds. The reference range was not used to int erpret this result as normal/abnormal . Lab Interpretation (test Abnormal code = 06602-4) [facility]FIBRINOGEN2020-08-11 17:02:00 Test Item Value Reference Range Interpretation Comments Fibrinogen (test code = 4935462460) 415 mg/dL 167-453 Lab Interpretation (test code = Normal 37242-5) [facility] GLUCOSE (AUTOMATED)2020-01-06 15:16:00 Test Item Value Reference Range Interpretation Comments POCT GLU (test code = 0377278117) 92 mg/dL 70-110 Lab Interpretation (test code = Normal 15381-2) [facility] [id number] 15:09:48EXAM: XR KUB HISTORY: ogo tube COMPARISON: Abdominal x-ray 12/26/2019 FINDINGS: The tip of the enteric tube projects over the gastric fundus. The tips of 2central venous catheters project over the cavoatrial junction. Mediansternotomy wires and surgical clips projecting over the heart arevisualized. The visible bowel gas pattern is unremarkable and does not suggestobstruction. No abnormal calcifications or acute osseous abnormalities aredetected. Preliminary Report Dictated by Resident: Musa Felix Ireviewed this study and agree. Alexy Muro MD., have reviewed this study and agree with theabove report.[facility], Radiant Results Inft User - 01/06/2020 10:10 AM CDTEXAM: XR KUBHISTORY: ogo tube COMPARISON: Abdominal x-ray 12/26/2019FINDINGS:The tip of the enteric tube projects over the gastric fundus. The tips of 2central venous catheters project over the cavoatrial junction. Mediansternotomy wires and surgical clips projecting over the heart arevisualized.The visible bowel gas pattern is unre markable and does not suggestobstruction. No abnormal calcifications or acute osseous abnormalities aredetected.Preliminary Report Dictated by Resident: Musa Keen reviewed this study and agree.Alexy Muro MD., have reviewed this study and agree with theabove report.[facility] BASIC METABOLIC PANEL (NA, K, CL, CO2, GLUCOSE, BUN, CREATININE, CA)2020-01-06 07:36:00 Test Item Value Reference Range Interpretation Comments NA (test code = 132 mmol/L 135-145 L 5492664505) K (test code = 4.4 mmol/L 3.5-5 5817820960) CL (test code = 102 mmol/L 98-108 7489573880) CO2 TOTAL (test code = 29 mmol/L 23-31 5199936062) AGAP (test code = 2-16 L 5614441355) BUN (test code = 35 mg/dL 7-23 H 3150681315) GLUCOSE (test code = 106 mg/dL 70-110 1690642921) CREATININE (test code = 0.91 mg/dL 0.6-1.25 4819995919) CALCIUM (test code = 7.8 mg/dL 8.6-10.6 L 5012605665) eGFR Calculation mL/min/1.73m2 (Non-) (test code = 1876914880) eGFR Calculation mL/min/1.73m2 () (test code = 8993739941) MARLEN (test code = MARLEN) Association of Glomerular Filtration Rate (GFR) and Staging of Kidney Disease* + --+ --+ ------+| GFR (mL/min/1.73 m2) ?| With Kidney Damage ?| ?Without Kidney Damage+ --------+ --------+ +| ?>90 ?| ?Stage one ?| ? Normal ?+ ---+ ---+ -------+| ?60-89 ?| ?Stage two ?| ? Decreased GFR ? + --+ --+ ------+| ?30-59 ?| ?Stage three ?| ? Stage three ? + --+ --+ ------+| ?15-29 ?| ?Stage four ? | ? Stage four ?+ ---+ ---+ -------+| ?<15 (or dialysis) ? ?| ?Stage five ? | ? Stage five ?+ ---+ ---+ -------+ *Each stage assumes the associated GFR level has been in effect for at least three months. ?Stages 1 to 5, with or without kidney disease, indicate chronic kidney disease. Notes: Determination of stages one and two (with eGFR >59mL/min/1.73 m2) requires estimation of kidney damage for at least three months as defined by structural or functional abnormalities of the kidney, manifested by either:Pathological abnormalities or Markers of kidney damage (including abnormalities in the composition of the blood or urine or abnormalities in imaging tests). Lab Interpretation Abnormal (test code = 86061-4) [facility] 07[facility] Test Item Value Reference Range Interpretation Comments MAGNESIUM (test code = 9807205160) 2.2 mg/dL 1.7-2.4 Lab Interpretation (test code = Normal 83030-9) [facility]2020-08-11 07:36:00 Test Item Value Reference Range Interpretation Comments PHOSPHORUS (test code = 2872647166) 2.8 mg/dL 2.5-5 Lab Interpretation (test code = Normal 67439-3) [facility]PROTHROMBIN [facility] / [id number] 07:16:00 Test Item Value Reference Range Interpretation Comments PROTIME PATIENT (test See_Comment H [Auto mated message] code = 5964-2) The system [email or web address] generated this result transmitted ref erence range: 10.1 - 1 2.6 Seconds. The reference range was not used to int erpret this result as normal/abnormal . INR (test code = 6301-6) Nor mal INR <1.1; Warfarin Therap eutic range 2.0 to 3. 0 or 2.5 to 3.5, dep ending upon the indica tions. Lab Interpretation (test Abnormal code = 98335-9) [facility] (for use with Heparin Practice Guideline). Note: Draw and Send all Lab STAT.2020-01-06 03:16:00 Test Item Value Reference Range Interpretation Comments APTT Patient (test code See_Comment H [Au tomated message] = 3173-2) The system Parse generated this result transmitted ref erence range: 26 - 36 Seconds. The reference range was not used to int erpret this result as normal/abnormal . Lab Interpretation (test Abnormal code = 57946-1) [facility] HospitalBL[facility] [id number] 01:01:00 Test Item Value Reference Range Interpretation Comments Blood Culture-Aerobic No organisms No growth Previo us (test code = 21306-3) isolated prelim inary verified result was Culture In Progress on 12/31/2019 at 230 2 CDTPrevious preliminary verified result was No growth a t 24 hours on 01/01/2020 at 200 1 CDTPrevious preliminary verified result was No growth a t 48 hours on 01/02/2020 at 200 2 CDTPrevious preliminary verified result was No growth a t 72 hours on 01/03/2020 at 200 2 CDT Blood No organisms No growth Previous Culture-Anaerobic isolated preliminar y (test code = 05123-2) verifi ed result was Culture In Progress on 12/31/2019 at 230 2 CDTPrevious preliminary verified result was No growth a t 24 hours on 01/01/2020 at 200 1 CDTPrevious preliminary verified result was No growth a t 48 hours on 01/02/2020 at 200 2 CDTPrevious preliminary verified result was No growth a t 72 hours on 01/03/2020 at 200 2 CDT Lab Interpretation Normal (test code = 47990-2) [facility] [id number] 01:01:00 Test Item Value Reference Range Interpretation Comments Blood Culture-Aerobic No organisms No growth Previo us (test code = 46562-5) isolated prelim inary verified result was Culture In Progress on 12/31/2019 at 230 2 CDTPrevious preliminary verified result was No growth a t 24 hours on 01/01/2020 at 200 2 CDTPrevious preliminary verified result was No growth a t 48 hours on 01/02/2020 at 200 3 CDTPrevious preliminary verified result was No growth a t 72 hours on 01/03/2020 at 200 2 CDT Blood No organisms No growth Previous Culture-Anaerobic isolated preliminar y (test code = 98588-4) verifi ed result was Culture In Progress on 12/31/2019 at 230 2 CDTPrevious preliminary verified result was No growth a t 24 hours on 01/01/2020 at 200 2 CDTPrevious preliminary verified result was No growth a t 48 hours on 01/02/2020 at 200 3 CDTPrevious preliminary verified result was No growth a t 72 hours on 01/03/2020 at 200 2 CDT Lab Interpretation Normal (test code = 23967-1) [facility]2020-01-05 17:18:00 Test Item Value Reference Range Interpretation Comments POCT GLU (test code = 9569335470) 245 mg/dL 70-110 H Lab Interpretation (test code = Abnormal 17561-7) [facility]aPT (for use with Heparin Practice Guideline). Note: Draw and Send all Lab STAT.2020-01-05 13:35:00 Test Item Value Reference Range Interpretation Comments APTT Patient (test code See_Comment H [Au tomated message] = 3173-2) The system Parse generated this result transmitted ref erence range: 26 - 36 Seconds. The reference range was not used to int erpret this result as normal/abnormal . Lab Interpretation (test Abnormal code = 29807-4) [facility]2020-01-05 12:55:00 Test Item Value Reference Range Interpretation Comments POCT GLU (test code = 3554453012) 181 mg/dL 70-110 H Lab Interpretation (test code = Abnormal 17269-1) [facility] HospitalURINE [id number] 12:12:00 Test Item Value Reference Range Interpretation Comments URINE CULTURE (test No aerobic organisms code = 630-4) isolated [facility]TR[facility] [id number] 10:42:00 Test Item Value Reference Range Interpretation Comments TROPONIN I (test 0.012 ng/mL See_Comment [Automated code = 9237152100) message] The system which generated this result transmitted reference range : <=0.034. The reference range was not used to interpret this result as normal/abnormal . MARLEN (test code = Equal or Less than MARLEN) 0.034 ng/ml---Normal ?Note: Cardiac troponin begins to rise 3-4 hours after the onset of ischemia. Repeat in 4-6 hours if the sample was drawn within 3-4 hours of the onset of the symptom and found normal. Between 0.035 and 0.120 ng/mL--- Borderline. Questionable myocardial injury or necrosis ? ?Note: Serial measurement may be necessary to confirm or exclude the diagnosis of myocardial injury or necrosis; Clinical correlation (symptoms, EKGs, imaging studies, and others) required; Repeat in 4-6 hours if clinically indicated. ? Equal or Higher than 0.121 ng/mL---Abnormal. Myocardial Injury or Necrosis Likely ? Biotin has been reported to cause a negative bias, interpret results relative to patient's use of biotin. ? Lab Interpretation Normal (test code = 44407-0) [facility]NA, K, CL, CO2, GLUCOSE, BUN, CREATININE, CA)2020-01-05 10:33:00 Test Item Value Reference Range Interpretation Comments NA (test code = 135 mmol/L 135-145 1563648026) K (test code = 4.4 mmol/L 3.5-5 8217569382) CL (test code = 101 mmol/L 98-108 9405108644) CO2 TOTAL (test code = 30 mmol/L 23-31 9504065276) AGAP (test code = 2-16 8463912725) BUN (test code = 40 mg/dL 7-23 H 9362501385) GLUCOSE (test code = 166 mg/dL 70-110 H 9111942716) CREATININE (test code = 0.93 mg/dL 0.6-1.25 0235693569) CALCIUM (test code = 7.9 mg/dL 8.6-10.6 L 4153806407) eGFR Calculation mL/min/1.73m2 (Non-) (test code = 1050406535) eGFR Calculation mL/min/1.73m2 () (test code = 0018164841) MARLEN (test code = MARLEN) Association of Glomerular Filtration Rate (GFR) and Staging of Kidney Disease* + --+ --+ ------+| GFR (mL/min/1.73 m2) ?| With Kidney Damage ?| ?Without Kidney Damage+ --------+ --------+ +| ?>90 ?| ?Stage one ?| ? Normal ?+ ---+ ---+ -------+| ?60-89 ?| ?Stage two ?| ? Decreased GFR ? + --+ --+ ------+| ?30-59 ?| ?Stage three ?| ? Stage three ? + --+ --+ ------+| ?15-29 ?| ?Stage four ? | ? Stage four ?+ ---+ ---+ -------+| ?<15 (or dialysis) ? ?| ?Stage five ? | ? Stage five ?+ ---+ ---+ -------+ *Each stage assumes the associated GFR level has been in effect for at least three months. ?Stages 1 to 5, with or without kidney disease, indicate chronic kidney disease. Notes: Determination of stages one and two (with eGFR >59mL/min/1.73 m2) requires estimation of kidney damage for at least three months as defined by structural or functional abnormalities of the kidney, manifested by either:Pathological abnormalities or Markers of kidney damage (including abnormalities in the composition of the blood or urine or abnormalities in imaging tests). Lab Interpretation Abnormal (test code = 13002-9) [facility] 10:33:00 Test Item Value Reference Range Interpretation Comments MAGNESIUM (test code = 2307351816) 2.2 mg/dL 1.7-2.4 Lab Interpretation (test code = Normal 12607-2) [facility]2020-[facility]10 10:33:00 Test Item Value Reference Range Interpretation Comments PHOSPHORUS (test code = 3501850065) 3.6 mg/dL 2.5-5 Lab Interpretation (test code = Normal 22553-2) [facility] / [id number] 10:15:00 Test Item Value Reference Range Interpretation Comments PROTIME PATIENT (test See_Comment [Auto mated message] code = 5964-2) The system wh ich generated this result transmitted ref erence range: 10.1 - 1 2.6 Seconds. The re ference range was not u sed to interpret this result as normal/abnor mal. INR (test code = 6301-6) Nor mal INR <1.1; Warfarin Therap eutic range 2.0 to 3. 0 or 2.5 to 3.5, dep ending upon the indica tions. Lab Interpretation (test Normal code = 91690-9) [facility]CBC WITH [id number] 10:05:00 Test Item Value Reference Range Interpretation Comments WBC (test code = See_Comment H [Automated 0490-2) message] The system which generated this result transmit vashti reference range : 4.20 - 10.70 10*3/?L. The reference range was not used to interpret this result as normal/abnormal . RBC (test code = See_Comment L [Automated 669-8) message] The system which generated this result transmit vashti reference range : 4.26 - 5.52 10*6/?L. The reference range was not used to interpret this result as normal/abnormal . HGB (test code = 11.0 g/dL 12.2-16.4 L 718-7) HCT (test code = 33.6 % 38.4-49.3 L 4544-3) MCV (test code = 91.3 fL 81.7-95.6 787-2) MCH (test code = 29.9 pg 26.1-32.7 785-6) MCHC (test code = 32.7 g/dL 31.2-35 786-4) RDW-SD (test code = 43.1 fL 38.5-51.6 15429-8) RDW-CV (test code = 13.3 % 12.1-15.4 788-0) PLT (test code = See_Comment [Automated 777-3) message] The system which generated this result transmit vashti reference range : 150 - 328 10*3/ ?L. The reference range was not u sed to interpret th is result as normal/abnormal . MPV (test code = 14.1 fL 9.8-13 H 73690-1) NRBC/100 WBC (test See_Comment [Automat ed code = 4143110526) message] The system which generated this result transmit vashti reference range : 0.0 - 10.0 /100 WBCs. The reference range was not used to interpret this result as normal/abnormal . NRBC x10^3 (test code <0.01 See_Comment [Auto mated = 7110759561) message] The system which generated this result transmit vashti reference range : 10*3/?L. The reference range was not used to interpret this result as normal/abnormal . GRAN MAT (NEUT) % 87.8 % (test code = 770-8) IMM GRAN % (test code 1.70 % = 1976031546) LYMPH % (test code = 5.3 % 736-9) MONO % (test code = 4.5 % 5905-5) EOS % (test code = 0.5 % 713-8) BASO % (test code = 0.2 % 706-2) GRAN MAT x10^3(ANC) 14.73 10*3/uL 1.99-6.95 H (test code = 8076020766) IMM GRAN x10^3 (test 0.28 10*3/uL 0-0.06 H code = 7427279023) LYMPH x10^3 (test code 0.89 10*3/uL 1.09-3.23 L = 731-0) MONO x10^3 (test code 0.76 10*3/uL 0.36-1.02 = 742-7) EOS x10^3 (test code = 0.08 10*3/uL 0.06-0.53 711-2) BASO x10^3 (test code 0.04 10*3/uL 0.01-0.09 = 704-7) Lab Interpretation Abnormal (test code = 21883-6) [facility] (for use with Heparin Practice Guideline). Note: Draw and Send all Lab STAT.2020-01-05 02:59:00 Test Item Value Reference Range Interpretation Comments APTT Patient (test code See_Comment H [Au tomated message] = 3173-2) The system Parse generated this result transmitted ref erence range: 26 - 36 Seconds. The reference range was not used to int erpret this result as normal/abnormal . Lab Interpretation (test Abnormal code = 84229-3) [facility]2020-01-04 22:43:00 Test Item Value Reference Range Interpretation Comments POCT GLU (test code = 7530305718) 222 mg/dL 70-110 H Lab Interpretation (test code = Abnormal 79723-8) [facility] HospitalSPUTUM [id number] 20:22:00 Test Item Value Reference Range Interpretation Comments SPUTUM CULTURE 3+ Yeast not Cryptococcus (test code = species 622-1) Gram stain (test Few Polymorphonuclear code = 664-3) leukocytes [facility] (for use with Heparin Practice Guideline). Note: Draw and Send all Lab STAT.2020-01-04 17:38:00 Test Item Value Reference Range Interpretation Comments APTT Patient (test code See_Comment H [Au tomated message] = 3173-2) The system Parse generated this result transmitted ref erence range: 26 - 36 Seconds. The reference range was not used to int erpret this result as normal/abnormal . Lab Interpretation (test Abnormal code = 70660-5) [facility]2020-08-09 11:20:00 Test Item Value Reference Range Interpretation Comments APTT Patient (test code See_Comment H [Au tomated message] = 3173-2) The system Parse generated this result transmitted ref erence range: 26 - 36 Seconds. The reference range was not used to int erpret this result as normal/abnormal . Lab Interpretation (test Abnormal code = 64283-3) [facility] (NA, K, CL, CO2, GLUCOSE, BUN, CREATININE, CA)2020-01-04 10:29:00 Test Item Value Reference Range Interpretation Comments NA (test code = 136 mmol/L 135-145 7250445994) K (test code = 4.7 mmol/L 3.5-5 9257054370) CL (test code = 105 mmol/L 98-108 9540709043) CO2 TOTAL (test code = 29 mmol/L 23-31 0557099782) AGAP (test code = 2-16 3257427734) BUN (test code = 44 mg/dL 7-23 H 8298740592) GLUCOSE (test code = 162 mg/dL 70-110 H 3410043293) CREATININE (test code = 0.95 mg/dL 0.6-1.25 6484184298) CALCIUM (test code = 8.2 mg/dL 8.6-10.6 L 4877692567) eGFR Calculation mL/min/1.73m2 (Non-) (test code = 8128134521) eGFR Calculation mL/min/1.73m2 () (test code = 7889082479) MARLEN (test code = MARLEN) Association of Glomerular Filtration Rate (GFR) and Staging of Kidney Disease* + --+ --+ ------+| GFR (mL/min/1.73 m2) ?| With Kidney Damage ?| ?Without Kidney Damage+ --------+ --------+ +| ?>90 ?| ?Stage one ?| ? Normal ?+ ---+ ---+ -------+| ?60-89 ?| ?Stage two ?| ? Decreased GFR ? + --+ --+ ------+| ?30-59 ?| ?Stage three ?| ? Stage three ? + --+ --+ ------+| ?15-29 ?| ?Stage four ? | ? Stage four ?+ ---+ ---+ -------+| ?<15 (or dialysis) ? ?| ?Stage five ? | ? Stage five ?+ ---+ ---+ -------+ *Each stage assumes the associated GFR level has been in effect for at least three months. ?Stages 1 to 5, with or without kidney disease, indicate chronic kidney disease. Notes: Determination of stages one and two (with eGFR >59mL/min/1.73 m2) requires estimation of kidney damage for at least three months as defined by structural or functional abnormalities of the kidney, manifested by either:Pathological abnormalities or Markers of kidney damage (including abnormalities in the composition of the blood or urine or abnormalities in imaging tests). Lab Interpretation Abnormal (test code = 86989-8) [facility]2020-[facility]-09 10:29:00 Test Item Value Reference Range Interpretation Comments MAGNESIUM (test code = 2023546094) 2.4 mg/dL 1.7-2.4 Lab Interpretation (test code = Normal 21383-3) [facility]2020-08-09 10:29:00 Test Item Value Reference Range Interpretation Comments PHOSPHORUS (test code = 1949149579) 3.9 mg/dL 2.5-5 Lab Interpretation (test code = Normal 14299-5) [facility]PROTHROMBIN [facility] / [id number] 09:56:00 Test Item Value Reference Range Interpretation Comments PROTIME PATIENT (test See_Comment [Auto mated message] code = 5964-2) The system [email or web address] generated this result transmitted ref erence range: 10.1 - 1 2.6 Seconds. The re ference range was not u sed to interpret this result as normal/abnor mal. INR (test code = 6301-6) Nor mal INR <1.1; Warfarin Therap eutic range 2.0 to 3. 0 or 2.5 to 3.5, dep ending upon the indica tions. Lab Interpretation (test Normal code = 99847-4) [facility] GLUCOSE (AUTOMATED)2020-01-04 09:18:00 Test Item Value Reference Range Interpretation Comments POCT GLU (test code = 8288514925) 159 mg/dL 70-110 H Lab Interpretation (test code = Abnormal 13041-5) [facility] GLUCOSE (AUTOMATED)2020-01-04 06:12:00 Test Item Value Reference Range Interpretation Comments POCT GLU (test code = 8152906168) 175 mg/dL 70-110 H Lab Interpretation (test code = Abnormal 71218-8) [facility] GLUCOSE (AUTOMATED)2020-01-04 02:15:00 Test Item Value Reference Range Interpretation Comments POCT GLU (test code = 0167009052) 217 mg/dL 70-110 H Lab Interpretation (test code = Abnormal 09883-4) [facility] (for use with Heparin Practice Guideline). Note: Draw and Send all Lab STAT.2020-01-03 21:09:00 Test Item Value Reference Range Interpretation Comments APTT Patient (test code See_Comment H [Au tomated message] = 3173-2) The system Parse generated this result transmitted ref erence range: 26 - 36 Seconds. The reference range was not used to int erpret this result as normal/abnormal . Lab Interpretation (test Abnormal code = 32830-5) [facility] GLUCOSE (AUTOMATED)2020-01-03 20:48:00 Test Item Value Reference Range Interpretation Comments POCT GLU (test code = 4029751469) 227 mg/dL 70-110 H Lab Interpretation (test code = Abnormal 11067-5) [facility] GLUCOSE (AUTOMATED)2020-01-03 17:38:00 Test Item Value Reference Range Interpretation Comments POCT GLU (test code = 7940411609) 156 mg/dL 70-110 H Lab Interpretation (test code = Abnormal 83814-3) [facility] GLUCOSE (AUTOMATED)2020-01-03 17:15:00 Test Item Value Reference Range Interpretation Comments POCT GLU (test code = 0847317046) 177 mg/dL 70-110 H Lab Interpretation (test code = Abnormal 74202-9) [facility] GLUCOSE (AUTOMATED)2020-01-03 17:15:00 Test Item Value Reference Range Interpretation Comments POCT GLU (test code = 0605220249) 231 mg/dL 70-110 H Lab Interpretation (test code = Abnormal 08172-9) [facility] GLUCOSE (AUTOMATED)2020-01-03 17:15:00 Test Item Value Reference Range Interpretation Comments POCT GLU (test code = 8266897853) 183 mg/dL 70-110 H Lab Interpretation (test code = Abnormal 74733-7) [facility] GLUCOSE (AUTOMATED)2020-01-03 17:15:00 Test Item Value Reference Range Interpretation Comments POCT GLU (test code = 2245012825) 217 mg/dL 70-110 H Lab Interpretation (test code = Abnormal 75765-7) [facility] GLUCOSE (AUTOMATED)2020-01-03 17:15:00 Test Item Value Reference Range Interpretation Comments POCT GLU (test code = 2280248354) 293 mg/dL 70-110 H Lab Interpretation (test code = Abnormal 03289-5) [facility] GLUCOSE (AUTOMATED)2020-01-03 17:15:00 Test Item Value Reference Range Interpretation Comments POCT GLU (test code = 0158705502) 213 mg/dL 70-110 H Lab Interpretation (test code = Abnormal 34518-0) [facility] GLUCOSE (AUTOMATED)2020-01-03 14:08:00 Test Item Value Reference Range Interpretation Comments POCT GLU (test code = 6967105742) 155 mg/dL 70-110 H Lab Interpretation (test code = Abnormal 94173-8) [facility] (NA, K, CL, CO2, GLUCOSE, BUN, CREATININE, CA)2020-01-03 11:07:00 Test Item Value Reference Range Interpretation Comments NA (test code = 137 mmol/L 135-145 5060410145) K (test code = 4.5 mmol/L 3.5-5 7808803488) CL (test code = 106 mmol/L 98-108 5669851689) CO2 TOTAL (test code = 31 mmol/L 23-31 5818955754) AGAP (test code = <1 2-16 L 3300962515) BUN (test code = 43 mg/dL 7-23 H 5962827427) GLUCOSE (test code = 186 mg/dL 70-110 H 3833074452) CREATININE (test code = 0.92 mg/dL 0.6-1.25 9645356208) CALCIUM (test code = 8.1 mg/dL 8.6-10.6 L 3798120377) eGFR Calculation mL/min/1.73m2 (Non-) (test code = 9178820581) eGFR Calculation mL/min/1.73m2 () (test code = 5784893683) MARLEN (test code = MARLEN) Association of Glomerular Filtration Rate (GFR) and Staging of Kidney Disease* + --+ --+ ------+| GFR (mL/min/1.73 m2) ?| With Kidney Damage ?| ?Without Kidney Damage+ --------+ --------+ +| ?>90 ?| ?Stage one ?| ? Normal ?+ ---+ ---+ -------+| ?60-89 ?| ?Stage two ?| ? Decreased GFR ? + --+ --+ ------+| ?30-59 ?| ?Stage three ?| ? Stage three ? + --+ --+ ------+| ?15-29 ?| ?Stage four ? | ? Stage four ?+ ---+ ---+ -------+| ?<15 (or dialysis) ? ?| ?Stage five ? | ? Stage five ?+ ---+ ---+ -------+ *Each stage assumes the associated GFR level has been in effect for at least three months. ?Stages 1 to 5, with or without kidney disease, indicate chronic kidney disease. Notes: Determination of stages one and two (with eGFR >59mL/min/1.73 m2) requires estimation of kidney damage for at least three months as defined by structural or functional abnormalities of the kidney, manifested by either:Pathological abnormalities or Markers of kidney damage (including abnormalities in the composition of the blood or urine or abnormalities in imaging tests). Lab Interpretation Abnormal (test code = 87572-5) [facility]2020-[facility] 11:01:00 Test Item Value Reference Range Interpretation Comments MAGNESIUM (test code = 5024240058) 2.3 mg/dL 1.7-2.4 Lab Interpretation (test code = Normal 47540-0) [facility] 11:01:00 Test Item Value Reference Range Interpretation Comments PHOSPHORUS (test code = 5708828327) 3.3 mg/dL 2.5-5 Lab Interpretation (test code = Normal 22812-5) [facility] / [id number] 10:38:00 Test Item Value Reference Range Interpretation Comments PROTIME PATIENT (test See_Comment [Auto mated message] code = 5964-2) The system [email or web address] generated this result transmitted ref erence range: 10.1 - 1 2.6 Seconds. The re ference range was not u sed to interpret this result as normal/abnor mal. INR (test code = 6301-6) Nor mal INR <1.1; Warfarin Therap eutic range 2.0 to 3. 0 or 2.5 to 3.5, dep ending upon the indica tions. Lab Interpretation (test Normal code = 58352-9) [facility] WITH [id number] 10:34:00 Test Item Value Reference Range Interpretation Comments WBC (test code = See_Comment H [Automated 3790-2) message] The system which generated this result transmit vashti reference range : 4.20 - 10.70 10*3/?L. The reference range was not used to interpret this result as normal/abnormal . RBC (test code = See_Comment L [Automated 789-8) message] The system which generated this result transmit vashti reference range : 4.26 - 5.52 10*6/?L. The reference range was not used to interpret this result as normal/abnormal . HGB (test code = 11.4 g/dL 12.2-16.4 L 718-7) HCT (test code = 34.4 % 38.4-49.3 L 4544-3) MCV (test code = 91.5 fL 81.7-95.6 787-2) MCH (test code = 30.3 pg 26.1-32.7 785-6) MCHC (test code = 33.1 g/dL 31.2-35 786-4) RDW-SD (test code = 44.1 fL 38.5-51.6 92461-5) RDW-CV (test code = 13.2 % 12.1-15.4 788-0) PLT (test code = See_Comment L [Automated 777-3) message] The system which generated this result transmit vashti reference range : 150 - 328 10*3/ ?L. The reference range was not u sed to interpret th is result as normal/abnormal . MPV (test code = 13.9 fL 9.8-13 H 71463-5) NRBC/100 WBC (test See_Comment [Automat ed code = 3546695311) message] The system which generated this result transmit vashti reference range : 0.0 - 10.0 /100 WBCs. The reference range was not used to interpret this result as normal/abnormal . NRBC x10^3 (test code <0.01 See_Comment [Auto mated = 9047636347) message] The system which generated this result transmit vashti reference range : 10*3/?L. The reference range was not used to interpret this result as normal/abnormal . GRAN MAT (NEUT) % 87.7 % (test code = 770-8) IMM GRAN % (test code 0.90 % = 3358147527) LYMPH % (test code = 5.5 % 736-9) MONO % (test code = 5.2 % 5905-5) EOS % (test code = 0.6 % 713-8) BASO % (test code = 0.1 % 706-2) GRAN MAT x10^3(ANC) 12.21 10*3/uL 1.99-6.95 H (test code = 6390288315) IMM GRAN x10^3 (test 0.12 10*3/uL 0-0.06 H code = 5914569812) LYMPH x10^3 (test code 0.76 10*3/uL 1.09-3.23 L = 731-0) MONO x10^3 (test code 0.72 10*3/uL 0.36-1.02 = 742-7) EOS x10^3 (test code = 0.08 10*3/uL 0.06-0.53 711-2) BASO x10^3 (test code <0.03 0.01-0.09 = 704-7) Lab Interpretation Abnormal (test code = 60420-6) [facility]for use with Heparin Practice Guideline). Note: Draw and Send all Lab STAT.2020-01-03 06:55:00 Test Item Value Reference Range Interpretation Comments APTT Patient (test code See_Comment H [Au tomated message] = 3173-2) The system Parse generated this result transmitted ref erence range: 26 - 36 Seconds. The reference range was not used to int erpret this result as normal/abnormal . Lab Interpretation (test Abnormal code = 91016-6) [facility] [id number] 19:42:41 Bilateral airspace opacities mainly in by a basilar area, slightly improvedfrom prior CXR, consistent with the patient history of Covid pneumonia. Preliminary Report Dictated by Resident: Grupo Olsen MD., have reviewed this study and agree with the abovereport.EXAM: XR CHEST 1 VW, 01/02/2020 1:54 PM. HISTORY: 64 years-old Male with hypoxic respiratory failure, Covidpneumonia. C OMPARISON: CXR, 12/26/2019. TECHNIQUE: AP chest radiograph. FINDINGS: Lines and tubes: Tip of endotracheal tube is 5.5 cm above the matty.Right IJ line tips is at atriocaval junction.Median sternotomy wires are noted.Surgical clips are seen over the mediastinum. Lungs/pleura: Bilateral airspace opacities mainly in bibasilar area,improved from prior CXR. There is no pleural effusion or pneumothorax. The cardiomediastinal silhouette is within normal limits. ? Musculoskeletal: No significant skeletal abnormality. [facility], Radiant Results Inft User - 01/02/2020 2:43 PM CDTEXAM: XR CHEST 1 VW, 01/02/2020 1:54 PM.HISTORY: 64 years-old Male with hypoxic respiratory failure, Covidpneumonia.COMPARISON: CXR, 12/26/2019.TECHNIQUE: AP chest radiograph.FINDINGS:Lines and tubes: Tip of endotracheal tube is 5.5 cm above the matty.Right IJ line tips is at atriocaval junction.Median sternotomy wires are noted.Surgical clips are seen over the mediastinum.Lungs/pleura: Bilateral airspace opacities mainly in bibasilar a zack,improved from prior CXR. There is no pleural effusion or pneumothorax.The cardiomediastinal silhouette is within normal limits. Musculoskeletal: No significant skeletal abnormality.IMPRESSIONBilateral airspace opacities mainly in by a basilar area, slightly improvedfrom prior CXR, consistent with the patient history of Covid pneumonia.Preliminary Report Dictated by Resident: Grupo Dickens MD., have reviewed this study and agree with the abovereport.[facility] (for use with Heparin Practice Guideline). Note: Draw and Send all Lab STAT.2020-01-02 18:35:00 Test Item Value Reference Range Interpretation Comments APTT Patient (test code See_Comment H [Au tomated message] = 3173-2) The system Parse generated this result transmitted ref erence range: 26 - 36 Seconds. The reference range was not used to int erpret this result as normal/abnormal . Lab Interpretation (test Abnormal code = 26814-3) [facility] [id number] 12:30:00 Test Item Value Reference Range Interpretation Comments URINE CULTURE (test No aerobic growth (< code = 630-4) 1000 CFU/mL) [facility] METABOLIC PANEL (NA, K, CL, CO2, GLUCOSE, BUN, CREATININE, CA)2020-01-02 11:20:00 Test Item Value Reference Range Interpretation Comments NA (test code = 136 mmol/L 135-145 0346826557) K (test code = 4.8 mmol/L 3.5-5 6696186697) CL (test code = 105 mmol/L 98-108 7185752935) CO2 TOTAL (test code = 30 mmol/L 23-31 5930119816) AGAP (test code = 2-16 L 7397520356) BUN (test code = 47 mg/dL 7-23 H 1988126977) GLUCOSE (test code = 223 mg/dL 70-110 H 1860789923) CREATININE (test code = 0.98 mg/dL 0.6-1.25 9596645639) CALCIUM (test code = 8.2 mg/dL 8.6-10.6 L 0173117010) eGFR Calculation mL/min/1.73m2 (Non-) (test code = 0124857710) eGFR Calculation mL/min/1.73m2 () (test code = 9294685681) MARLEN (test code = MARLEN) Association of Glomerular Filtration Rate (GFR) and Staging of Kidney Disease* + --+ --+ ------+| GFR (mL/min/1.73 m2) ?| With Kidney Damage ?| ?Without Kidney Damage+ --------+ --------+ +| ?>90 ?| ?Stage one ?| ? Normal ?+ ---+ ---+ -------+| ?60-89 ?| ?Stage two ?| ? Decreased GFR ? + --+ --+ ------+| ?30-59 ?| ?Stage three ?| ? Stage three ? + --+ --+ ------+| ?15-29 ?| ?Stage four ? | ? Stage four ?+ ---+ ---+ -------+| ?<15 (or dialysis) ? ?| ?Stage five ? | ? Stage five ?+ ---+ ---+ -------+ *Each stage assumes the associated GFR level has been in effect for at least three months. ?Stages 1 to 5, with or without kidney disease, indicate chronic kidney disease. Notes: Determination of stages one and two (with eGFR >59mL/min/1.73 m2) requires estimation of kidney damage for at least three months as defined by structural or functional abnormalities of the kidney, manifested by either:Pathological abnormalities or Markers of kidney damage (including abnormalities in the composition of the blood or urine or abnormalities in imaging tests). Lab Interpretation Abnormal (test code = 69588-5) [facility] [facility]00 Test Item Value Reference Range Interpretation Comments MAGNESIUM (test code = 3672548434) 2.5 mg/dL 1.7-2.4 H Lab Interpretation (test code = Abnormal 18958-3) [facility] Test Item Value Reference Range Interpretation Comments PHOSPHORUS (test code = 5574986886) 4.2 mg/dL 2.5-5 Lab Interpretation (test code = Normal 32798-7) [facility]for use with [facility]arin Practice Guideline). Note: Draw and Send all Lab STAT.2020-01-02 10:46:00 Test Item Value Reference Range Interpretation Comments APTT Patient (test code See_Comment H [Au tomated message] = 3173-2) The system [employer] h generated this result transmitted ref erence range: 26 - 36 Seconds. The reference range was not used to int erpret this result as normal/abnormal . Lab Interpretation (test Abnormal code = 30111-1) [facility] [id number] 10:46:00 Test Item Value Reference Range Interpretation Comments PROTIME PATIENT (test See_Comment [Auto mated message] code = 5964-2) The system [email or web address] generated this result transmitted ref erence range: 10.1 - 1 2.6 Seconds. The re ference range was not u sed to interpret this result as normal/abnor mal. INR (test code = 6301-6) Nor mal INR <1.1; Warfarin Therap eutic range 2.0 to 3. 0 or 2.5 to 3.5, dep ending upon the indica tions. Lab Interpretation (test Normal code = 05448-2) [facility] Arterial Blood Gas.2020-01-02 10:39:00 Test Item Value Reference Range Interpretation Comments PH (test code = 2) 7.35-7.45 H PCO2 (test code = See_Comment [Automate d message] 2186340158) The system Parse generated this result transmitted ref erence range: 35 - 45 mmHg. The reference r sawyer was not used to interpret this result as normal/abnor mal. PO2 (test code = See_Comment L [Automated message] 0277416088) The system [employer] generated this result transmitted ref erence range: 80 - 100 mmHg. The reference r sawyer was not used to interpret this result as normal/abnor mal. HCO3 (test code = See_Comment H [Automate d message] 6241828613) The system [employer] generated this result transmitted ref erence range: 22 - 26 mEq/L. The reference r sawyer was not used to interpret this result as normal/abnor mal. BE (test code = See_Comment H [Automated message] 4516500810) The system [employer] generated this result transmitted ref erence range: -3.0 - 3 .0 mEq/L. The refe rence range was not u sed to interpret this result as normal/abnor mal. Lab Interpretation (test Abnormal code = 44727-1) [facility] GLUCOSE (AUTOMATED)2020-01-02 05:58:00 Test Item Value Reference Range Interpretation Comments POCT GLU (test code = 7326171113) 266 mg/dL 70-110 H Lab Interpretation (test code = Abnormal 85293-7) [facility] GLUCOSE (AUTOMATED)2020-01-02 02:32:00 Test Item Value Reference Range Interpretation Comments POCT GLU (test code = 0237594214) 194 mg/dL 70-110 H Lab Interpretation (test code = Abnormal 74223-4) [facility] (for use with Heparin Practice Guideline). Note: Draw and Send all Lab STAT.2020-01-02 02:16:00 Test Item Value Reference Range Interpretation Comments APTT Patient (test code = See_Comment [ Automated message] 3173-2) The system Parse generated this result transmitted ref erence range: 26 - 36 Seconds. The re ference range was not u sed to interpret this result as normal/abnor mal. Lab Interpretation (test Normal code = 93556-2) [facility] GLUCOSE (AUTOMATED)2020-01-01 23:08:00 Test Item Value Reference Range Interpretation Comments POCT GLU (test code = 5318285472) 264 mg/dL 70-110 H Lab Interpretation (test code = Abnormal 87584-8) [facility] GLUCOSE (AUTOMATED)2020-01-01 23:08:00 Test Item Value Reference Range Interpretation Comments POCT GLU (test code = 9772075527) 371 mg/dL 70-110 H Lab Interpretation (test code = Abnormal 23208-5) [facility] GLUCOSE (AUTOMATED)2020-01-01 23:08:00 Test Item Value Reference Range Interpretation Comments POCT GLU (test code = 2764701525) 331 mg/dL 70-110 H Lab Interpretation (test code = Abnormal 56921-9) [facility] GLUCOSE (AUTOMATED)2020-01-01 23:08:00 Test Item Value Reference Range Interpretation Comments POCT GLU (test code = 6160444867) 176 mg/dL 70-110 H Lab Interpretation (test code = Abnormal 57965-1) [facility] GLUCOSE (AUTOMATED)2020-01-01 21:38:00 Test Item Value Reference Range Interpretation Comments POCT GLU (test code = 7325584133) 177 mg/dL 70-110 H Lab Interpretation (test code = Abnormal 74942-3) [facility] MSSA Screen by PCR, [id number] 18:53:00 Test Item Value Reference Range Interpretation Comments MSSA Screen by PCR, Positive Negative A Nares (test code = 35015-8) MRSA/MSSA Positive? Yes No A (test code = 5692981175) MARLEN (test code = MARLEN) A positive test result does not necessarily indicate the presence of viable organism. Lab Interpretation (test Abnormal code = 58376-8) [facility] GLUCOSE (AUTOMATED)2020-01-01 17:48:00 Test Item Value Reference Range Interpretation Comments POCT GLU (test code = 3694064920) 163 mg/dL 70-110 H Lab Interpretation (test code = Abnormal 78169-0) [facility] GLUCOSE (AUTOMATED)2020-01-01 13:50:00 Test Item Value Reference Range Interpretation Comments POCT GLU (test code = 5586226750) 256 mg/dL 70-110 H Lab Interpretation (test code = Abnormal 16098-4) [facility] (for use with Heparin Practice Guideline). Note: Draw and Send all Lab STAT.2020-01-01 13:14:00 Test Item Value Reference Range Interpretation Comments APTT Patient (test code See_Comment H [Au tomated message] = 3173-2) The system [employer] generated this result transmitted ref erence range: 26 - 36 Seconds. The reference range was not used to int erpret this result as normal/abnormal . Lab Interpretation (test Abnormal code = 77891-4) [facility] METABOLIC PANEL (NA, K, CL, CO2, GLUCOSE, BUN, CREATININE, CA)2020-01-01 11:49:00 Test Item Value Reference Range Interpretation Comments NA (test code = 138 mmol/L 135-145 3631965684) K (test code = 5.1 mmol/L 3.5-5 H 9798977451) CL (test code = 108 mmol/L 98-108 4568211656) CO2 TOTAL (test code = 31 mmol/L 23-31 6267360814) AGAP (test code = <1 2-16 L 8544398549) BUN (test code = 48 mg/dL 7-23 H 6024182079) GLUCOSE (test code = 290 mg/dL 70-110 H 4459784453) CREATININE (test code = 1.06 mg/dL 0.6-1.25 6727129175) CALCIUM (test code = 8.0 mg/dL 8.6-10.6 L 7000521196) eGFR Calculation mL/min/1.73m2 (Non-) (test code = 0970534597) eGFR Calculation mL/min/1.73m2 () (test code = 3924947074) MARLEN (test code = MARLEN) Association of Glomerular Filtration Rate (GFR) and Staging of Kidney Disease* + --+ --+ ------+| GFR (mL/min/1.73 m2) ?| With Kidney Damage ?| ?Without Kidney Damage+ --------+ --------+ +| ?>90 ?| ?Stage one ?| ? Normal ?+ ---+ ---+ -------+| ?60-89 ?| ?Stage two ?| ? Decreased GFR ? + --+ --+ ------+| ?30-59 ?| ?Stage three ?| ? Stage three ? + --+ --+ ------+| ?15-29 ?| ?Stage four ? | ? Stage four ?+ ---+ ---+ -------+| ?<15 (or dialysis) ? ?| ?Stage five ? | ? Stage five ?+ ---+ ---+ -------+ *Each stage assumes the associated GFR level has been in effect for at least three months. ?Stages 1 to 5, with or without kidney disease, indicate chronic kidney disease. Notes: Determination of stages one and two (with eGFR >59mL/min/1.73 m2) requires estimation of kidney damage for at least three months as defined by structural or functional abnormalities of the kidney, manifested by either:Pathological abnormalities or Markers of kidney damage (including abnormalities in the composition of the blood or urine or abnormalities in imaging tests). Lab Interpretation Abnormal (test code = 88047-2) [facility] WITH [id number] 11:38:00 Test Item Value Reference Range Interpretation Comments WBC (test code = See_Comment H [Automated 3790-2) message] The system which generated this result transmit vashti reference range : 4.20 - 10.70 10*3/?L. The reference range was not used to interpret this result as normal/abnormal . RBC (test code = See_Comment L [Automated 779-8) message] The system which generated this result transmit vashti reference range : 4.26 - 5.52 10*6/?L. The reference range was not used to interpret this result as normal/abnormal . HGB (test code = 12.4 g/dL 12.2-16.4 288-7) HCT (test code = 38.3 % 38.4-49.3 L 4544-3) MCV (test code = 92.5 fL 81.7-95.6 787-2) MCH (test code = 30.0 pg 26.1-32.7 785-6) MCHC (test code = 32.4 g/dL 31.2-35 786-4) RDW-SD (test code = 45.4 fL 38.5-51.6 52360-6) RDW-CV (test code = 13.4 % 12.1-15.4 788-0) PLT (test code = See_Comment L [Automated 777-3) message] The system which generated this result transmit vashti reference range : 150 - 328 10*3/ ?L. The reference range was not u sed to interpret th is result as normal/abnormal . MPV (test code = 12.9 fL 9.8-13 20209-1) NRBC/100 WBC (test See_Comment [Automat ed code = 1865579587) message] The system which generated this result transmit vashti reference range : 0.0 - 10.0 /100 WBCs. The reference range was not used to interpret this result as normal/abnormal . NRBC x10^3 (test code <0.01 See_Comment [Auto mated = 6757277296) message] The system which generated this result transmit vashti reference range : 10*3/?L. The reference range was not used to interpret this result as normal/abnormal . GRAN MAT (NEUT) % 91.0 % (test code = 770-8) IMM GRAN % (test code 0.60 % = 5126720318) LYMPH % (test code = 3.4 % 736-9) MONO % (test code = 4.8 % 5905-5) EOS % (test code = 0.1 % 713-8) BASO % (test code = 0.1 % 706-2) GRAN MAT x10^3(ANC) 18.92 10*3/uL 1.99-6.95 H (test code = 8637988801) IMM GRAN x10^3 (test 0.13 10*3/uL 0-0.06 H code = 4634967725) LYMPH x10^3 (test code 0.71 10*3/uL 1.09-3.23 L = 731-0) MONO x10^3 (test code 0.99 10*3/uL 0.36-1.02 = 742-7) EOS x10^3 (test code = <0.03 0.06-0.53 L 711-2) BASO x10^3 (test code <0.03 0.01-0.09 = 704-7) Lab Interpretation Abnormal (test code = 11788-0) [facility] 11[facility]36:00 Test Item Value Reference Range Interpretation Comments MAGNESIUM (test code = 2623833896) 2.5 mg/dL 1.7-2.4 H Lab Interpretation (test code = Abnormal 07753-4) [facility] 11:36:00 Test Item Value Reference Range Interpretation Comments PHOSPHORUS (test code = 4585461705) 4.0 mg/dL 2.5-5 Lab Interpretation (test code = Normal 98203-6) [facility] / [id number] 11:06:00 Test Item Value Reference Range Interpretation Comments PROTIME PATIENT (test See_Comment H [Auto mated message] code = 5964-2) The system [facility] generated this result transmitted ref erence range: 10.1 - 1 2.6 Seconds. The reference range was not used to int erpret this result as normal/abnormal . INR (test code = 6301-6) Nor mal INR <1.1; Warfarin Therap eutic range 2.0 to 3. 0 or 2.5 to 3.5, dep ending upon the indica tions. Lab Interpretation (test Abnormal code = 49406-2) [facility].2020-01-01 10:55:00 Test Item Value Reference Range Interpretation Comments PH (test code = 2) 7.35-7.45 H PCO2 (test code = See_Comment [Automate d message] 1114181215) The system [employer] generated this result transmitted ref erence range: 35 - 45 mmHg. The reference r sawyer was not used to interpret this result as normal/abnor mal. PO2 (test code = See_Comment L [Automated message] 4957188110) The system [employer] h generated this result transmitted ref erence range: 80 - 100 mmHg. The reference r sawyer was not used to interpret this result as normal/abnor mal. HCO3 (test code = See_Comment H [Automate d message] 3677738780) The system [employer] generated this result transmitted ref erence range: 22 - 26 mEq/L. The reference r sawyer was not used to interpret this result as normal/abnor mal. BE (test code = See_Comment H [Automated message] 5665073732) The system [employer] generated this result transmitted ref erence range: -3.0 - 3 .0 mEq/L. The refe rence range was not u sed to interpret this result as normal/abnor mal. Lab Interpretation (test Abnormal code = 25064-0) [facility]2020-01-01 04:12:00 Test Item Value Reference Range Interpretation Comments POCT GLU (test code = 1121233438) 328 mg/dL 70-110 H Lab Interpretation (test code = Abnormal 67008-1) [facility]for use with Heparin Practice Guideline). Note: Draw and Send all Lab STAT.2020-01-01 02:29:00 Test Item Value Reference Range Interpretation Comments APTT Patient (test code See_Comment H [Au tomated message] = 3173-2) The system [employer] generated this result transmitted ref erence range: 26 - 36 Seconds. The reference range was not used to int erpret this result as normal/abnormal . Lab Interpretation (test Abnormal code = 20050-1) [facility] [id number] 01:02:00 Test Item Value Reference Range Interpretation Comments Blood Culture-Aerobic No organisms No growth Previo us (test code = 78588-7) isolated prelim inary verified result was Culture In Progress on 12/26/2019 at 23 02 CDTPrevious preliminary verified result was No growth a t 24 hours on 12/27/2019 at 200 1 CDTPrevious preliminary verified result was No growth a t 48 hours on 12/28/2019 at 200 1 CDTPrevious preliminary verified result was No growth a t 72 hours on 12/29/2019 at 200 2 CDT Blood No organisms No growth Previous Culture-Anaerobic isolated preliminar y (test code = 18873-0) verifi ed result was Culture In Progress on 12/26/2019 at 23 02 CDTPrevious preliminary verified result was No growth a t 24 hours on 12/27/2019 at 200 1 CDTPrevious preliminary verified result was No growth a t 48 hours on 12/28/2019 at 200 1 CDTPrevious preliminary verified result was No growth a t 72 hours on 12/29/2019 at 200 2 CDT Lab Interpretation Normal (test code = 84946-0) [facility] CULTURE [id number] 01:02:00 Test Item Value Reference Range Interpretation Comments Blood Culture-Aerobic No organisms No growth Previo us (test code = 08480-0) isolated prelim inary verified result was Culture In Progress on 12/26/2019 at 23 02 CDTPrevious preliminary verified result was No growth a t 24 hours on 12/27/2019 at 200 1 CDTPrevious preliminary verified result was No growth a t 48 hours on 12/28/2019 at 200 1 CDTPrevious preliminary verified result was No growth a t 72 hours on 12/29/2019 at 200 2 CDT Blood No organisms No growth Previous Culture-Anaerobic isolated preliminar y (test code = 32290-9) verifi ed result was Culture In Progress on 12/26/2019 at 23 02 CDTPrevious preliminary verified result was No growth a t 24 hours on 12/27/2019 at 200 1 CDTPrevious preliminary verified result was No growth a t 48 hours on 12/28/2019 at 200 1 CDTPrevious preliminary verified result was No growth a t 72 hours on 12/29/2019 at 200 2 CDT Lab Interpretation Normal (test code = 75736-4) [facility] GLUCOSE (AUTOMATED)2020-01-01 00:08:00 Test Item Value Reference Range Interpretation Comments POCT GLU (test code = 3504019588) 276 mg/dL 70-110 H Lab Interpretation (test code = Abnormal 49658-3) [facility] GLUCOSE (AUTOMATED)2020-01-01 00:08:00 Test Item Value Reference Range Interpretation Comments POCT GLU (test code = 0766669448) 291 mg/dL 70-110 H Lab Interpretation (test code = Abnormal 03317-1) [facility] GLUCOSE (AUTOMATED)2020-01-01 00:08:00 Test Item Value Reference Range Interpretation Comments POCT GLU (test code = 0413876438) 376 mg/dL 70-110 H Lab Interpretation (test code = Abnormal 31401-0) [facility] GLUCOSE (AUTOMATED)2020-01-01 00:08:00 Test Item Value Reference Range Interpretation Comments POCT GLU (test code = 3719320368) 332 mg/dL 70-110 H Lab Interpretation (test code = Abnormal 48939-0) [facility] 22:47:00 Test Item Value Reference Range Interpretation Comments APPEARANCE (test code = Hazy Clear A 8406047335) COLOR (test code = Yellow Yellow 2611828690) PH (test code = 4.8-8.0 4001863636) SP GRAVITY (test code = 1.003-1.030 5459798255) GLU U QUAL (test code = 500 mg/dL Normal A 3903012432) BLOOD (test code = 3+ Negative A 4598463718) KETONES (test code = Negative Negative 9074814861) PROTEIN (test code = 30 mg/dL Negative A 2887-8) UROBILIN (test code = Normal Normal 2441807941) BILIRUBIN (test code = Negative Negative 0119045161) NITRITE (test code = Negative Negative 2293969040) LEUK TOMMY (test code = Negative Negative 7847981988) RBC/HPF (test code = See_Comment H [Autom ated message] 4610350148) The system Parse generated this result transmit vashti reference range : 0 - 3 HPF. The refe rence range was not u sed to interpret th is result as normal/abnormal . WBC/HPF (test code = See_Comment [Autom ated message] 3910635226) The system [employer] generated this result transmit vashti reference range : 0 - 5 HPF. The refe rence range was not u sed to interpret th is result as normal/abnormal . BACTERIA (test code = Negative Negative 1156963954) AMORPHOUS (test code = Rare Rare HPF 7748425621) Lab Interpretation (test Abnormal code = 79446-5) [facility] GLUCOSE (AUTOMATED)2019-12-31 13:31:00 Test Item Value Reference Range Interpretation Comments POCT GLU (test code = 0965925861) 298 mg/dL 70-110 H Lab Interpretation (test code = Abnormal 01113-2) [facility] 12:47:00 Test Item Value Reference Range Interpretation Comments PHOSPHORUS (test code = 7915775776) 3.3 mg/dL 2.5-5 Lab Interpretation (test code = Normal 19084-3) [facility] WITH [id number] 12:30:00 Test Item Value Reference Range Interpretation Comments WBC (test code = See_Comment H [Automated 2390-2) message] The system which generated this result transmit vashti reference range : 4.20 - 10.70 10*3/?L. The reference range was not used to interpret this result as normal/abnormal . RBC (test code = See_Comment [Automated 789-8) message] The system which generated this result transmit vashti reference range : 4.26 - 5.52 10*6/?L. The reference range was not used to interpret this result as normal/abnormal . HGB (test code = 13.2 g/dL 12.2-16.4 718-7) HCT (test code = 41.1 % 38.4-49.3 4544-3) MCV (test code = 93.4 fL 81.7-95.6 787-2) MCH (test code = 30.0 pg 26.1-32.7 785-6) MCHC (test code = 32.1 g/dL 31.2-35 786-4) RDW-SD (test code = 46.4 fL 38.5-51.6 00695-7) RDW-CV (test code = 13.6 % 12.1-15.4 788-0) PLT (test code = See_Comment L [Automated 777-3) message] The system which generated this result transmit vashti reference range : 150 - 328 10*3/ ?L. The reference range was not u sed to interpret th is result as normal/abnormal . MPV (test code = 12.5 fL 9.8-13 99287-0) NRBC/100 WBC (test See_Comment [Automat ed code = 7437459164) message] The system which generated this result transmit vashti reference range : 0.0 - 10.0 /100 WBCs. The reference range was not used to interpret this result as normal/abnormal . NRBC x10^3 (test code <0.01 See_Comment [Auto mated = 3697822629) message] The system which generated this result transmit vashti reference range : 10*3/?L. The reference range was not used to interpret this result as normal/abnormal . GRAN MAT (NEUT) % 90.0 % (test code = 770-8) IMM GRAN % (test code 1.00 % = 6899383648) LYMPH % (test code = 3.3 % 736-9) MONO % (test code = 5.5 % 5905-5) EOS % (test code = 0.1 % 713-8) BASO % (test code = 0.1 % 706-2) GRAN MAT x10^3(ANC) 18.68 10*3/uL 1.99-6.95 H (test code = 5910129308) IMM GRAN x10^3 (test 0.20 10*3/uL 0-0.06 H code = 1255819032) LYMPH x10^3 (test code 0.68 10*3/uL 1.09-3.23 L = 731-0) MONO x10^3 (test code 1.15 10*3/uL 0.36-1.02 H = 742-7) EOS x10^3 (test code = 0.03 10*3/uL 0.06-0.53 L 711-2) BASO x10^3 (test code 0.03 10*3/uL 0.01-0.09 = 704-7) Lab Interpretation Abnormal (test code = 24888-3) [facility] METABOLIC PANEL (NA, K, CL, CO2, GLUCOSE, BUN, CREATININE, CA)2019-12-31 12:21:00 Test Item Value Reference Range Interpretation Comments NA (test code = 141 mmol/L 135-145 3428331159) K (test code = 5.2 mmol/L 3.5-5 H 5755566967) CL (test code = 110 mmol/L 98-108 H 7846875746) CO2 TOTAL (test code = 30 mmol/L 23-31 9385830965) AGAP (test code = 2-16 L 4193416303) BUN (test code = 56 mg/dL 7-23 H 0587465656) GLUCOSE (test code = 337 mg/dL 70-110 H 5690244176) CREATININE (test code = 1.19 mg/dL 0.6-1.25 0178473580) CALCIUM (test code = 8.1 mg/dL 8.6-10.6 L 1424338376) eGFR Calculation mL/min/1.73m2 (Non-) (test code = 9780186132) eGFR Calculation mL/min/1.73m2 () (test code = 7292561151) MARLEN (test code = MARLEN) Association of Glomerular Filtration Rate (GFR) and Staging of Kidney Disease* + --+ --+ ------+| GFR (mL/min/1.73 m2) ?| With Kidney Damage ?| ?Without Kidney Damage+ --------+ --------+ +| ?>90 ?| ?Stage one ?| ? Normal ?+ ---+ ---+ -------+| ?60-89 ?| ?Stage two ?| ? Decreased GFR ? + --+ --+ ------+| ?30-59 ?| ?Stage three ?| ? Stage three ? + --+ --+ ------+| ?15-29 ?| ?Stage four ? | ? Stage four ?+ ---+ ---+ -------+| ?<15 (or dialysis) ? ?| ?Stage five ? | ? Stage five ?+ ---+ ---+ -------+ *Each stage assumes the associated GFR level has been in effect for at least three months. ?Stages 1 to 5, with or without kidney disease, indicate chronic kidney disease. Notes: Determination of stages one and two (with eGFR >59mL/min/1.73 m2) requires estimation of kidney damage for at least three months as defined by structural or functional abnormalities of the kidney, manifested by either:Pathological abnormalities or Markers of kidney damage (including abnormalities in the composition of the blood or urine or abnormalities in imaging tests). Lab Interpretation Abnormal (test code = 51466-3) [facility] 12:21:00 Test Item Value Reference Range Interpretation Comments MAGNESIUM (test code = 0520665827) 2.7 mg/dL 1.7-2.4 H Lab Interpretation (test code = Abnormal 56175-9) [facility] (for use with Heparin Practice Guideline). Note: Draw and Send all Lab STAT.2019-12-31 11:57:00 Test Item Value Reference Range Interpretation Comments APTT Patient (test code See_Comment H [Au tomated message] = 3173-2) The system [employer] generated this result transmitted ref erence range: 26 - 36 Seconds. The reference range was not used to int erpret this result as normal/abnormal . Lab Interpretation (test Abnormal code = 53441-6) [facility]PROT[facility] / [id number] 11:57:00 Test Item Value Reference Range Interpretation Comments PROTIME PATIENT (test See_Comment H [Auto mated message] code = 5964-2) The system [facility] generated this result transmitted ref erence range: 10.1 - 1 2.6 Seconds. The reference range was not used to int erpret this result as normal/abnormal . INR (test code = 6301-6) Nor mal INR <1.1; Warfarin Therap eutic range 2.0 to 3. 0 or 2.5 to 3.5, dep ending upon the indica tions. Lab Interpretation (test Abnormal code = 59823-3) [facility].2019-12-31 11:37:00 Test Item Value Reference Range Interpretation Comments PH (test code = 2) 7.35-7.45 H PCO2 (test code = See_Comment [Automate d message] 4356287980) The system [employer] generated this result transmitted ref erence range: 35 - 45 mmHg. The reference r sawyer was not used to interpret this result as normal/abnor mal. PO2 (test code = See_Comment L [Automated message] 0109444957) The system [employer] generated this result transmitted ref erence range: 80 - 100 mmHg. The reference r sawyer was not used to interpret this result as normal/abnor mal. HCO3 (test code = See_Comment H [Automate d message] 2645665221) The system [employer] generated this result transmitted ref erence range: 22 - 26 mEq/L. The reference r sawyer was not used to interpret this result as normal/abnor mal. BE (test code = See_Comment H [Automated message] 9011577507) The system Parse generated this result transmitted ref erence range: -3.0 - 3 .0 mEq/L. The refe rence range was not u sed to interpret this result as normal/abnor mal. Lab Interpretation (test Abnormal code = 73604-6) [facility] GLUCOSE (AUTOMATED)2019-12-31 06:35:00 Test Item Value Reference Range Interpretation Comments POCT GLU (test code = 7981065506) 344 mg/dL 70-110 H Lab Interpretation (test code = Abnormal 55115-4) [facility] (for use with Heparin Practice Guideline). Note: Draw and Send all Lab STAT.2019-12-30 23:45:00 Test Item Value Reference Range Interpretation Comments APTT Patient (test code See_Comment H [Au tomated message] = 3173-2) The system Parse generated this result transmitted ref erence range: 26 - 36 Seconds. The reference range was not used to int erpret this result as normal/abnormal . Lab Interpretation (test Abnormal code = 46280-1) [facility] (for use with Heparin Practice Guideline). Note: Draw and Send all Lab STAT.2019-12-30 17:09:00 Test Item Value Reference Range Interpretation Comments APTT Patient (test code See_Comment H [Au tomated message] = 3173-2) The system Parse generated this result transmitted ref erence range: 26 - 36 Seconds. The reference range was not used to int erpret this result as normal/abnormal . Lab Interpretation (test Abnormal code = 83783-6) [facility] GLUCOSE (AUTOMATED)2019-12-30 11:19:00 Test Item Value Reference Range Interpretation Comments POCT GLU (test code = 1715192870) 285 mg/dL 70-110 H Lab Interpretation (test code = Abnormal 61900-5) [facility] GLUCOSE (AUTOMATED)2019-12-30 11:19:00 Test Item Value Reference Range Interpretation Comments POCT GLU (test code = 5221008973) 268 mg/dL 70-110 H Lab Interpretation (test code = Abnormal 99972-9) [facility] GLUCOSE (AUTOMATED)2019-12-30 11:19:00 Test Item Value Reference Range Interpretation Comments POCT GLU (test code = 9284915999) 314 mg/dL 70-110 H Lab Interpretation (test code = Abnormal 58537-7) [facility] WITH [id number] 10:33:00 Test Item Value Reference Range Interpretation Comments WBC (test code = See_Comment H [Automated 0290-2) message] The system which generated this result transmit vashti reference range : 4.20 - 10.70 10*3/?L. The reference range was not used to interpret this result as normal/abnormal . RBC (test code = See_Comment [Automated 789-8) message] The system which generated this result transmit vashti reference range : 4.26 - 5.52 10*6/?L. The reference range was not used to interpret this result as normal/abnormal . HGB (test code = 13.8 g/dL 12.2-16.4 718-7) HCT (test code = 42.0 % 38.4-49.3 4544-3) MCV (test code = 90.7 fL 81.7-95.6 787-2) MCH (test code = 29.8 pg 26.1-32.7 785-6) MCHC (test code = 32.9 g/dL 31.2-35 786-4) RDW-SD (test code = 45.1 fL 38.5-51.6 11484-0) RDW-CV (test code = 13.5 % 12.1-15.4 788-0) PLT (test code = See_Comment [Automated 777-3) message] The system which generated this result transmit vashti reference range : 150 - 328 10*3/ ?L. The reference range was not u sed to interpret th is result as normal/abnormal . MPV (test code = 12.7 fL 9.8-13 45196-0) NRBC/100 WBC (test See_Comment [Automat ed code = 5490413227) message] The system which generated this result transmit vashti reference range : 0.0 - 10.0 /100 WBCs. The reference range was not used to interpret this result as normal/abnormal . NRBC x10^3 (test code <0.01 See_Comment [Auto mated = 8245439695) message] The system which generated this result transmit vashti reference range : 10*3/?L. The reference range was not used to interpret this result as normal/abnormal . GRAN MAT (NEUT) % 91.6 % (test code = 770-8) IMM GRAN % (test code 1.00 % = 7217044454) LYMPH % (test code = 2.2 % 736-9) MONO % (test code = 5.1 % 5905-5) EOS % (test code = 0.0 % 713-8) BASO % (test code = 0.1 % 706-2) GRAN MAT x10^3(ANC) 17.18 10*3/uL 1.99-6.95 H (test code = 6749513746) IMM GRAN x10^3 (test 0.18 10*3/uL 0-0.06 H code = 8405008749) LYMPH x10^3 (test code 0.42 10*3/uL 1.09-3.23 L = 731-0) MONO x10^3 (test code 0.96 10*3/uL 0.36-1.02 = 742-7) EOS x10^3 (test code = <0.03 0.06-0.53 L 711-2) BASO x10^3 (test code <0.03 0.01-0.09 = 704-7) Lab Interpretation Abnormal (test code = 56602-5) [facility] METABOLIC PANEL (NA, K, CL, CO2, GLUCOSE, BUN, CREATININE, CA)2019-12-30 10:27:00 Test Item Value Reference Range Interpretation Comments NA (test code = 138 mmol/L 135-145 0116442967) K (test code = 4.8 mmol/L 3.5-5 2149922569) CL (test code = 106 mmol/L 98-108 8032427466) CO2 TOTAL (test code = 31 mmol/L 23-31 4498222765) AGAP (test code = 2-16 L 4279126807) BUN (test code = 55 mg/dL 7-23 H 4802689277) GLUCOSE (test code = 279 mg/dL 70-110 H 4394364919) CREATININE (test code = 1.20 mg/dL 0.6-1.25 9245495388) CALCIUM (test code = 7.9 mg/dL 8.6-10.6 L 8569710318) eGFR Calculation mL/min/1.73m2 (Non-) (test code = 6819815632) eGFR Calculation mL/min/1.73m2 () (test code = 4485680971) MARLEN (test code = MARLEN) Association of Glomerular Filtration Rate (GFR) and Staging of Kidney Disease* + --+ --+ ------+| GFR (mL/min/1.73 m2) ?| With Kidney Damage ?| ?Without Kidney Damage+ --------+ --------+ +| ?>90 ?| ?Stage one ?| ? Normal ?+ ---+ ---+ -------+| ?60-89 ?| ?Stage two ?| ? Decreased GFR ? + --+ --+ ------+| ?30-59 ?| ?Stage three ?| ? Stage three ? + --+ --+ ------+| ?15-29 ?| ?Stage four ? | ? Stage four ?+ ---+ ---+ -------+| ?<15 (or dialysis) ? ?| ?Stage five ? | ? Stage five ?+ ---+ ---+ -------+ *Each stage assumes the associated GFR level has been in effect for at least three months. ?Stages 1 to 5, with or without kidney disease, indicate chronic kidney disease. Notes: Determination of stages one and two (with eGFR >59mL/min/1.73 m2) requires estimation of kidney damage for at least three months as defined by structural or functional abnormalities of the kidney, manifested by either:Pathological abnormalities or Markers of kidney damage (including abnormalities in the composition of the blood or urine or abnormalities in imaging tests). Lab Interpretation Abnormal (test code = 12657-8) [facility] Test Item Value Reference Range Interpretation Comments MAGNESIUM (test code = 1052597407) 2.9 mg/dL 1.7-2.4 H Lab Interpretation (test code = Abnormal 72991-7) [facility] 10:27[facility]00 Test Item Value Reference Range Interpretation Comments PHOSPHORUS (test code = 1264522507) 3.5 mg/dL 2.5-5 Lab Interpretation (test code = Normal 14549-0) [facility]for use with [facility]arin Practice Guideline). Note: Draw and Send all Lab STAT.2019-12-30 09:59:00 Test Item Value Reference Range Interpretation Comments APTT Patient (test code See_Comment H [Au tomated message] = 3173-2) The system [employer] generated this result transmitted ref erence range: 26 - 36 Seconds. The reference range was not used to int erpret this result as normal/abnormal . Lab Interpretation (test Abnormal code = 27391-3) [facility] [id number] 09:59:00 Test Item Value Reference Range Interpretation Comments PROTIME PATIENT (test See_Comment H [Auto mated message] code = 5964-2) The system [facility] generated this result transmitted ref erence range: 10.1 - 1 2.6 Seconds. The reference range was not used to int erpret this result as normal/abnormal . INR (test code = 6301-6) Nor mal INR <1.1; Warfarin Therap eutic range 2.0 to 3. 0 or 2.5 to 3.5, dep ending upon the indica tions. Lab Interpretation (test Abnormal code = 54938-8) [facility]2019-12-30 09:04:00 Test Item Value Reference Range Interpretation Comments PH (test code = 2) 7.35-7.45 H PCO2 (test code = See_Comment [Automat ed message] 6102023320) The system [employer] generated this result transmitted ref erence range: 35 - 45 mmHg. The reference r sawyer was not used to interpret this result as normal/abnor mal. PO2 (test code = See_Comment L [Automated message] 7429464919) The system [employer] generated this result transmitted ref erence range: 80 - 100 mmHg. The reference r sawyer was not used to interpret this result as normal/abnor mal. HCO3 (test code = See_Comment H [Automate d message] 9980774130) The system [facility] [employer] generated this result transmitted ref erence range: 22 - 26 mEq/L. The reference r sawyer was not used to interpret this result as normal/abnor mal. BE (test code = See_Comment H [Automated message] 7333332181) The system Parse generated this result transmitted ref erence range: -3.0 - 3 .0 mEq/L. The refe rence range was not u sed to interpret this result as normal/abnor mal. Lab Interpretation (test Abnormal code = 71184-4) [facility] (for use with Heparin Practice Guideline). Note: Draw and Send all Lab STAT.2019-12-30 03:31:00 Test Item Value Reference Range Interpretation Comments APTT Patient (test code See_Comment H [Au tomated message] = 3173-2) The system Parse generated this result transmitted ref erence range: 26 - 36 Seconds. The reference range was not used to int erpret this result as normal/abnormal . Lab Interpretation (test Abnormal code = 20929-1) [facility] GLUCOSE (AUTOMATED)2019-12-29 22:13:00 Test Item Value Reference Range Interpretation Comments POCT GLU (test code = 8144427107) 355 mg/dL 70-110 H Lab Interpretation (test code = Abnormal 92938-6) [facility] GLUCOSE (AUTOMATED)2019-12-29 17:48:00 Test Item Value Reference Range Interpretation Comments POCT GLU (test code = 2473579077) 362 mg/dL 70-110 H Lab Interpretation (test code = Abnormal 39186-9) [facility] (for use with Heparin Practice Guideline). Note: Draw and Send all Lab STAT.2019-12-29 15:05:00 Test Item Value Reference Range Interpretation Comments APTT Patient (test code See_Comment H [Au tomated message] = 3173-2) The system Parse generated this result transmitted ref erence range: 26 - 36 Seconds. The reference range was not used to int erpret this result as normal/abnormal . Lab Interpretation (test Abnormal code = 76676-1) [facility] GLUCOSE (AUTOMATED)2019-12-29 14:47:00 Test Item Value Reference Range Interpretation Comments POCT GLU (test code = 3586954523) 361 mg/dL 70-110 H Lab Interpretation (test code = Abnormal 85983-1) [facility] WITH [id number] 09:36:00 Test Item Value Reference Range Interpretation Comments WBC (test code = See_Comment H [Automated 6690-2) message] The system which generated this result transmit vashti reference range : 4.20 - 10.70 10*3/?L. The reference range was not used to interpret this result as normal/abnormal . RBC (test code = See_Comment [Automated 789-8) message] The system which generated this result transmit vashti reference range : 4.26 - 5.52 10*6/?L. The reference range was not used to interpret this result as normal/abnormal . HGB (test code = 14.5 g/dL 12.2-16.4 718-7) HCT (test code = 43.3 % 38.4-49.3 4544-3) MCV (test code = 90.4 fL 81.7-95.6 787-2) MCH (test code = 30.3 pg 26.1-32.7 785-6) MCHC (test code = 33.5 g/dL 31.2-35 786-4) RDW-SD (test code = 44.9 fL 38.5-51.6 99122-9) RDW-CV (test code = 13.5 % 12.1-15.4 788-0) PLT (test code = See_Comment [Automated 777-3) message] The system which generated this result transmit vashti reference range : 150 - 328 10*3/ ?L. The reference range was not u sed to interpret th is result as normal/abnormal . MPV (test code = 12.0 fL 9.8-13 48351-9) NRBC/100 WBC (test See_Comment [Automat ed code = 5328488658) message] The system which generated this result transmit vashti reference range : 0.0 - 10.0 /100 WBCs. The reference range was not used to interpret this result as normal/abnormal . NRBC x10^3 (test code <0.01 See_Comment [Auto mated = 6485115203) message] The system which generated this result transmit vashti reference range : 10*3/?L. The reference range was not used to interpret this result as normal/abnormal . GRAN MAT (NEUT) % 92.0 % (test code = 770-8) IMM GRAN % (test code 0.90 % = 5323487208) LYMPH % (test code = 2.0 % 736-9) MONO % (test code = 5.0 % 5905-5) EOS % (test code = 0.0 % 713-8) BASO % (test code = 0.1 % 706-2) GRAN MAT x10^3(ANC) 18.82 10*3/uL 1.99-6.95 H (test code = 2352441890) IMM GRAN x10^3 (test 0.18 10*3/uL 0-0.06 H code = 0378311416) LYMPH x10^3 (test code 0.40 10*3/uL 1.09-3.23 L = 731-0) MONO x10^3 (test code 1.02 10*3/uL 0.36-1.02 = 742-7) EOS x10^3 (test code = <0.03 0.06-0.53 L 711-2) BASO x10^3 (test code <0.03 0.01-0.09 = 704-7) MYRNA CELLS (test code 2+ See_Comment A [Auto mated = 6012-3) message] The system which generated this result transmit vashti reference range : (none). The reference range was not used to interpret this result as normal/abnormal . Lab Interpretation Abnormal (test code = 30918-3) [facility] METABOLIC PANEL (NA, K, CL, CO2, GLUCOSE, BUN, CREATININE, CA)2019-12-29 09:32:00 Test Item Value Reference Range Interpretation Comments NA (test code = 135 mmol/L 135-145 3591656395) K (test code = 4.4 mmol/L 3.5-5 5740224702) CL (test code = 102 mmol/L 98-108 3729263736) CO2 TOTAL (test code = 29 mmol/L 23-31 3620860736) AGAP (test code = 2-16 9569579368) BUN (test code = 50 mg/dL 7-23 H 2213925634) GLUCOSE (test code = 404 mg/dL 70-110 H 1833221870) CREATININE (test code = 1.34 mg/dL 0.6-1.25 H 4921586928) CALCIUM (test code = 7.8 mg/dL 8.6-10.6 L 5227654730) eGFR Calculation mL/min/1.73m2 (Non-) (test code = 0555159166) eGFR Calculation mL/min/1.73m2 () (test code = 2328386643) MARLEN (test code = MARLEN) Association of Glomerular Filtration Rate (GFR) and Staging of Kidney Disease* + --+ --+ ------+| GFR (mL/min/1.73 m2) ?| With Kidney Damage ?| ?Without Kidney Damage+ --------+ --------+ +| ?>90 ?| ?Stage one ?| ? Normal ?+ ---+ ---+ -------+| ?60-89 ?| ?Stage two ?| ? Decreased GFR ? + --+ --+ ------+| ?30-59 ?| ?Stage three ?| ? Stage three ? + --+ --+ ------+| ?15-29 ?| ?Stage four ? | ? Stage four ?+ ---+ ---+ -------+| ?<15 (or dialysis) ? ?| ?Stage five ? | ? Stage five ?+ ---+ ---+ -------+ *Each stage assumes the associated GFR level has been in effect for at least three months. ?Stages 1 to 5, with or without kidney disease, indicate chronic kidney disease. Notes: Determination of stages one and two (with eGFR >59mL/min/1.73 m2) requires estimation of kidney damage for at least three months as defined by structural or functional abnormalities of the kidney, manifested by either:Pathological abnormalities or Markers of kidney damage (including abnormalities in the composition of the blood or urine or abnormalities in imaging tests). Lab Interpretation Abnormal (test code = 48587-0) [facility] 09[facility]32:00 Test Item Value Reference Range Interpretation Comments MAGNESIUM (test code = 2306492840) 2.6 mg/dL 1.7-2.4 H Lab Interpretation (test code = Abnormal 22640-5) [facility] 09:32:00 Test Item Value Reference Range Interpretation Comments PHOSPHORUS (test code = 1232046640) 3.2 mg/dL 2.5-5 Lab Interpretation (test code = Normal 53261-1) [facility] / [id number] 09:11:00 Test Item Value Reference Range Interpretation Comments PROTIME PATIENT (test See_Comment H [Auto mated message] code = 5964-2) The system [facility] generated this result transmitted ref erence range: 10.1 - 1 2.6 Seconds. The reference range was not used to int erpret this result as normal/abnormal . INR (test code = 6301-6) Nor mal INR <1.1; Warfarin Therap eutic range 2.0 to 3. 0 or 2.5 to 3.5, dep ending upon the indica tions. Lab Interpretation (test Abnormal code = 64582-7) [facility] GLUCOSE (AUTOMATED)2019-12-29 09:05:00 Test Item Value Reference Range Interpretation Comments POCT GLU (test code = 6691360530) 397 mg/dL 70-110 H Lab Interpretation (test code = Abnormal 53448-5) [facility] Arterial Blood Gas.2019-12-29 08:52:00 Test Item Value Reference Range Interpretation Comments PH (test code = 2) 7.35-7.45 H PCO2 (test code = See_Comment [Automate d message] 2369713140) The system [employer] generated this result transmitted ref erence range: 35 - 45 mmHg. The reference r sawyer was not used to interpret this result as normal/abnor mal. PO2 (test code = See_Comment L [Automated message] 7763503672) The system Parse generated this result transmitted ref erence range: 80 - 100 mmHg. The reference r sawyer was not used to interpret this result as normal/abnor mal. HCO3 (test code = See_Comment H [Automate d message] 1053524501) The system [employer] generated this result transmitted ref erence range: 22 - 26 mEq/L. The reference r sawyer was not used to interpret this result as normal/abnor mal. BE (test code = See_Comment H [Automated message] 4563231185) The system [employer] generated this result transmitted ref erence range: -3.0 - 3 .0 mEq/L. The refe rence range was not u sed to interpret this result as normal/abnor mal. Lab Interpretation (test Abnormal code = 37384-7) [facility] GLUCOSE (AUTOMATED)2019-12-29 05:31:00 Test Item Value Reference Range Interpretation Comments POCT GLU (test code = 8851030390) 511 mg/dL 70-110 HH Lab Interpretation (test code = Abnormal 09297-8) [facility] GLUCOSE (AUTOMATED)2019-12-29 02:37:00 Test Item Value Reference Range Interpretation Comments POCT GLU (test code = 7432571617) 486 mg/dL 70-110 HH Lab Interpretation (test code = Abnormal 19765-0) [facility]2019-12-29 00:00:00 Test Item Value Reference Range Interpretation Comments HGB A1C (test code = 4548-4) 8.1 % 4-6 H Lab Interpretation (test code = Abnormal 36183-3) [facility] GLUCOSE (AUTOMATED)2019-12-28 22:52:00 Test Item Value Reference Range Interpretation Comments POCT GLU (test code = 5022187008) 485 mg/dL 70-110 HH Lab Interpretation (test code = Abnormal 95958-3) [facility] (for use with Heparin Practice Guideline). Note: Draw and Send all Lab STAT.2019-12-28 21:34:00 Test Item Value Reference Range Interpretation Comments APTT Patient (test code See_Comment H [Au tomated message] = 3173-2) The system Parse generated this result transmitted ref erence range: 26 - 36 Seconds. The reference range was not used to int erpret this result as normal/abnormal . Lab Interpretation (test Abnormal code = 87577-7) [facility] GLUCOSE (AUTOMATED)2019-12-28 18:08:00 Test Item Value Reference Range Interpretation Comments POCT GLU (test code = 3654725482) 313 mg/dL 70-110 H Lab Interpretation (test code = Abnormal 89091-3) [facility] [id number] 11:24:00 Test Item Value Reference Range Interpretation Comments WBC (test code = See_Comment H [Automated 2957-2) message] The system which generated this result transmit vashti reference range : 4.20 - 10.70 10*3/?L. The reference range was not used to interpret this result as normal/abnormal . RBC (test code = See_Comment [Automated 789-8) message] The system which generated this result transmit vashti reference range : 4.26 - 5.52 10*6/?L. The reference range was not used to interpret this result as normal/abnormal . HGB (test code = 14.6 g/dL 12.2-16.4 718-7) HCT (test code = 43.3 % 38.4-49.3 4544-3) MCV (test code = 88.5 fL 81.7-95.6 787-2) MCH (test code = 29.9 pg 26.1-32.7 785-6) MCHC (test code = 33.7 g/dL 31.2-35 786-4) RDW-SD (test code = 43.6 fL 38.5-51.6 98701-2) RDW-CV (test code = 13.4 % 12.1-15.4 788-0) PLT (test code = See_Comment [Automated 777-3) message] The system which generated this result transmit vashti reference range : 150 - 328 10*3/ ?L. The reference range was not u sed to interpret th is result as normal/abnormal . MPV (test code = 11.3 fL 9.8-13 27318-6) NRBC/100 WBC (test See_Comment [Automat ed code = 7981570942) message] The system which generated this result transmit vashti reference range : 0.0 - 10.0 /100 WBCs. The reference range was not used to interpret this result as normal/abnormal . NRBC x10^3 (test code <0.01 See_Comment [Auto mated = 6811340199) message] The system which generated this result transmit vashti reference range : 10*3/?L. The reference range was not used to interpret this result as normal/abnormal . GRAN MAT (NEUT) % 94.2 % (test code = 770-8) IMM GRAN % (test code 1.00 % = 5704110569) LYMPH % (test code = 1.7 % 736-9) MONO % (test code = 3.0 % 5905-5) EOS % (test code = 0.0 % 713-8) BASO % (test code = 0.1 % 706-2) GRAN MAT x10^3(ANC) 23.02 10*3/uL 1.99-6.95 H (test code = 0874535168) IMM GRAN x10^3 (test 0.24 10*3/uL 0-0.06 H code = 4763293275) LYMPH x10^3 (test code 0.42 10*3/uL 1.09-3.23 L = 731-0) MONO x10^3 (test code 0.73 10*3/uL 0.36-1.02 = 742-7) EOS x10^3 (test code = <0.03 0.06-0.53 L 711-2) BASO x10^3 (test code 0.03 10*3/uL 0.01-0.09 = 704-7) MYRNA CELLS (test code 2+ See_Comment A [Auto mated = 6941-4) message] The system which generated this result transmit vashti reference range : (none). The reference range was not used to interpret this result as normal/abnormal . Lab Interpretation Abnormal (test code = 61756-5) [facility] - Draw within 30 minutes prior to 4TH dose.2019-12-28 11:09:00 Test Item Value Reference Range Interpretation Comments VANCO TROUGH (test code 10.5 ug/mL 10-20 = 4159571125) MARLEN (test code = MARLEN) Toxic Range: ?>20 ug/mL 15-20 ug/mL is recommended for severe infection or when Vancomycin KARLA is greater than or equal to 2. Lab Interpretation (test Normal code = 90017-7) [facility] / [id number] 10:11:00 Test Item Value Reference Range Interpretation Comments PROTIME PATIENT (test See_Comment H [Auto mated message] code = 5964-2) The system [employer] generated this result transmitted ref erence range: 10.1 - 1 2.6 Seconds. The reference range was not used to int erpret this result as normal/abnormal . INR (test code = 6301-6) Nor mal INR <1.1; Warfarin Therap eutic range 2.0 to 3. 0 or 2.5 to 3.5, dep ending upon the indica tions. Lab Interpretation (test Abnormal code = 45714-9) [facility] use with [facility]arin Practice Guideline). Note: Draw and Send all Lab STAT.2019-12-28 10:10:00 Test Item Value Reference Range Interpretation Comments APTT Patient (test code See_Comment H [Au tomated message] = 3173-2) The system Parse generated this result transmitted ref erence range: 26 - 36 Seconds. The reference range was not used to int erpret this result as normal/abnormal . Lab Interpretation (test Abnormal code = 80971-0) [facility] METABOLIC PANEL (NA, K, CL, CO2, GLUCOSE, BUN, CREATININE, CA)2019-12-28 10:07:00 Test Item Value Reference Range Interpretation Comments NA (test code = 138 mmol/L 135-145 0493514304) K (test code = 4.4 mmol/L 3.5-5 3242237525) CL (test code = 107 mmol/L 98-108 9301690390) CO2 TOTAL (test code = 24 mmol/L 23-31 4639045630) AGAP (test code = 2-16 7506264657) BUN (test code = 33 mg/dL 7-23 H 3995663828) GLUCOSE (test code = 285 mg/dL 70-110 H 9521011779) CREATININE (test code = 0.90 mg/dL 0.6-1.25 7863979678) CALCIUM (test code = 7.8 mg/dL 8.6-10.6 L 8665471805) eGFR Calculation mL/min/1.73m2 (Non-) (test code = 5657352908) eGFR Calculation mL/min/1.73m2 () (test code = 2846808413) MARLEN (test code = MARLEN) Association of Glomerular Filtration Rate (GFR) and Staging of Kidney Disease* + --+ --+ ------+| GFR (mL/min/1.73 m2) ?| With Kidney Damage ?| ?Without Kidney Damage+ --------+ --------+ +| ?>90 ?| ?Stage one ?| ? Normal ?+ ---+ ---+ -------+| ?60-89 ?| ?Stage two ?| ? Decreased GFR ? + --+ --+ ------+| ?30-59 ?| ?Stage three ?| ? Stage three ? + --+ --+ ------+| ?15-29 ?| ?Stage four ? | ? Stage four ?+ ---+ ---+ -------+| ?<15 (or dialysis) ? ?| ?Stage five ? | ? Stage five ?+ ---+ ---+ -------+ *Each stage assumes the associated GFR level has been in effect for at least three months. ?Stages 1 to 5, with or without kidney disease, indicate chronic kidney disease. Notes: Determination of stages one and two (with eGFR >59mL/min/1.73 m2) requires estimation of kidney damage for at least three months as defined by structural or functional abnormalities of the kidney, manifested by either:Pathological abnormalities or Markers of kidney damage (including abnormalities in the composition of the blood or urine or abnormalities in imaging tests). Lab Interpretation Abnormal (test code = 36136-8) [facility]07:00 Test Item Value Reference Range Interpretation Comments MAGNESIUM (test code = 9302058934) 2.2 mg/dL 1.7-2.4 Lab Interpretation (test code = Normal 48222-4) [facility] 10:07:00 Test Item Value Reference Range Interpretation Comments PHOSPHORUS (test code = 4509498389) 2.3 mg/dL 2.5-5 L Lab Interpretation (test code = Abnormal 14172-9) [facility].2019-12-28 09:52:00 Test Item Value Reference Range Interpretation Comments PH (test code = 2) 7.35-7.45 H PCO2 (test code = See_Comment L [Automate d message] 4067165208) The system Parse generated this result transmitted ref erence range: 35 - 45 mmHg. The reference r sawyer was not used to interpret this result as normal/abnor mal. PO2 (test code = See_Comment L [Automated message] 6782551662) The system Parse generated this result transmitted ref erence range: 80 - 100 mmHg. The reference r sawyer was not used to interpret this result as normal/abnor mal. HCO3 (test code = See_Comment [Automate d message] 8196609897) The system Parse generated this result transmitted ref erence range: 22 - 26 mEq/L. The reference r sawyer was not used to interpret this result as normal/abnor mal. BE (test code = See_Comment [Automated message] 6228395176) The system Parse generated this result transmitted ref erence range: -3.0 - 3 .0 mEq/L. The refe rence range was not u sed to interpret this result as normal/abnor mal. Lab Interpretation (test Abnormal code = 15583-2) [facility] HospitalURINE [id number] 23:28:00 Test Item Value Reference Range Interpretation Comments URINE CULTURE (test No aerobic growth (< code = 630-4) 1000 CFU/mL) [facility]2019-12-27 21:31:00 Test Item Value Reference Range Interpretation Comments POCT GLU (test code = 8244962261) 182 mg/dL 70-110 H Lab Interpretation (test code = Abnormal 99873-1) [facility]aP[facility] (for use with Heparin Practice Guideline). Note: Draw and Send all Lab STAT.2019-12-27 21:11:00 Test Item Value Reference Range Interpretation Comments APTT Patient (test code See_Comment H [Au tomated message] = 3173-2) The system Parse generated this result transmitted ref erence range: 26 - 36 Seconds. The reference range was not used to int erpret this result as normal/abnormal . Lab Interpretation (test Abnormal code = 54130-1) [facility]BAS[facility] METABOLIC PANEL (NA, K, CL, CO2, GLUCOSE, BUN, CREATININE, CA)2019-12-27 21:06:00 Test Item Value Reference Range Interpretation Comments NA (test code = 136 mmol/L 135-145 6943120083) K (test code = 4.6 mmol/L 3.5-5 0657376814) CL (test code = 106 mmol/L 98-108 7775655411) CO2 TOTAL (test code = 17 mmol/L 23-31 L 5126995590) AGAP (test code = 2-16 7756457121) BUN (test code = 28 mg/dL 7-23 H 5430520003) GLUCOSE (test code = 295 mg/dL 70-110 H 1856625256) CREATININE (test code = 0.84 mg/dL 0.6-1.25 9161350406) CALCIUM (test code = 8.1 mg/dL 8.6-10.6 L 4399418918) eGFR Calculation mL/min/1.73m2 (Non-) (test code = 7516335255) eGFR Calculation mL/min/1.73m2 () (test code = 2172461379) MARLEN (test code = MARLEN) Association of Glomerular Filtration Rate (GFR) and Staging of Kidney Disease* + --+ --+ ------+| GFR (mL/min/1.73 m2) ?| With Kidney Damage ?| ?Without Kidney Damage+ --------+ --------+ +| ?>90 ?| ?Stage one ?| ? Normal ?+ ---+ ---+ -------+| ?60-89 ?| ?Stage two ?| ? Decreased GFR ? + --+ --+ ------+| ?30-59 ?| ?Stage three ?| ? Stage three ? + --+ --+ ------+| ?15-29 ?| ?Stage four ? | ? Stage four ?+ ---+ ---+ -------+| ?<15 (or dialysis) ? ?| ?Stage five ? | ? Stage five ?+ ---+ ---+ -------+ *Each stage assumes the associated GFR level has been in effect for at least three months. ?Stages 1 to 5, with or without kidney disease, indicate chronic kidney disease. Notes: Determination of stages one and two (with eGFR >59mL/min/1.73 m2) requires estimation of kidney damage for at least three months as defined by structural or functional abnormalities of the kidney, manifested by either:Pathological abnormalities or Markers of kidney damage (including abnormalities in the composition of the blood or urine or abnormalities in imaging tests). Lab Interpretation Abnormal (test code = 77766-5) [facility]PO[facility]2019-12-27 20:47:00 Test Item Value Reference Range Interpretation Comments POCT GLU (test code = 4975956031) 277 mg/dL 70-110 H Lab Interpretation (test code = Abnormal 86420-3) [facility] HospitalAb[facility] 1 View - To confirm nasogastric tube placement.2019-12-27 19:49:29 Enteric tube terminates in the gastric body.EXAM: XR ABDOMEN 1 VW HISTORY: 64 years-old Male NGT Confirmation COMPARISON: 12/26/2019 abdominal radiograph. FINDINGS: Enteric tube terminates in the gastric body. Bowel gas pattern is nonobstructive. No abnormal/suspicious calcificationsidentified. Left lower lobe airspace disease partially visualized. [facility], Radiant Results Inft User - 12/27/2019 2:50 PMCDTEXAM: XR ABDOMEN 1 VWHISTORY: 64 years-old Male NGT Confirmation COMPARISON: 12/26/2019 abdominal r adiograph.FINDINGS:Enteric tube terminates in the gastric body.Bowel gas pattern is nonobstructive. No abnormal/suspicious calcificationsidentified.Left lower lobe airspace disease partially visualized.IMPRESSIONEnteric tube terminates in the gastric body.[facility]PO[facility] 2019-12-27 18:59:00 Test Item Value Reference Range Interpretation Comments POCT GLU (test code = 2172797936) 253 mg/dL 70-110 H Lab Interpretation (test code = Abnormal 32628-9) [facility] HospitalSODIUM, URINE [id number] 17:27:00 Test Item Value Reference Range Interpretation Comments NA URINE (test code = 6568195244) 59 mmol/L [facility] HospitalCREATININE, URINE [id number] 17:27:00 Test Item Value Reference Range Interpretation Comments CREAT U (test code = 2205611947) 59.4 mg/dL [facility] HospitalUREA NITROGEN, URINE [id number] 17:27:00 Test Item Value Reference Range Interpretation Comments UREA N UR (test code = 4113910852) 828 mg/dL [facility] HospitalCHLORIDE, URINE [id number] 17:27:00 Test Item Value Reference Range Interpretation Comments CL URINE (test code = 9491373252) 36 mmol/L 30-260 Lab Interpretation (test code = Normal 80638-3) [facility] HospitalC-REACTIVE [id number] 14:23:00 Test Item Value Reference Range Interpretation Comments CRP (test code = 3625415793) 34.4 mg/dL <0.8 H Lab Interpretation (test code = Abnormal 69308-1) [facility] HospitalTROPONIN [id number] 14:18:00 Test Item Value Reference Range Interpretation Comments TROPONIN I (test 0.128 ng/mL See_Comment H [Automated code = 3320588543) message] The system which generated this result transmitted reference range : <=0.034. The reference range was not used to interpret this result as normal/abnormal . MARLEN (test code = Equal or Less than MARLEN) 0.034 ng/ml---Normal ?Note: Cardiac troponin begins to rise 3-4 hours after the onset of ischemia. Repeat in 4-6 hours if the sample was drawn within 3-4 hours of the onset of the symptom and found normal. Between 0.035 and 0.120 ng/mL--- Borderline. Questionable myocardial injury or necrosis ? ?Note: Serial measurement may be necessary to confirm or exclude the diagnosis of myocardial injury or necrosis; Clinical correlation (symptoms, EKGs, imaging studies, and others) required; Repeat in 4-6 hours if clinically indicated. ? Equal or Higher than 0.121 ng/mL---Abnormal. Myocardial Injury or Necrosis Likely ? Biotin has been reported to cause a negative bias, interpret results relative to patient's use of biotin. ? Lab Interpretation Abnormal (test code = 05499-8) [facility] WITH [id number] 14:17:00 Test Item Value Reference Range Interpretation Comments WBC (test code = See_Comment H [Automated 6690-2) message] The system which generated this result transmit vashti reference range : 4.20 - 10.70 10*3/?L. The reference range was not used to interpret this result as normal/abnormal . RBC (test code = See_Comment [Automated 789-8) message] The system which generated this result transmit vashti reference range : 4.26 - 5.52 10*6/?L. The reference range was not used to interpret this result as normal/abnormal . HGB (test code = 15.4 g/dL 12.2-16.4 718-7) HCT (test code = 45.7 % 38.4-49.3 4544-3) MCV (test code = 90.3 fL 81.7-95.6 787-2) MCH (test code = 30.4 pg 26.1-32.7 785-6) MCHC (test code = 33.7 g/dL 31.2-35 786-4) RDW-SD (test code = 43.9 fL 38.5-51.6 48454-0) RDW-CV (test code = 13.4 % 12.1-15.4 788-0) PLT (test code = See_Comment [Automated 777-3) message] The system which generated this result transmit vashti reference range : 150 - 328 10*3/ ?L. The reference range was not u sed to interpret th is result as normal/abnormal . MPV (test code = 11.5 fL 9.8-13 98386-7) NRBC/100 WBC (test See_Comment [Automat ed code = 6500596008) message] The system which generated this result transmit vashti reference range : 0.0 - 10.0 /100 WBCs. The reference range was not used to interpret this result as normal/abnormal . NRBC x10^3 (test code <0.01 See_Comment [Auto mated = 6226462947) message] The system which generated this result transmit vashti reference range : 10*3/?L. The reference range was not used to interpret this result as normal/abnormal . GRAN MAT (NEUT) % 95.4 % (test code = 770-8) IMM GRAN % (test code 0.90 % = 5434558137) LYMPH % (test code = 1.7 % 736-9) MONO % (test code = 1.8 % 5905-5) EOS % (test code = 0.0 % 713-8) BASO % (test code = 0.2 % 706-2) GRAN MAT x10^3(ANC) 28.40 10*3/uL 1.99-6.95 H (test code = 6228385139) IMM GRAN x10^3 (test 0.28 10*3/uL 0-0.06 H code = 9239436093) LYMPH x10^3 (test code 0.51 10*3/uL 1.09-3.23 L = 731-0) MONO x10^3 (test code 0.54 10*3/uL 0.36-1.02 = 742-7) EOS x10^3 (test code = <0.03 0.06-0.53 L 711-2) BASO x10^3 (test code 0.06 10*3/uL 0.01-0.09 = 704-7) Lab Interpretation Abnormal (test code = 38658-2) [facility] HospitalPROTHROMBIN TIME / [id number] 14:12:00 Test Item Value Reference Range Interpretation Comments PROTIME PATIENT (test See_Comment H [Auto mated message] code = 5964-2) The system ich generated this result transmitted ref erence range: 10.1 - 1 2.6 Seconds. The reference range was not used to int erpret this result as normal/abnormal . INR (test code = 6301-6) HH Nor mal INR <1.1; Warfarin Therap eutic range 2.0 to 3. 0 or 2.5 to 3.5, dep ending upon the indica tions. Lab Interpretation (test Abnormal code = 78422-6) [facility]aPTT2020-[facility] 14:11:00 Test Item Value Reference Range Interpretation Comments APTT Patient (test code See_Comment H [Au tomated message] = 3173-2) The system Proxioic h generated this result transmitted ref erence range: 26 - 36 Seconds. The reference range was not used to int erpret this result as normal/abnormal . Lab Interpretation (test Abnormal code = 36073-3) [facility] HospitalFIBRINOGEN2020-08-01 14:11:00 Test Item Value Reference Range Interpretation Comments Fibrinogen (test code = 9063253181) 264 mg/dL 167-453 Lab Interpretation (test code = Normal 12008-9) [facility] HospitalD-[id number] 14:07:00 Test Item Value Reference Interpretation Comments Range D-DIMER (test code = See_Comment H [Autom ated 5468904023) message] The system which generated this result transmitted reference range : <0.50 ?g/mL (FEU). The reference range was not used to interpret this result as normal/abnormal . MARLEN (test code = This test may be MARLEN) used in conjunction with a clinical pretest probability (PTP) assessment model to exclude venous thromboembolism (VTE) in patients suspected of deep venous thrombosis (DVT) and pulmonary embolism (PE) A D-Dimer value less than 0.50 ?g/ml (FEU) has a negative predicative value of 96 to 100% (95% CI)and 97 to 100% (95% CI) as an aid in the diagnosis of deep vein thrombosis (DVT) and pulmonary embolism when there is low or moderate pretest probability of PE or DVT. D-Dimer values are expressed in initial fibrinogen equivalent units (FEU)" The assay results should be used with other information, including the clinical context, in forming a diagnosis. Lab Interpretation Abnormal (test code = 57268-0) [facility] Arterial Blood Gas.2019-12-27 13:41:00 Test Item Value Reference Range Interpretation Comments PH (test code = 2) 7.35-7.45 PCO2 (test code = See_Comment L [Automate d message] 0185677152) The system Parse generated this result transmitted ref erence range: 35 - 45 mmHg. The reference r sawyer was not used to interpret this result as normal/abnor mal. PO2 (test code = See_Comment [Automated message] 0039288813) The system Parse generated this result transmitted ref erence range: 80 - 100 mmHg. The reference r sawyer was not used to interpret this result as normal/abnor mal. HCO3 (test code = See_Comment L [Automate d message] 8024250184) The system Parse generated this result transmitted ref erence range: 22 - 26 mEq/L. The reference r sawyer was not used to interpret this result as normal/abnor mal. BE (test code = See_Comment L [Automated message] 4558523865) The system Parse generated this result transmitted ref erence range: -3.0 - 3 .0 mEq/L. The refe rence range was not u sed to interpret this result as normal/abnor mal. Lab Interpretation (test Abnormal code = 90596-8) [facility] HospitalTROPONIN [id number] 11:08:00 Test Item Value Reference Range Interpretation Comments TROPONIN I (test 0.193 ng/mL See_Comment H [Automated code = 2872684353) message] The system which generated this result transmitted reference range : <=0.034. The reference range was not used to interpret this result as normal/abnormal . MARLEN (test code = Equal or Less than MARLEN) 0.034 ng/ml---Normal ?Note: Cardiac troponin begins to rise 3-4 hours after the onset of ischemia. Repeat in 4-6 hours if the sample was drawn within 3-4 hours of the onset of the symptom and found normal. Between 0.035 and 0.120 ng/mL--- Borderline. Questionable myocardial injury or necrosis ? ?Note: Serial measurement may be necessary to confirm or exclude the diagnosis of myocardial injury or necrosis; Clinical correlation (symptoms, EKGs, imaging studies, and others) required; Repeat in 4-6 hours if clinically indicated. ? Equal or Higher than 0.121 ng/mL---Abnormal. Myocardial Injury or Necrosis Likely ? Biotin has been reported to cause a negative bias, interpret results relative to patient's use of biotin. ? Lab Interpretation Abnormal (test code = 09041-8) [facility] GLUCOSE (AUTOMATED)2019-12-27 10:39:00 Test Item Value Reference Range Interpretation Comments POCT GLU (test code = 6703810557) 218 mg/dL 70-110 H Lab Interpretation (test code = Abnormal 72017-3) [facility])2019-12-27 09:22:00 Test Item Value Reference Range Interpretation Comments POCT GLU (test code = 6485844906) 230 mg/dL 70-110 H Lab Interpretation (test code = Abnormal 03202-9) [facility] HospitalHEPATIC FUNCTION PANEL (54480) (ALB,T.PRO,BILI T,BU/BC,ALT,AST,ALK PHOS)2019-12-27 08:22:00 Test Item Value Reference Range Interpretation Comments TOTAL BILI (test code = 4750692120) 0.8 mg/dL 0.1-1.1 BILI UNCON (test code = 5086452155) 0.7 mg/dL 0.1-1.1 BILI CONJ (test code = 8186496150) 0.0 mg/dL 0-0.3 T PROTEIN (test code = 0143006690) 6.4 g/dL 6.3-8.2 ALBUMIN (test code = 9439067392) 2.7 g/dL 3.5-5 L ALK PHOS (test code = 8900461770) 117 U/L 34-122 ALTv (test code = 1742-6) 36 U/L 5-50 AST(SGOT) (test code = 9582632240) 70 U/L 13-40 H Lab Interpretation (test code = Abnormal 45083-3) [facility] HospitalPOTASSIUM, URINE [id number] 08:07:00 Test Item Value Reference Range Interpretation Comments K URINE (test code = 5222231914) 35.1 mmol/L [facility] WITH [id number] 07:46:00 Test Item Value Reference Range Interpretation Comments WBC (test code = See_Comment H [Automated 0927-2) message] The system which generated this result transmit vashti reference range : 4.20 - 10.70 10*3/?L. The reference range was not used to interpret this result as normal/abnormal . RBC (test code = See_Comment [Automated 379-8) message] The system which generated this result transmit vashti reference range : 4.26 - 5.52 10*6/?L. The reference range was not used to interpret this result as normal/abnormal . HGB (test code = 15.9 g/dL 12.2-16.4 718-7) HCT (test code = 48.3 % 38.4-49.3 4544-3) MCV (test code = 91.5 fL 81.7-95.6 787-2) MCH (test code = 30.1 pg 26.1-32.7 785-6) MCHC (test code = 32.9 g/dL 31.2-35 786-4) RDW-SD (test code = 44.8 fL 38.5-51.6 46905-8) RDW-CV (test code = 13.2 % 12.1-15.4 788-0) PLT (test code = See_Comment [Automated 167-3) message] The system which generated this result transmit vashti reference range : 150 - 328 10*3/ ?L. The reference range was not u sed to interpret th is result as normal/abnormal . MPV (test code = 11.6 fL 9.8-13 53965-5) NRBC/100 WBC (test See_Comment [Automat ed code = 9730576666) message] The system which generated this result transmit vashti reference range : 0.0 - 10.0 /100 WBCs. The reference range was not used to interpret this result as normal/abnormal . NRBC x10^3 (test code <0.01 See_Comment [Auto mated = 6009053810) message] The system which generated this result transmit vashti reference range : 10*3/?L. The reference range was not used to interpret this result as normal/abnormal . GRAN MAT (NEUT) % 95.0 % (test code = 770-8) IMM GRAN % (test code 1.30 % = 3691466012) LYMPH % (test code = 1.8 % 736-9) MONO % (test code = 1.7 % 5905-5) EOS % (test code = 0.0 % 713-8) BASO % (test code = 0.2 % 706-2) GRAN MAT x10^3(ANC) 23.98 10*3/uL 1.99-6.95 H (test code = 7726390541) IMM GRAN x10^3 (test 0.33 10*3/uL 0-0.06 H code = 6329269063) LYMPH x10^3 (test code 0.46 10*3/uL 1.09-3.23 L = 731-0) MONO x10^3 (test code 0.44 10*3/uL 0.36-1.02 = 742-7) EOS x10^3 (test code = <0.03 0.06-0.53 L 711-2) BASO x10^3 (test code 0.06 10*3/uL 0.01-0.09 = 704-7) Lab Interpretation Abnormal (test code = 66299-5) [facility] HospitalPROTHROMBIN TIME / [id number] 07:40:00 Test Item Value Reference Range Interpretation Comments PROTIME PATIENT (test See_Comment H [Auto mated message] code = 5964-2) The system ich generated this result transmitted ref erence range: 10.1 - 1 2.6 Seconds. The reference range was not used to int erpret this result as normal/abnormal . INR (test code = 6301-6) HH Nor mal INR <1.1; Warfarin Therap eutic range 2.0 to 3. 0 or 2.5 to 3.5, dep ending upon the indica tions. Lab Interpretation (test Abnormal code = 35903-8) [facility] HospitalaPT (for use with Heparin Practice Guideline). Note: Draw and Send all Lab STAT.2019-12-27 07:40:00 Test Item Value Reference Range Interpretation Comments APTT Patient (test code >150 See_Comment HH [Au tomated message] = 3173-2) The system Parse generated this result transmitted ref erence range: 26 - 36 Seconds. The reference range was not used to int erpret this result as normal/abnormal . Lab Interpretation (test Abnormal code = 06122-2) [facility] HospitalFIBRINOGEN2020-08-01 07:39:00 Test Item Value Reference Range Interpretation Comments Fibrinogen (test code = 6187691651) 271 mg/dL 167-453 Lab Interpretation (test code = Normal 07106-7) [facility] (NA, K, CL, CO2, GLUCOSE, BUN, CREATININE, CA)2019-12-27 07:39:00 Test Item Value Reference Range Interpretation Comments NA (test code = 134 mmol/L 135-145 L 1662163630) K (test code = 5.6 mmol/L 3.5-5 H 5905955570) CL (test code = 102 mmol/L 98-108 7287213419) CO2 TOTAL (test code = 20 mmol/L 23-31 L 1668704149) AGAP (test code = 2-16 9412507157) BUN (test code = 27 mg/dL 7-23 H 1088264098) GLUCOSE (test code = 245 mg/dL 70-110 H 7417622911) CREATININE (test code = 0.95 mg/dL 0.6-1.25 7964694583) CALCIUM (test code = 8.5 mg/dL 8.6-10.6 L 3165835547) eGFR Calculation mL/min/1.73m2 (Non-) (test code = 4277826235) eGFR Calculation mL/min/1.73m2 () (test code = 9527335206) MARLEN (test code = MARLEN) Association of Glomerular Filtration Rate (GFR) and Staging of Kidney Disease* + --+ --+ ------+| GFR (mL/min/1.73 m2) ?| With Kidney Damage ?| ?Without Kidney Damage+ --------+ --------+ +| ?>90 ?| ?Stage one ?| ? Normal ?+ ---+ ---+ -------+| ?60-89 ?| ?Stage two ?| ? Decreased GFR ? + --+ --+ ------+| ?30-59 ?| ?Stage three ?| ? Stage three ? + --+ --+ ------+| ?15-29 ?| ?Stage four ? | ? Stage four ?+ ---+ ---+ -------+| ?<15 (or dialysis) ? ?| ?Stage five ? | ? Stage five ?+ ---+ ---+ -------+ *Each stage assumes the associated GFR level has been in effect for at least three months. ?Stages 1 to 5, with or without kidney disease, indicate chronic kidney disease. Notes: Determination of stages one and two (with eGFR >59mL/min/1.73 m2) requires estimation of kidney damage for at least three months as defined by structural or functional abnormalities of the kidney, manifested by either:Pathological abnormalities or Markers of kidney damage (including abnormalities in the composition of the blood or urine or abnormalities in imaging tests). Lab Interpretation Abnormal (test code = 54546-0) [facility]MAGN[facility]IUM2020-[facility] 07:39:00 Test Item Value Reference Range Interpretation Comments MAGNESIUM (test code = 2349867862) 2.3 mg/dL 1.7-2.4 Lab Interpretation (test code = Normal 56053-7) [facility]PHOSPHORUS2020-08-01 07:39:00 Test Item Value Reference Range Interpretation Comments PHOSPHORUS (test code = 9122405194) 3.7 mg/dL 2.5-5 Lab Interpretation (test code = Normal 97562-5) [facility] HospitalFIBRINOGEN2020-08-01 02:41:00 Test Item Value Reference Range Interpretation Comments Fibrinogen (test code = 7411612279) 192 mg/dL 167-453 Lab Interpretation (test code = Normal 86337-1) [facility] HospitalLEGIONELLA URINARY ANTIGEN [id number] 02:08:00 Test Item Value Reference Range Interpretation Comments Legionella Urinary Negative Negative Antigen (test code = 0333192524) MARLEN (test code = MARLEN) Negative for L. pneumophilia serogroup I antigen in urine suggesting no recent or current infection. Infection due to Legionella cannot be ruled out since other serogroups and species may cause disease. Furthermore, antigens may not be present in urine during early stage of infection, or the level of antigen present in urine may be below the detection limit of the test. Lab Interpretation (test Normal code = 75750-9) [facility] HospitalPNEUMOCOCCAL [id number] 02:08:00 Test Item Value Reference Range Interpretation Comments S. pneumoniae antigen (test code = Negative Negative 6841603574) Lab Interpretation (test code = Normal 58414-9) [facility] HospitalPROCALCITONIN2020-08-01 01:39:00 Test Item Value Reference Range Interpretation Comments Procalcitonin (test 1.39 ng/mL <0.07 H code = 6372290880) MARLEN (test code = MARLEN) INTERPRETATION OF PROCALCITONIN RESULTS IN ADULTS >= 18 YEARS OF AGE Initiation and discontinuation of antibiotics on patients with suspected or confirmed Lower Respiratory Tract Infection in Adults >= 18 years of age. + +-------- --------+ + -----+|Procalcitonin |Interpretation ?|Antibiotic ? ? |Considerations ? |ng/mL ? | ?|recommendation | ? + +-------- --------+ + -----+| <0.1 ? | Bacterial ? ? ?| Strongly ? ? ?| ? | ?| infection very | discouraged ? | Overruling: ? | ?| unlikely ? ? ? | ? | ? Clinically unstable ? ? ? + +-------- --------+ + ? High risk for adverse ? ? | <0.25 ?| Bacterial ? ? ?| Discouraged ? | ? outcome ? | ?| infection ? ? ?| ? | ? SEE IMPORTANT NOTE ?| ?| unlikely ? ? ? | ? | ? + +-------- --------+ + -----+| >=0.25 ? ? ? | Bacterial ? ? ?| Encouraged ? ?| ? | ?| infection ? ? ?| ? | ? | ?| likely ? | ? | Consider treatment failure ?+ +------- ---------+ -+ if levels does not decrease | >0.5 ? | Bacterial ? ? ?| Strongly ? ? ?| appropriately ? | ?| infection very | encouraged ? ?| ? | ?| likely ? | ? | ? + +-------- --------+ + -----+ Discontinuation of antibiotics in high-acuity patients with suspected or confirmed sepsis in Adults >= 18 years of age. + +-------- --------+ + -----+|Procalcitonin |Interpretation ?|Antibiotic ? ? |Considerations ? |ng/mL ? | ?|recommendation | ? + +-------- --------+ + -----+| <0.25 ?| Bacterial ? ? ?| Strongly ? ? ?| ? | ?| infection very | discouraged ? | Overruling: ? | ?| unlikely ? ? ? | ? | ? Clinically unstable ? ? ? + +-------- --------+ + ? High risk for adverse ? ? | <0.5 or drop | Bacterial ? ? ?| Discouraged ? | ? outcome ? | >80% from ? ?| infection ? ? ?| ? | ? SEE IMPORTANT NOTE ?| highest PCT ?| unlikely ? ? ? | ? | ? | level ?| ?| ? | ? + +-------- --------+ + -----+| >=0.5 ?| Bacterial ? ? ?| Encouraged ? ?| ? | ?| infection ? ? ?| ? | ? | ?| likely ? | ? | Consider treatment failure ?+ +------- ---------+ -+ if levels does not decrease | >1.0 ? | Bacterial ? ? ?| Strongly ? ? ?| appropriately ? | ?| infection very | encouraged ? ?| ? | ?| likely ? | ? | ? + +-------- --------+ + -----+ Percentage of drop of Procalcitonin calculation for Discontinuation of antibiotics in high-acuity patients with suspected or confirmed sepsis in Adults >= 18 years of age. ? Procalcitonin highest{}-Procalcitonin current{}Delta Procalcitonin = x100% ? Procalcitonin current {} IMPORTANT NOTE: Procalcitonin may be elevated without bacterial infection by physiologic stress related to trauma, pruitt, chronic dialysis, metastatic cancer, surgery in the past seven days, malaria, some fungal infections, and some forms of vasculitis. The interpretation algorithm may not apply to patients with immunosuppression (equivalent of >10 mg of prednisone daily), HIV with CD4 cell count < 350 cells/mm3, active malignancy on systemic chemotherapy, solid organ transplant or hematopoietic stem cell transplantation, or hospital acquired pneumonia. Additionally, some clinical trials of procalcitonin have excluded patients with shock requiring vasopressor use, acute respiratory failure requiring mechanical ventilation, or those with known lung abscess/empyema. For further information please refer to:[email or web address] Lab Interpretation Abnormal (test code = 94504-8) [facility] [id number] 00:15:30Findings and Impression: ?Slight interval improvement in bilateralinterstitial abnormality since 12/26/2019 at 7:20. This may be related toimproved aeration status post ET tube repositioning. ET tube tip projects5.8 cm superior to the matty. Interval placement of right IJ centralvenous catheter whose tip projects over the mid to distal SVC. Redemonstration of postoperative changes including sternotomy and CABGchanges. No pleural effusion or pneumothorax. No acute osseous abnormality. PORTABLE CHEST RADIOGRAPH History: ETT Confirmation Comparison: 12/26/2019 TECHNIQUE: AP view of the chest. [facility], Radiant Results Inft User - 12/26/2019 7:16 PM CDTPORTABLE CHEST RADIOGRAPHHistory: ETT Confirmation Comparison: 12/26/2019TECHNIQUE: AP view of the chest.IMPRESSIONFindings and Impression: Slight interval improvement in bilateralinterstitial abnormality since 12/26/2019 at 7:20. This may be related toimproved aeration status post ET tube repositioning. ET tube tip projects5.8 cm superior to the matty. Interval placement of right IJ centralvenous catheter whose tip projects over the mid to distal SVC.Redemonstration of postoperative changes including sternotomy and CABGchanges. No pleural effusion or pneumothorax. No acute osseous abnormality. [facility] HospitalD-[id number] 23:58:00 Test Item Value Reference Interpretation Comments Range D-DIMER (test code = >128.00 See_Comment H [Autom ated [id number]) message] The system which generated this result transmitted reference range : <0.50 ?g/mL (FEU). The reference range was not used to interpret this result as normal/abnormal . MARLEN (test code = This test may be MARLEN) used in conjunction with a clinical pretest probability (PTP) assessment model to exclude venous thromboembolism (VTE) in patients suspected of deep venous thrombosis (DVT) and pulmonary embolism (PE) A D-Dimer value less than 0.50 ?g/ml (FEU) has a negative predicative value of 96 to 100% (95% CI)and 97 to 100% (95% CI) as an aid in the diagnosis of deep vein thrombosis (DVT) and pulmonary embolism when there is low or moderate pretest probability of PE or DVT. D-Dimer values are expressed in initial fibrinogen equivalent units (FEU)" The assay results should be used with other information, including the clinical context, in forming a diagnosis. Lab Interpretation Abnormal (test code = 93271-4) [facility] HospitalaPTT (for use with Heparin Practice Guideline). Note: Draw and Send all Lab STAT.2019-12-26 23:54:00 Test Item Value Reference Range Interpretation Comments APTT Patient (test code See_Comment H [Au tomated message] = 3173-2) The system Parse generated this result transmitted ref erence range: 26 - 36 Seconds. The reference range was not used to int erpret this result as normal/abnormal . Lab Interpretation (test Abnormal code = 33860-2) [facility] METABOLIC PANEL (NA, K, CL, CO2, GLUCOSE, BUN, CREATININE, CA)2019-12-26 23:43:00 Test Item Value Reference Range Interpretation Comments NA (test code = 134 mmol/L 135-145 L 1472649513) K (test code = 5.5 mmol/L 3.5-5 H 9147101527) CL (test code = 107 mmol/L 98-108 9502673131) CO2 TOTAL (test code = 21 mmol/L 23-31 L 9001735539) AGAP (test code = 2-16 0841792345) BUN (test code = 24 mg/dL 7-23 H 1826630288) GLUCOSE (test code = 178 mg/dL 70-110 H 0005604420) CREATININE (test code = 0.74 mg/dL 0.6-1.25 6406513290) CALCIUM (test code = 8.8 mg/dL 8.6-10.6 0740092671) eGFR Calculation mL/min/1.73m2 (Non-) (test code = 3228669952) eGFR Calculation mL/min/1.73m2 () (test code = 1573951218) MARLEN (test code = MARLEN) Association of Glomerular Filtration Rate (GFR) and Staging of Kidney Disease* + --+ --+ ------+| GFR (mL/min/1.73 m2) ?| With Kidney Damage ?| ?Without Kidney Damage+ --------+ --------+ +| ?>90 ?| ?Stage one ?| ? Normal ?+ ---+ ---+ -------+| ?60-89 ?| ?Stage two ?| ? Decreased GFR ? + --+ --+ ------+| ?30-59 ?| ?Stage three ?| ? Stage three ? + --+ --+ ------+| ?15-29 ?| ?Stage four ? | ? Stage four ?+ ---+ ---+ -------+| ?<15 (or dialysis) ? ?| ?Stage five ? | ? Stage five ?+ ---+ ---+ -------+ *Each stage assumes the associated GFR level has been in effect for at least three months. ?Stages 1 to 5, with or without kidney disease, indicate chronic kidney disease. Notes: Determination of stages one and two (with eGFR >59mL/min/1.73 m2) requires estimation of kidney damage for at least three months as defined by structural or functional abnormalities of the kidney, manifested by either:Pathological abnormalities or Markers of kidney damage (including abnormalities in the composition of the blood or urine or abnormalities in imaging tests). Lab Interpretation Abnormal (test code = 19629-5) [facility]URIN[facility]YSIS2020-07-31 23:41:00 Test Item Value Reference Range Interpretation Comments APPEARANCE (test code = Cloudy Clear A 2874962895) COLOR (test code = Yellow Yellow 9051313587) PH (test code = 4.8-8.0 2096280647) SP GRAVITY (test code = 1.003-1.030 4673278919) GLU U QUAL (test code = 500 mg/dL Normal A 7864078800) BLOOD (test code = 2+ Negative A 5977711234) KETONES (test code = 20 mg/dL Negative A 8042620084) PROTEIN (test code = 30 mg/dL Negative A 2887-8) UROBILIN (test code = Normal Normal 5012891201) BILIRUBIN (test code = Negative Negative 2239563356) NITRITE (test code = Negative Negative 6944985414) LEUK TOMMY (test code = Negative Negative 5521265504) RBC/HPF (test code = See_Comment H [Autom ated message] 3960550518) The system Parse generated this result transmit vashti reference range : 0 - 3 HPF. The refe rence range was not u sed to interpret th is result as normal/abnormal . WBC/HPF (test code = See_Comment [Autom ated message] 9485623298) The system Parse generated this result transmit vashit reference range : 0 - 5 HPF. The refe rence range was not u sed to interpret th is result as normal/abnormal . BACTERIA (test code = Few Negative A 7161941003) MUCOUS (test code = Slight Negative LPF A 7254602215) SQ EPITH (test code = <1 See_Comment [Auto mated message] 7309353664) The system whic h generated this result transmit vashti reference range : <=2 HPF. The refere nce range was not u sed to interpret th is result as normal/abnormal . Lab Interpretation (test Abnormal code = 87969-8) [facility] HospitalN-TERMINAL [id number] 23:32:00 Test Item Value Reference Range Interpretation Comments NT-proBNP (test code 3800 pg/mL See_Comment H [Autom ated = 2311112700) message] The system which generated this result transmitted reference range : <=125. The reference range was not used to interpret this result as normal/abnormal . MARLEN (test code = MARLEN) Biotin has been reported to cause a negative bias, interpret results relative to patient's use of biotin. Lab Interpretation Abnormal (test code = 78338-2) [facility] HospitalAC PANEL 20 + LACTIC [id number] 23:24:00 Test Item Value Reference Range Interpretation Comments PH (test code = 2) 7.35-7.45 L PCO2 (test code = See_Comment [Automate d 8647542002) message] The sy stem which generated this result transmitted reference range : 35 - 45 mmHg. The reference range was not used to interpret this result as normal/abnormal . PO2 (test code = See_Comment H [Automated 8607607555) message] The sy stem which generated this result transmitted reference range : 80 - 100 mmHg. The reference range was not used to interpret this result as normal/abnormal . HCO3 (test code = See_Comment L [Automate d 0240064060) message] The sy stem which generated this result transmitted reference range : 22 - 26 mEq/L. The reference range was not used to interpret this result as normal/abnormal . BE (test code = See_Comment L [Automated 7214000442) message] The sy stem which generated this result transmitted reference range : -3.0 - 3.0 mEq/ L. The reference r sawyer was not used to interpret this result as normal/abnormal . THB (test code = 15.9 g/dL 13.5-18 2685847234) %O2HB (test code = 98.6 % 94-99 2433038059) %COHB ART (test code = 0.6 % 0-1.5 0171122032) %METHB ART (test code = 0.1 % 0.4-1.5 L 5110012410) VOL%O2 ART (test code = 22.4 % 15-23 3268039284) NA (test code = 134 mmol/L 135-145 L 1834331226) K+ (test code = 5.1 mmol/L 3.5-5 H 3830698258) AC CA IONZ (test code = 5.30 mg/dL 4.5-5.3 4296809024) GLUCOSE (test code = 179 mg/dL 70-110 H 1865178188) LACTIC ACID (test code 1.83 mmol/L = 7175253454) Lab Interpretation Abnormal (test code = 79543-0) [facility] CARE VENOUS BLOOD [id number] 23:21:00 Test Item Value Reference Range Interpretation Comments PH (test code = 7.32-7.42 L 5287638438) PCO2 NATY (test code = See_Comment [Auto mated message] 7651912057) The system Parse generated this result transmitted ref erence range: 41 - 51 mmHg. The reference r sawyer was not used to interpret this result as normal/abnor mal. PO2 NATY (test code = See_Comment H [Autom ated message] 9977899429) The system Parse generated this result transmitted ref erence range: 25 - 40 mmHg. The reference r sawyer was not used to interpret this result as normal/abnor mal. HCO3 NATY (test code = See_Comment L [Auto mated message] 1133476771) The system Parse generated this result transmitted ref erence range: 24 - 28 mEq/L. The reference r sawyer was not used to interpret this result as normal/abnor mal. AC VBE(BEAKER) (test mEq/L code = 0290384073) Lab Interpretation (test Abnormal code = 92099-9) [facility] HospitalFERRITIN [id number] 21:35:00 Test Item Value Reference Range Interpretation Comments FERRITIN (test code = 996.0 ng/mL 18-464 H 6604770456) MARLEN (test code = MARLEN) Biotin has been reported to cause a negative bias, interpret results relative to patient's use of biotin. Lab Interpretation (test Abnormal code = 83720-9) [facility] HospitalFIBRINOGEN2020-07-31 21:01:00 FibrinogenComment: Needs recollection. Inconsistent results and short draw. This is a corrected result. ?Previous result was 159 mg/dL on 12/26/2019 at 1522 CDTUTMB LABORATORY SERVICESUnHouston Methodist HospitalSEDIMENTATION RATE 2019-12-26 20:54:00 Test Item Value Reference Range Interpretation Comments ESR (test code = See_Comment H [Automated message] 6976903188) The system Parse generated this result transmitted ref erence range: 0 - 10 m m/HR. The reference r sawyer was not used to interpret this result as normal/abnor mal. Lab Interpretation (test Abnormal code = 11487-7) [facility] (NA, K, CL, CO2, GLUCOSE, BUN, CREATININE, CA)2019-12-26 20:50:00 Test Item Value Reference Range Interpretation Comments NA (test code = 132 mmol/L 135-145 L 0613808146) K (test code = 6.2 mmol/L 3.5-5 HH 3288020283) CL (test code = 104 mmol/L 98-108 6104330040) CO2 TOTAL (test code = 22 mmol/L 23-31 L 5653281610) AGAP (test code = 2-16 4514816986) BUN (test code = 26 mg/dL 7-23 H 0419911703) GLUCOSE (test code = 241 mg/dL 70-110 H 9551694872) CREATININE (test code = 0.81 mg/dL 0.6-1.25 1486090415) CALCIUM (test code = 7.9 mg/dL 8.6-10.6 L 9721037041) eGFR Calculation mL/min/1.73m2 (Non-) (test code = 8143285647) eGFR Calculation mL/min/1.73m2 () (test code = 0813077165) MARLEN (test code = MARLEN) Association of Glomerular Filtration Rate (GFR) and Staging of Kidney Disease* + --+ --+ ------+| GFR (mL/min/1.73 m2) ?| With Kidney Damage ?| ?Without Kidney Damage+ --------+ --------+ +| ?>90 ?| ?Stage one ?| ? Normal ?+ ---+ ---+ -------+| ?60-89 ?| ?Stage two ?| ? Decreased GFR ? + --+ --+ ------+| ?30-59 ?| ?Stage three ?| ? Stage three ? + --+ --+ ------+| ?15-29 ?| ?Stage four ? | ? Stage four ?+ ---+ ---+ -------+| ?<15 (or dialysis) ? ?| ?Stage five ? | ? Stage five ?+ ---+ ---+ -------+ *Each stage assumes the associated GFR level has been in effect for at least three months. ?Stages 1 to 5, with or without kidney disease, indicate chronic kidney disease. Notes: Determination of stages one and two (with eGFR >59mL/min/1.73 m2) requires estimation of kidney damage for at least three months as defined by structural or functional abnormalities of the kidney, manifested by either:Pathological abnormalities or Markers of kidney damage (including abnormalities in the composition of the blood or urine or abnormalities in imaging tests). Lab Interpretation Abnormal (test code = 69583-6) [facility] WITH [id number] 20:36:00 Test Item Value Reference Range Interpretation Comments WBC (test code = See_Comment H [Automated 2378-2) message] The system which generated this result transmit vashti reference range : 4.20 - 10.70 10*3/?L. The reference range was not used to interpret this result as normal/abnormal . RBC (test code = See_Comment [Automated 385-8) message] The system which generated this result transmit vashti reference range : 4.26 - 5.52 10*6/?L. The reference range was not used to interpret this result as normal/abnormal . HGB (test code = 15.0 g/dL 12.2-16.4 718-7) HCT (test code = 45.2 % 38.4-49.3 4544-3) MCV (test code = 90.6 fL 81.7-95.6 787-2) MCH (test code = 30.1 pg 26.1-32.7 785-6) MCHC (test code = 33.2 g/dL 31.2-35 786-4) RDW-SD (test code = 44.0 fL 38.5-51.6 58485-7) RDW-CV (test code = 13.2 % 12.1-15.4 788-0) PLT (test code = See_Comment [Automated 777-3) message] The system which generated this result transmit vashti reference range : 150 - 328 10*3/ ?L. The reference range was not u sed to interpret th is result as normal/abnormal . MPV (test code = 11.5 fL 9.8-13 77848-5) NRBC/100 WBC (test See_Comment [Automat ed code = 2516373403) message] The system which generated this result transmit vashti reference range : 0.0 - 10.0 /100 WBCs. The reference range was not used to interpret this result as normal/abnormal . NRBC x10^3 (test code <0.01 See_Comment [Auto mated = 7527202276) message] The system which generated this result transmit vashti reference range : 10*3/?L. The reference range was not used to interpret this result as normal/abnormal . GRAN MAT (NEUT) % 95.2 % (test code = 770-8) IMM GRAN % (test code 1.90 % = 6433531577) LYMPH % (test code = 1.0 % 736-9) MONO % (test code = 1.7 % 5905-5) EOS % (test code = 0.0 % 713-8) BASO % (test code = 0.2 % 706-2) GRAN MAT x10^3(ANC) 24.48 10*3/uL 1.99-6.95 H (test code = 2830258488) IMM GRAN x10^3 (test 0.49 10*3/uL 0-0.06 H code = 0470454631) LYMPH x10^3 (test code 0.25 10*3/uL 1.09-3.23 L = 731-0) MONO x10^3 (test code 0.45 10*3/uL 0.36-1.02 = 742-7) EOS x10^3 (test code = <0.03 0.06-0.53 L 711-2) BASO x10^3 (test code 0.06 10*3/uL 0.01-0.09 = 704-7) MYRNA CELLS (test code 3+ See_Comment A [Auto mated = 7790-9) message] The system which generated this result transmit vashti reference range : (none). The reference range was not used to interpret this result as normal/abnormal . Lab Interpretation Abnormal (test code = 43425-6) [facility] HospitalTROPONIN [id number] 20:31:00 Test Item Value Reference Range Interpretation Comments TROPONIN I (test 0.302 ng/mL See_Comment H [Automated code = 1995705574) message] The system which generated this result transmitted reference range : <=0.034. The reference range was not used to interpret this result as normal/abnormal . MARLEN (test code = Equal or Less than MARLEN) 0.034 ng/ml---Normal ?Note: Cardiac troponin begins to rise 3-4 hours after the onset of ischemia. Repeat in 4-6 hours if the sample was drawn within 3-4 hours of the onset of the symptom and found normal. Between 0.035 and 0.120 ng/mL--- Borderline. Questionable myocardial injury or necrosis ? ?Note: Serial measurement may be necessary to confirm or exclude the diagnosis of myocardial injury or necrosis; Clinical correlation (symptoms, EKGs, imaging studies, and others) required; Repeat in 4-6 hours if clinically indicated. ? Equal or Higher than 0.121 ng/mL---Abnormal. Myocardial Injury or Necrosis Likely ? Biotin has been reported to cause a negative bias, interpret results relative to patient's use of biotin. ? Lab Interpretation Abnormal (test code = 28733-0) [facility] HospitalHEPATIC FUNCTION PANEL (47295) (ALB,T.PRO,BILI T,BU/BC,ALT,AST,ALK PHOS)2019-12-26 20:18:00 Test Item Value Reference Range Interpretation Comments TOTAL BILI (test code = 1630419124) 1.1 mg/dL 0.1-1.1 BILI UNCON (test code = 7524291241) 0.9 mg/dL 0.1-1.1 BILI CONJ (test code = 2703346518) 0.0 mg/dL 0-0.3 T PROTEIN (test code = 9425767939) 6.1 g/dL 6.3-8.2 L ALBUMIN (test code = 0986802063) 2.6 g/dL 3.5-5 L ALK PHOS (test code = 0421450144) 103 U/L 34-122 ALTv (test code = 1742-6) 35 U/L 5-50 AST(SGOT) (test code = 4481067180) 68 U/L 13-40 H Lab Interpretation (test code = Abnormal 77518-9) [facility] HospitalCREATINE [id number] 20:18:00 Test Item Value Reference Range Interpretation Comments CK (test code = 8874327163) 28 U/L 33-194 L Lab Interpretation (test code = Abnormal 41764-5) [facility] HospitalLACTATE [id number] 20:18:00 Test Item Value Reference Range Interpretation Comments LDH (test code = 7488426435) 1463 U/L 300-600 H Lab Interpretation (test code = Abnormal 85582-3) [facility] HospitalMAGNESIUM2020-07-31 20:18:00 Test Item Value Reference Range Interpretation Comments MAGNESIUM (test code = 7574477598) 2.4 mg/dL 1.7-2.4 Lab Interpretation (test code = Normal 19149-7) [facility] HospitalPHOSPHORUS2020-07-31 20:18:00 Test Item Value Reference Range Interpretation Comments PHOSPHORUS (test code = 3206433503) 5.0 mg/dL 2.5-5 Lab Interpretation (test code = Normal 26943-5) [facility] HospitalAC PANEL 20 + LACTIC [id number] 20:04:00 Test Item Value Reference Range Interpretation Comments PH (test code = 2) 7.35-7.45 L PCO2 (test code = See_Comment H [Automate d 4793533659) message] The sy stem which generated this result transmitted reference range : 35 - 45 mmHg. The reference range was not used to interpret this result as normal/abnormal . PO2 (test code = See_Comment H [Automated 0316213189) message] The sy stem which generated this result transmitted reference range : 80 - 100 mmHg. The reference range was not used to interpret this result as normal/abnormal . HCO3 (test code = See_Comment L [Automate d 8038805549) message] The sy stem which generated this result transmitted reference range : 22 - 26 mEq/L. The reference range was not used to interpret this result as normal/abnormal . BE (test code = See_Comment L [Automated 7258246198) message] The sy stem which generated this result transmitted reference range : -3.0 - 3.0 mEq/ L. The reference r sawyer was not used to interpret this result as normal/abnormal . THB (test code = 16.0 g/dL 13.5-18 5456316782) %O2HB (test code = 97.2 % 94-99 5365340938) %COHB ART (test code = 0.4 % 0-1.5 6371736916) %METHB ART (test code = 0.2 % 0.4-1.5 L 6719354690) VOL%O2 ART (test code = 22.0 % 15-23 3130042880) NA (test code = 132 mmol/L 135-145 L 3500647593) K+ (test code = 5.7 mmol/L 3.5-5 H 1645272576) AC CA IONZ (test code = 4.70 mg/dL 4.5-5.3 7157951667) GLUCOSE (test code = 244 mg/dL 70-110 H 7615559290) LACTIC ACID (test code 1.98 mmol/L = 2066862507) Lab Interpretation Abnormal (test code = 74715-6) [facility] HospitalAbdominal 1 View - To confirm nasogastric tube placement.2019-12-26 16:25:20EXAM: XR ABDOMEN 1 VW HISTORY: NGT placement verification COMPARISON: None FINDINGS: The tip of the enteric tube is in the mid body stomach. Nonobstructive gaseous pattern. Stool within the rectum. Prel iminary Report Dictated by Resident: Musa Felix I, Sim Norris MD., have reviewed this study and agree with theabove report.[facility], Radiant Results Inft User - 12/26/2019 11:26 AM CDTEXAM: XR ABDOMEN 1 VWHISTORY: NGT placement verification COMPARISON: NoneFINDINGS:The tip of the enteric tube is in the mid body stomach. Nonobstructive gaseous pattern. Stool within the rectum.Preliminary Report Dictated by Resident: Sim Nick MD., have reviewed this study and agree with theabove report. [facility] HospitalPOCT GLUCOSE (AUTOMATED)2019-12-26 15:40:00 Test Item Value Reference Range Interpretation Comments POCT GLU (test code = 2109247617) 188 mg/dL 70-110 H Lab Interpretation (test code = Abnormal 70414-0) [facility] HospitalXR [facility] 1 [id number] 13:57:22 Patchy airspace and interstitial abnormality involving mid and lower lungfields more prominent on the left side concerning for atypical infectionsuch as COVID 19. These findings are unchanged since the comparison study from 12/22/2019 PROCEDURE: XR CHEST 1 VW CLINICAL INDICATION: PNA COMPARISON: X-raychest from 12/22/2019 FINDINGS: Suboptimal inspiratory effort. Midline sternotomy wires, and surgicalclips suggestive of CABG. Right lung shows scattered patchy opacities. Airspace opacity more prominent on the left side involving mid and lowerzones with air bronchograms likely represent changes secondary toinfectious process including atypical etiologies such as COVID 19 /ARDS. . No pleural effusionor pneumothorax is seen. The heart is normal in size. No acute bony abnormality. [facility], Radiant Results Inft User - 12/26/2019 9:15 AM CDTPROCEDURE: XR CHEST 1 VWCLINICAL INDICATION: PNA COMPARISON: X-ray chest from 12/22/2019FINDINGS:Suboptimal inspiratory effort.Midline sternotomy wires, and surgical clips suggestive of CABG.Right lung shows scattered patchy opacities.Airspace opacity more prominent on the left side involving mid and lowerzones with air bronchograms likely represent changes secondary toinfectious process including atypical etiologies such as COVID 19 /ARDS. . No pleural effusion orpneumothorax is seen. The heart is normal in size.No acute bony abnormality.IMPRESSIONPatchy airspace and interstitial abnormality involving mid and lower lungfields more prominent on the left side concerning for atypical infectionsuch as COVID 19. These findings are unchanged since the comparison study [facility]2019[facility]2019-12-26 13:17:00 Test Item Value Reference Range Interpretation Comments PH (test code = 2) 7.35-7.45 L PCO2 (test code = See_Comment [Automate d message] [id number]) The system [employer] generated this result transmitted ref erence range: 35 - 45 mmHg. The reference r sawyer was not used to interpret this result as normal/abnor mal. PO2 (test code = See_Comment [Automated message] [id number]) The system Parse generated this result transmitted ref erence range: 80 - 100 mmHg. The reference r sawyer was not used to interpret this result as normal/abnor mal. HCO3 (test code = See_Comment L [Automate d message] 6850333565) The system Parse generated this result transmitted ref erence range: 22 - 26 mEq/L. The reference r sawyer was not used to interpret this result as normal/abnor mal. BE (test code = See_Comment L [Automated message] 9847965273) The system Parse generated this result transmitted ref erence range: -3.0 - 3 .0 mEq/L. The refe rence range was not u sed to interpret this result as normal/abnor mal. Lab Interpretation (test Abnormal code = 46295-4) [facility] [id number] 11:41:00 Test Item Value Reference Range Interpretation Comments PROTIME PATIENT (test See_Comment H [Auto mated message] code = 5964-2) The system [facility] generated this result transmitted ref erence range: 12.0 - 1 4.7 Seconds. The reference range was not used to int erpret this result as normal/abnormal . INR (test code = 6301-6) Nor mal INR <1.1; Warfarin Therap eutic range 2.0 to 3. 0 or 2.5 to 3.5, dep ending upon the indica tions. Lab Interpretation (test Abnormal code = 98357-1) [facility]2019-12-25 17:59:00 Test Item Value Reference Range Interpretation Comments POCT GLU (test code = 6574557224) 131 mg/dL 70-110 H Lab Interpretation (test code = Abnormal 14189-8) [facility]2020-[facility] 16:11:00 Test Item Value Reference Range Interpretation Comments Procalcitonin (test 0.05 ng/mL <0.07 code = 4699485922) MARLEN (test code = MARLEN) INTERPRETATION OF PROCALCITONIN RESULTS IN ADULTS >= 18 YEARS OF AGE Initiation and discontinuation of antibiotics on patients with suspected or confirmed Lower Respiratory Tract Infection in Adults >= 18 years of age. + +-------- --------+ + -----+|Procalcitonin |Interpretation ?|Antibiotic ? ? |Considerations ? |ng/mL ? | ?|recommendation | ? + +-------- --------+ + -----+| <0.1 ? | Bacterial ? ? ?| Strongly ? ? ?| ? | ?| infection very | discouraged ? | Overruling: ? | ?| unlikely ? ? ? | ? | ? Clinically unstable ? ? ? + +-------- --------+ + ? High risk for adverse ? ? | <0.25 ?| Bacterial ? ? ?| Discouraged ? | ? outcome ? | ?| infection ? ? ?| ? | ? SEE IMPORTANT NOTE ?| ?| unlikely ? ? ? | ? | ? + +-------- --------+ + -----+| >=0.25 ? ? ? | Bacterial ? ? ?| Encouraged ? ?| ? | ?| infection ? ? ?| ? | ? | ?| likely ? | ? | Consider treatment failure ?+ +------- ---------+ -+ if levels does not decrease | >0.5 ? | Bacterial ? ? ?| Strongly ? ? ?| appropriately ? | ?| infection very | encouraged ? ?| ? | ?| likely ? | ? | ? + +-------- --------+ + -----+ Discontinuation of antibiotics in high-acuity patients with suspected or confirmed sepsis in Adults >= 18 years of age. + +-------- --------+ + -----+|Procalcitonin |Interpretation ?|Antibiotic ? ? |Considerations ? |ng/mL ? | ?|recommendation | ? + +-------- --------+ + -----+| <0.25 ?| Bacterial ? ? ?| Strongly ? ? ?| ? | ?| infection very | discouraged ? | Overruling: ? | ?| unlikely ? ? ? | ? | ? Clinically unstable ? ? ? + +-------- --------+ + ? High risk for adverse ? ? | <0.5 or drop | Bacterial ? ? ?| Discouraged ? | ? outcome ? | >80% from ? ?| infection ? ? ?| ? | ? SEE IMPORTANT NOTE ?| highest PCT ?| unlikely ? ? ? | ? | ? | level ?| ?| ? | ? + +-------- --------+ + -----+| >=0.5 ?| Bacterial ? ? ?| Encouraged ? ?| ? | ?| infection ? ? ?| ? | ? | ?| likely ? | ? | Consider treatment failure ?+ +------- ---------+ -+ if levels does not decrease | >1.0 ? | Bacterial ? ? ?| Strongly ? ? ?| appropriately ? | ?| infection very | encouraged ? ?| ? | ?| likely ? | ? | ? + +-------- --------+ + -----+ Percentage of drop of Procalcitonin calculation for Discontinuation of antibiotics in high-acuity patients with suspected or confirmed sepsis in Adults >= 18 years of age. ? Procalcitonin highest{}-Procalcitonin current{}Delta Procalcitonin = x100% ? Procalcitonin current {} IMPORTANT NOTE: Procalcitonin may be elevated without bacterial infection by physiologic stress related to trauma, pruitt, chronic dialysis, metastatic cancer, surgery in the past seven days, malaria, some fungal infections, and some forms of vasculitis. The interpretation algorithm may not apply to patients with immunosuppression (equivalent of >10 mg of prednisone daily), HIV with CD4 cell count < 350 cells/mm3, active malignancy on systemic chemotherapy, solid organ transplant or hematopoietic stem cell transplantation, or hospital acquired pneumonia. Additionally, some clinical trials of procalcitonin have excluded patients with shock requiring vasopressor use, acute respiratory failure requiring mechanical ventilation, or those with known lung abscess/empyema. For further information please refer to:[email or web address] Lab Interpretation Normal (test code = 12508-8) [facility]2019-12-25 13:07:00 Test Item Value Reference Range Interpretation Comments POCT GLU (test code = 4509855647) 167 mg/dL 70-110 H Lab Interpretation (test code = Abnormal 28870-7) [facility]TR[facility] [id number] 11:23:00 Test Item Value Reference Range Interpretation Comments TROPONIN I (test 0.224 ng/mL See_Comment H [Automated code = 1112551396) message] The system which generated this result transmitted reference range : <=0.034. The reference range was not used to interpret this result as normal/abnormal . MARLEN (test code = Equal or Less than MARLEN) 0.034 ng/ml---Normal ?Note: Cardiac troponin begins to rise 3-4 hours after the onset of ischemia. Repeat in 4-6 hours if the sample was drawn within 3-4 hours of the onset of the symptom and found normal. Between 0.035 and 0.120 ng/mL--- Borderline. Questionable myocardial injury or necrosis ? ?Note: Serial measurement may be necessary to confirm or exclude the diagnosis of myocardial injury or necrosis; Clinical correlation (symptoms, EKGs, imaging studies, and others) required; Repeat in 4-6 hours if clinically indicated. ? Equal or Higher than 0.121 ng/mL---Abnormal. Myocardial Injury or Necrosis Likely ? Biotin has been reported to cause a negative bias, interpret results relative to patient's use of biotin. ? Lab Interpretation Abnormal (test code = 63334-0) [facility]. METABOLIC PANEL (34018)2019-12-25 11:10:00 Test Item Value Reference Range Interpretation Comments NA (test code = 134 mmol/L 135-145 L 6408794390) K (test code = 4.7 mmol/L 3.5-5 3905396058) CL (test code = 103 mmol/L 98-108 4250618857) CO2 TOTAL (test code = 23 mmol/L 23-31 4844032513) AGAP (test code = 2-16 2131178617) BUN (test code = 21 mg/dL 7-23 9944446965) GLUCOSE (test code = 131 mg/dL 70-110 H 2975997261) CREATININE (test code = 0.85 mg/dL 0.6-1.25 9234091503) TOTAL BILI (test code = 0.9 mg/dL 0.1-1.3 8303808110) CALCIUM (test code = 8.4 mg/dL 8.6-10.6 L 8793602313) T PROTEIN (test code = 6.7 g/dL 6.3-8.2 6062875820) ALBUMIN (test code = 3.1 g/dL 3.5-5 L 4142111235) ALK PHOS (test code = 86 U/L 34-122 9830936866) ALTv (test code = 43 U/L 5-50 1742-6) AST(SGOT) (test code = 45 U/L 13-40 H 5308806545) eGFR Calculation mL/min/1.73m2 (Non-) (test code = 2387126559) eGFR Calculation mL/min/1.73m2 () (test code = 0199471077) MARLEN (test code = MARLEN) Association of Glomerular Filtration Rate (GFR) and Staging of Kidney Disease* + --+ --+ ------+| GFR (mL/min/1.73 m2) ?| With Kidney Damage ?| ?Without Kidney Damage+ --------+ --------+ +| ?>90 ?| ?Stage one ?| ? Normal ?+ ---+ ---+ -------+| ?60-89 ?| ?Stage two ?| ? Decreased GFR ? + --+ --+ ------+| ?30-59 ?| ?Stage three ?| ? Stage three ? + --+ --+ ------+| ?15-29 ?| ?Stage four ? | ? Stage four ?+ ---+ ---+ -------+| ?<15 (or dialysis) ? ?| ?Stage five ? | ? Stage five ?+ ---+ ---+ -------+ *Each stage assumes the associated GFR level has been in effect for at least three months. ?Stages 1 to 5, with or without kidney disease, indicate chronic kidney disease. Notes: Determination of stages one and two (with eGFR >59mL/min/1.73 m2) requires estimation of kidney damage for at least three months as defined by structural or functional abnormalities of the kidney, manifested by either:Pathological abnormalities or Markers of kidney damage (including abnormalities in the composition of the blood or urine or abnormalities in imaging tests). Lab Interpretation Abnormal (test code = 15663-2) [facility] / [id number] 11:03:00 Test Item Value Reference Range Interpretation Comments PROTIME PATIENT (test See_Comment H [Auto mated message] code = 5964-2) The system Prox[employer] ich generated this result transmitted ref erence range: 12.0 - 1 4.7 Seconds. The reference range was not used to int erpret this result as normal/abnormal . INR (test code = 6301-6) Nor mal INR <1.1; Warfarin Therap eutic range 2.0 to 3. 0 or 2.5 to 3.5, dep ending upon the indica tions. Lab Interpretation (test Abnormal code = 17588-9) [facility] WITH [id number] 10:55:00 Test Item Value Reference Range Interpretation Comments WBC (test code = See_Comment H [Automated 6690-2) message] The system which generated this result transmit vashti reference range : 4.20 - 10.70 10*3/?L. The reference range was not used to interpret this result as normal/abnormal . RBC (test code = See_Comment [Automated 789-8) message] The system which generated this result transmit vashti reference range : 4.26 - 5.52 10*6/?L. The reference range was not used to interpret this result as normal/abnormal . HGB (test code = 15.3 g/dL 12.2-16.4 718-7) HCT (test code = 44.8 % 38.4-49.3 4544-3) MCV (test code = 89.2 fL 81.7-95.6 787-2) MCH (test code = 30.5 pg 26.1-32.7 785-6) MCHC (test code = 34.2 g/dL 31.2-35 786-4) RDW-SD (test code = 42.2 fL 38.5-51.6 00902-6) RDW-CV (test code = 13.0 % 12.1-15.4 788-0) PLT (test code = See_Comment [Automated 777-3) message] The system which generated this result transmit vashti reference range : 150 - 328 10*3/ ?L. The reference range was not u sed to interpret th is result as normal/abnormal . MPV (test code = 11.5 fL 9.8-13 30728-4) NRBC/100 WBC (test See_Comment [Automat ed code = 8545857190) message] The system which generated this result transmit vashti reference range : 0.0 - 10.0 /100 WBCs. The reference range was not used to interpret this result as normal/abnormal . NRBC x10^3 (test code <0.01 See_Comment [Auto mated = 8958250100) message] The system which generated this result transmit vashti reference range : 10*3/?L. The reference range was not used to interpret this result as normal/abnormal . GRAN MAT (NEUT) % 90.6 % (test code = 770-8) IMM GRAN % (test code 1.80 % = 3864719929) LYMPH % (test code = 4.3 % 736-9) MONO % (test code = 2.8 % 5905-5) EOS % (test code = 0.3 % 713-8) BASO % (test code = 0.2 % 706-2) GRAN MAT x10^3(ANC) 10.36 10*3/uL 1.99-6.95 H (test code = 1345962795) IMM GRAN x10^3 (test 0.21 10*3/uL 0-0.06 H code = 8193129976) LYMPH x10^3 (test code 0.49 10*3/uL 1.09-3.23 L = 731-0) MONO x10^3 (test code 0.32 10*3/uL 0.36-1.02 L = 742-7) EOS x10^3 (test code = 0.03 10*3/uL 0.06-0.53 L 711-2) BASO x10^3 (test code <0.03 0.01-0.09 = 704-7) Lab Interpretation Abnormal (test code = 01207-2) [id number] 02:10:00 Test Item Value Reference Interpretation Comments Range D-DIMER (test code = See_Comment H [Autom ated 9075611847) message] The system which generated this result transmitted reference range : <0.41 ?g/mL (FEU). The reference range was not used to interpret this result as normal/abnormal . MARLEN (test code = This test may be MARLEN) used in conjunction with a clinical pretest probability (PTP) assessment model to exclude venous thromboembolism (VTE) in patients suspected of deep venous thrombosis (DVT) and pulmonary embolism (PE) A D-Dimer value less than 0.50 ?g/ml (FEU) has a negative predicative value of 96 to 100% (95% CI)and 97 to 100% (95% CI) as an aid in the diagnosis of deep vein thrombosis (DVT) and pulmonary embolism when there is low or moderate pretest probability of PE or DVT. D-Dimer values are expressed in initial fibrinogen equivalent units (FEU)" The assay results should be used with other information, including the clinical context, in forming a diagnosis. Lab Interpretation Abnormal (test code = 67289-2) [facility]2019-12-25 01:05:00 Test Item Value Reference Range Interpretation Comments POCT GLU (test code = 9816201924) 204 mg/dL 70-110 H Lab Interpretation (test code = Abnormal 54078-1) [facility] GLUCOSE (AUTOMATED)2019-12-24 17:38:00 Test Item Value Reference Range Interpretation Comments POCT GLU (test code = 8967569469) 119 mg/dL 70-110 H Lab Interpretation (test code = Abnormal 94635-5) [facility] GLUCOSE (AUTOMATED)2019-12-24 17:38:00 Test Item Value Reference Range Interpretation Comments POCT GLU (test code = 5594468864) 146 mg/dL 70-110 H Lab Interpretation (test code = Abnormal 48359-1) [facility] GLUCOSE (AUTOMATED)2019-12-24 17:38:00 Test Item Value Reference Range Interpretation Comments POCT GLU (test code = 4339417531) 150 mg/dL 70-110 H Lab Interpretation (test code = Abnormal 85189-6) [facility]PROT[facility] / [id number] 14:26:00 Test Item Value Reference Range Interpretation Comments PROTIME PATIENT (test See_Comment H [Auto mated message] code = 5964-2) The system wh ich generated this result transmitted ref erence range: 12.0 - 1 4.7 Seconds. The reference range was not used to int erpret this result as normal/abnormal . INR (test code = 6301-6) Nor mal INR <1.1; Warfarin Therap eutic range 2.0 to 3. 0 or 2.5 to 3.5, dep ending upon the indica tions. Lab Interpretation (test Abnormal code = 30545-9) [facility] WITH [id number] 13:36:00 Test Item Value Reference Range Interpretation Comments WBC (test code = See_Comment H [Automated 6690-2) message] The system which generated this result transmit vashti reference range : 4.20 - 10.70 10*3/?L. The reference range was not used to interpret this result as normal/abnormal . RBC (test code = See_Comment [Automated 789-8) message] The system which generated this result transmit vashti reference range : 4.26 - 5.52 10*6/?L. The reference range was not used to interpret this result as normal/abnormal . HGB (test code = 15.2 g/dL 12.2-16.4 718-7) HCT (test code = 44.4 % 38.4-49.3 4544-3) MCV (test code = 89.0 fL 81.7-95.6 787-2) MCH (test code = 30.5 pg 26.1-32.7 785-6) MCHC (test code = 34.2 g/dL 31.2-35 786-4) RDW-SD (test code = 42.2 fL 38.5-51.6 28420-6) RDW-CV (test code = 12.9 % 12.1-15.4 788-0) PLT (test code = See_Comment [Automated 777-3) message] The system which generated this result transmit vashti reference range : 150 - 328 10*3/ ?L. The reference range was not u sed to interpret th is result as normal/abnormal . MPV (test code = 11.9 fL 9.8-13 37237-0) NRBC/100 WBC (test See_Comment [Automat ed code = 5772283170) message] The system which generated this result transmit vashti reference range : 0.0 - 10.0 /100 WBCs. The reference range was not used to interpret this result as normal/abnormal . NRBC x10^3 (test code <0.01 See_Comment [Auto mated = 2697999568) message] The system which generated this result transmit vashti reference range : 10*3/?L. The reference range was not used to interpret this result as normal/abnormal . GRAN MAT (NEUT) % 88.5 % (test code = 770-8) IMM GRAN % (test code 2.20 % = 8456971909) LYMPH % (test code = 5.0 % 736-9) MONO % (test code = 4.1 % 5905-5) EOS % (test code = 0.0 % 713-8) BASO % (test code = 0.2 % 706-2) GRAN MAT x10^3(ANC) 13.03 10*3/uL 1.99-6.95 H (test code = 2802930150) IMM GRAN x10^3 (test 0.32 10*3/uL 0-0.06 H code = 8992635602) LYMPH x10^3 (test code 0.74 10*3/uL 1.09-3.23 L = 731-0) MONO x10^3 (test code 0.61 10*3/uL 0.36-1.02 = 742-7) EOS x10^3 (test code = <0.03 0.06-0.53 L 711-2) BASO x10^3 (test code 0.03 10*3/uL 0.01-0.09 = 704-7) Lab Interpretation Abnormal (test code = 12419-0) [facility] [id number] 12:33:00 Test Item Value Reference Range Interpretation Comments TROPONIN I (test 0.276 ng/mL See_Comment H [Automated code = 8052570161) message] The system which generated this result transmitted reference range : <=0.034. The reference range was not used to interpret this result as normal/abnormal . MARLEN (test code = Equal or Less than MARLEN) 0.034 ng/ml---Normal ?Note: Cardiac troponin begins to rise 3-4 hours after the onset of ischemia. Repeat in 4-6 hours if the sample was drawn within 3-4 hours of the onset of the symptom and found normal. Between 0.035 and 0.120 ng/mL--- Borderline. Questionable myocardial injury or necrosis ? ?Note: Serial measurement may be necessary to confirm or exclude the diagnosis of myocardial injury or necrosis; Clinical correlation (symptoms, EKGs, imaging studies, and others) required; Repeat in 4-6 hours if clinically indicated. ? Equal or Higher than 0.121 ng/mL---Abnormal. Myocardial Injury or Necrosis Likely ? Biotin has been reported to cause a negative bias, interpret results relative to patient's use of biotin. ? Lab Interpretation Abnormal (test code = 08019-5) [facility]OLIC PAN[facility] (02120)2019-12-24 11:59:00 Test Item Value Reference Range Interpretation Comments NA (test code = 134 mmol/L 135-145 L 4317419167) K (test code = 5.3 mmol/L 3.5-5 H 8903836370) CL (test code = 107 mmol/L 98-108 3040988115) CO2 TOTAL (test code = 20 mmol/L 23-31 L 6687964662) AGAP (test code = 2-16 0473326775) BUN (test code = 24 mg/dL 7-23 H 4883720475) GLUCOSE (test code = 130 mg/dL 70-110 H 9492495804) CREATININE (test code = 0.76 mg/dL 0.6-1.25 0515661761) TOTAL BILI (test code = 0.9 mg/dL 0.1-1.3 0956318704) CALCIUM (test code = 8.3 mg/dL 8.6-10.6 L 7506818465) T PROTEIN (test code = 5.8 g/dL 6.3-8.2 L 3597708899) ALBUMIN (test code = 2.7 g/dL 3.5-5 L 2137678151) ALK PHOS (test code = 73 U/L 34-122 2686613873) ALTv (test code = 44 U/L 5-50 1742-6) AST(SGOT) (test code = 56 U/L 13-40 H 0652521001) eGFR Calculation mL/min/1.73m2 (Non-) (test code = 9383403026) eGFR Calculation mL/min/1.73m2 () (test code = 6960476348) MARLEN (test code = MARLEN) Association of Glomerular Filtration Rate (GFR) and Staging of Kidney Disease* + --+ --+ ------+| GFR (mL/min/1.73 m2) ?| With Kidney Damage ?| ?Without Kidney Damage+ --------+ --------+ +| ?>90 ?| ?Stage one ?| ? Normal ?+ ---+ ---+ -------+| ?60-89 ?| ?Stage two ?| ? Decreased GFR ? + --+ --+ ------+| ?30-59 ?| ?Stage three ?| ? Stage three ? + --+ --+ ------+| ?15-29 ?| ?Stage four ? | ? Stage four ?+ ---+ ---+ -------+| ?<15 (or dialysis) ? ?| ?Stage five ? | ? Stage five ?+ ---+ ---+ -------+ *Each stage assumes the associated GFR level has been in effect for at least three months. ?Stages 1 to 5, with or without kidney disease, indicate chronic kidney disease. Notes: Determination of stages one and two (with eGFR >59mL/min/1.73 m2) requires estimation of kidney damage for at least three months as defined by structural or functional abnormalities of the kidney, manifested by either:Pathological abnormalities or Markers of kidney damage (including abnormalities in the composition of the blood or urine or abnormalities in imaging tests). Lab Interpretation Abnormal (test code = 60466-9) [facility] GLUCOSE (AUTOMATED)2019-12-24 01:08:00 Test Item Value Reference Range Interpretation Comments POCT GLU (test code = 7145540336) 271 mg/dL 70-110 H Lab Interpretation (test code = Abnormal 54979-3) [facility] GLUCOSE (AUTOMATED)2019-12-23 22:13:00 Test Item Value Reference Range Interpretation Comments POCT GLU (test code = 8577795805) 231 mg/dL 70-110 H Lab Interpretation (test code = Abnormal 08183-6) [facility] HospitalGlycosylated Hemoglobin (A1C)2019-12-23 18:17:00 Test Item Value Reference Range Interpretation Comments HGB A1C (test code = 7.5 % 4-6 H 4548-4) MARLEN (test code = MARLEN) %A1C (NGSP) Interpretation (ADA)4.8-5.6 ? ? Normal or (Non-Diabetic Range)5.7-6.4 ? ? Increased Risk (Pre-Diabetic)>6.5 ?Diabetes Indicated Lab Interpretation Abnormal (test code = 28237-8) [facility] GLUCOSE (AUTOMATED)2019-12-23 15:28:00 Test Item Value Reference Range Interpretation Comments POCT GLU (test code = 1042808160) 120 mg/dL 70-110 H Lab Interpretation (test code = Abnormal 62832-2) [facility] GLUCOSE (AUTOMATED)2019-12-23 15:06:00 Test Item Value Reference Range Interpretation Comments POCT GLU (test code = 9685265498) 109 mg/dL 70-110 Lab Interpretation (test code = Normal 62194-5) [facility]OL[facility] PAN[facility] (35437)2019-12-23 14:07:00 Test Item Value Reference Range Interpretation Comments NA (test code = 133 mmol/L 135-145 L 3984697160) K (test code = 5.3 mmol/L 3.5-5 H Slight 2684563066) hemolysis CL (test code = 108 mmol/L 98-108 9891300926) CO2 TOTAL (test code 19 mmol/L 23-31 L = 7347212970) AGAP (test code = 2-16 1269822298) BUN (test code = 17 mg/dL 7-23 Slight 7145149313) hemolysis GLUCOSE (test code = 94 mg/dL 70-110 3953290734) CREATININE (test code 0.69 mg/dL 0.6-1.25 = 9211364431) TOTAL BILI (test code 1.1 mg/dL 0.1-1.1 = 4718551559) CALCIUM (test code = 8.1 mg/dL 8.6-10.6 L 8418871608) T PROTEIN (test code 6.1 g/dL 6.3-8.2 L = 9173013692) ALBUMIN (test code = 2.8 g/dL 3.5-5 L 6291450500) ALK PHOS (test code = 70 U/L 34-122 Slight 4990521492) hemolysis ALTv (test code = 54 U/L 5-50 H 1742-6) AST(SGOT) (test code 79 U/L 13-40 H Slight = 5654042498) hemolysis eGFR Calculation mL/min/1.73m2 (Non-) (test code = 5070603164) eGFR Calculation mL/min/1.73m2 () (test code = 3856589257) MARLEN (test code = MARLEN) Association of Glomerular Filtration Rate (GFR) and Staging of Kidney Disease* + -----+ --------+ +| GFR (mL/min/1.73 m2) ?| With Kidney Damage ?| ?Without Kidney Damage+ +------- +---- --+| ?>90 ?| ?Stage one ?| ? Normal ?+ ------+ ---------+--------- +| ?60-89 ?| ?Stage two ?| ? Decreased GFR ? + -----+ --------+ +| ?30-59 ?| ?Stage three ?| ? Stage three ? + -----+ --------+ +| ?15-29 ?| ?Stage four ? | ? Stage four ?+ ------+ ---------+--------- +| ?<15 (or dialysis) ? ?| ?Stage five ? | ? Stage five ?+ ------+ ---------+--------- + *Each stage assumes the associated GFR level has been in effect for at least three months. ?Stages 1 to 5, with or without kidney disease, indicate chronic kidney disease. Notes: Determination of stages one and two (with eGFR >59mL/min/1.73 m2) requires estimation of kidney damage for at least three months as defined by structural or functional abnormalities of the kidney, manifested by either:Pathological abnormalities or Markers of kidney damage (including abnormalities in the composition of the blood or urine or abnormalities in imaging tests). Lab Interpretation Abnormal (test code = 38233-0) [facility] WITH [id number] 13:46:00 Test Item Value Reference Range Interpretation Comments WBC (test code = See_Comment [Automated 6799-2) message] The sy stem which generated this result transmitted reference range : 4.20 - 10.70 10*3/?L. The reference range was not used to interpret this result as normal/abnormal . RBC (test code = See_Comment [Automated 412-8) message] The sy stem which generated this result transmitted reference range : 4.26 - 5.52 10*6/?L. The reference range was not used to interpret this result as normal/abnormal . HGB (test code = 15.7 g/dL 12.2-16.4 718-7) HCT (test code = 46.4 % 38.4-49.3 4544-3) MCV (test code = 90.1 fL 81.7-95.6 787-2) MCH (test code = 30.5 pg 26.1-32.7 785-6) MCHC (test code = 33.8 g/dL 31.2-35 786-4) RDW-SD (test code = 43.0 fL 38.5-51.6 54907-7) RDW-CV (test code = 13.1 % 12.1-15.4 788-0) PLT (test code = See_Comment [Automated 777-3) message] The sy stem which generated this result transmitted reference range : 150 - 328 10*3/ ?L. The reference r sawyer was not used to interpret this result as normal/abnormal . MPV (test code = 11.4 fL 9.8-13 53184-8) NRBC/100 WBC (test See_Comment [Automat ed code = 9392705242) message] The system which generated this result transmitted reference range : 0.0 - 10.0 /100 WBCs. The refer ence range was not u sed to interpret th is result as normal/abnormal . NRBC x10^3 (test code <0.01 See_Comment [Auto mated = 3067934080) message] The s ystem which generated this result transmitted reference range : 10*3/?L. The reference range was not used to interpret this result as normal/abnormal . GRAN MAT (NEUT) % 84.2 % (test code = 770-8) IMM GRAN % (test code 3.90 % = 4704234154) LYMPH % (test code = 6.2 % 736-9) MONO % (test code = 5.2 % 5905-5) EOS % (test code = 0.1 % 713-8) BASO % (test code = 0.4 % 706-2) GRAN MAT x10^3(ANC) 8.33 10*3/uL 1.99-6.95 H (test code = 0521395292) IMM GRAN x10^3 (test 0.39 10*3/uL 0-0.06 H code = 0777399713) LYMPH x10^3 (test code 0.61 10*3/uL 1.09-3.23 L = 731-0) MONO x10^3 (test code 0.51 10*3/uL 0.36-1.02 = 742-7) EOS x10^3 (test code = <0.03 0.06-0.53 L 711-2) BASO x10^3 (test code 0.04 10*3/uL 0.01-0.09 = 704-7) TOXIC CHANGES (test Present A code = 803-7) Lab Interpretation Abnormal (test code = 56066-7) [facility] GLUCOSE (AUTOMATED)2019-12-23 10:33:00 Test Item Value Reference Range Interpretation Comments POCT GLU (test code = 0538678108) 49 mg/dL 70-110 LL Lab Interpretation (test code = Abnormal 28710-7) [facility] GLUCOSE (AUTOMATED)2019-12-23 10:33:00 Test Item Value Reference Range Interpretation Comments POCT GLU (test code = 0299942303) 78 mg/dL 70-110 Lab Interpretation (test code = Normal 77049-5) [facility] [id number] 06:27:00 Test Item Value Reference Range Interpretation Comments LACTIC ACID (test code = 2.00 mmol/L 0.5-2.2 8405362055) Lab Interpretation (test code = Normal 38894-3) [facility] NOW RAPID TESTING)2019-12-23 05:29:00 Test Item Value Reference Range Interpretation Comments SARS-CoV-2 Rapid ID NOW Positive Not Detected A (test code = 73210-6) MARLEN (test code = MARLEN) ID NOW COVID-19 Assay is an isothermal nucleic acid amplification test intended for the qualitative detection of nucleic acid from SARS-CoV-2 viral RNA in nasopharyngeal ([employer]) specimens. It is used under Emergency Use Authorization (EUA) by FDA. The limit of detection (LOD) of the assay is 125 Genome Equivalents/mL. A positive result is indicative of the presence of SARS-CoV-2 RNA. ?Clinical correlation with patient history and other diagnostic information is necessary to determine patient infection status. A negative (Not Detected) result does not preclude SARS-CoV-2 infection. In patients with clinical symptoms and other tests that are consistent with SARS-CoV-2 infection, negative results should be treated as presumptive negative and a new specimen should be tested with alternative PCR molecular test. Invalid: Please collect a new specimen for repeat patient testing if clinically indicated. Lab Interpretation Abnormal (test code = 25473-3) [facility] GLUCOSE (AUTOMATED)2019-12-23 05:20:00 Test Item Value Reference Range Interpretation Comments POCT GLU (test code = 8962704333) 60 mg/dL 70-110 L Lab Interpretation (test code = Abnormal 82185-8) [facility]2019-12-23 03:57:00 Test Item Value Reference Range Interpretation Comments POCT GLU (test code = 7347534123) 112 mg/dL 70-110 H Lab Interpretation (test code = Abnormal 85321-1) [facility] 1 VW [id number] 03:22:36 Patchy airspace and interstitial abnormality involving the mid and lowerlung lazaro concerning for atypical infection such as Covid 19. Disclaimer: Generally, the findings on chest imaging in COVID-19are notspecific, and overlap with other infections, including influenza, H1N1,SARS and MERS.According to the Centers for Disease Control (CDC) and the [place] [employer], viral testing remains the only specific method of diagnosiseven if CXR or CT findings are suggestive of COVID-19. PROCEDURE: CHEST XRAY , CLINICAL INDICATION: covid COMPARISON: None available. FINDINGS: Lungs: Suboptimal inspiratory resulting in bronchovascular crowding andscattered subsegmental atelectasis. Additional pat marian areas of airspaceopacity within mid and lower lung lazaro are concerning for infectiousprocess including atypical etiology such as Covid 19. Pleura: No pleural effusion or pneumothorax is seen. Theheart is normal in size. CABG and sternotomy changes. Surgical clipsalso project over the left epigastrium. No acute bony abnormality. [facility], Radiant Results Inft User - 12/22/2019 10:23 PM CDTPROCEDURE: CHEST XRAY , CLINICAL INDICATION: covid COMPARISON: None available.FINDINGS:Lungs: Suboptimal inspiratory resulting in bronchovascular crowding andscattered subsegmental atelectasis. Additional patchyareas of airspaceopacity within mid and lower lung lazaro are concerning for infectiousprocess including atypical etiology such as Covid 19.Pleura: No pleural effusion or pneumothorax is seen. The heart is normal in size. CABG and sternotomy changes. Surgical clipsalso project over the left epigastrium.No acute bony abnormality.IMPRESSIONPatchy airspace and interstitial abnormality involving the mid and lowerlung lazaro concerning for atypical infection such as Covid 19.Disclaimer: Generally, the findings on chest imaging in COVID-19 are notspecific, and overlap with other infections, including influenza, H1N1,SARS and MERS.According to the Centers for Disease Control (CDC) and the [employer] [employer], viral testing remains the only specific method of diagnosiseven if CXR or CT findings are suggestive of COVID-19.[facility] HospitalN-TERMINAL [id number] 03:19:00 Test Item Value Reference Range Interpretation Comments NT-proBNP (test code 1910 pg/mL See_Comment H [Autom ated = 1570854375) message] The system which generated this result transmitted reference range : <=125. The reference range was not used to interpret this result as normal/abnormal . MARLEN (test code = MARLEN) Biotin has been reported to cause a negative bias, interpret results relative to patient's use of biotin. Lab Interpretation Abnormal (test code = 75912-4) [facility] HospitalPROTHROMBIN [facility] / [id number] 03:10:00 Test Item Value Reference Range Interpretation Comments PROTIME PATIENT (test See_Comment [Auto mated message] code = 5964-2) The system wh ich generated this result transmitted ref erence range: 12.0 - 1 4.7 Seconds. The re ference range was not u sed to interpret this result as normal/abnor mal. INR (test code = 6301-6) Nor mal INR <1.1; Warfarin Therap eutic range 2.0 to 3. 0 or 2.5 to 3.5, dep ending upon the indica tions. Lab Interpretation (test Normal code = 33993-5) [facility] HospitalaPTT2020-07-28 03:09:00 Test Item Value Reference Range Interpretation Comments APTT Patient (test See_Comment [Automat ed code = 3173-2) message] The system which generated this result transmitted reference range : 23 - 38 Seconds . The reference range was not used to interpr et this result as normal/abnormal . MARLEN (test code = MARLEN) The [facility] patient population mean normal value for aPTT is 30 seconds. Lab Interpretation Normal (test code = 26716-5) [facility] HospitalCBC WITH [id number] 03:07:00 Test Item Value Reference Range Interpretation Comments WBC (test code = See_Comment H [Automated 6690-2) message] The sy stem which generated this result transmitted reference range : 4.20 - 10.70 10*3/?L. The reference range was not used to interpret this result as normal/abnormal . RBC (test code = See_Comment H [Automated 789-8) message] The sy stem which generated this result transmitted reference range : 4.26 - 5.52 10*6/?L. The reference range was not used to interpret this result as normal/abnormal . HGB (test code = 17.7 g/dL 12.2-16.4 H 718-7) HCT (test code = 50.8 % 38.4-49.3 H 4544-3) MCV (test code = 87.1 fL 81.7-95.6 787-2) MCH (test code = 30.4 pg 26.1-32.7 785-6) MCHC (test code = 34.8 g/dL 31.2-35 786-4) RDW-SD (test code = 40.7 fL 38.5-51.6 60773-0) RDW-CV (test code = 13.1 % 12.1-15.4 788-0) PLT (test code = See_Comment H [Automated 777-3) message] The sy stem which generated this result transmitted reference range : 150 - 328 10*3/ ?L. The reference r sawyer was not used to interpret this result as normal/abnormal . MPV (test code = 11.2 fL 9.8-13 63838-5) NRBC/100 WBC (test See_Comment [Automat ed code = 5648495511) message] The system which generated this result transmitted reference range : 0.0 - 10.0 /100 WBCs. The refer ence range was not u sed to interpret th is result as normal/abnormal . NRBC x10^3 (test code See_Comment [Auto mated = 6555212574) message] The s ystem which generated this result transmitted reference range : 10*3/?L. The reference range was not used to interpret this result as normal/abnormal . GRAN MAT (NEUT) % 84.8 % (test code = 770-8) IMM GRAN % (test code 2.70 % = 2065511853) LYMPH % (test code = 5.2 % 736-9) MONO % (test code = 7.0 % 5905-5) EOS % (test code = 0.0 % 713-8) BASO % (test code = 0.3 % 706-2) GRAN MAT x10^3(ANC) 9.88 10*3/uL 1.99-6.95 H (test code = 3991334841) IMM GRAN x10^3 (test 0.31 10*3/uL 0-0.06 H code = 9754744109) LYMPH x10^3 (test code 0.60 10*3/uL 1.09-3.23 L = 731-0) MONO x10^3 (test code 0.82 10*3/uL 0.36-1.02 = 742-7) EOS x10^3 (test code = <0.03 0.06-0.53 L 711-2) BASO x10^3 (test code 0.04 10*3/uL 0.01-0.09 = 704-7) Lab Interpretation Abnormal (test code = 31122-3) [facility] HospitalKAYA [id number] 03:01:00 Test Item Value Reference Range Interpretation Comments TROPONIN I (test 0.561 ng/mL See_Comment H [Automated code = 0680827485) message] The system which generated this result transmitted reference range : <=0.034. The reference range was not used to interpret this result as normal/abnormal . MARLEN (test code = Equal or Less than MARLEN) 0.034 ng/ml---Normal ?Note: Cardiac troponin begins to rise 3-4 hours after the onset of ischemia. Repeat in 4-6 hours if the sample was drawn within 3-4 hours of the onset of the symptom and found normal. Between 0.035 and 0.120 ng/mL--- Borderline. Questionable myocardial injury or necrosis ? ?Note: Serial measurement may be necessary to confirm or exclude the diagnosis of myocardial injury or necrosis; Clinical correlation (symptoms, EKGs, imaging studies, and others) required; Repeat in 4-6 hours if clinically indicated. ? Equal or Higher than 0.121 ng/mL---Abnormal. Myocardial Injury or Necrosis Likely ? Biotin has been reported to cause a negative bias, interpret results relative to patient's use of biotin. ? Lab Interpretation Abnormal (test code = 60845-6) [facility] HospitalCOM. METABOLIC PANEL (75131)2019-12-23 02:57:00 Test Item Value Reference Range Interpretation Comments NA (test code = 134 mmol/L 135-145 L 1501091699) K (test code = 4.6 mmol/L 3.5-5 6301876337) CL (test code = 103 mmol/L 98-108 0289606611) CO2 TOTAL (test code = 21 mmol/L 23-31 L 8726971252) AGAP (test code = 2-16 3838247304) BUN (test code = 17 mg/dL 7-23 5643164842) GLUCOSE (test code = 47 mg/dL 70-110 LL 3645157597) CREATININE (test code = 0.98 mg/dL 0.6-1.25 4127769237) TOTAL BILI (test code = 1.5 mg/dL 0.1-1.1 H 3574953960) CALCIUM (test code = 9.4 mg/dL 8.6-10.6 7959436242) T PROTEIN (test code = 8.4 g/dL 6.3-8.2 H 9735704757) ALBUMIN (test code = 4.1 g/dL 3.5-5 0591527404) ALK PHOS (test code = 109 U/L 34-122 8682302213) ALTv (test code = 73 U/L 5-50 H 1742-6) AST(SGOT) (test code = 101 U/L 13-40 H 4070578332) eGFR Calculation mL/min/1.73m2 (Non-) (test code = 0269111313) eGFR Calculation mL/min/1.73m2 () (test code = 5424319261) MARLEN (test code = MARLEN) Association of Glomerular Filtration Rate (GFR) and Staging of Kidney Disease* + --+ --+ ------+| GFR (mL/min/1.73 m2) ?| With Kidney Damage ?| ?Without Kidney Damage+ --------+ --------+ +| ?>90 ?| ?Stage one ?| ? Normal ?+ ---+ ---+ -------+| ?60-89 ?| ?Stage two ?| ? Decreased GFR ? + --+ --+ ------+| ?30-59 ?| ?Stage three ?| ? Stage three ? + --+ --+ ------+| ?15-29 ?| ?Stage four ? | ? Stage four ?+ ---+ ---+ -------+| ?<15 (or dialysis) ? ?| ?Stage five ? | ? Stage five ?+ ---+ ---+ -------+ *Each stage assumes the associated GFR level has been in effect for at least three months. ?Stages 1 to 5, with or without kidney disease, indicate chronic kidney disease. Notes: Determination of stages one and two (with eGFR >59mL/min/1.73 m2) requires estimation of kidney damage for at least three months as defined by structural or functional abnormalities of the kidney, manifested by either:Pathological abnormalities or Markers of kidney damage (including abnormalities in the composition of the blood or urine or abnormalities in imaging tests). Lab Interpretation Abnormal (test code = 52026-4) [facility] HospitalLIPASE, [id number] 02:49:00 Test Item Value Reference Range Interpretation Comments LIPASE (test code = 2597855252) 156 U/L 0-220 Lab Interpretation (test code = Normal 77315-1) [facility] HospitalABG+COOX+NA+K+GLU+CA2+2019-12-23 02:42:00 Test Item Value Reference Range Interpretation Comments PH (test code = 2) 7.35-7.45 H PCO2 (test code = See_Comment L [Automate d message] 7357076058) The system Parse generated this result transmit vashti reference range : 35 - 45 mmHg. The reference range was not used to interpret this result as normal/abnormal . PO2 (test code = See_Comment [Automated message] 4866627858) The system Parse generated this result transmit vashti reference range : 80 - 100 mmHg. The reference range was not used to interpret this result as normal/abnormal . HCO3 (test code = See_Comment L [Automate d message] 1396490701) The system [employer]ue generated this result transmit vashti reference range : 22 - 26 mEq/L. The reference range was not used to interpret this result as normal/abnormal . BE (test code = See_Comment L [Automated message] 3666463806) The system Parse generated this result transmit vashti reference range : -3.0 - 3.0 mEq/ L. The reference r sawyer was not used to interpret this result as normal/abnormal . THB (test code = 16.9 g/dL 13.5-18 4934005741) %O2HB (test code = 96.0 % 94-99 7925232411) %COHB ART (test code = 0.5 % 0-1.5 7058107722) %METHB ART (test code = 0.3 % 0.4-1.5 L 1438067265) VOL%O2 ART (test code = 22.8 % 15-23 4944226000) NA (test code = 131 mmol/L 135-145 L 3317639835) K+ (test code = 4.3 mmol/L 3.5-5 0578660159) AC CA IONZ (test code = 4.80 mg/dL 4.5-5.3 4709376842) GLUCOSE (test code = 36 mg/dL 70-110 LL 8656080907) Lab Interpretation Abnormal (test code = 28855-1) [facility] HospitalLactic Acid Whole [id number] 02:38:00 Test Item Value Reference Range Interpretation Comments LACTIC ACID (test code = 2.31 mmol/L 2764759404) [facility]
--- NOTE | 2022-04-24 14:33 | RAD REPORT ---
EXAM DESCRIPTION: RAD - Chest Single View - 04/24/2022 2:26 pm CLINICAL HISTORY: CHEST PAIN COMPARISON: Chest Single View dated 12/16/2019; Chest Single View dated 10/21/2015 FINDINGS: Lines: None. Lungs: No evidence of edema or pneumonia. Pleural: No significant pleural effusions or pneumothorax. Cardiac: Cardiomegaly. Sternotomy. Mediastinum: Within normal limits. Bones: No acute fractures. Other: None IMPRESSION: No acute cardiopulmonary disease.
--- NOTE | 2022-04-24 15:38 | EDPHYS ---
Physician Documentation [facility] Name: Bowen Laureano Age: 66 yrs Sex: Male : 1955 Arrival Date: 04/24/2022 Time: 13:52 Bed External Waiting Private MD: ED Physician Te Lomax HPI: 04/24 14:49 This 66 yrs old Male presents to ER via Unassigned with complaints of Chest snw Pain. 14:49 Onset: The symptoms/episode began/occurred acutely. Associated signs and symptoms: snw Pertinent positives: chest pain. Modifying factors:. The patient has experienced similar episodes in the past. The patient has been recently seen by a physician: the patient's primary care provider, Pt came from [place] and does not wish to be seen in ED. Pt states he was just supposed to get labs. - Unable to obtain history due to: does not wish to answer. ROS: 14:50 Unable to obtain ROS due to pt does not wish to answer. snw Exam: 14:50 Constitutional: This is a well developed, well nourished patient who is awake, alert, snw and in no acute distress. Head/Face: Normocephalic, atraumatic. Eyes: Pupils equal round and reactive to light, extra-ocular motions intact. Lids and lashes normal. Conjunctiva and sclera are non-icteric and not injected. Cornea within normal limits. Periorbital areas with no swelling, redness, or edema. Back: No spinal tenderness. No costovertebral tenderness. Full range of motion. Skin: Warm, dry with normal turgor. Normal color with no rashes, no lesions, and no evidence of cellulitis. MS/ Extremity: Pulses equal, no cyanosis. Neurovascular intact. Full, normal range of motion. Neuro: Awake and alert, GCS 15, oriented to person, place, time, and situation. Cranial nerves II-XII grossly intact. Motor strength 5/5 in all extremities. Sensory grossly intact. Cerebellar exam normal. Normal gait. 14:50 Special observations: pt does not appear to be in any distress, states he just wants labs drawn. pt states he feels fine and will talk to [facility]. MDM: 14:49 Patient medically screened. snw 14:53 Data reviewed: [facility] paperwork. snw 04/24 14:13 Order name: XRAY Chest (1 view); Complete Time: 14:44 ms3 04/24 14:13 Order name: EKG; Complete Time: 14:14 ms3 04/24 14:13 Order name: Labs collected and sent ms3 04/24 14:13 Order name: O2 Per Protocol ms3 04/24 14:13 Order name: O2 Sat Monitoring ms3 Administered Medications: 14:45 CANCELLED (Patient Refused): Aspirin Chewable Tablet 324 mg PO once; 81 mg tablets x 4 snw Disposition: 14:38 Pt does not wish to be seen in ED. Pt went to [place] this am and thought he was coming to snw have labs performed. I told him I would be happy to evaluate him and do his workup from the ED. Pt states, "I am fine and don't want to be seen in the ER". Pt declines labs or ER eval. 19:14 Co-signature as Attending Physician, Te Lomax DO I was immediately available on-site ms3 in the Emergency Department for consultation in the care of the patient.. Disposition Summary: 04/24/22 15:38 Discharge Ordered Location: Home snw Condition: Stable snw Diagnosis - Encounter for screening, unspecified snw Followup: snw - With: Emergency Department - When: As needed - Reason: Worsening of condition Followup: snw - With: Private Physician - When: Today - Reason: Recheck today's complaints, Continuance of care, Re-evaluation by your physician Forms: - Medication Reconciliation Form snw - Thank You Letter snw - Antibiotic Education snw - Prescription Opioid Use snw Signatures: Dispatcher [employer] EDMS Lorena Moore FNP-C BRAKE REPAIR MECHANIC-Csnw Te Lomax DO DO ms3 Corrections: (The following items were deleted from the chart) 14:45 14:13 Aspirin Chewable Tablet 324 mg PO once; 81 mg tablets x 4 ordered. ms3 snw 14:45 14:13 Cardiac monitoring ordered. ms3 snw 14:45 14:13 EKG - Nurse/Tech ordered. ms3 snw 14:45 14:13 IV Saline Lock ordered. ms3 snw
--- NOTE | 2022-04-24 15:38 | ER ---
Nurse's Notes [facility] Name: Bowen Laureano Age: 66 yrs Sex: Male : 1955 Arrival Date: 04/24/2022 Time: 13:52 Bed External Waiting Private MD: Diagnosis: Encounter for screening, unspecified - Unable to obtain history due to: does not wish to answer. Assessment: 04/24 15:00 Reassessment: called to triage no answer, unable to locate patient. ss 15:29 Reassessment: pt did not answer when called. iw 16:04 Reassessment: Pt seen by ERIKA Carrillo and not triaged by RN. ss ED Course: 13:52 Patient arrived in ED. mr 14:27 XRAY Chest (1 view) In Process Unspecified. EDMS 14:31 Lorena Moore FNP-C is PHCP. snw 14:31 Te Lomax DO is Attending Physician. snw 15:37 No provider procedures requiring assistance completed. Patient did not have IV access ss during this emergency room visit. Administered Medications: 14:45 CANCELLED (Patient Refused): Aspirin Chewable Tablet 324 mg PO once; 81 mg tablets x 4 snw Outcome: 15:38 Discharge ordered by MD. snw 16:04 Patient left the ED. Signatures: Dispatcher [employer] EDMS Lorena Moore FNP-C COAL SAMPLE TESTER-Andrew BrandenAgueda Irene, JEANIE WARE iw Candice Null RN RN ss
== END 2022-04-24 16:04 | disposition home or self-care (01) ==
LOC: ER 13:49
DX: R07.9 Chest pain, unspecified (principal)
CPT/HCPCS: 71045; 99282